=== PATIENT | female | born 1965 | race Caucasian/White ===

== ENCOUNTER → 2018-03-01 14:13 | Outpatient (REF) | payer OTHER, SELFPAY ==
--- NOTE | 2018-03-01 13:30 | PAPFT_PTH ---
PATIENT: Charline Dunham LOC: [facility] U#:[id number] AGE/SX: 60/F ROOM: RE03/01/[address]: Suasna Mesa : 1965 BED: DIS: SPEC #: [id number] RECD: 03/02/18 12:50 STATUS: SUSAN MILLER #: [id number] LUIS: 03/01/18 13:[address]: Susana Mesa DEPT: [facility] Cytology RECD BY: Christelle Medel ENTERED: 03/02/18 12:51 SP TYPE: PAPFT OTHR DR: Celina Jolly Tissues: 1 - CX/ENDOCX FOR PAP SMEARS Procedures: PAP THIN PREP/UVM Screening HPV DNA PROBE Comments: [id number]
[2018-03-01 21:01] LABS: Abs Immature Grans 0.02 k/cumm (0.0-0.09); Absolute Basophil Count 0.02 k/cumm (0.0-0.2); Absolute Eosinophil Count 0.15 k/cumm (0.0-0.7); Absolute Lymphocyte Count 2.06 k/cumm (1.2-3.4); Absolute Monocyte Count 0.59 k/cumm (0.11-0.7); Absolute Neutrophil Count 4.02 k/cumm (1.2-6.7); Basophils % 0.3; Eosinophils % 2.2; HCT 40.7 % (36.0-46.0); HGB 13.4 g/dL (12.0-15.5); Immature Grans % 0.3; Mean Corp. HGB Concentration 32.9 g/dL (32.0-36.0); Mean Corpuscular Hemoglobin 26.2 pg (27.0-33.0); Mean Corpuscular Volume 79.6 fL (80-95); Mean Platelet Volume 10.2 fL (8.0-11.0); Monocytes % 8.6; Neutrophils % 58.6; Platelet Count 344 x1000/uL (130-400); RBC 5.11 m/cumm (4.00-5.20); White Blood Cell Count 6.86 k/cumm (4.4-10.8)
[2018-03-01 21:16] LABS: Anion Gap 8.2 mmol/L (3-11); BUN 14 mg/dL (7-18); C-Reactive Protein 2.09 mg/dL (0.0-0.3); CO2 26.8 mmol/L (21.0-32.0); CREATININE 0.58 mg/dL (0.55-1.02); Calcium 8.9 mg/dL (8.5-10.1); Chloride 101 mmol/L (98-107); Glucose 79 mg/dL (70-100); Potassium 3.4 mmol/L (3.5-5.1); Sodium 136 mmol/L (136-145); TSH (W/Ref FT4) 0.96 uIU/mL (0.358-3.74)
[2018-03-01 21:56] LABS: ESR 21 MM/HR (0-30)
[2018-03-03 09:56] LABS: Cyclic Citrullinated Peptide <2.5 U/mL (<5.0); Rheumatoid Factor 27 IU/mL (<12.5)
[2018-03-03 12:13] LABS: Hepatitis C Ab w Rflx HCV PCR Negative (NEGAT)
[2018-03-03 13:12] LABS: Lyme Ab w Rflx to Lyme Confirm Negative
== END ==
LOC: NCHCN 14:13
PROVIDERS: Visit Provider Nurse Practitioner Family
DX: Z00.00 Encounter for general adult medical examination without abnormal findings (principal); I10 Essential (primary) hypertension; N95.1 Menopausal and female climacteric states; M25.50 Pain in unspecified joint; M19.90 Unspecified osteoarthritis, unspecified site; E66.01 Morbid (severe) obesity due to excess calories; Z80.3 Family history of malignant neoplasm of breast; J30.1 Allergic rhinitis due to pollen; Z11.59 Encounter for screening for other viral diseases; Z12.4 Encounter for screening for malignant neoplasm of cervix; Z11.51 Encounter for screening for human papillomavirus (HPV)
CPT/HCPCS: 80048; 85652; 86200; 86803; 88142; 84443; 85025; 86140; 86431; 86618; 87624

== ENCOUNTER 2018-03-03 08:52 | Outpatient (REF) | payer OTHER, SELFPAY ==
[2018-03-04 14:59] LABS: ANA Interpretation Positive (NEGAT); ANA Titer Pattern SEE COMMENTS
== END 2018-03-03 08:53 ==
LOC: NCHCN 08:52
PROVIDERS: Visit Provider Nurse Practitioner Family
DX: M25.50 Pain in unspecified joint (principal)
CPT/HCPCS: 86038

== ENCOUNTER 2018-03-28 00:42 | Outpatient (CLI) | payer OTHER, SELFPAY ==
--- NOTE | 2018-03-28 07:55 | DI.MAMMO_ITS ---
SYMPTOM/DIAGNOSIS: SCREENING, Z12.31 MAMMOGRAMS: Mammograms were interpreted according to the usual protocol including computer analysis with CAD system, tomosynthesis and C view imaging. Comparison is made with prior examinations. Breast density, category B. No masses or microcalcifications are seen. There is nothing to suggest malignancy. IMPRESSION: Negative mammogram. Routine screening is recommended. Category 1. MQSA ASSESSMENT OF FINDINGS: Negative. Category 1. Patient will receive a letter notifying them of these results. BI-RADS category B. There are scattered areas of fibroglandular density.
== END 2018-03-28 01:02 ==
PROVIDERS: Visit Provider Nurse Practitioner Family
DX: Z12.31 Encounter for screening mammogram for malignant neoplasm of breast (principal)
CPT/HCPCS: 77063; 77067

== ENCOUNTER 2018-10-03 02:01 | Outpatient (CLI) | payer BC, SELFPAY ==
[2018-10-03 08:56] LABS: HCT 41.3 % (36.0-46.0); HGB 13.7 g/dL (12.0-15.5); Mean Corp. HGB Concentration 33.2 g/dL (32.0-36.0); Mean Corpuscular Hemoglobin 26.6 pg (27.0-33.0); Mean Platelet Volume 9.6 fL (8.0-11.0); Platelet Count 317 x1000/uL (130-400); RBC 5.16 m/cumm (4.00-5.20); RBC Distribution Width 14.2 % (11.7-14.6); White Blood Cell Count 6.54 k/cumm (4.4-10.8)
[2018-10-03 09:35] LABS: ESR 7 MM/HR (0-30)
[2018-10-03 09:37] LABS: ALT 17 U/L (12-78); AST 15 U/L (15-37); Albumin 3.6 g/dL (3.4-5.0); Alkaline Phosphatase 106 U/L (46-116); Anion Gap 10.1 mmol/L (3-11); BUN 12 mg/dL (7-18); Bilirubin, Total 0.3 mg/dL (0.2-1.0); C-Reactive Protein 1.33 mg/dL (0.0-0.3); CO2 28.9 mmol/L (21.0-32.0); CREATININE 0.57 mg/dL (0.55-1.02); Calcium 8.8 mg/dL (8.5-10.1); Chloride 102 mmol/L (98-107); Glucose 88 mg/dL (70-100); Potassium 3.9 mmol/L (3.5-5.1); Sodium 141 mmol/L (136-145); Total Protein 7.5 g/dL (6.4-8.2)
== END 2018-10-03 02:21 ==
PROVIDERS: Visit Provider Internal Medicine Rheumatology
DX: M05.79 Rheumatoid arthritis with rheumatoid factor of multiple sites without organ or systems involvement (principal); Z79.899 Other long term (current) drug therapy
CPT/HCPCS: 36415; 80053; 85027; 85652; 86140

== ENCOUNTER 2019-02-07 15:03 | Outpatient (REF) | payer BC, SELFPAY ==
[2019-02-07 22:42] LABS: ALT 21 U/L (12-78); AST 14 U/L (15-37); Albumin 3.7 g/dL (3.4-5.0); Alkaline Phosphatase 99 U/L (46-116); Anion Gap 7.5 mmol/L (3-11); BUN 15 mg/dL (7-18); Bilirubin, Total 0.3 mg/dL (0.2-1.0); C-Reactive Protein 1.43 mg/dL (0.0-0.3); CO2 29.5 mmol/L (21.0-32.0); CREATININE 0.59 mg/dL (0.55-1.02); Calcium 8.9 mg/dL (8.5-10.1); Chloride 101 mmol/L (98-107); Glucose 112 mg/dL (70-100); Potassium 3.8 mmol/L (3.5-5.1); Sodium 138 mmol/L (136-145); Total Protein 7.9 g/dL (6.4-8.2)
[2019-02-07 22:54] LABS: Abs Immature Grans 0.01 k/cumm (0.0-0.09); Absolute Basophil Count 0.02 k/cumm (0.0-0.2); Absolute Eosinophil Count 0.19 k/cumm (0.0-0.7); Absolute Monocyte Count 0.53 k/cumm (0.11-0.7); Absolute Neutrophil Count 4.55 k/cumm (1.2-6.7); Basophils % 0.3; Eosinophils % 2.5; HCT 40.8 % (36.0-46.0); HGB 13.5 g/dL (12.0-15.5); Immature Grans % 0.1; Lymphocytes % 29.3; Mean Corp. HGB Concentration 33.1 g/dL (32.0-36.0); Mean Corpuscular Hemoglobin 27.5 pg (27.0-33.0); Mean Corpuscular Volume 83.1 fL (80-95); Mean Platelet Volume 10.3 fL (8.0-11.0); Monocytes % 7.1; Neutrophils % 60.7; Platelet Count 388 x1000/uL (130-400); RBC 4.91 m/cumm (4.00-5.20); RBC Distribution Width 14.2 % (11.7-14.6)
== END 2019-02-07 15:23 ==
LOC: NCHCN 15:03
PROVIDERS: Visit Provider Nurse Practitioner Family
DX: R78.89 Finding of other specified substances, not normally found in blood (principal); M05.69 Rheumatoid arthritis of multiple sites with involvement of other organs and systems; Z79.899 Other long term (current) drug therapy
CPT/HCPCS: 80053; 85025; 86140

== ENCOUNTER 2019-06-19 09:09 | Outpatient (REF) | payer BC, SELFPAY ==
[2019-06-19 11:26] LABS: Abs Immature Grans 0.02 k/cumm (0.0-0.09); Absolute Basophil Count 0.02 k/cumm (0.0-0.2); Absolute Eosinophil Count 0.12 k/cumm (0.0-0.7); Absolute Monocyte Count 0.48 k/cumm (0.11-0.7); Absolute Neutrophil Count 2.84 k/cumm (1.2-6.7); Basophils % 0.4; Eosinophils % 2.5; HCT 39.3 % (36.0-46.0); HGB 13.2 g/dL (12.0-15.5); Immature Grans % 0.4; Lymphocytes % 28.7; Mean Corp. HGB Concentration 33.6 g/dL (32.0-36.0); Mean Corpuscular Hemoglobin 28.2 pg (27.0-33.0); Mean Platelet Volume 9.7 fL (8.0-11.0); Monocytes % 9.8; Neutrophils % 58.2; Platelet Count 318 x1000/uL (130-400); RBC 4.68 m/cumm (4.00-5.20); RBC Distribution Width 14.6 % (11.7-14.6); White Blood Cell Count 4.88 k/cumm (4.4-10.8)
[2019-06-19 11:29] LABS: ALT 24 U/L (14-59); AST 22 U/L (15-37); Albumin 3.9 g/dL (3.4-5.0); Alkaline Phosphatase 89 U/L (46-116); Anion Gap 9.3 mmol/L (3-11); BUN 15 mg/dL (7-18); Bilirubin, Total 0.5 mg/dL (0.2-1.0); CO2 30.7 mmol/L (21.0-32.0); CREATININE 0.58 mg/dL (0.55-1.02); Calcium 9.1 mg/dL (8.5-10.1); Calculated LDL 133 mg/dL; Chloride 103 mmol/L (98-107); Cholesterol 200 mg/dL (<200); Glucose 84 mg/dL (74-106); HDL Cholesterol 48 mg/dL (40-60); Potassium 3.9 mmol/L (3.5-5.1); Sodium 143 mmol/L (136-145); Total Protein 7.5 g/dL (6.4-8.2); Triglyceride 95 mg/dL (<150)
[2019-06-19 11:45] LABS: Bilirubin, Direct 0.14 mg/dL (0.00-0.20)
[2019-06-19 13:00] LABS: Hemoglobin A1C 5.2 % (4.5-6.2)
== END 2019-06-19 09:29 ==
LOC: NCHCN 09:09
PROVIDERS: PCP Nurse Practitioner Family; Visit Provider Nurse Practitioner Family
DX: I10 Essential (primary) hypertension (principal); M05.9 Rheumatoid arthritis with rheumatoid factor, unspecified; E66.01 Morbid (severe) obesity due to excess calories
CPT/HCPCS: 80053; 80061; 80076; 83036; 85025

== ENCOUNTER 2019-07-28 01:00 | Outpatient (CLI) | payer BC, SELFPAY ==
--- NOTE | 2019-07-28 09:00 | DI.MAMMO_ITS ---
EXAM: MAMMO SCREENING CLINICAL HISTORY: SCREENING Z12.31 TECHNIQUE: Mammograms were interpreted according to the usual protocol including computer analysis w [employer] CAD system, tomosynthesis and C-view imaging. COMPARISON: March 2018 FINDINGS: The breasts are of moderate density with fairly symmetrical distribution of fibroglandular tissue. N o dominant mass or clumped microcalcification is identified in either breast. Current examination is compared with previous examinations including March 2018 and there has been question of interval increase in prominence of a retroareolar asymmetric radiodensity of the right breast seen on CC view with some question of architectural distortion since the previous study. No other significant ranodlph e seen. Additional mammographic views of the right breast to include CC spot compression view reques bladimir for further evaluation. IMPRESSION: Additional mammographic views of the right breast requested as described above. Breast ultrasound may be indicated as well depending on results of the additional mammographic views. Category 0, breast d ensity category B. BI-RADS Cat 0 - Assessment Incomplete: Need additional imaging evaluation Breast Density - Category B - Scattered areas of fibroglandular density
== END 2019-07-28 01:20 ==
PROVIDERS: PCP Nurse Practitioner Family; Visit Provider Nurse Practitioner Family
DX: Z12.31 Encounter for screening mammogram for malignant neoplasm of breast (principal); R92.8 Other abnormal and inconclusive findings on diagnostic imaging of breast
CPT/HCPCS: 77063; 77067

== ENCOUNTER 2019-08-07 06:15 | Day surgery (SDC) | payer BC, SELFPAY ==
[2019-08-07 06:20] VITALS: BP 137/91; PULSE 77; RESP 12; TEMP 36.5; O2SAT 97
--- NOTE | 2019-08-07 06:27 | W.COLOREPORT ---
Date of service: 08/07/19 Time of Service: 07:29 Colonoscopy Report Date of procedure: 08/07/19 Pre-op diagnosis general: Hx of polyps Post-op diagnosis procedure note: same (small polyp, diverticulosis and Grade 1 internal hemorrhoids) Procedure: Colonoscopy with polypectomy Surgeon: Marifer Morris Anesthesia proc note operative: other (General/ ASA 2/Jr Schultz CRNA ) Estimated blood loss (mL): 3 Pathology: other (Transverse polyp) Complications: None Disposition: same day Indications: Mrs. Jesus is a pleasant 54 year old female who is here today to discuss a Colonoscopy. Her last Colonoscopy was in 2013 and at that time she was noted to have a tortuous colon and one adenomatous polyp at the hepatic flexure. She has no family history of colon cancer. She denies any melena, hematochezia, abdominal pain, unintentional weight loss or changes in bowel habits. Risks, benefits and complications have been reviewed. Complications include but are not limited to bleeding, pain, perforation, missed small lesion/polyp, sore throat, aspiration and adverse reaction to the medications. Questions were entertained and answered to their satisfaction and they wished to proceed. No guarantees were given or implied. Prep: Miralax/Dulcolax Procedure Start Time: :29 Procedure End Time: 08:01 Retraction Time: 24 minutes Findings: One small benign polyp Mild sigmoid diverticulosis Grade 1 internal hemorrhoids Procedure Description: After informed consent was obtained the patient was taken to the procedure room and placed in a left decubitous position. Monitors were applied and a time out was done. The patients name, date of , procedure, allergies to medications and metal in their body was reviewed. The patient was then sedated. Once sedated and comfortable a rectal exam was done. External exam was normal. Internal exam revealed a normal sphincter tone and no palpable masses. The scope was then introduced and retro-flexed. Grade 1 internal hemorrhoids were identified. No polyps or masses were identified on retro-flexion. The scope was then advanced to the cecum without difficulty. The TI and appendiceal orifice were identified. The prep was adequate. The scope was then slowly retracted over 24 minutes back into the rectum. Polyps were removed with cold forceps in the transverse colon. It looked hyperplastic. There was mild diverticulosis of the sigmoid colon. The scope was removed and the patient was woken up and taken back to Same day surgery in stable condition. The patient tolerated the procedure well and there were no immediate complications. Follow up: The patient should follow up in 5 years unless they develop changes in bowel habits or other new gastrointestinal complaints.
--- NOTE | 2019-08-07 06:29 | W.PM.DSUDISC ---
Discharge Plan Disposition Patient Disposition: HOME Condition: Good Discharge Details Reason For Visit: Colon Cancer Screening Attending Provider: Marifer Morris Primary Care Provider: Susana Mesa Home Meds and New Rx's Prescriptions: Continued epinephrine [EpiPen 2-Jozef] 0.3 mg/0.3 mL auto-injector 0.3 mg IM ONCE RF: 0 folic acid 1 mg tablet 1 mg PO DAILY RF: 0 methotrexate sodium 25 mg/mL solution 8 mg SC QWEEK RF: 0 chlorthalidone 25 MG tablet 25 mg PO DAILY RF: 0 ibuprofen [Motrin IB] 200 MG tablet 200 mg PO PRN PRNRF: 0 ascorbic acid (vitamin C) 1,000 mg Tablet 1,000 mg PO DAILY RF: 0 Discharge Instructions Instructions: Diverticulosis (DC), Hemorrhoids (DC) Additional Instructions: Findings: 1 biopsy done of possible a small polyp 2. Diverticulosis 3. Small internal hemorrhoids Follow up: 5 years Please call if you develop: fevers >101.5 Nausea or Vomiting Abdominal pain that is not transient DAY SURGERY UNIT POST ENDOSCOPY INSTRUCTIONS 1. Because there will be medication in your system for the next 24 hours, you may feel a little sleepy. Your coordination will be affected. Therefore: a. Do not drive or operate dangerous equipment for 24 hours. b. Do not drink alcohol beverages for 24 hours (not even beer). c. Plan to go home and rest for the day. 2. Generally there are no restrictions on your activity after a day or so has gone by, but you may feel a bit fatigued for a few days. 3 After you arrive home you may have a light meal and return to a normal diet as you can tolerate it without feeling sick to your stomach. 4. After surgery, you may feel pain or discomfort. This should be only transient, but if it persists please contact your doctor. 5. If there are any questions regarding the findings of your procedure, please feel free to contact your doctor. 6. If you are unable to contact your doctor with a problem, contact the hospital at [phone]. 7. Continue all your regular medications unless directed otherwise. I understand the above instructions and have no questions. Signature of Patient or Responsible Adult Escort Date/Time Name of Responsible Adult Escort Signature of Nurse Date/Time Activity:: Activity as Tolerated Diet:: high fiber diet Discharge Orders Discharge Orders: Discharge Order (Routine); Ordered 08/07/19 Ordered By: Marifer Morris DS: Diagnosis Discharge Diagnosis (1) Internal hemorrhoids: Status: Acute (2) Diverticulosis large intestine w/o perforation or abscess w/o bleeding: Status: Acute
[2019-08-07] MEDS: Lactated Ringers 1,000 ML 80 ML IV (06:45)
--- NOTE | 2019-08-07 07:50 | BOWEL_PTH ---
PATIENT: Charline Dunham LOC: [facility] U#:[id number] AGE/SX: 54/F ROOM: RE08/07/[address]: Marifer Morris MD : 1965 BED: DIS: 08/07/2019 SPEC #: [id number] RECD: 08/07/19 12:38 STATUS: SUSAN REQ #: [id number] LUIS: 08/07/19 07:[address]: Marifer Morris DEPT: Surgical Specimen RECD BY: Christelle Medel ENTERED: 08/07/19 12:39 SP TYPE: Bowel OTHR DR: Susana Mesa Tissues: 1 - BIOPSY BOWEL Procedures: GROSS AND MICRO LEVEL 4 Comments: [id number]
[2019-08-07 08:26] VITALS: BP 103/66; PULSE 61; RESP 12; TEMP 36.5; O2SAT 97
== END 2019-08-07 08:50 | disposition home or self-care (01) ==
PROVIDERS: PCP Nurse Practitioner Family; Visit Provider Surgery
PROC: 0DJD8ZZ Inspection of Lower Intestinal Tract, Via Natural or Artificial Opening Endoscopic (ICD-10-PCS; CPT 45378; principal; 2019-08-07 07:30)
DX: Z12.11 Encounter for screening for malignant neoplasm of colon (principal); K57.30 Diverticulosis of large intestine without perforation or abscess without bleeding; K64.0 First degree hemorrhoids; K63.5 Polyp of colon; I10 Essential (primary) hypertension; Z86.010 Personal history of colon polyps
CPT/HCPCS: 45380; 88305; J2704

== ENCOUNTER 2019-08-08 01:59 | Outpatient (CLI) | payer BC, SELFPAY ==
--- NOTE | 2019-08-08 09:26 | DI.US_ITS ---
EXAM: MG MAMMO SCREEN CALL BACK UNI and rt breast ultrasound CLINICAL HISTORY: ? INTERVAL INCREASE IN PROMINENCE OF RETROAREOLAR ASYMMETRIC RADIODENSITY, murali ectural distortion TECHNIQUE: Craniocaudal and mediolateral oblique Full Field Digital Mammography views of the right b reast with Computer Aided Diagnosis followed by Tomosynthesis and right breast ultrasound. COMPARISON: Priors available for comparison. FINDINGS: Mammography/Tomosynthesis: Masses/Architectural Distortion: None seen. Microcalcifictions: No suspicious pleomorphic-type are seen. Skin Thickening/Nipple Retraction: None. Right breast US: Echotexture: Normal appearance of the glandular tissue. Shadowing: No suspicious foci. Cyst: None. Solid lesions: None seen. Ductal dilation: None. IMPRESSION: 1. No evidence of malignancy is noted. 2. Unless there is more urgent need, follow-up screening mammography is recommended, as per [place] [employer] guidelines. ACR BI-RAD Category- 1 Negative Breast Density - Category B - Scattered areas of fibroglandular density Findings were discussed with the patient on the date of the examination. A negative radiographic report should not delay biopsy if a dominant or clinically suspicious mass is present. Up to ten percent of cancers are not identified on mammography. A negative report may reinforce clinical impression. Adenosis and dense breasts may obscure an underlying neoplasm. False positive reports average 6 to 10%. Patient will receive a letter notifying them of these results
== END 2019-08-08 02:19 ==
PROVIDERS: PCP Nurse Practitioner Family; Visit Provider Nurse Practitioner Family
DX: Z12.31 Encounter for screening mammogram for malignant neoplasm of breast (principal); R92.8 Other abnormal and inconclusive findings on diagnostic imaging of breast; N64.59 Other signs and symptoms in breast
CPT/HCPCS: 76642; 77063; 77067

== ENCOUNTER 2019-10-20 16:29 | Outpatient (REF) | payer BC, SELFPAY ==
[2019-10-20 20:57] LABS: Abs Immature Grans 0.01 k/cumm (0.0-0.09); Absolute Basophil Count 0.02 k/cumm (0.0-0.2); Absolute Eosinophil Count 0.18 k/cumm (0.0-0.7); Absolute Lymphocyte Count 2.05 k/cumm (1.2-3.4); Absolute Monocyte Count 0.81 k/cumm (0.11-0.7); Basophils % 0.3; Eosinophils % 2.5; HCT 39.1 % (36.0-46.0); Immature Grans % 0.1 %; Mean Corp. HGB Concentration 33.2 g/dL (32.0-36.0); Mean Corpuscular Volume 84.1 fL (80-95); Mean Platelet Volume 10.3 fL (8.0-11.0); Monocytes % 11.5; Neutrophils % 56.6; Platelet Count 352 x1000/uL (130-400); RBC 4.65 m/cumm (4.00-5.20); RBC Distribution Width 14.4 % (11.7-14.6); White Blood Cell Count 7.07 k/cumm (4.4-10.8)
[2019-10-20 21:07] LABS: ALT 21 U/L (14-59); AST 15 U/L (15-37); Albumin 3.9 g/dL (3.4-5.0); Alkaline Phosphatase 88 U/L (46-116); Anion Gap 8.8 mmol/L (3-11); BUN 20 mg/dL (7-18); Bilirubin, Total 0.4 mg/dL (0.2-1.0); C-Reactive Protein 0.88 mg/dL (0.0-0.3); CO2 29.2 mmol/L (21.0-32.0); CREATININE 0.77 mg/dL (0.55-1.02); Calcium 9.1 mg/dL (8.5-10.1); Chloride 103 mmol/L (98-107); Glucose 89 mg/dL (74-106); Potassium 3.8 mmol/L (3.5-5.1); Sodium 141 mmol/L (136-145); Total Protein 7.4 g/dL (6.4-8.2)
== END 2019-10-20 16:49 ==
LOC: NCHCN 16:29
PROVIDERS: PCP Nurse Practitioner Family; Visit Provider Nurse Practitioner Family
DX: M05.79 Rheumatoid arthritis with rheumatoid factor of multiple sites without organ or systems involvement (principal); Z79.899 Other long term (current) drug therapy
CPT/HCPCS: 80053; 85025; 86140

== ENCOUNTER 2020-06-17 16:18 | Outpatient (REF) | payer BC, SELFPAY ==
[2020-06-17 22:16] LABS: COMMENT (LAB VIEW ONLY) 47.51 mg/dL; Microalb ug/mg Crea 4.2 ug/mg Cr
== END 2020-06-17 16:38 ==
LOC: NCHCN 16:18
PROVIDERS: PCP Nurse Practitioner Family; Visit Provider Nurse Practitioner Family
DX: R31.21 Asymptomatic microscopic hematuria (principal)
CPT/HCPCS: 82043; 82570

== ENCOUNTER 2020-08-01 17:07 | Outpatient (REF) | payer BC, SELFPAY ==
[2020-08-01 20:46] LABS: Abs Immature Grans 0.02 10^3/uL (0.0-0.06); Absolute Basophil Count 0.04 10^3/uL (0.0-0.2); Absolute Eosinophil Count 0.14 10^3/uL (0.0-0.7); Absolute Lymphocyte Count 1.91 10^3/uL (1.2-3.4); Absolute Monocyte Count 0.73 10^3/uL (0.1-0.8); Absolute Neutrophil Count 4.93 10^3/uL (1.2-6.7); Basophils % 0.5; Eosinophils % 1.8; HCT 41.6 % (36.0-46.0); HGB 13.9 g/dL (11.2-15.7); Immature Grans % 0.3; Lymphocytes % 24.6; MCHC 33.4 % (32.0-36.0); MCV 83.9 fL (80-95); MPV 9.6 fL (8.0-11.0); Monocytes % 9.4; Neutrophils % 63.4; Nucleated RBC 0 %; Platelet Count 343 10^3/uL (130-400); RBC 4.96 10^6/uL (3.93-5.22); RDW 13.9 % (11.7-14.6); WBC 7.77 10^3/uL (4.4-10.8)
[2020-08-01 20:55] LABS: ALT 25 U/L (14-59); AST 17 U/L (15-37); Alkaline Phosphatase 108 U/L (46-116); Anion Gap 5.6 mmol/L (3-11); BUN 16 mg/dL (7-18); Bilirubin, Total 0.3 mg/dL (0.2-1.0); C-Reactive Protein 0.64 mg/dL (0.0-0.3); CO2 33.4 mmol/L (21.0-32.0); CREATININE 0.9 mg/dL (0.55-1.02); Calcium 8.9 mg/dL (8.5-10.1); Chloride 100 mmol/L (98-107); Glucose 88 mg/dL (74-106); Potassium 3.1 mmol/L (3.5-5.1); Sodium 139 mmol/L (136-145); Total Protein 7.6 g/dL (6.4-8.2)
== END 2020-08-01 17:27 ==
LOC: NCHCN 17:07
PROVIDERS: PCP Nurse Practitioner Family; Visit Provider Nurse Practitioner Family
DX: M05.79 Rheumatoid arthritis with rheumatoid factor of multiple sites without organ or systems involvement (principal); Z79.899 Other long term (current) drug therapy
CPT/HCPCS: 80053; 85025; 86140

== ENCOUNTER 2020-08-09 01:09 | Outpatient (CLI) | payer BC, SELFPAY ==
[2020-08-09 10:22] LABS: ALT 23 U/L (14-59); AST 16 U/L (15-37); Albumin 3.8 g/dL (3.4-5.0); Alkaline Phosphatase 100 U/L (46-116); Anion Gap 8.4 mmol/L (3-11); BUN 17 mg/dL (7-18); Bilirubin, Total 0.3 mg/dL (0.2-1.0); C-Reactive Protein 0.76 mg/dL (0.0-0.3); CO2 29.6 mmol/L (21.0-32.0); CREATININE 0.7 mg/dL (0.55-1.02); Calcium 8.4 mg/dL (8.5-10.1); Chloride 103 mmol/L (98-107); Glucose 97 mg/dL (74-106); Potassium 3.9 mmol/L (3.5-5.1); Sodium 141 mmol/L (136-145); Total Protein 7.3 g/dL (6.4-8.2)
[2020-08-09 10:26] LABS: Abs Immature Grans 0.02 10^3/uL (0.0-0.06); Absolute Basophil Count 0.03 10^3/uL (0.0-0.2); Absolute Eosinophil Count 0.13 10^3/uL (0.0-0.7); Absolute Lymphocyte Count 1.61 10^3/uL (1.2-3.4); Absolute Monocyte Count 0.68 10^3/uL (0.1-0.8); Absolute Neutrophil Count 4.43 10^3/uL (1.2-6.7); Basophils % 0.4; Eosinophils % 1.9; HCT 39.9 % (36.0-46.0); HGB 13.2 g/dL (11.2-15.7); Immature Grans % 0.3; Lymphocytes % 23.3; MCH 27.8 pg (27.0-33.0); MCHC 33.1 % (32.0-36.0); MCV 84.2 fL (80-95); MPV 9.9 fL (8.0-11.0); Monocytes % 9.9; Neutrophils % 64.2; Nucleated RBC 0 %; Platelet Count 309 10^3/uL (130-400); RBC 4.74 10^6/uL (3.93-5.22); RDW 13.9 % (11.7-14.6); RDW-SD 42.4 fL
[2020-08-12 10:40] LABS: Hepatitis C Ab w Rflx HCV PCR Negative (Negative)
[2020-08-12 10:48] LABS: HBs Antibody, Quant 373.4 mIU/mL (See Note); Hepatitis B Surface Ab Positive (See Note)
[2020-08-12 10:55] LABS: Hepatitis B Surface Ag Negative (Negative)
[2020-08-12 11:52] LABS: Hep B Core Antibody Negative (Negative)
[2020-08-12 14:32] LABS: TB Interpretation Negative (Negative)
== END 2020-08-09 01:10 | disposition home or self-care (01) ==
LOC: LBO 01:09
PROVIDERS: PCP Nurse Practitioner Family; Visit Provider Internal Medicine Rheumatology
DX: M05.79 Rheumatoid arthritis with rheumatoid factor of multiple sites without organ or systems involvement (principal); Z79.899 Other long term (current) drug therapy; Z11.59 Encounter for screening for other viral diseases
CPT/HCPCS: 36415; 80053; 86704; 86706; 86803; 87340; 85025; 86140; 86480; 87350

== ENCOUNTER 2020-08-09 02:10 | Outpatient (CLI) | payer BC, SELFPAY ==
--- NOTE | 2020-08-09 | DI.MAMMO_ITS ---
EXAM: MG MAMMO SCREENING CLINICAL HISTORY: SCREENING,Z12.31,FAMILY H/O BREAST CA,Z80.3 TECHNIQUE: Bilateral full field digital CC and MLO mammographic images were obtained with 3D tomosyn thesis and utilizing computer aided detection (CAD). COMPARISON: Available for comparison. FINDINGS: Masses/Architectural Distortion: None seen. Microcalcifications: No suspicious pleomorphic-type are seen. Skin Thickening/Nipple Retraction: None. IMPRESSION: 1. No significant interval change with no specific features of malignancy noted. 2. Unless there is more urgent need, screening mammography is recommended, as per [place] [employer] guidelines. BI-RADS Category 1 - Negative Breast Density - Category B - Scattered areas of fibroglandular density Breast density category C or D implies that the patient has dense breast tissue. Dense breast tissue is very common and is not abnormal but dense breast tissue can make it harder to find cancer on a ma mmogram. Also, dense breast tissue may increase their breast cancer risk. This information about the result of the mammogram report was provided to the patient to raise their awareness. Use this report when you speak with the patient about their risks for breast cancer, which includes their family hist ory. At that time, you may recommend for more screening tests (Ultrasound or MRI) as they might be us eful based on their risk. A negative radiographic report should not delay biopsy if a dominant or clinically suspicious mass is present. Up to ten percent of cancers are not identified on mammography. A negative report may reinforce clinical impression. Adenosis and dense breasts may obscure an underlying neoplasm. False positive reports average 6 to 10%. Patient will receive a letter notifying them of these results.
== END 2020-08-09 02:11 ==
LOC: DI 02:10
PROVIDERS: PCP Nurse Practitioner Family; Visit Provider Nurse Practitioner Family
DX: Z12.31 Encounter for screening mammogram for malignant neoplasm of breast (principal); Z80.3 Family history of malignant neoplasm of breast
CPT/HCPCS: 77063; 77067

== ENCOUNTER 2021-01-16 13:11 | Outpatient (REF) | payer BC, SELFPAY ==
[2021-01-16 20:57] LABS: Abs Immature Grans 0.03 10^3/uL (0.0-0.06); Absolute Basophil Count 0.03 10^3/uL (0.0-0.2); Absolute Eosinophil Count 0.09 10^3/uL (0.0-0.7); Absolute Monocyte Count 0.66 10^3/uL (0.1-0.8); Absolute Neutrophil Count 3.78 10^3/uL (1.2-6.7); Basophils % 0.4; Eosinophils % 1.3; HCT 39.6 % (36.0-46.0); HGB 13.2 g/dL (11.2-15.7); Immature Grans % 0.4; Lymphocytes % 35.3; MCH 28.1 pg (27.0-33.0); MCHC 33.3 % (32.0-36.0); MCV 84.3 fL (80-95); MPV 10.3 fL (8.0-11.0); Monocytes % 9.3; Neutrophils % 53.3; Nucleated RBC 0 %; Platelet Count 298 10^3/uL (130-400); RDW 13.6 % (11.7-14.6); RDW-SD 41.3 fL; WBC 7.09 10^3/uL (4.4-10.8)
[2021-01-16 21:22] LABS: ALT 20 U/L (14-59); AST 17 U/L (15-37); Albumin 4.1 g/dL (3.4-5.0); Alkaline Phosphatase 87 U/L (46-116); Anion Gap 8.6 mmol/L (3-11); BUN 12 mg/dL (7-18); Bilirubin, Total 0.5 mg/dL (0.2-1.0); CO2 28.4 mmol/L (21.0-32.0); CREATININE 0.7 mg/dL (0.55-1.02); Calcium 9.2 mg/dL (8.5-10.1); Chloride 103 mmol/L (98-107); Glucose 85 mg/dL (74-106); Potassium 3.4 mmol/L (3.5-5.1); Sodium 140 mmol/L (136-145); Total Protein 7.3 g/dL (6.4-8.2)
== END 2021-01-16 13:12 | disposition home or self-care (01) ==
LOC: NCHCN 13:11
PROVIDERS: PCP Nurse Practitioner Family; Visit Provider Nurse Practitioner Family
DX: E66.01 Morbid (severe) obesity due to excess calories (principal); I10 Essential (primary) hypertension; D12.6 Benign neoplasm of colon, unspecified; M05.79 Rheumatoid arthritis with rheumatoid factor of multiple sites without organ or systems involvement; K30 Functional dyspepsia; Z91.018 Allergy to other foods; Z80.3 Family history of malignant neoplasm of breast
CPT/HCPCS: 80053; 85025; 86140

== ENCOUNTER 2021-04-16 09:54 | Outpatient (REF) | payer BC, SELFPAY ==
[2021-04-16 14:19] LABS: Abs Immature Grans 0.02 10^3/uL (0.0-0.06); Absolute Basophil Count 0.03 10^3/uL (0.0-0.2); Absolute Eosinophil Count 0.16 10^3/uL (0.0-0.7); Absolute Lymphocyte Count 2.22 10^3/uL (1.2-3.4); Absolute Monocyte Count 0.62 10^3/uL (0.1-0.8); Absolute Neutrophil Count 3.87 10^3/uL (1.2-6.7); Basophils % 0.4; Eosinophils % 2.3; HCT 41.6 % (36.0-46.0); HGB 13.6 g/dL (11.2-15.7); Immature Grans % 0.3; Lymphocytes % 32.1; MCH 28.4 pg (27.0-33.0); MCHC 32.7 % (32.0-36.0); MCV 86.8 fL (80-95); MPV 10.1 fL (8.0-11.0); Neutrophils % 55.9; Nucleated RBC 0 %; Platelet Count 299 10^3/uL (130-400); RBC 4.79 10^6/uL (3.93-5.22); RDW 13.5 % (11.7-14.6); RDW-SD 42.9 fL; WBC 6.92 10^3/uL (4.4-10.8)
[2021-04-16 14:39] LABS: ALT 28 U/L (14-59); AST 20 U/L (15-37); Alkaline Phosphatase 89 U/L (46-116); Anion Gap 9.8 mmol/L (3-11); BUN 18 mg/dL (7-18); Bilirubin, Total 0.5 mg/dL (0.2-1.0); CO2 29.2 mmol/L (21.0-32.0); CREATININE 0.9 mg/dL (0.55-1.02); Calcium 8.9 mg/dL (8.5-10.1); Chloride 102 mmol/L (98-107); Glucose 87 mg/dL (74-106); Potassium 3.9 mmol/L (3.5-5.1); Sodium 141 mmol/L (136-145); Total Protein 7.4 g/dL (6.4-8.2)
== END 2021-04-16 09:55 | disposition home or self-care (01) ==
LOC: NCHCN 09:54
PROVIDERS: PCP Nurse Practitioner Family; Visit Provider Nurse Practitioner Family
DX: Z79.899 Other long term (current) drug therapy (principal); M05.9 Rheumatoid arthritis with rheumatoid factor, unspecified
CPT/HCPCS: 80053; 85025; 86140

== ENCOUNTER → 2021-10-15 01:13 | Outpatient (CLI) | payer BC, SELFPAY ==
--- NOTE | 2021-10-15 | DI.MAMMO_ITS ---
Exam(s) MAMMO SCREENING EXAM: MAMMO SCREENING CLINICAL HISTORY: SCREENING, Z12.31 TECHNIQUE: Mammograms were interpreted according to the usual protocol including computer analysis w [employer] CAD system, tomosynthesis and C-view imaging. COMPARISON: 2013 through 2020 FINDINGS: The breasts are composed of scattered fibroglandular densities, Breast Density category B. No suspicious masses or suspicious microcalcifications are seen. No skin thickening or abnormal axillary lymph nodes are seen. There has been no significant change from prior exams. IMPRESSION: BI-RADS Category 1, Negative mammogram Yearly screening mammography is recommended. Breast Density - Category B, scattered fibroglandular densities. A negative radiographic report should not delay biopsy if a dominant or clinically suspicious mass is present. Up to ten percent of cancers are not identified on mammography. A negative report may reinforce clinical impression. Adenosis and dense breasts may obscure an underlying neoplasm. False positive reports average 6 to 10%. Patient will receive a letter notifying them of these results.
== END ==
PROVIDERS: PCP Nurse Practitioner Family; Visit Provider Nurse Practitioner Family
DX: Z12.31 Encounter for screening mammogram for malignant neoplasm of breast (principal)
CPT/HCPCS: 77063; 77067

== ENCOUNTER 2022-02-17 18:23 | Outpatient (REF) | payer BC, SELFPAY ==
[2022-02-17 16:24] LABS: Abs Immature Grans 0.02 10^3/uL (0.0-0.06); Absolute Basophil Count 0.03 10^3/uL (0.0-0.2); Absolute Eosinophil Count 0.09 10^3/uL (0.0-0.7); Absolute Lymphocyte Count 1.98 10^3/uL (1.2-3.4); Absolute Monocyte Count 0.65 10^3/uL (0.1-0.8); Absolute Neutrophil Count 3.27 10^3/uL (1.2-6.7); Basophils % 0.5; Eosinophils % 1.5; HCT 41.7 % (36.0-46.0); HGB 13.8 g/dL (11.2-15.7); Immature Grans % 0.3; Lymphocytes % 32.8; MCH 28.2 pg (27.0-33.0); MCHC 33.1 % (32.0-36.0); MCV 85 fL (80-95); MPV 10.3 fL (8.0-11.0); Monocytes % 10.8; Neutrophils % 54.1; Platelet Count 298 10^3/uL (130-400); RBC 4.89 10^6/uL (3.93-5.22); RDW 13.8 % (11.7-14.6); RDW-SD 42.6 fL; WBC 6.04 10^3/uL (4.4-10.8)
[2022-02-17 16:47] LABS: ALT 26 U/L (14-59); AST 19 U/L (15-37); Alkaline Phosphatase 88 U/L (46-116); Anion Gap 9.6 mmol/L (3-11); BUN 16 mg/dL (7-18); Bilirubin, Total 0.5 mg/dL (0.2-1.0); CO2 31.4 mmol/L (21.0-32.0); CREATININE 0.7 mg/dL (0.55-1.02); Calculated LDL 132 mg/dL (<100); Chloride 100 mmol/L (98-107); Cholesterol 212 mg/dL (<200); Glucose 89 mg/dL (74-106); HDL Cholesterol 61 mg/dL (40-60); Potassium 3.8 mmol/L (3.5-5.1); Sodium 141 mmol/L (136-145); Total Protein 7.6 g/dL (6.4-8.2); Triglyceride 96 mg/dL (<150)
[2022-02-17 16:54] LABS: C-Reactive Protein 0.71 mg/dL (0.0-0.3)
== END 2022-02-17 18:24 | disposition home or self-care (01) ==
LOC: NCHCN 18:23
PROVIDERS: PCP Nurse Practitioner Family; Visit Provider Nurse Practitioner Family
DX: M05.9 Rheumatoid arthritis with rheumatoid factor, unspecified (principal); I10 Essential (primary) hypertension
CPT/HCPCS: 80053; 80061; 85025; 86140

== ENCOUNTER 2022-10-22 15:44 | Outpatient (REF) | payer BC, SELFPAY ==
--- NOTE | 2022-10-22 15:15 | PAPFT_PTH ---
PATIENT: Charline Dunham LOC: [facility]#:[id number] AGE/SX: 57/F ROOM: RE10/22/[address]: Susana Mesa : 1965 BED: DIS: 10/22/2022 SPEC #: [id number] RECD: 10/23/22 13:03 STATUS: SUSAN MILLER #: [id number] LUIS: 10/22/22 15:[address]: Susana Mesa [facility] Cytology RECD BY: Christelle Medel Tissues: 1 - CX/ENDOCX FOR PAP SMEARS Procedures: PAP THIN PREP/UVM Screening HPV DNA PROBE Comments: [id number]
[2022-10-22 21:10] LABS: Abs Immature Grans 0.03 10^3/uL (0.0-0.06); Absolute Basophil Count 0.04 10^3/uL (0.0-0.2); Absolute Eosinophil Count 0.15 10^3/uL (0.0-0.7); Absolute Lymphocyte Count 2.34 10^3/uL (1.2-3.4); Absolute Monocyte Count 0.87 10^3/uL (0.1-0.8); Absolute Neutrophil Count 5.66 10^3/uL (1.2-6.7); Basophils % 0.4; Eosinophils % 1.7; HCT 42.4 % (36.0-46.0); HGB 14.1 g/dL (11.2-15.7); Immature Grans % 0.3; Lymphocytes % 25.7; MCH 28.3 pg (27.0-33.0); MCHC 33.3 % (32.0-36.0); MCV 85 fL (80-95); MPV 10.3 fL (8.0-11.0); Monocytes % 9.6; Neutrophils % 62.3; Platelet Count 305 10^3/uL (130-400); RBC 4.98 10^6/uL (3.93-5.22); RDW 14.4 % (11.7-14.6); RDW-SD 43.5 fL; WBC 9.09 10^3/uL (4.4-10.8)
[2022-10-22 21:27] LABS: ALT 20 U/L (14-59); AST 16 U/L (15-37); Albumin 4.1 g/dL (3.4-5.0); Alkaline Phosphatase 95 U/L (46-116); Anion Gap 6.2 mmol/L (3-11); BUN 18 mg/dL (7-18); Bilirubin, Total 0.4 mg/dL (0.2-1.0); C-Reactive Protein 0.53 mg/dL (0.0-0.3); CO2 31.8 mmol/L (21.0-32.0); CREATININE 0.9 mg/dL (0.55-1.02); Calcium 9.4 mg/dL (8.5-10.1); Chloride 100 mmol/L (98-107); Estimated GFR 73.64 (mL/min/1.73m2); Glucose 101 mg/dL (74-106); Sodium 138 mmol/L (136-145)
[2022-10-22 21:35] LABS: Hemoglobin A1C 5.4 % (<5.7)
[2022-10-25 10:15] LABS: HIV-1/2 Ag & Ab Screen Negative (Negative)
== END 2022-10-22 15:45 | disposition home or self-care (01) ==
LOC: NCHCN 15:44
PROVIDERS: PCP Nurse Practitioner Family; Visit Provider Nurse Practitioner Family
DX: Z00.00 Encounter for general adult medical examination without abnormal findings (principal); M05.9 Rheumatoid arthritis with rheumatoid factor, unspecified; K30 Functional dyspepsia; E66.01 Morbid (severe) obesity due to excess calories; Z11.4 Encounter for screening for human immunodeficiency virus [HIV]; Z12.4 Encounter for screening for malignant neoplasm of cervix; R31.21 Asymptomatic microscopic hematuria; Z13.1 Encounter for screening for diabetes mellitus; Z11.51 Encounter for screening for human papillomavirus (HPV)
CPT/HCPCS: 80053; 87389; 88142; 83036; 85025; 86140; 87624

== ENCOUNTER 2022-10-28 01:08 | Outpatient (CLI) | payer BC, SELFPAY ==
--- NOTE | 2022-10-28 | DI.MAMMO_ITS ---
Exam(s) MAMMO SCREENING EXAM: MAMMO SCREENING CLINICAL HISTORY: SCREENING, Z12.31, FAMILY HX OF BREAST CA TECHNIQUE: Mammograms were interpreted according to the usual protocol including computer analysis w [employer] CAD system, tomosynthesis and C-view imaging. COMPARISON: [id number] FINDINGS: The breasts are composed of scattered fibroglandular densities, Breast Density category B. No suspicious masses or suspicious microcalcifications are seen. No skin thickening or abnormal axillary lymph nodes are seen. There has been no significant change from prior exams. IMPRESSION: BI-RADS Category 1, Negative mammogram Yearly screening mammography is recommended. Breast Density - Category B, scattered fibroglandular densities. A negative radiographic report should not delay biopsy if a dominant or clinically suspicious mass is present. Up to ten percent of cancers are not identified on mammography. A negative report may reinforce clinical impression. Adenosis and dense breasts may obscure an underlying neoplasm. False positive reports average 6 to 10%. Patient will receive a letter notifying them of these results.
== END 2022-10-28 01:28 ==
LOC: DI 01:09
PROVIDERS: PCP Nurse Practitioner Family; Visit Provider Nurse Practitioner Family
DX: Z12.31 Encounter for screening mammogram for malignant neoplasm of breast (principal)
CPT/HCPCS: 77063; 77067

== ENCOUNTER 2023-04-20 09:48 | Outpatient (REF) | payer BC, SELFPAY ==
[2023-04-20 16:04] LABS: Abs Immature Grans 0.01 10^3/uL (0.0-0.06); Absolute Basophil Count 0.03 10^3/uL (0.0-0.2); Absolute Eosinophil Count 0.16 10^3/uL (0.0-0.7); Absolute Monocyte Count 0.52 10^3/uL (0.1-0.8); Absolute Neutrophil Count 3.05 10^3/uL (1.2-6.7); Basophils % 0.6; HCT 43.5 % (36.0-46.0); HGB 14.3 g/dL (11.2-15.7); Immature Grans % 0.2; Lymphocytes % 28.5; MCH 27.9 pg (27.0-33.0); MCHC 32.9 % (32.0-36.0); MCV 85 fL (80-95); MPV 10.2 fL (8.0-11.0); Monocytes % 9.9; Neutrophils % 57.8; Platelet Count 306 10^3/uL (130-400); RBC 5.12 10^6/uL (3.93-5.22); RDW 13.7 % (11.7-14.6); RDW-SD 42.2 fL; WBC 5.27 10^3/uL (4.4-10.8)
[2023-04-20 16:35] LABS: ALT 27 U/L (14-59); AST 19 U/L (15-37); Alkaline Phosphatase 86 U/L (46-116); BUN 22 mg/dL (7-18); Bilirubin, Total 0.5 mg/dL (0.2-1.0); CREATININE 0.8 mg/dL (0.55-1.02); Calcium 9.7 mg/dL (8.5-10.1); Chloride 102 mmol/L (98-107); Estimated GFR 84.82 (mL/min/1.73m2); Glucose 100 mg/dL (74-106); Potassium 3.7 mmol/L (3.5-5.1); Sodium 140 mmol/L (136-145); Total Protein 7.5 g/dL (6.4-8.2)
== END 2023-04-20 09:49 | disposition home or self-care (01) ==
LOC: NCHCN 09:48
PROVIDERS: PCP Nurse Practitioner Family; Visit Provider Nurse Practitioner Family
DX: I10 Essential (primary) hypertension (principal); M05.79 Rheumatoid arthritis with rheumatoid factor of multiple sites without organ or systems involvement; K30 Functional dyspepsia; E66.01 Morbid (severe) obesity due to excess calories
CPT/HCPCS: 80053; 85025; 86140

== ENCOUNTER 2023-09-02 12:56 | Outpatient (REF) | payer BC, SELFPAY ==
[2023-09-02 14:29] LABS: Abs Immature Grans 0.01 10^3/uL (0.0-0.06); Absolute Basophil Count 0.03 10^3/uL (0.0-0.2); Absolute Eosinophil Count 0.18 10^3/uL (0.0-0.7); Absolute Lymphocyte Count 1.85 10^3/uL (1.2-3.4); Absolute Monocyte Count 0.74 10^3/uL (0.1-0.8); Absolute Neutrophil Count 2.87 10^3/uL (1.2-6.7); Basophils % 0.5; Eosinophils % 3.2; HCT 41.7 % (36.0-46.0); HGB 14.1 g/dL (11.2-15.7); Immature Grans % 0.2; Lymphocytes % 32.6; MCH 28.8 pg (27.0-33.0); MCHC 33.8 % (32.0-36.0); MCV 85 fL (80-95); Neutrophils % 50.5; Platelet Count 316 10^3/uL (130-400); RBC 4.89 10^6/uL (3.93-5.22); RDW 13.8 % (11.7-14.6); RDW-SD 42.4 fL; WBC 5.68 10^3/uL (4.4-10.8)
[2023-09-02 14:41] LABS: ALT 25 U/L (14-59); AST 16 U/L (15-37); Albumin 3.8 g/dL (3.4-5.0); Alkaline Phosphatase 89 U/L (46-116); Anion Gap 6.9 mmol/L (3-11); BUN 20 mg/dL (7-18); Bilirubin, Total 0.4 mg/dL (0.2-1.0); CO2 31.1 mmol/L (21.0-32.0); CREATININE 0.7 mg/dL (0.55-1.02); Calcium 8.8 mg/dL (8.5-10.1); Chloride 102 mmol/L (98-107); Estimated GFR 98.95 (mL/min/1.73m2); Glucose 86 mg/dL (74-106); Potassium 3.6 mmol/L (3.5-5.1); Sodium 140 mmol/L (136-145); Total Protein 7.2 g/dL (6.4-8.2)
[2023-09-02 14:42] LABS: C-Reactive Protein < 0.50 mg/dL (<or=0.5)
== END 2023-09-02 12:57 | disposition home or self-care (01) ==
LOC: NCHCN 12:56
PROVIDERS: PCP Nurse Practitioner Family; Visit Provider Nurse Practitioner Family
DX: Z79.899 Other long term (current) drug therapy (principal)
CPT/HCPCS: 80053; 85025; 86140

== ENCOUNTER 2023-10-18 10:31 | Outpatient (REF) | payer BC, SELFPAY ==
[2023-10-18 16:12] LABS: Bilirubin Negative (Negative); Blood Negative (Negative); Clarity Sl Cloudy (Clear); Glucose Negative (Negative); Ketones Negative (Negative); Leukocyte Esterase Small (Negative); Nitrite Negative (Negative); Urobilinogen 0.2 mg/dL (Up to 0.2)
[2023-10-18 16:36] LABS: COMMENT (LAB VIEW ONLY) 109.47 mg/dL; Microalb ug/mg Crea 13.2 ug/mg Cr
== END 2023-10-18 10:32 | disposition home or self-care (01) ==
LOC: NCHCN 10:31
PROVIDERS: PCP Nurse Practitioner Family; Visit Provider Nurse Practitioner Family
DX: I10 Essential (primary) hypertension (principal)
CPT/HCPCS: 81003; 82043; 82570

== ENCOUNTER 2023-11-18 13:52 | Outpatient (REF) | payer BC, SELFPAY ==
[2023-11-18 15:07] LABS: ESR 6 mm/hr (0-30)
[2023-11-18 15:37] LABS: ALT 29 U/L (14-59); AST 18 U/L (15-37); Albumin 4.1 g/dL (3.4-5.0); Alkaline Phosphatase 88 U/L (46-116); Anion Gap 8.8 mmol/L (3-11); BUN 21 mg/dL (7-18); Bilirubin, Total 0.6 mg/dL (0.2-1.0); CO2 31.2 mmol/L (21.0-32.0); CREATININE 0.7 mg/dL (0.55-1.02); Calcium 9.1 mg/dL (8.5-10.1); Calculated LDL 133 mg/dL (<100); Chloride 101 mmol/L (98-107); Cholesterol 228 mg/dL (<200); Estimated GFR 98.95 (mL/min/1.73m2); Glucose 83 mg/dL (74-106); HDL Cholesterol 69 mg/dL (40-60); Potassium 3.9 mmol/L (3.5-5.1); Sodium 141 mmol/L (136-145); Total Protein 7.3 g/dL (6.4-8.2); Triglyceride 134 mg/dL (<150)
[2023-11-18 15:49] LABS: C-Reactive Protein 0.73 mg/dL (<or=0.5)
== END 2023-11-18 13:53 | disposition home or self-care (01) ==
LOC: NCHCN 13:52
PROVIDERS: PCP Nurse Practitioner Family; Visit Provider Nurse Practitioner Family
DX: M05.9 Rheumatoid arthritis with rheumatoid factor, unspecified (principal); E66.01 Morbid (severe) obesity due to excess calories
CPT/HCPCS: 80053; 80061; 85652; 86140

== ENCOUNTER → 2024-02-04 00:35 | Outpatient (CLI) | payer BC, SELFPAY ==
--- OUTSIDE RECORDS SUMMARY | 2024-02-04 00:38 | XMS_ITS | Encounter Summary ---
Author Organization [facility] [place] [address] Care Team Providers Care Craps Manager Name Role Phone Moshe Susana Emeli HARRY Primary Care Provider [phone] Encounter Details Date Type Department Care Team (Late st Contact Info) Description 12/12/2019 12:00 PM EDT Tech [place] [id number] [place] Varicose veins of left lower extremity, unspecified whether complicated Social History Tobacco Use Types Packs/Day Years Used Date Smoking Tobacco: Never Smokeless Tobacco: Never Sex and Gender Information Value Date Recorded Sex Assigned at Not on file Gender Identity Not on file Sexual Orientation Not on file documented as of this encounter Plan of Treatment Not on file documented as of this encounter Procedures Procedure Name Priority Date/Time Associated Diagnosis Comments UNLATERAL VALVULAR INCOMP Routine 12/12/2019 8:56 AM EDT Varicose veins of left lower extremity, unspecified whether complicated documented in this encounter Results * LE Unilateral Valvular Incomp Study (12/12/2019 8:56 AM EDT) VB Text Report Department: Vascular Surgery Lab Patient: [id number] (CHARLINE RALPH) CPT: 44547 ICD10: I83.92;I87.2;L97. 329 Referring Physician: FORREST ALEJANDRE ?? Indications: L ankle ulcer with normal REBECCA Patient Positioning: Reverse Trendelenburg ICD10 Diagnosis Code: I83.92 Findings: Left ? Reflux? Diameter (mm) ??Depth (mm) ?? Common Femoral Vein ?Reflux ? Femoral Vein ? Competent ? Popliteal ?Competent ? Posterior Tibial Vein ??Not Identified ? GSV, Near SFJ ?Reflux ? GSV, Proximal Thigh ?Competent ? 9.7 ?16.9 ?? GSV, Mid Thigh ? Competent ? 4.8 ?40.5 ?? GSV, Distal Thigh ?Reflux ?4.9 ?46.5 ?? GSV, ??Knee ? Reflux ? GSV Prox Calf ?Reflux ? GSV, Mid Calf ?Reflux ? GSV, Distal Calf ? Reflux ? R Prox ASV ? Reflux ? R Mid ASV ?Reflux ? R Dist ASV ? Reflux ? Interpretation: Left- There is reflux in the CFV (>3.0 sec). Femoral vein and popliteal veins are competent. Not able to adequately visualize the deep calf veins to exclude reflux. There is reflux in the GSV from the distal thigh to the ankle (> 2.0 sec). There is reflux (> 2.5 sec) in the anterior saphenous vein from the groin to distal thigh and at distal thigh where it communicates with the GSV. No evidence of common femoral, femoral, or popliteal DVT. No previous study in our vascular lab database for comparison. Electronically Signed by: NIKITA ADAME on 2019-12-13 01:44:52 PM [facility] VB Text Report End of Report [facility] 12/12/2019 8:56 AM EDT Forrest Alejandre MD VASCULAR ORDERABLES [facility] documented in this encounter Visit Diagnoses Diagnosis Varicose veins of left lower extremity, unspecified whether complicated documented in this encounter Care Teams Craps Manager Relationship Specialty Start Date End Date Susana Mesa APRN [address] [place] [address] PCP - General Family Medicine 12/01/19 documented as of this encounter
--- OUTSIDE RECORDS SUMMARY | 2024-02-04 00:38 | XMS_ITS | Clinical Summary ---
Author Organization [facility] Address [facility] [place] [address] Care Team Providers Care Librarian Helper Name Role Phone MosheChristinSusana Emeli HARRY Primary Care Provider [phone] Allergies Active Allergy Reactions Criticality Noted Date Comments Buckwheat Anaphylaxis High 01/27/2019 Medications Medication Sig Dispensed Refills Start Date End Date Status ACETAMINOPHEN (TYLENOL ORAL) 10/15/2008 Active epiNEPHrine (EPIPEN) 0.3 mg/0.3 mL injection 1 pen, injected, IM, PRN only in emergency 10/15/2008 Active chlorthalidone (Hygroten) 25 mg Tablet Take 25 mg by mouth Daily. 06/22/2019 Active folic acid (Folvite) 1 mg Tablet TAKE ONE TABLET BY MOUTH EVERY DAY 11/18/2019 Active hydroxychloroquine (Plaquenil) 200 mg Tablet TAKE ONE TABLET BY MOUTH EVERY DAY 11/16/2019 Active metHOTREXate 25 mg/mL Solution USE 0.8ML ONCE WEEKLY 09/23/2019 Active Social History Tobacco Use Types Packs/Day Years Used Date Smoking Tobacco: Never Smokeless Tobacco: Never Sex and Gender Information Value Date Recorded Sex Assigned at Not on file Gender Identity Not on file Sexual Orientation Not on file Last Filed Vital Signs Vital Sign Reading Time Taken Comments Blood Pressure 141/84 03/15/2020 8:56 AM EDT Pulse 70 03/15/2020 8:56 AM EDT Temperature 36 ??C (96.8 ??F) 02/06/2020 9:15 AM EDT Respiratory Rate 18 02/06/2020 9:15 AM EDT Oxygen Saturation 99% 02/06/2020 6:22 AM EDT Inhaled Oxygen Concentration - - Weight 112.5 kg (248 lb) 03/15/2020 8:56 AM EDT reported Height 165.1 cm (5' 5) 03/15/2020 8:56 AM EDT r eported Body Mass Index 41.27 03/15/2020 8:56 AM EDT Plan of Treatment Health Maintenance Due Date Last Done Comments CT Colonography 1965 Colonoscopy 1965 Colorectal Cancer Screening 1965 FIT DNA 1965 FIT 1965 Sigmoidoscopy (10 year) with FIT yearly 1965 Sigmoidoscopy 1965 HIV screen 1981 Hepatitis C Screening 1981 Tdap adult 1982 Tetanus vaccine 1982 HPV test 1993 PAP Smear 1993 Breast Cancer Share Decision Needed 2003 Breast Cancer screening 2003 Zoster vaccine (1 of 2) 2013 Advance Directive 2018 Covid-19 Vaccine (1 - season) 2023 Influenza (Flu) vaccine (1 o f 1 - Influenza standard series) 03/05/2024 Care Teams Librarian Helper Relationship Specialty Start Date End Date Susana Mesa APRN [address] [place], [place] [id number] PCP - General Family Medicine 12/01/19
--- OUTSIDE RECORDS SUMMARY | 2024-02-04 00:38 | XMS_ITS | Encounter Summary ---
Author Organization [facility] Address [facility] [place] [address] Care Team Providers Care Head Grease Maker Name Role Phone MosheChristinSusana H KAMRYN Primary Care Provider [phone] Reason for Visit * Auth/Cert Specialty Diagnoses / Procedures Referred By Starr garcia Referred To Contact Diagnoses venous ulcer Procedures PRO LIGATN SHORT SAPHEN PRO LIGATN LONG SAPHENOUS VEIN AT SEPH-FEM JUN PRO PHLEB VEINS - EXTREM - TO 20 PRO ENDOVENOUS RF, 1ST VEIN LIGATION AND DIVISION OF LESSER SAPHENOUS VEIN AT SAPHENOPOPLITEAL JUNCTION (WRVU 3.93) LIGATION AND DIVISION OF GREATER SAPHENOUS VEIN AT SAPHENOFEMORAL JUNCTION (WRVU 3.82) STAB PHLEBECTOMY LENO VEINS 1 EXTREMITY 10-20 INCISIONS (WRVU 7.71) ENDOVENOUS ABLATION THERAPY OF INCOMPETENT VEIN, EXTREMITY, FIRST VEIN (WRVU 5.3) Referral ID Status Reason Start Date Expiration Date Visits Re quested Visits Authorized [id number] 1 1 Encounter Details Date Type Department Care Team (Late st Contact Info) Description 02/06/2020 7:27 AM EDT Anesthesia Event [place] [address] Juan Miguel Cao MD [facility] [place] [address] Anesthesia Record Procedure Summary Procedure Name Responsible Anesthesiologist Anesthesia Start Time Anesthesia Stop Time LIGATION AND DIVISION OF LESSER SAPHENOUS VEIN AT SAPHENOPOPLITEAL JUNCTION (WRVU 3.93) (Left) Juan Miguel Cao MD 02/06/20 0727 02/06/20 0906 Events Date Time Event Comment 02/06/2020 0712 0727 AN Verify 0727 Start 0735 An Start Data 0739 An Data Art BP cuff not wor nicolle. Switched to new cuff. Baseline BP 116/70 without any meds 0742 An Induction 0743 An Intubation 0744 Anesthesia Ready 0819 Skin Incision 0858 Extubation/LMA Out 0900 an stop data 0906 Recovery or ICU Handoff Leyda ent care was transferred to the destination unit staff after review of the patient's medical history, current anesthetic/surgical status and plan, according to the Provider Handoff Checklist. 0906 Stop Meds Name Total fentaNYL 100 mcg IV Lidocaine 100 mg Propofol 200 mg ePHEDrine 15 mg Ondansetron 4 mg Dexamethasone 8 mg ceFAZolin (Ancef) 2g in dextrose 5% 100 mL 2 g Ketorolac 15 mg lactated ringers infusion 600 mL * Agents Name O2 Air N2O Sevoflurane (et) O2 Auxiliary Flowmeter 1 * Blood No blood administrations on file. Lines, Drains, and Airways Type Details Placement Removal (RETIRED) Peripheral IV Line - Single Lumen 02/06/20; 0645; metacarpal vein (top of hand), left; htwo-oal-ifeovs catheter system; 20 gauge; Brenda Perkins RN; intradermal injection, tolerated well; 0; 02/06/20; 1021 02/06/20 0645 by Zulma Perkins RN 02/06/20 1021 by Arcadio Sullivan RN Supraglottic Mask Ventilation: No t Attempted (0); LMA Type: iGel; LMA Size: 4; Inserted by: MICAELA Salamanca; Removal Date: 02/06/20; Removal Time: 0802/06/20 0743 by Megan Ramesh CRNA 02/06/20 0858 by Megan Ramesh CRNA Incision 02/06/20; 0819; thig h; 03/02/22 (LDA cleanup utility RA#[id number]); 171 (LDA cleanup utility RA#[id number]) 02/06/20 0819 by Megan John RN 03/02/22 1715 by Byron Mariee Incision 02/06/20; 0835; leg; 03/02/22 (LDA cleanup utility RA#[id number]); 171 (LDA cleanup utility RA#[id number]) 02/06/20 0835 by Megan John RN 03/02/22 1715 by Byron Mariee documented in this encounter Social History Tobacco Use Types Packs/Day Years Used Date Smoking Tobacco: Never Smokeless Tobacco: Never Sex and Gender Information Value Date Recorded Sex Assigned at Not on file Gender Identity Not on file Sexual Orientation Not on file documented as of this encounter OR Notes * Anesthesia Postprocedure Evaluation - Juan Miguel Cao MD - 02/06/2020 9:47 AM EDT Department of Anesthesiology Post-procedure Note Patient: Charline Dunham Procedure Summary Date: 02/06/20 Room / Location: [facility] OR [address] [place] [address] MAIN OR Anesthesia Start: 726 Anesthesia Stop: 905 Procedures: LIGATION AND DIVISION OF LESSER SAPHENOUS VEIN AT SAPHENOPOPLITEAL JUNCTION (WRVU 3.93) (Left ) ENDOVENOUS ABLATION THERAPY OF INCOMPETENT VEIN, EXTREMITY, FIRST VEIN (WRVU 5.3) (Left ) Diagnosis: (venous ulcer) Surgeon: Stephanie Gilbert MD Responsible Provider: Juan Miguel Cao MD Anesthesia Type: general ASA Status: 3 All Anesthesia Providers: Anesthesiologist: Juan Miguel Cao MD LOAD OUT SUPERVISOR: Megan Ramesh CRNA Vitals Value Taken Time BP 113/79 02/06/20 0930 Temp 36 ??C (96.8 ??F) 02/06/20 0915 Pulse Resp 18 02/06/20 0915 SpO2 100 % 02/06/20 0936 Pain Level Vitals shown include unvalidated device data. Patient Location: PACU/[facility] Level of Consciousness: Awake and Alert Pain Management: Satisfactory Analgesia PONV: None Cardiovascular Status: Hemodynamically Stable and At Baseline Respiratory Status: At Baseline and Room Air Postoperative Fluid Status: Intravascular EUvolemia Possible Anesthetic Complications: NONE apparent at time of evaluation Final Primary Anesthesia Type: General (The anesthetic type performed was the same as planned.) Comments: * Anesthesia Preprocedure Evaluation - Juan Miguel Cao MD - 02/06/2020 7:08 AM EDT Pre-Anesthesia Evaluation for: Charilne Dunham a 54 y.o. female. Procedure(s): LIGATION AND DIVISION OF LESSER SAPHENOUS VEIN AT SAPHENOPOPLITEAL JUNCTION (WRVU 3.93) LIGATION AND DIVISION OF GREATER SAPHENOUS VEIN AT SAPHENOFEMORAL JUNCTION (WRVU 3.82) STAB PHLEBECTOMY LENO VEINS 1 EXTREMITY 10-20 INCISIONS (WRVU 7.71) ENDOVENOUS ABLATION THERAPY OF INCOMPETENT VEIN, EXTREMITY, FIRST VEIN (WRVU 5.3) There are no active problems to display for this patient. No past medical history on file. No past surgical history on file. Social History Tobacco Use ??? Smoking status: Never Smoker ??? Smokeless tobacco: Never Used Substance Use Topics ??? Alcohol use: Not on file Social History Substance and Sexual Activity Drug Use Not on file Allergies Allergen Reactions ??? Buckwheat Anaphylaxis Medications: MAR and/or home medications have been reviewed. Physical Exam: Patient Vitals for the past 24 hrs: Temp Pulse Resp BP SpO2 02/06/20 0622 36.4 ??C (97.5 ??F) 71 18 144/80 99 % Body mass index is 40.85 kg/m??. Height: 165.1 cm (5' 5) Weight: 111.4 kg (245 lb 8 oz) Airway Assessment: Mallampati: III TM distance: >3 FB Neck ROM: full Cardiovascular Assessment: Pulmonary Assessment: Dental Assessment: - normal exam Misc Assessment: IV access: Peripheral line Anesthesia Plan: ASA 3 general, with a(n) intravenous induction 54 y/o woman with a PMH of morbid obesity, HTN, RA, chronic non-healing LLE ulcer with venous incompetence here for intervention. Never had GA, denied problems in family. Denied GERD, cardiac or pulm disease. NPO. Plan for GA. Region - Other Informed Consent: Anesthetic plan and risks discussed with patient and spouse. Plan discussed with LOAD OUT SUPERVISOR. PAT Clinic Note documented in this encounter Plan of Treatment Not on file documented as of this encounter Visit Diagnoses Not on filedocumented in this encounter Administered Medications Inactive Administered Medications - up to 3 most recent administrations Medication Order MAR Action Action Date Dose Rate Site ceFAZolin (Ancef) 2g in dextrose 5% 100 mL 2 g, Intravenous, ONCE, 1 dose, On Wed02/06/20 at 0645, Administer over 30 Minutes, Redose every 3 hours if CrCl is greater than 20. Redose every 8 hours if CrCl is less than 20., Day of Surgery (Day of Procedure), Indication for (Active or Suspected): Prophylaxis Given 02/06/2020 7:27 AM EDT 2 g dexamethasone (Decadron) injection PRN, Starting on Wed02/06/20 at 0742, Until Wed02/06/20 at 0906, Anesthesia Intra-op, Routine Given 02/06/2020 7:42 AM EDT 8 mg ePHEDrine 5 mg/mL multi-dose injection PRN, Starting on Wed02/06/20 at 0753, Until Wed02/06/20 at 0906, Anesthesia Intra-op, Routine Given 02/06/2020 8:16 AM EDT 5 mg Given 02/06/2020 8:05 AM EDT 5 mg Given 02/06/2020 7:53 AM EDT 5 mg fentaNYL 50 mcg/mL multi-dose injection PRN, Starting on Wed02/06/20 at 0749, Until Wed02/06/20 at 0906, Anesthesia Intra-op, Routine Given 02/06/2020 8:34 AM EDT 25 mcg Given 02/06/2020 8:21 AM EDT 25 mcg Given 02/06/2020 8:15 AM EDT 25 mcg ketorolac (TORADOL) injection PRN, Starting on Wed02/06/20 at 0847, Until Wed02/06/20 at 0906, Anesthesia Intra-op, Routine Given 02/06/2020 8:47 AM EDT 15 mg lactated ringers infusion 1,000 mL, at 100 mL/hr, Intravenous, CONTINUOUS, Starting on Wed02/06/20 at 0645, Until Wed02/06/20 at 1022, Day of Surgery (Day of Procedure) New Bag 02/06/2020 7:18 AM EDT lidocaine (PF) (XYLOCAINE) 100 mg/5 mL (2 %) injection PRN, Starting on Wed02/06/20 at 0739, Until Wed02/06/20 at 0906, Anesthesia Intra-op, Routine Given 02/06/2020 7:39 AM EDT 100 mg ondansetron (ZOFRAN) injection PRN, Starting on Wed02/06/20 at 0847, Until Wed02/06/20 at 09, Anesthesia Intra-op, Routine Given 02/06/2020 8:47 AM EDT 4 mg propofol (DIPRIVAN) 10 mg/mL bolus injection (Anesthesia) PRN, Starting on Wed02/06/20 at 0742, Until Wed02/06/20 at 09, Anesthesia Intra-op Given 02/06/2020 7:42 AM EDT 200 mg documented in this encounter Care Teams Head Grease Maker Relationship Specialty Start Date End Date Susana Mesa APRN [address] [place] [address] PCP - General Family Medicine 12/01/19 documented as of this encounter
--- OUTSIDE RECORDS SUMMARY | 2024-02-04 00:38 | XMS_ITS | Clinical Summary ---
Author Organization [facility] Address [address] [place] [address] Care Team Providers Care Biodiesel Processing Technician Name Role Phone Susana Mesa KAMRYN Primary Care Provider [phone] Allergies Active Allergy Reactions Criticality Noted Date Comments Buckwheat Anaphylaxis High 01/27/2019 Medications Medication Sig Dispensed Refills Start Date End Date Status chlorthalidone (HYGROTON) 25 mg tablet Take 1 Tablet by mouth daily. 9 Active BD SAFETYGLIDE TB REG BEVEL 1 mL 27 x 1/2 syringe USE 1 SYRINGE WEEKLY WITH METHOTREXATE 9 Active multivit,iron,mi nerals/lutein (CENTRUM SILVER ULTRA WOMEN'S ORAL) Take 1 Tab by mouth daily. Active EPINEPHrine (EPIPEN) 0.3 mg/0.3 mL injection Inject 0.3 mL into the muscle once as needed. Active adalimumab (HUMIRA,CF, PEN) 40 mg/0.4 mL penIndications:S eropositive rheumatoid arthritis of multiple sites (HCC-CMS) Inject 0.4 mL into the skin every 14 days. 2 Each 5 4 Active hydroxychloroqui ne (PLAQUENIL) 200 mg tabletIndication s:Seropositive rheumatoid arthritis of multiple sites (HCC-CMS),Rheuma toid arthritis involving multiple sites with positive rheumatoid factor (HCC-CMS) Take 1 Tablet by mouth daily. 90 Tablet 3 4 Active methotrexate 25 mg/mL (MDV) injectionIndicat ions:Seropositiv e rheumatoid arthritis of multiple sites (HCC-CMS),Rheuma toid arthritis involving multiple sites with positive rheumatoid factor (HCC-CMS) INJECT 0.8ML UNDER THE SKIN ONCE A WEEK 12 mL 1 4 Active folic acid (FOLVITE) 1 mg tabletIndication s:Seropositive rheumatoid arthritis of multiple sites (HCC-CMS),Rheuma toid arthritis involving multiple sites with positive rheumatoid factor (HCC-CMS) Take 1 Tablet by mouth daily. 90 Tablet 3 4 Active ascorbic acid, vitamin C, (VITAMIN C) 500 mg tablet 1 tab(s) orally once a day 01/26/20 24 Discontinued hydrOXYchloroQUI NE (PLAQUENIL) 200 mg tabletIndication s:Rheumatoid arthritis involving multiple sites with positive rheumatoid factor (HCC-CMS) TAKE ONE TABLET BY MOUTH EVERY DAY 90 Tablet 3 3 01/26/20 24 Discontinued(Reo rder) methotrexate 25 mg/mL (MDV) injectionIndicat ions:Rheumatoid arthritis involving multiple sites with positive rheumatoid factor (HCC-CMS) INJECT 0.8ML UNDER THE SKIN ONCE A WEEK 12 mL 1 4 01/26/20 24 Discontinued(Reo rder) folic acid (FOLVITE) 1 mg tabletIndication s:Rheumatoid arthritis involving multiple sites with positive rheumatoid factor (HCC-CMS) TAKE 1 TABLET BY MOUTH ONCE DAILY 90 Tablet 3 4 01/26/20 24 Discontinued(Reo rder) Active Problems Problem Noted Date Diagnosed Date Rheumatoid arthritis involvi ng multiple sites with positive rheumatoid factor (HCC-CMS) 08/21/2019 Encounter for long-term (current) use of medicat ions 08/21/2019 Ulcerated varicose veins of leg, left (HCC-CMS) 08/21/2019 Essential hypertension 08/21/2019 Encounters Date Type Department Care Team Description 01/26/2024 11:15 EDT Office Visit [facility] Rheumatology [address] [place] [address] Rosina Manuel MD Seropositive rheumatoid arthritis of multiple sites ([facility]-CMS) (Primary Dx); High risk medication use; Rheumatoid arthritis involving multiple sites with positive rheumatoid factor (HCC-CMS); Rheumatoid arthritis involving multiple sites with positive rheumatoid factor (HCC-CMS) 11/25/2023 Telephone [facility] Rheumatology [address] [place] [address] Chuckie Roberts, RN Results 11/25/2023 Abstract [facility] Rheumatology [address] [place] [address] Chuckie Roberts, RN from Last 3 Months Medical History Medical History Date Comments Rheumatoid arthritis (HCC-CMS) Ulcerated leg varices, left (HCC-CMS) Ulcerated varicose veins of leg, left (HCC-CMS) 08/21/2019 Rheumatoid arthritis involvi ng multiple sites with positive rheumatoid factor (HCC-CMS) 08/21/2019 Essential hypertension 08/21/2019 Social History Tobacco Use Types Packs/Day Years Used Date Smoking Tobacco: Former Smokeless Tobacco: Never Tobacco Cessation:Counseling Given: Not Answered Interpersonal Safety Answer Date Record ed Physically Hurt Never 02/04/2020 Verbally Threaten Not on file 02/04/2020 Sex and Gender Information Value Date Recorded Sex Assigned at Not on file Gender Identity Female 08/17/2019 11:24 EST Sexual Orientation Not on file Obstetrics History Last Filed Vital Signs Vital Sign Reading Time Taken Comments Blood Pressure 112/80 01/26/2024 1112 EDT Pulse 72 01/26/2024 1112 EDT Temperature 36.1 ??C (96.9 ??F) 01/26/2023 0945 EDT Respiratory Rate - - Oxygen Saturation - - Inhaled Oxygen Concentration - - Weight 109.8 kg (242 lb) 01/26/2024 1112 EDT pt stated Height 162.6 cm (5' 4) 09/07/2023 0944 EST Body Mass Index 41.54 09/07/2023 0944 EST Plan of Treatment Upcoming Encounters Date Type Department Care Team (Late st Contact Info) Description 06/06/2024 10:45 EST Telemedicine [facility] Rheumatology [address] [place] [id number] Rosina Manuel MD [address] [facility] [address] [place] [phone] Health Maintenance Due Date Last Done Comments COVID-19 Vaccine (2022- season) 2023 RSV Immunization ( o r 60+ Years) (1 - 1-dose 60+ series) 2023 Hepatitis C Screen Completed 08/09/2020, 08/09/2020 Procedures Procedure Name Priority Date/Time Associated Diagnosis Comments COMPREHENSIVE METABOLIC PANEL (CMP) Routine 11/18/2023 C REACTIVE PROTEIN Routine 11/18/2023 HEPATITIS C AB W REFLEX TO HCV RNA BY PCR Routine 08/09/2020 9:40 EST from Last 3 Months or Most Recently Relevant to Health Maintenance Results * (ABNORMAL) C REACTIVE PROTEIN (11/18/2023) C-Reactive Protein, External 0.73(A) 0.5 [facility] Blood VENOUS BLOOD / Unknown 11/18/2023 Rosina Manuel MD CHEMISTRY & BLOO D GAS ORDERABLES [facility] * (ABNORMAL) COMPREHENSIVE METABOLIC PANEL (CMP) (11/18/2023) GFR, Calculated, External 98.95 [facility] Glucose, Serum, External 83 74 - 106 mg/dL [facility] Albumin, External 4.1 3.4 - 5.0 g/dL [facility] Total Alkaline Phosphatase, External 88 46 - 116 [facility] ALT, External 29 14 - 59 [facility] AST, External 18 15 - 37 U/L [facility] BUN, External 21(A) 7 - 18 mg/dL [facility] Calculated Calcium, External [facility] Calcium, External 9.1 8.5 - 10.1 mg/dL [facility] Chloride, External 101 98 - 107 mmol/L [facility] CO2, External 31.2 21 - 32 mmol/L [facility] Creatinine, External 0.7 0.55 - 1.02 mg/dL [facility] Fasting?, External [facility] Potassium, External 3.9 3.5 - 5.1 mmol/L [facility] Sodium, External 141 136 - 145 mmol/L [facility] Total Protein, External 7.3 6.4 - 8.2 [facility] Bilirubin, Total, External 0.6 0.2 - 1.0 [facility] Blood VENOUS BLOOD / Unknown 11/18/2023 Rosina Manuel MD CHEMISTRY & BLOO D GAS ORDERABLES [facility] * HEPATITIS C AB W REFLEX TO HCV RNA BY PCR (08/09/2020 9:40 EST) Hep C Antibody Negative Negative 08/12/2020 10:36 EST [facility] Blood VENOUS BLOOD / Unknown 08/09/2020 9:40 EST 08/09/2020 16:23 EST Provider Outr Resulting Lab CHEMISTRY & BLOOD GAS ORDERABLES [facility] [address] [place] [address] from Last 3 Months or Most Recently Relevant to Health Maintenance Care Teams Biodiesel Processing Technician Relationship Specialty Start Date End Date Susana eMsa APRN [address] [place] [phone] PCP - General 08/21/19
--- OUTSIDE RECORDS SUMMARY | 2024-02-04 00:38 | XMS_ITS | Encounter Summary ---
Author [facility] [place] [address] Care Team Providers Care Powerhouse Engineer Name Role Phone Susana Mesa APRN Primary Care Provider [phone] Encounter Details Date Type Department Care Team (Late st Contact Info) Description 02/09/2020 Telephone [place] [address] Lexy Gamez RN Social History Tobacco Use Types Packs/Day Years Used Date Smoking Tobacco: Never Smokeless Tobacco: Never Sex and Gender Information Value Date Recorded Sex Assigned at Not on file Gender Identity Not on file Sexual Orientation Not on file documented as of this encounter Miscellaneous Notes * Telephone Encounter - Lexy Gamez RN - 02/09/2020 9:56 AM EDT Return call placed to Pt regarding the need for Unna Boot therapy. Picture of Pt's ulcer to her L foot reviewed and area is not open, so no need for Unna Boot. Guidance given to Pt that she can wear her compression hose that was purchased prior to VV surgery. documented in this encounter Plan of Treatment Not on file documented as of this encounter Visit Diagnoses Not on filedocumented in this encounter Care Teams Powerhouse Engineer Relationship Specialty Start Date End Date Susana Mesa APRN [address] [place] [address] PCP - General Family Medicine 12/01/19 documented as of this encounter
--- OUTSIDE RECORDS SUMMARY | 2024-02-04 00:38 | XMS_ITS | Encounter Summary ---
Author Organization [facility] Address [facility] [place] [address] Care Team Providers Care Four Slide Machine Operator Name Role Phone MosheChristin oliveirahremperatriz Sainz AKMRYN Primary Care Provider [phone] Encounter Details Date Type Department Care Team (Late st Contact Info) Description 03/15/2020 9:00 AM EDT Office [place] [address] Chuckie Fallon MD [facility] [place] [address] Venous stasis ulcer of leg without varicose veins Social History Tobacco Use Types Packs/Day Years Used Date Smoking Tobacco: Never Smokeless Tobacco: Never Sex and Gender Information Value Date Recorded Sex Assigned at Not on file Gender Identity Not on file Sexual Orientation Not on file documented as of this encounter Last Filed Vital Signs Vital Sign Reading Time Taken Comments Blood Pressure 141/84 03/15/2020 8:56 AM EDT Pulse 70 03/15/2020 8:56 AM EDT Temperature - - Respiratory Rate - - Oxygen Saturation - - Inhaled Oxygen Concentration - - Weight 112.5 kg (248 lb) 03/15/2020 8:56 AM EDT reported Height 165.1 cm (5' 5) 03/15/2020 8:56 AM EDT r eported Body Mass Index 41.27 03/15/2020 8:56 AM EDT documented in this encounter Progress Notes * Chuckie Fallon MD - 03/15/2020 9:00 AM EDT This patient returned to the vascular clinic today for a follow up visit for left below-knee saphenous vein ablation and high ligation of the anterior accessory saphenous. This was done about a monthago by my partner Dr. Gilbert. The indication was a medial malleolar venous ulceration. Since that procedure, she states that her incisions have all healed nicely. She also states that her malleolar ulcer has healed over. She is now wearing a compression stocking on a reliable basis. She is here for routine follow-up. PMHx: No past medical history on file. SxHx: Past Surgical History: Procedure Laterality Date ??? PRO ENDOVENOUS RF, 1ST VEIN Left 02/06/2020 ENDOVENOUS ABLATION THERAPY OF INCOMPETENT VEIN, EXTREMITY, FIRST VEIN (WRVU 5.3) performed by Stephanie Gilbert MD at [facility] MAIN OR ??? PRO LIGATN SHORT SAPHEN Left 02/06/2020 LIGATION AND DIVISION OF LESSER SAPHENOUS VEIN AT SAPHENOPOPLITEAL JUNCTION (WRVU 3.93) performed by Stephanie Gilbert MD at [facility] MA[facility] OR Social Hx: Social History Tobacco Use ??? Smoking status: Never Smoker ??? Smokeless tobacco: Never Used Substance Use Topics ??? Alcohol use: Not on file Medications: Medications 03/15/20 0856 Medication Sig Taking? chlorthalidone (Hygroten) 25 mg Tablet Take 25 mg by mouth Daily. Yes folic acid (Folvite) 1 mg Tablet TAKE ONE TABLET BY MOUTH EVERY DAY Yes hydroxychloroquine (Plaquenil) 200 mg Tablet TAKE ONE TABLET BY MOUTH EVERY DAY Yes metHOTREXate 25 mg/mL Solution USE 0.8ML ONCE WEEKLY Yes ACETAMINOPHEN (TYLENOL ORAL) Yes epiNEPHrine (EPIPEN) 0.3 mg/0.3 mL injection 1 pen, injected, IM, PRN only in emergency Yes Allergies: Allergies Allergen Reactions ??? Buckwheat Anaphylaxis Review of Systems: Constitutional (weight change, fever) - Denies Neuro (dizziness, seizures, numbness, tingling) - Denies Eyes (vision) - Denies Ears, nose, throat (hearing) - Denies Cardiovascular (CP) - Denies Respiratory (SOB) - Denies GI (abd pain, nausea, emesis, blood in stool) - Denies (hematuria, dysuria, frequency) - Denies Muscoloskeletal (extremity pain, weakness) - denies Skin (ulcers, rashes) - denies All other ROS negative Physical Exam: Vitals: Patient Vitals for the past 24 hrs: Pulse BP 03/15/20 0856 70 141/84 Gen: No acute distress. HEENT: Normocephalic, atraumatic. PERR, EOMs intact bilaterally. No scleral icterus. Neck: Supple, no JVD. Heart: Regular rate and rhythm. (+) S1/S2. No snaps, clicks, rubs, or murmurs. Lungs: Regular respiratory rate with no increased work of breathing. Clear to auscultation bilaterally. Abd: Soft, nontender, not distended. Audible bowel sounds. No bruits or pulsatile mass on exam. Extremities: stab incisions well healed Vascular Exam: R L Carotid 2/2 bruit (-) 2/2 bruit (-) Radial 2/2 2/2 Femoral 2/2 2/2 Popliteal 2/2 2/2 DP 2/2 2/2 PT 2/2 2/2 Psych: AAOx3 Labs/Studies: none Impression: Ms. Richard has recovered nicely from her venous procedure a month ago. I am satisfiedwith her progress and happy that her venous ulcer has healed. I have encouraged her to continue using compression stockings for the foreseeable future. If her ulcer redevelops, or if she develops other issues in her lower extremities, I have asked her to call us back and we will see her as needed. documented in this encounter Plan of Treatment Not on file documented as of this encounter Visit Diagnoses Diagnosis Venous stasis ulcer of leg without varicose veins Unspecified venous (peripheral) insufficiency documented in this encounter Care Teams Four Slide Machine Operator Relationship Specialty Start Date End Date Susana Mesa APRN [address] [place] [address] PCP - General Family Medicine 12/01/19 documented as of this encounter
--- OUTSIDE RECORDS SUMMARY | 2024-02-04 00:38 | XMS_ITS | Encounter Summary ---
Author Organization [facility] [place] [address] Care Team Providers Care Technical Service Engineer Name Role Phone MosheChristin oliveirahremperatriz Sainz KAMRYN Primary Care Provider [phone] Encounter Details Date Type Department Care Team (Late st Contact Info) Description 01/18/2020 Telephone [place] [address] Leonela Delgadillo Social History Tobacco Use Types Packs/Day Years Used Date Smoking Tobacco: Never Smokeless Tobacco: Never Sex and Gender Information Value Date Recorded Sex Assigned at Not on file Gender Identity Not on file Sexual Orientation Not on file documented as of this encounter Miscellaneous Notes * Telephone Encounter - Leonela Delgadillo - 01/19/2020 10:56 AM EDT I spoke with Charline today. She is aware that no date is set. We have discussed hoping for 02/05 as shestates her backup for work is having Surgery in March so this would be a major conflict for her. I will FU with Charline next week in hopes of finalizing a date. * Telephone Encounter - Leonela Delgadillo - 01/18/2020 11:01 AM EDT LVM for Charline returning her call from earlier this week checking status of reschedule for procedurewith Dr. Fallon. I explained unfortunately I do not have a reschedule date and I am still in the process of waiting to hear of possible date and or if she would prefer to reschedule for some time in March. I'll await her call to discuss further. documented in this encounter Plan of Treatment Not on file documented as of this encounter Visit Diagnoses Not on filedocumented in this encounter Care Teams Technical Service Engineer Relationship Specialty Start Date End Date Susana Mesa APRN [address] [place] [address] PCP - General Family Medicine 12/01/19 documented as of this encounter
--- OUTSIDE RECORDS SUMMARY | 2024-02-04 00:38 | XMS_ITS | Encounter Summary ---
Author Organization [facility] Address [facility] [place] [address] Care Team Providers Care Business Architect Name Role Phone Susana Mesa APRN Primary Care Provider [phone] Reason for Visit * Consultation (Routine) - Specialty Diagnoses / Procedures Referred By Starr t Referred To Contact Vascular Surgery Diagnoses Non-pressure chronic ulcer of left ankle with unspecified severity Susana Mesa APRN [address] [place] [address] [facility] [address] [place] [address] Referral ID Status Reason Start Date Expiration Date V isits Requested Visits Authorized [id number] Consult, Test & Treat Connection [facility] PCP Updated and/or Approved 12/01/2019 11/30/2020 12 12 Encounter Details Date Type Department Care Team (Late st Contact Info) Description 12/12/2019 8:30 AM EDT Office Visit [place] [address] Forrest Alejandre MD [facility] [place] [address] Varicose veins of left lower extremity, unspecified [...] Sign Reading Time Taken Comments Blood Pressure 143/86 12/12/2019 8:24 AM EDT Pulse 68 12/12/2019 8:24 AM EDT Temperature - - Respiratory Rate - - Oxygen Saturation - - Inhaled Oxygen Concentration - - Weight 108.4 kg (239 lb) 12/12/2019 8:24 AM EDT reported Height 165.1 cm (5' 5) 12/12/2019 8:24 AM EDT r eported Body Mass Index 39.77 12/12/2019 8:24 AM EDT documented in this encounter Progress Notes * Benji Barahona MD - 12/12/2019 8:30 AM EDT VASCULAR SURGERY CONSULTATION Reason for Visit: Left ankle ulcer History of Present Illness: 54 year old non diabetic woman non smoker with rheumatoid arthritis on MTX with a history of recurrent left ankle ulcers. She states that each time she develops an ulcer she is treated with Unna's boots and then the ulcer scabs over and she stops wearing the boot. However, this time she has been wearing an Unna's boot since September and the wound has not healed. She was therefore referred for vascular surgery evaluation. She states she has previously underwent foam injections to the veins locally. She has not had any venous duplex studies. She has had no fevers or chills. She underwent ABIs this morning and is here to discuss the results. Review of Systems: General: Denies fevers, chills, night sweats Neuro: Denies lightheadedness, amaurosis, dysarthria, transient weakness or new headaches HEENT: Denies changes in vision, hearing, smell or difficulty swallowing Pulm: Denies shortness of breath, wheezing or cough Card: Denies chest discomfort, palpitations, orthopnea, dyspnea with exersion or claudication GI: Denies nausea, vomiting, constipation, diarrhea, melana or BRBPR : Denies urinary urgency, frequency, dysuria, hematuria Musc: As above Endo: Denies heat or cold in tolerance Psych: Denies mood changes or feelings of depression or anxiety Atherosclerotic Risk Factors and Pertinent History: (n) DM (n) Insulin Dependant (y) HTN (n) Hyperlipidemia (n) Tobacco (n) Current smoker (n) CAD (n) Coronary Stents (n) CABG (n) Angina (n) CHF (n) Arrythmia (n) COPD (n) Home 02 Past Medical and Surgical History: HTN RA Medications: Current Outpatient Medications Medication Sig Dispense Refill ??? CIS Free Text Med - Ibuprofen ??? ASPIRIN/ACETAMINOPHEN/CAFFEINE (EXCEDRIN MIGRAINE ORAL) ??? ACETAMINOPHEN (TYLENOL ORAL) ??? CETIRIZINE HCL (ZYRTEC ORAL) ??? epiNEPHrine (EPIPEN) 0.3 mg/0.3 mL injection 1 pen, injected, IM, PRN only in emergency No current facility-administered medications for this visit. Functional Status/Social Hx: Lives at home, Drives Car and Does His/Her Own Shopping, Denies Tobacco Use, Occasional EthOH Family Hx: Negative for Thrombosis, Bleeding Disorders Physical Exam: Temp: -- Heart Rate: -- Resp: -- BP: ()/() SpO2: -- Heart Rate from SpO2: -- General: NAD, resting comfortably HEENT: PERRL, anicteric sclerae CVS: Regular Pulm: Normal work of breathing on RA GI: Abdomen soft, non tender, non distended MS: RLE: No edema. Skin warm and pink. No tissue loss. Brisk capillary refill LLE: Unna's boot removed, ankle ulcer 5 mm in diameter, clean base, minimal drainage Neuro: CN 2-12 grossly intact, nonfocal, moving all extremities. Vascular Exam: R L DP 2/2 2/2 PT 2/2 2/2 Labs: None Studies: ABIs today: Findings: ?? Right ?Pressure (mm Hg) ?? REBECCA ??Waveform ?? Brachial Artery ?128 ? Common Femoral Artery ?Triphasic ?? Popliteal Artery ? Triphasic ?? Dorsalis Pedis (Ankle) Artery ?145 ? 1.13 ??Triphasic ?? Posterior Tibial (Ankle) Artery ??150 ? 1.17 ??Triphasic ? Left ? Pressure (mm Hg) ?? REBECCA ??Waveform ?? Brachial Artery ?127 ? Common Femoral Artery ?Triphasic ?? Popliteal Artery ? Triphasic ?? Dorsalis Pedis (Ankle) Artery ?130 ? 1.02 ??Triphasic ?? Posterior Tibial (Ankle) Artery ??145 ? 1.13 ??Triphasic ?? Venous incomp study today: Left ? Reflux? Diameter (mm) ??Depth (mm) [...] ? R Dist ASV ? Reflux ? Assessment and Plan: 54 year old female non smoker non diabetic with RA on MTX with LLE venous incompetence with a venous ulcer. Given her recurrent ulceration and failure to heal since September, surgical therapy to treat the cause of the ulcer is warranted. Will plan for Clarivein ablation and then high ligation of her anterior saphenous branch at the next available date. Seen with Dr. Leeanne Barahona Vascular Surgery documented in this encounter Plan of Treatment Not on file documented as of this encounter Results * LE Unilateral Valvular Incomp Study (12/12/2019 8:56 AM EDT) VB Text Report Department: Vascular Surgery Lab Patient: [id number] (CHARLINE RALPH) CPT: 64944 ICD10: I83.92;I87.2;L97. 329 Referring Physician: FORREST ALEJANDRE [...] AM EDT Forrest Alejandre MD VASCULAR ORDERABLES Performing Organization Address City/State/[facility] Co de Phone Number VASCUBASE documented in this encounter Visit Diagnoses Diagnosis Varicose veins of left lower extremity, unspecified whether complicated documented in this encounter Care Teams Business Architect Relationship Specialty Start Date End Date Susana Mesa APRN [address] [place] [address] PCP - General Family Medicine 12/01/19 documented as of this encounter
--- OUTSIDE RECORDS SUMMARY | 2024-02-04 00:38 | XMS_ITS | Encounter Summary ---
Author Organization [facility] Address [facility] [place] [address] Care Team Providers Care Mold Finisher Name Role Phone Susana Mesa Emeli KAMRYN Primary Care Provider [phone] Reason for Visit * Auth/Cert Specialty Diagnoses [...] Expiration Date Visits Re quested Visits Authorized [id number] 1 1 Encounter Details Date Type Department Care Team (Late st Contact Info) Description 02/06/2020 7:30 AM EDT - 02/06/2020 9:38 AM EDT Surgery [place] [address] Valentina Oquendo MD [facility] [place] [address] LIGATION AND DIVISION OF LESSER SAPHENOUS VEIN AT SAPHENOPOPLITEAL JUNCTION (WRVU 3.93) Social History Tobacco Use Types Packs/Day Years Used Date Smoking Tobacco: Never Smokeless Tobacco: Never Sex and Gender Information Value Date Recorded Sex Assigned at Not on file Gender Identity Not on file Sexual Orientation Not on file documented as of this encounter Last Filed Vital Signs Vital Sign Reading Time Taken Comments Blood Pressure 122/80 02/06/2020 9:15 AM EDT Pulse 71 02/06/2020 6:22 AM EDT Temperature 36 ??C (96.8 ??F) 02/06/2020 9:15 AM EDT Respiratory Rate 18 02/06/2020 9:15 AM EDT Oxygen Saturation 99% 02/06/2020 6:22 AM EDT Inhaled Oxygen Concentration - - Weight 111.4 kg (245 lb 8 oz) 02/06/2020 6:22 AM EDT Height 165.1 cm (5' 5) 02/06/2020 6:22 AM EDT Body Mass Index 40.85 02/06/2020 6:22 AM EDT documented in this encounter Discharge Instructions * Discharge Instructions* Arcadio Sullivan RN - 02/06/2020 9:15 AM EDT POST ANESTHESIA INSTRUCTIONS Go home, rest, use caution on stairs. Change positions slowly. Do not smoke if you are alone. Diet light to regular as tolerated today. If nausea occurs start with clear liquids and progress slowly. No driving, operating machinery, alcoholic beverages and no important decisions for 24 hours. Monitor IV site for signs and symptoms of infection: increasing redness, swelling, foul drainage, if occurs contact M.D. Patients who have had endotrachial tubes (this tube, used by anesthesia department, is passed down your throat after you are asleep, to ensure safe air passage during your operation). A sore throat is normal due to the tube. Cold liquids or soothing lozenges will help ease the discomfort. The generalized muscle aches are due to the medication given to you just before the tube is inserted. As the medication wears off, you may develop muscle soreness, which usually goes away in 12-24 hours. * Patient Instructions* Flower Phelan MD - 02/06/2020 9:29 AM EDT Instructions Following Varicose Vein Surgery You will have an ultrasound of your left leg in 2-3 days to ensure that there are no problems with the vein after your procedure. This appointment is important, so please call if you are unable to keep your appointment. Wound Care: Keep on LUPILLO wraps for the next 2 days (ok to loosen LUPILLO if it is too tight and change as needed). No bathing for 2 days. Keep your left leg elevated or at level of heart as much as possible over the next 3-5 days when you are not standing. Walk as you would normally. In 2 days, you should take off LUPILLO wrap and gauze. At that time you may shower, and pat the incisions dry. The incisions are closed with disappearing suture. There is a special glue over the incisions. Thisglue caleld dermabond will flake off on its own over 7-14 days. You may wash the incision with soapand water and pat dry. Wound healing and sunlight do not mix. Please put sunscreen over the incisions if in the sun; the incisions will begum differently than the rest of your skin and may become dark/scarred if you do not apply sunscreen. Activity: Walk as you normally do including the day you had surgery. When you are sitting try to prop leg(s) up on pillows and/or lie down as much as possible (this will limit swelling). No vigorous activity (such as jogging) for at least 2-4 weeks or until cleared to do so at you follow-up appointment. Call Doctor for: Please call if you notice worsening redness or drainage from incision(s) lasting longer than 5 days after your surgery, any foul-smelling drainage from the incision, pain not controlled by pain medications, or for any fevers greater than 101.3 F. Pain Medication: You may use Tylenol 1,000mg every 6 hours as needed for pain. You may also alternate with/use ibuprofen (Motrin, Advil) 400mg every 6 hours, but be sure to take this with food in your stomach. Follow-up: You will have a follow-up appointment scheduled in 4 weeks. The appointment will be mailed to you and/or you may be called with a date and time from the clinic. If you do not hear from theclinic within 1 week of your appointment, please call to confirm date and time of your appointment. For any problems or questions please call [phone] For issues on weeknights after 5pm and weekends please call [phone] and ask for the Vascular Fellow diamond selector. documented in this encounter Medications at Time of Discharge Medication Sig Dispensed Refills Start Date End Date chlorthalidone (Hygroten) 25 mg Tablet Take 25 mg by mouth Daily. 06/22/2019 folic acid (Folvite) 1 mg Tablet TAKE ONE TABLET BY MOUTH EVERY DAY 11/18/2019 hydroxychloroquine (Plaquenil) 200 mg Tablet TAKE ONE TABLET BY MOUTH EVERY DAY 11/16/2019 metHOTREXate 25 mg/mL Solution USE 0.8ML ONCE WEEKLY 09/23/2019 ACETAMINOPHEN (TYLENOL ORAL) 10/15/2008 epiNEPHrine (EPIPEN) 0.3 mg/0.3 mL injection 1 pen, injected, IM, PRN only in emergency 10/15/2008 documented as of this encounter H&P Notes * Flower Phelan MD - 02/04/2020 8:02 PM EDT Vascular Surgery History and Physical CC: left ankle ulceration HPI: Antonino Ralph is a 54 y.o. female with RA on MTX and LLE venous incompetence who presents with arecurrent left ankle ulcer. She has used Unna boots in the past but she was no longer seeing resolution of her wounds. She was seen previously by Dr. Fallon who recommended ablation of her incompetent left greater saphenous vein. Today, she feels well and denies changes to her medical history or medications. She denies F/C, N/V, SOB, CP, or orthopnea. Previous Vascular Surgery Interventions: Foam injection to superficial varicosity in LLE (date unknown) Pertinent Cardiovascular Medications: Antiplatelet none Beta Blockade none Lipid agent none Anticoagulation none Other Methotrexate, hydroxychloroquine, chlorthalidone There are no hospital problems to display for this patient. There are no active non-hospital problems to display for this patient. Review of Systems: A full review encompassing at least 10 organ systems including general, neuro, pulm, cardiac, GI, , MSK, Endo, and Psych was negative other than listed in the HPI. Past Medical History: RA HTN Past Surgical History: No past surgical history on file. Social Hx: Social History Socioeconomic History ??? Marital status: Spouse name: Not on file ??? Number of children: Not on file ??? Years of education: Not on file ??? Highest education level: Not on file Occupational History ??? Not on file Social Needs ??? Financial resource strain: Not on file ??? Food insecurity Worry: Not on file Inability: Not on file ??? Transportation needs Medical: Not on file Non-medical: Not on file Tobacco Use ??? Smoking status: Never Smoker ??? Smokeless tobacco: Never Used Substance and Sexual Activity ??? Alcohol use: Not on file ??? Drug use: Not on file ??? Sexual activity: Not on file Lifestyle ??? Physical activity Days per week: Not on file Minutes per session: Not on file ??? Stress: Not on file Relationships ??? Social connections Talks on phone: Not on file Gets together: Not on file Attends temple service: Not on file Active member of club or organization: Not on file Attends meetings of clubs or organizations: Not on file Relationship status: Not on file ??? Intimate partner violence Fear of current or ex partner: Not on file Emotionally abused: Not on file Physically abused: Not on file Forced sexual activity: Not on file Other Topics Concern ??? Not on file Social History Narrative ??? Not on file Family Hx: Negative for Thrombosis, Bleeding Disorders No family history on file. Medications: No current facility-administered medications on file prior to encounter. Current Outpatient Medications on File Prior to Encounter Medication Sig Dispense Refill ??? chlorthalidone (Hygroten) 25 mg Tablet Take 25 mg by mouth Daily. ??? folic acid (Folvite) 1 mg Tablet TAKE ONE TABLET BY MOUTH EVERY DAY ??? hydroxychloroquine (Plaquenil) 200 mg Tablet TAKE ONE TABLET BY MOUTH EVERY DAY ??? metHOTREXate 25 mg/mL Solution USE 0.8ML ONCE WEEKLY ??? ASPIRIN/ACETAMINOPHEN/CAFFEINE (EXCEDRIN MIGRAINE ORAL) ??? ACETAMINOPHEN (TYLENOL ORAL) ??? epiNEPHrine (EPIPEN) 0.3 mg/0.3 mL injection 1 pen, injected, IM, PRN only in emergency Allergies: Allergies Allergen Reactions ??? Buckwheat Anaphylaxis Physical Exam: Vital Signs: Temp: -- Heart Rate: -- Resp: -- BP: -- SpO2: -- Heart Rate from SpO2: -- BMI: General: alert, cooperative, NAD, resting comfortably HEENT: normocephalic, atraumatic CVS: Regular rate and rhythm, no murmurs rubs or gallops Pulm: Clear bilaterally Abd: soft, non tender, non distended, no pulsatile masses Ext: RLE: No edema. Skin warm and pink. No tissue loss. Brisk capillary refill. LLE: small medial ankle wound <2cm in diameter, no drainage or surrounding erythema Neuro: Grossly nonfocal, moving all extremities. Vascular Exam: palpable pedal pulses bilaterally Vascular Studies: 12/13/19 LLE unilateral valvular incompetence study: Left ? Reflux? Diameter (mm) ??Depth (mm) [...] of common femoral, femoral, or popliteal DVT. ?? ABIs 12/13/19: normal triphasic waveforms throughout BLE Assessment and Plan: Antonino Ralph is a 54 y.o. female with superficial and deep venous reflux in her left lower extremity with venous ulceration. Plan for GSV Clarivein ablation and high ligation of her anterior saphenous branch, and possible stripping. I answered her questions. The benefits and risks of the procedure were discussed and she wishes to proceed. Flower Phelan MD 02/04/2020 8:07 PM documented in this encounter Miscellaneous Notes * Brief Op Note - Flower Phelan MD - 02/06/2020 10:02 AM EDT [facility] Brief Operative Note ?? Patient Name: Antonino Ralph : [id number] MR#: [id number] ?? Case Date: 02/06/2020 ?? Surgeon: Surgeon(s) and Role: * Valentina Oquendo MD - Primary * Flower Phelan MD - Resident ?? Preoperative diagnosis: LLE venous ulcer ?? Postoperative diagnosis: same ?? Procedures: ablation of left GSV (Clarivein), high ligation of left anterior saphenous vein ?? Anesthesia: General ?? Estimated Blood Loss: 4cc Specimens removed during surgery: None ?? Drains: none ?? Surgical Closure: Primary Closure - skin incision is completely closed without any wires, prabhu, drains or other devices ?? Disposition: awakened from anesthesia, extubated and taken to the recovery room in a stable condition, having suffered no apparent untoward event. ?? Condition: doing well without problems ?? * Op Note - Valentina Oquendo MD - 02/06/2020 9:33 AM EDT [facility] Operative Note Patient Name: Antonino Ralph : [id number] MR#: [id number] Case Date: 02/06/2020 Surgeon: Surgeon(s) and Role: * Valentina Oquendo MD - Primary * Flower Phelan MD - Resident Preoperative diagnosis: LLE venous ulcer Postoperative diagnosis: same Procedures: left GSV ablation (Clarivein), high ligation of left anterior saphenous vein Anesthesia: General Estimated Blood Loss: 4cc Specimens removed during surgery: None Drains: none Surgical Closure: Primary Closure - skin incision is completely closed without any wires, prabhu, drains or other devices Disposition: awakened from anesthesia, extubated and taken to the recovery room in a stable condition, having suffered no apparent untoward event. Condition: doing well without problems (Please see the Surgical Encounter Summary for any Implant and Specimen details pertinent to this patient.) HPI/Surgical Indications: Antonino Ralph is a 54 y.o. female with superficial and deep venous reflux in her left lower extremity with venous ulceration. Plan for GSV Clarivein ablation and high ligation of her anterior saphenous branch, and possible stripping. I answered her questions. The benefits and risks of the procedure were discussed and she wishes to proceed. Procedure Description: Patient was identified in the preop holding area. ??The risks and benefits of the procedure were discussed and she elected to proceed. ??She was brought to the operating room positioned supine on the operating table. ??Antibiotics were initiated. ??General anesthesia was induced. ??The left lower extremity was prepped and draped in usual sterile fashion. ??A full standard timeout was performed and all were in favor of proceeding. We began by using sterile ultrasound to assess the left groin. ??The course of the greater saphenous vein was mapped. ??A marking pen was used to denote the location of the anterior saphenous vein branch in the proximal thigh. ??The greater saphenous vein was then followed along its course down thethigh and leg and a nino was made over the intended area of puncture for GSV ablation. We then proceeded to make an incision that ran parallel to??the inguinal ligament at the site of our nino over anterior saphenous vein. ??The skin was incised with a #15 scalpel and the soft tissues were dissected with Bovie electrocautery and hemostat. ??We came upon the anterior saphenous vein branch. ??The anterior saphenous vein as well as another small branch were encircled with 2-0 silk proximally and distally using a right angle clamp. ??The anterior saphenous vein was doubly ligated proximally and was ligated distally,??in addition to the additional branch. ??The vein was then divided. ??The woundwas irrigated and closed with 3-0 Vicryl and 4-0 Monocryl. ??Dermabond was used to dress the wound then proceeded with GSV ablation. ??A micropuncture needle was used to obtain venous access in the greater saphenous vein at the level of ankle, approximately 2 cm proximal ??to the medial ankle wound. ??Ultrasound guidance was used for this. ??A Findlay wire was then inserted into the micropuncture needle, and the needle was exchanged for the dilator using Seldinger technique. ??The Findlay wire was removed and the Clarivein device was inserted into the dilator. ??Using ultrasound guidance, the Clarivein device was inserted under ultrasound guidance to the mid thigh, above larger varicosities. ??The Clarivein device had already been prepared according to washery boss instructions. ??It was then used to pharmacomechanically ablate the greater saphenous vein from the mid thigh to the proximal ankle according to washery boss instructions. ??Ultrasound and manual pressure was used to help compress the vein during the procedure. ??The device was then removed, as well as the dilator, and manual pressure was held for approximately 5 minutes at the puncture site. ??The leg was then cleaned and dri ed. ??The left proximal thigh incision by the groin was then dressed with Telfa and Tegaderm. ??Thepuncture site and medial ulcer were dressed with a small Mepilex bandage. ??The leg was then wrapped from foot to hip with Kerlix and Lupillo wraps. The patient was then awoken from anesthesia, extubated, and brought to the recovery room in stable condition. ??At case end, all instrument counts were correct. ??Dr. Oquendo, the attending surgeon, was present for all portions of the case. Attestation: Case Date: 02/06/2020 Flower Phelan MD 02/06/2020 Vascular Surgery Attending Staff Attestation: Case Date: 02/06/2020 I was present and I participated during the entire procedure (does not need to include opening and closing). Valentina Oquendo MD 02/12/2020 documented in this encounter Plan of Treatment Not on file documented as of this encounter Procedures Procedure Name Priority Date/Time Associated Diagnosis Comments Endovenous Ablation Incompetent Vein Radiofrequency 1St Vein (63223) Yes 02/06/2020 7:33 AM EDT venous ulcer Ligatn Short Saphen (94657) Yes 10/2019 7:33 AM EDT venous ulcer LIGATION DIVISION OF LESSER SAPHENOUS VEIN SAPHENOPOPLITEAL JUNCTION Routine 02/06/2020 6:12 AM EDT ENDOVENOUS ABLATION THERAPY OF INCOMPETENT VEIN, EXTREMITY, FIRST VEIN Routine 02/06/2020 6:12 AM EDT documented in this encounter Results * Duplex for DVT, Leg, Unilat (02/08/2020 12:31 PM EDT) VB Text Report Department: Vascular Surgery Lab Patient: [id number] (ANTONINO RALPH) CPT: 15213 ICD10: I87.2 Referring Physician: VALENTINA OQUENDO MD ?? Phone: Indications: ??s/p LEFT GSV ablation ICD10 Diagnosis Code: I87.2 Findings: LEFT: The great saphenous vein is ablated to the mid thigh. Patent inferior epigastric vein. Patent common femoral vein with spontaneous, respirophasic Doppler waveforms that respond normally to augmentation maneuvers. No evidence of common femoral deep venous thrombosis. Interpretation: LEFT: Successful ablation of the great saphenous vein. No evidence of common femoral deep venous thrombosis. No previous study in our vascular lab database for comparison. Electronically Signed by: SUMIT TELLO MD on 2020-02-13 02:38:59 PM [facility] VB Text Report End of Report [facility] 02/08/2020 12:3 1 PM EDT Valentina Oquendo MD VASCULAR ORDERABLES [facility] documented in this encounter Visit Diagnoses Not on filedocumented in this encounter Administered Medications Inactive Administered Medications - up to 3 most recent administrations Medication Order MAR Action Action Date Dose Rate Site acetaminophen (Tylenol) tablet 1,000 mg 1,000 mg, Oral, ONCE, 1 dose, On Wed02/06/20 at 0645, Day of Surgery (Day of Procedure), Routine Given 02/06/2020 6:35 AM EDT 1,000 mg sodium tetradecyl sulfate (SOTRADECOL) 3 % (30 mg/mL) injection ONCE PRN, Starting on Wed02/06/20 at 0851, Until Wed02/06/20 at 1224, Intra-Operative (Intra-Procedure), Routine Given 02/06/2020 8:51 AM EDT 5 mLs 19- Surgical Site documented in this encounter Active and Recently Administered Medications Times are shown in EDT. Scheduled Medication Order 02/04/2020 02/05/2020 02/06/2020 acetaminophen (Tylenol) tablet 1,000 mg (COMPLETED) 1,000 mg, Oral, ONCE, 1 dose, On Wed02/06/20 at 0645, Day of Surgery (Day of Procedure), Routine 06 (Given - Provid er: Zulma Perkins RN) ceFAZolin (Ancef) 2g in dextrose 5% 100 mL (COMPLETED) 2 g, Intravenous, ONCE, 1 dose, On Wed02/06/20 at 0645, Administer over 30 Minutes, Redose every 3 hours if CrCl is greater than 20. Redose every 8 hours if CrCl is less than 20., Day of Surgery (Day of Procedure), Indication for (Active or Suspected): Prophylaxis 0727 (Given - Provid er: Megan Messina CRNA) Continuous Medication Order 02/04/2020 02/05/2020 02/06/2020 lactated ringers infusion (CANCELED) 1,000 mL, at 100 mL/hr, Intravenous, CONTINUOUS, Starting on Wed02/06/20 at 0645, Until Wed02/06/20 at 1022, Day of Surgery (Day of Procedure) 0718 (New Bag - Prov ider: Megan Messina CRNA)0750 (Anesthesia Volume Adjustment - Provider: Megan Messina CRNA)0835 (Anesthesia Volume Adjustment - Provider: Megan Messina CRNA)0851 (Anesthesia Volume Adjustment - Provider: Megan Ramesh I, CORPORATE TRAFFIC MANAGER) PRN Medication Order 02/04/2020 02/05/2020 02/06/2020 sodium tetradecyl sulfate (SOTRADECOL) 3 % (30 mg/mL) injection (CANCELED) ONCE PRN, Starting on Wed02/06/20 at 0851, Until Wed02/06/20 at 1224, Intra-Operative (Intra-Procedure), Routine 0851 (Given - Provid er: Valentina Oquendo MD) documented in this encounter Care Teams Mold Finisher Relationship Specialty Start Date End Date Susana Mesa APRN [address] [place] [address] PCP - General Family Medicine 12/01/19 documented as of this encounter
--- OUTSIDE RECORDS SUMMARY | 2024-02-04 00:38 | XMS_ITS | Encounter Summary ---
Author Organization [facility] [place] [address] Care Team Providers Care Miller [employer] Name Role Phone Susana Mesa APRN Primary Care Provider [phone] Encounter Details Date Type Department Care Team (Late st Contact Info) Description 02/09/2020 Telephone [place] [address] Lexy Gamez RN Social History Tobacco Use Types Packs/Day Years Used Date Smoking Tobacco: Never Smokeless Tobacco: Never Sex and Gender Information Value Date Recorded Sex Assigned at Not on file Gender Identity Not on file Sexual Orientation Not on file documented as of this encounter Miscellaneous Notes * Telephone Encounter - Lexy Gamez RN - 02/09/2020 8:53 AM EDT Pt called to ask about continuing with Unna Boot therapy s/p VV surgery. Vascular RN requested photo to be sent for review and guidance. Pt amendable to sending a photo. Vascular RN will call Pt backafter receipt of picture. documented in this encounter Plan of Treatment Not on file documented as of this encounter Visit Diagnoses Not on filedocumented in this encounter Care Teams [employer] Relationship Specialty Start Date End Date Susana Mesa APRN [address] [place] [address] PCP - General Family Medicine 12/01/19 documented as of this encounter
--- OUTSIDE RECORDS SUMMARY | 2024-02-04 00:38 | XMS_ITS | Encounter Summary ---
Author Organization [facility] [place] [address] Care Team Providers Care Production Mechanic Name Role Phone Moshe Susanashirin Sainz APRN Primary Care Provider [phone] Encounter Details Date Type Department Care Team (Late st Contact Info) Description 12/01/2019 Orders [place] [address] Gage Pickens APRN [facility] [place] [address] Open wound Social History Tobacco Use Types Packs/Day Years Used Date Smoking Tobacco: Never Assessed Sex and Gender Information Value Date Recorded Sex Assigned at Not on file Gender Identity Not on file Sexual Orientation Not on file documented as of this encounter Plan of Treatment Not on file documented as of this encounter Results * REBECCA, legs, multiple levels (12/12/2019 7:54 AM EDT) VB Text Report Department: Vascular Surgery Lab Patient: [id number] (CHARLINE RALPH) CPT: 60100 ICD10: T14.8XXA;L97.32 9 Referring Physician: GAGE PICKENS APRN ?? Indications: 54 year old female with LEFT medial ankle ulcer, ? peripheral perfusion Diabetes mellitus: No ICD10 Diagnosis Code: T14.8XXA, L97.329 Findings: Right ?Pressure (mm Hg) ?? REBECCA ??Waveform ?? Brachial Artery ?128 ? Common Femoral Artery ?Triphasic ?? Popliteal Artery ? Triphasic ?? Dorsalis Pedis (Ankle) Artery ?145 ? 1.13 ??Triphasic ?? Posterior Tibial (Ankle) Artery ??150 ? 1.17 ??Triphasic ?? Left ? Pressure (mm Hg) ?? REBECCA ??Waveform ?? Brachial Artery ?127 ? Common Femoral Artery ?Triphasic ?? Popliteal Artery ? Triphasic ?? Dorsalis Pedis (Ankle) Artery ?130 ? 1.02 ??Triphasic ?? Posterior Tibial (Ankle) Artery ??145 ? 1.13 ??Triphasic ?? Interpretation: RIGHT: No significant lower extremity arterial occlusive disease identified at rest. Normal ankle/brachial pressure ratios and ankle Doppler waveforms. LEFT: No significant lower extremity arterial occlusive disease identified at rest. Normal ankle/brachial pressure ratios and ankle Doppler waveforms. Comparison: No previous study in our vascular lab database for comparison. Electronically Signed by: NIKITA ADAME on 2019-12-13 12:27:52 PM [facility] VB Text Report End of Report [facility] 12/12/2019 7:54 AM EDT Gage Pickens MILANESE KNITTING MACHINE OPERATOR VASCULAR ORDERABLE S [facility] documented in this encounter Visit Diagnoses Diagnosis Open wound Open wound(s) (multiple) of unspecified site(s), without mention of complication documented in this encounter Care Teams Production Mechanic Relationship Specialty Start Date End Date Susana Mesa APRN [address] [place] [address] PCP - General Family Medicine 12/01/19 documented as of this encounter
--- OUTSIDE RECORDS SUMMARY | 2024-02-04 00:38 | XMS_ITS | Encounter Summary ---
Author Organization [facility] [place] [address] Care Team Providers Care High School Business Teacher Name Role Phone Susana Mesa APRN Primary Care Provider +1 [phone] Encounter Details Date Type Department Care Team (Late st Contact Info) Description 12/13/2019 Telephone [place] [address] Leonela Delgadillo Social History Tobacco Use Types Packs/Day Years Used Date Smoking Tobacco: Never Smokeless Tobacco: Never Sex and Gender Information Value Date Recorded Sex Assigned at Not on file Gender Identity Not on file Sexual Orientation Not on file documented as of this encounter Miscellaneous Notes * Telephone Encounter - Leonela Delgadillo - 12/13/2019 12:40 PM EDT I called and spoke with Charline. We have her scheduled for 01/17/20 for her procedure with Dr. Fallon. documented in this encounter Plan of Treatment Not on file documented as of this encounter Visit Diagnoses Not on filedocumented in this encounter Care Teams High School Business Teacher Relationship Specialty Start Date End Date Susana Mesa APRN [address] [place] [address] PCP - General Family Medicine 12/01/19 documented as of this encounter
--- OUTSIDE RECORDS SUMMARY | 2024-02-04 00:38 | XMS_ITS | Encounter Summary ---
[place] [address] Care Team Providers Care Software Engineer Advisor Name Role Phone Susana Mesa APRN Primary Care Provider +1 -[phone] Encounter Details Date Type Department Care Team (Late st Contact Info) Description 12/13/2019 Orders Only [place] [address] Alina Freire RN Varicose veins of left lower extremity, unspecified whether complicated Social History Tobacco Use Types Packs/Day Years Used Date Smoking Tobacco: Never Smokeless Tobacco: Never Sex and Gender Information Value Date Recorded Sex Assigned at Not on file Gender Identity Not on file Sexual Orientation Not on file documented as of this encounter Plan of Treatment Scheduled Orders Name Type Priority Associated Diagnoses Order Schedule LIGATION DIVISION OF LESSER SAPHENOUS VEIN SAPHENOPOPLITEAL JUNCTION Procedures Routine One Ti me for 1 Occurrences starting 12/13/2019 until 12/13/2019 documented as of this encounter Visit Diagnoses Diagnosis Varicose veins of left lower extremity, unspecified whether complicated documented in this encounter Care Teams Software Engineer Advisor Relationship Specialty Start Date End Date Susana Mesa APRN [address] [place] [address] PCP - General Family Medicine 12/01/19 documented as of this encounter
--- OUTSIDE RECORDS SUMMARY | 2024-02-04 00:38 | XMS_ITS | Referral Summary ---
Author Organization [facility] Address [address] [place] [address] Care Team Providers Care Parallel Computing Software Engineer Name Role Phone Susana Mesa KAMRYN Primary Care Provider +1 [phone] Encounters Date Type Department Care Team Description 01/26/2024 11:15 EDT Office Visit [facility] Rheumatology [address] [id number] Rosina Manuel MD Seropositive rheumatoid arthritis of multiple sites ([facility]) (Primary Dx); High risk medication use; Rheumatoid arthritis involving multiple sites with positive rheumatoid factor ([facility]); Rheumatoid arthritis involving multiple sites with positive rheumatoid factor ([facility]) 11/25/2023 Telephone [facility] Rheumatology [address] [place] [address] Chuckie Roberts, RN Results 11/25/2023 Abstract [facility] Rheumatology [address] [place] [address] Chuckie Roberts, RN from Last 3 Months Allergies Active Allergy Reactions Criticality Noted Date [...] involving multiple sites with positive rheumatoid factor ([facility]) TAKE ONE TABLET BY MOUTH EVERY DAY 90 Tablet 3 3 01/26/20 24 Discontinued(Reo rder) methotrexate 25 mg/mL (MDV) injectionIndicat ions:Rheumatoid arthritis involving multiple sites with positive rheumatoid factor ([facility]) INJECT 0.8ML UNDER THE SKIN ONCE A WEEK 12 mL 1 4 01/26/20 24 Discontinued(Reo rder) folic acid (FOLVITE) 1 mg tabletIndication s:Rheumatoid arthritis involving multiple sites with positive rheumatoid factor ([facility]) TAKE 1 TABLET BY MOUTH ONCE DAILY 90 Tablet 3 4 01/26/20 24 Discontinued(Reo rder) Active Problems Problem Noted Date Diagnosed Date Rheumatoid arthritis involvi ng multiple sites with positive rheumatoid factor ([facility]) 08/21/2019 Encounter for long-term (current) use of medicat ions 08/21/2019 Ulcerated varicose veins of leg, left ([facility]) 08/21/2019 Essential hypertension 08/21/2019 Social History [...] 11:24 EST Sexual Orientation Not on file Last Filed [...] Body Mass Index 41.54 09/07/2023 0944 EST Functional Status Functional Status Response Date of Assess ment Because of a physical, menta l, or emotional condition, does this person have difficulty doing errands alone such as visiting a doctor's office or shopping? No 01/26/2023 Cognitive Status Response Date of Assessm ent Because of a physical, menta l, or emotional condition, does this person have serious difficulty concentrating, remembering, or making decisions? No 01/26/2023 Plan of Treatment Upcoming Encounters Date Type Department Care Team (Late st Contact Info) Description 06/06/2024 10:45 EST Telemedicine [facility] [place] [address], [place] [id number] Rosina Manuel MD [address] [facility] [address] [place] [address] Procedures Procedure Name Priority Date/Time Associated Diagnosis Comments COMPREHENSIVE METABOLIC PANEL (CMP) Routine 11/18/2023 C REACTIVE PROTEIN Routine 11/18/2023 HEPATITIS C AB W REFLEX TO HCV RNA BY PCR Routine 08/09/2020 9:40 EST from Last 3 Months or Most Recently Relevant to Health Maintenance Results * (ABNORMAL) C REACTIVE PROTEIN (11/18/2023) C-Reactive Protein, External 0.73(A) 0.5 [facility] Blood VENOUS BLOOD / Unknown 11/18/2023 Rosina Manuel MD CHEMISTRY & BLOO D GAS ORDERABLES [facility] * (ABNORMAL) COMPREHENSIVE METABOLIC PANEL (CMP) (11/18/2023) Pathologist [facility] GFR, Calculated, External 98.95 [facility] Glucose, Serum, External 83 74 - 106 mg/dL [facility] Albumin, External 4.1 3.4 - 5.0 g/dL [facility] Total Alkaline Phosphatase, External 88 46 - 116 [facility] ALT, External 29 14 - [address] [facility] AST, External 18 15 - 37 U/L [facility] BUN, External 21(A) 7 - 18 mg/dL [facility] Calculated Calcium, External [facility] Calcium, External 9.1 8.5 - 10.1 mg/dL [facility] Chloride, External 101 98 - 107 mmol/L [facility] CO2, External 31.2 21 - 32 mmol/L [facility] Creatinine, External 0.7 0.55 - 1.02 mg/dL [facility] Fasting?, External [facility] Potassium, External 3.9 3.5 - 5.1 mmol/L [facility] Sodium, External 141 136 - 145 mmol/L [facility] Total Protein, External 7.3 6.4 - 8.2 [facility] Bilirubin, Total, External 0.6 0.2 - 1.0 [facility] Blood VENOUS BLOOD / Unknown 11/18/2023 Rosina Manuel MD CHEMISTRY & BLOO D GAS ORDERABLES [facility] * HEPATITIS C AB W REFLEX TO HCV RNA BY PCR (08/09/2020 9:40 EST) Hep C Antibody Negative Negative 08/12/2020 10:36 EST [facility] Blood VENOUS BLOOD / Unknown 08/09/2020 9:40 EST 08/09/2020 16:23 EST Provider Outr Resulting Lab CHEMISTRY & BLOOD GAS ORDERABLES [facility] [address] [place] [address] from Last 3 Months or Most Recently Relevant to Health Maintenance Care Teams Parallel Computing Software Engineer Relationship Specialty Start Date End Date Susana Mesa APRN [address] [place] [address] PCP - General 08/21/19
--- OUTSIDE RECORDS SUMMARY | 2024-02-04 00:38 | XMS_ITS | Encounter Summary ---
Author Organization [facility] Address [facility] [place] [address] Care Team Providers Care Missile Control Pilot Name Role Phone Susana Mesa Emeli KAMRYN Primary Care Provider +1 [phone] Reason for Visit * Auth/Cert Specialty Diagnoses [...] Expiration Date Visits Re quested Visits Authorized [id number] 1 1 Encounter Details Date Type Department Care Team (Latest Contact Info) Description 02/06/2020 6:08 AM EDT - 02/06/2020 10:24 AM EDT Hospital Encounter [place] [address] Valentina Oquendo MD [facility] [place] [address] Venous insufficiency of left lower extremity Discharge Disposition: Home Social History Tobacco Use Types Packs/Day Years [...] For any problems or questions please call [phone] For issues on weeknights after 5pm and weekends please call [phone] and ask for the Vascular Fellow rn transitional. documented in this encounter Medications at Time [...] file Gets together: Not on file Attends gnosticist service: Not on file Active member of [...] Phelan MD - 02/06/2020 10:02 AM EDT [facility] Brief Operative Note ?? Patient Name: Antonino Ralph : [id number] MR#: [id number] ?? Case Date: 02/06/2020 ?? Surgeon: Surgeon(s) [...] Oquendo MD - 02/06/2020 9:33 AM EDT [facility] Operative Note Patient Name: Antonino Ralph : [id number] MR#: [id number] Case Date: 02/06/2020 Surgeon: Surgeon(s) and Role: [...] ??Ultrasound guidance was used for this. ??A Teague wire was then inserted into the micropuncture needle, and the needle was exchanged for the dilator using Seldinger technique. ??The Teague wire was removed and the Clarivein device was inserted into the dilator. ??Using ultrasound guidance, the Clarivein device was inserted under ultrasound guidance to the mid thigh, above larger varicosities. ??The Clarivein device had already been prepared according to brush machine setter instructions. ??It was then used to pharmacomechanically ablate the greater saphenous vein from the mid thigh to the proximal ankle according to brush machine setter instructions. ??Ultrasound and manual pressure was used [...] Endovenous Ablation Incompetent Vein Radiofrequency 1St Vein (76541) Yes 02/06/2020 7:33 AM EDT venous ulcer Ligatn Short Saphen (03380) Yes 10/2019 7:33 AM EDT venous ulcer LIGATION DIVISION OF LESSER SAPHENOUS VEIN SAPHENOPOPLITEAL JUNCTION Routine 02/06/2020 6:12 AM EDT ENDOVENOUS ABLATION THERAPY OF INCOMPETENT VEIN, EXTREMITY, FIRST VEIN Routine 02/06/2020 6:12 AM EDT documented in this encounter Results * Duplex for DVT, Leg, Unilat (02/08/2020 12:31 PM EDT) VB Text Report Department: Vascular Surgery Lab Patient: [id number] (ANTONINO RALPH) CPT: 04832 ICD10: I87.2 Referring Physician: VALENTINA OQUENDO MD [...] documented in this encounter Visit Diagnoses Diagnosis Venous insufficiency of left lower extremity documented in this encounter Administered Medications Inactive Administered Medications - up to 3 most recent administrations Medication Order MAR Action Action Date Dose Rate Site acetaminophen (Tylenol) tablet 1,000 mg 1,000 mg, Oral, ONCE, 1 dose, On Wed02/06/20 at 0645, Day of Surgery (Day of Procedure), Routine Given 02/06/2020 6:35 AM EDT 1,000 mg documented in this encounter Active and Recently Administered Medications Times are shown in EDT. Scheduled Medication Order 02/04/2020 02/05/2020 02/06/2020 acetaminophen (Tylenol) tablet 1,000 mg (COMPLETED) 1,000 mg, Oral, ONCE, 1 dose, On Wed02/06/20 at 0645, Day of Surgery (Day of Procedure), Routine 0635 (Given - Provid er: Zulma Perkins RN) ceFAZolin (Ancef) 2g in dextrose 5% 100 mL (COMPLETED) 2 g, Intravenous, ONCE, 1 dose, On Wed02/06/20 at 0645, Administer over 30 Minutes, Redose every 3 hours if CrCl is greater than 20. Redose every 8 hours if CrCl is less than 20., Day of Surgery (Day of Procedure), Indication for (Active or Suspected): Prophylaxis 07 (Given - Provid er: Megan Messina CRNA) [...] CRNA)0851 (Anesthesia Volume Adjustment - Provider: Megan Messina CRNA) PRN Medication Order 02/04/2020 02/05/2020 02/06/2020 sodium tetradecyl sulfate (SOTRADECOL) 3 % (30 mg/mL) injection (CANCELED) ONCE PRN, Starting on Wed02/06/20 at 0851, Until Wed02/06/20 at 1224, Intra-Operative (Intra-Procedure), Routine 0851 (Given - Provid er: Valentina Oquendo MD) documented in this encounter Care Teams Missile Control Pilot Relationship Specialty Start Date End Date Susana Mesa APRN [address] [place] [address] PCP - General Family Medicine 12/01/19 documented as of this encounter
--- OUTSIDE RECORDS SUMMARY | 2024-02-04 00:38 | XMS_ITS | Encounter Summary ---
[place] [address] Care Team Providers Care Management And Budget Analyst Name Role Phone MosheChristinSusana H KAMRYN Primary Care Provider +1 -[phone] Encounter Details Date Type Department Care Team (Late st Contact Info) Description 02/08/2020 12:30 PM EDT Tech [place] [address] [address], RVT Venous insufficiency of left lower extremity Social History Tobacco Use Types Packs/Day Years Used Date Smoking Tobacco: Never Smokeless Tobacco: Never Sex and Gender Information Value Date Recorded Sex Assigned at Not on file Gender Identity Not on file Sexual Orientation Not on file documented as of this encounter Plan of Treatment Not on file documented as of this encounter Procedures Procedure Name Priority Date/Time Associated Diagnosis Comments DUPLEX FOR DVT, LEG, UNILAT Routine 02/08/2020 12:31 PM EDT Venous insufficiency of left lower extremity documented in this encounter Results * Duplex for DVT, Leg, Unilat (02/08/2020 12:31 PM EDT) VB Text Report Department: Vascular Surgery Lab Patient: [id number] (RAMO CHARLINE) CPT: 16743 ICD10: I87.2 Referring Physician: VALENTINA OQUENDO MD [...] left lower extremity documented in this encounter Care Teams Management And Budget Analyst Relationship Specialty Start Date End Date Susana Mesa APRN [address] [place] [address] PCP - General Family Medicine 12/01/19 documented as of this encounter
--- OUTSIDE RECORDS SUMMARY | 2024-02-04 00:38 | XMS_ITS | Encounter Summary ---
Author Organization [facility] [place] [address] Care Team Providers Care Washing Machine Installer Name Role Phone Susana Mesa APRN Primary Care Provider +1 -[phone] Encounter Details Date Type Department Care Team (Late st Contact Info) Description 01/01/2020 Telephone [place] [address] Leonela Delgadillo Social History Tobacco Use Types Packs/Day Years Used Date Smoking Tobacco: Never Smokeless Tobacco: Never Sex and Gender Information Value Date Recorded Sex Assigned at Not on file Gender Identity Not on file Sexual Orientation Not on file documented as of this encounter Miscellaneous Notes * Telephone Encounter - Leonela Delgadillo - 01/01/2020 12:25 PM EDT I spoke with Charline. She is aware we are rescheduling her procedure with Dr. Fallon from 01/16 to an alternate date. I will call her with that date as soon as I know. She was agreeable to this. documented in this encounter Plan of Treatment Not on file documented as of this encounter Visit Diagnoses Not on filedocumented in this encounter Care Teams Washing Machine Installer Relationship Specialty Start Date End Date Susana Mesa APRN [address] [place] [address] PCP - General Family Medicine 12/01/19 documented as of this encounter
--- OUTSIDE RECORDS SUMMARY | 2024-02-04 00:38 | XMS_ITS | Encounter Summary ---
Author Organization [facility] [place] [address] Care Team Providers Care Personnel Clerks Supervisor Name Role Phone Susana Mesa APRN Primary Care Provider +1 -[phone] Reason for Visit * Consultation (Routine) - Specialty Diagnoses / Procedures Referred By Starr t Referred To Contact Vascular Surgery Diagnoses Non-pressure chronic ulcer of left ankle with unspecified severity Susana Mesa APRN [address] [place] [address] [facility] Vascular Surg [address] [place] [address] Referral ID Status Reason Start Date Expiration Date V isits Requested Visits Authorized [id number] Consult, Test & [facility] PCP Updated and/or Approved 12/01/2019 11/30/2020 12 12 Encounter Details Date Type Department Care Team (Late st Contact Info) Description 12/12/2019 8:00 AM EDT Tech Visit [place] [address] Padmini Viv[place], [place] Open wound Social History Tobacco Use Types [...] Procedure Name Priority Date/Time Associated Diagnosis Comments REBECCA, LEGS, MULTIPLE LEVELS Routine 12/12/2019 7:54 AM EDT Open wound documented in this encounter Results * REBECCA, legs, multiple levels (12/12/2019 7:54 AM EDT) VB Text Report Department: Vascular Surgery Lab Patient: [id number] (CHARLINE RALPH) CPT: 95319 ICD10: T14.8XXA;L97.32 9 Referring Physician: GAGE PICKENS [...] VASCUBASE 12/12/2019 7:54 AM EDT Gage Pickens APRN VASCULAR ORDERABLE S VASCUBASE documented in this encounter Visit Diagnoses Diagnosis Open wound Open wound(s) (multiple) of unspecified site(s), without mention of complication documented in this encounter Care Teams Personnel Clerks Supervisor Relationship Specialty Start Date End Date Susana Mesa APRN [address] [place] [address] PCP - General Family Medicine 12/01/19 documented as of this encounter
--- OUTSIDE RECORDS SUMMARY | 2024-02-04 00:38 | XMS_ITS | Encounter Summary ---
Author Organization [facility] Address [facility] [place] [address] Care Team Providers Care Credit Correspondence Clerk Name Role Phone Susana Mesa APRN Primary Care Provider +1 -[phone] Encounter Details Date Type Department Care Team (Late st Contact Info) Description 02/07/2020 Telephone [place] [address] Flower Phelan MD [facility] [place] [address] Social History Tobacco Use Types Packs/Day Years Used Date Smoking Tobacco: Never Smokeless Tobacco: Never Sex and Gender Information Value Date Recorded Sex Assigned at Not on file Gender Identity Not on file Sexual Orientation Not on file documented as of this encounter Progress Notes * Flower Phelan MD - 02/07/2020 4:38 AM EDT Encounter was entered in error. documented in this encounter Plan of Treatment Not on file documented as of this encounter Visit Diagnoses Not on filedocumented in this encounter Care Teams Credit Correspondence Clerk Relationship Specialty Start Date End Date Susana Mesa APRN [address] [place] [address] PCP - General Family Medicine 12/01/19 documented as of this encounter
--- OUTSIDE RECORDS SUMMARY | 2024-02-04 00:38 | XMS_ITS | Encounter Summary ---
Author Organization [facility] [place] [address] Care Team Providers Care Hedis Analyst Name Role Phone Susana Mesa APRN Primary Care Provider +1 -[phone] Encounter Details Date Type Department Care Team (Late st Contact Info) Description 12/21/2019 Telephone [place] [address] Lexy Gamez RN Social History Tobacco Use Types Packs/Day Years Used Date Smoking Tobacco: Never Smokeless Tobacco: Never Sex and Gender Information Value Date Recorded Sex Assigned at Not on file Gender Identity Not on file Sexual Orientation Not on file documented as of this encounter Miscellaneous Notes * Telephone Encounter - Lexy Gamez RN - 12/21/2019 12:51 PM EDT Pt advised that it is not advised to be fitted for compression hose until 4 weeks s/p VV surgery due to swelling, vascular RN advised that Pt will be discharged home with Lupillo bandages for compression. documented in this encounter Plan of Treatment Not on file documented as of this encounter Visit Diagnoses Not on filedocumented in this encounter Care Teams Hedis Analyst Relationship Specialty Start Date End Date Susana Mesa APRN [address] [place] [address] PCP - General Family Medicine 12/01/19 documented as of this encounter
--- OUTSIDE RECORDS SUMMARY | 2024-02-04 00:38 | XMS_ITS | Encounter Summary ---
Author Organization [facility] [place] [address] Care Team Providers Care Reclamation Supervisor Name Role Phone Susana Mesa APRN Primary Care Provider +1 -[phone] Encounter Details Date Type Department Care Team (Late st Contact Info) Description 01/25/2020 Telephone Vascular Surgery [place] [address] Leonela Delgadillo Social History Tobacco Use Types Packs/Day Years Used Date Smoking Tobacco: Never Smokeless Tobacco: Never Sex and Gender Information Value Date Recorded Sex Assigned at Not on file Gender Identity Not on file Sexual Orientation Not on file documented as of this encounter Miscellaneous Notes * Telephone Encounter - Leonela Delgadillo - 01/25/2020 10:51 AM EDT I spoke with Charline yesterday. We scheduled her procedure to be with Dr. Gilbert instead of Dr. Fallon for 02/06/20. She is aware that an RN will call the day prior with arrival time and eating/drinking instructions. documented in this encounter Plan of Treatment Not on file documented as of this encounter Visit Diagnoses Not on filedocumented in this encounter Care Teams Reclamation Supervisor Relationship Specialty Start Date End Date Susana Mesa APRN [address] [place] [address] PCP - General Family Medicine 12/01/19 documented as of this encounter
--- OUTSIDE RECORDS SUMMARY | 2024-02-04 00:38 | XMS_ITS | Encounter Summary ---
Author Organization [facility] Address [facility] [place] [address] Care Team Providers Care Comic Book Artist Name Role Phone MosheSusana oliveira KAMRYN Primary Care Provider +1 -[phone] Encounter Details Date Type Department Care Team (Late st Contact Info) Description 02/14/2020 Telephone [place] [address] Lianna Rebolledo MD [facility] [place] [address] Social History Tobacco Use Types Packs/Day Years Used Date Smoking Tobacco: Never Smokeless Tobacco: Never Sex and Gender Information Value Date Recorded Sex Assigned at Not on file Gender Identity Not on file Sexual Orientation Not on file documented as of this encounter Miscellaneous Notes * Telephone Encounter - Lianna Rebolledo MD - 02/14/2020 8:29 PM EDT Vascular Surgery Parcel Carrier Patient called re: slight separation of thigh incision. Denies any new drainage. States no redness or swelling. No fevers or chills. Overall feels well. Would like to come into clinic for a wound check. Advised that if she has concerns about the wound the most immediate way to get evaluated overnight would be in the ED. Pt prefers vascular clinic or PCP follow-up. Will call in the AM to schedule.Return precautions provided. Lianna Rebolledo Vascular Surgery Fellow pager [phone] 02/14/2020 documented in this encounter Plan of Treatment Not on file documented as of this encounter Visit Diagnoses Not on filedocumented in this encounter Care Teams Comic Book Artist Relationship Specialty Start Date End Date Susana Mesa APRN [address] [place] [address] PCP - General Family Medicine 12/01/19 documented as of this encounter
--- OUTSIDE RECORDS SUMMARY | 2024-02-04 00:39 | XMS_ITS | Encounter Summary ---
Author Organization [facility] Address [address] [place] [address] Care Team Providers Care Scientist Engineer Name Role Phone Susana Mesa KAMRYN Primary Care Provider [phone] [phone] Reason for Visit * Reason Comments Other Encounter Details Date Type Department Care Team (Late st Contact Info) Description 05/24/2021 Refill [facility] [place] Rheumatology [address] [place] [address] Rosina Manuel MD [address] [facility] [address] [place] [address] Other Social History Tobacco Use Types Packs/Day Years Used Date Smoking Tobacco: Former Smokeless Tobacco: Never Interpersonal Safety Answer Date Record ed Physically Hurt Never 02/04/2020 Verbally Threaten Not on file 02/04/2020 Sex and Gender Information Value Date Recorded Sex Assigned at Not on file Gender Identity Female 08/17/2019 11:24 EST Sexual Orientation Not on file documented as of this encounter Ordered Prescriptions Prescription Sig Dispensed Refills Start Date End Da te methotrexate 25 mg/mL injectionIndications:Rheum atoid arthritis involving multiple sites with positive rheumatoid factor ([facility]) USE 0.8ML ONCE WEEKLY 12 mL 1 05/26/2021 09/15/2022 documented in this encounter Miscellaneous Notes * Telephone Encounter - Claire Brown RN - 05/26/2021 0832 EST Last visit note reviewed and follow up scheduled for 09/12/21. DMARD labs last drawn 04/16/21. Refill sent as noted. documented in this encounter Plan of Treatment Upcoming Encounters Date Type Department Care Team (Late st Contact Info) Description 06/06/2024 10:45 EST Telemedicine [facility] Rheumatology [address] [place] [address] Rosina Manuel MD [address] [facility] [address] [place] [address] documented as of this encounter Visit Diagnoses Diagnosis Rheumatoid arthritis involving multiple sites with positive rheumatoid factor ([facility])- Primary documented in this encounter Discontinued Medications Medication Sig Discontinue Reason Start Date End Da te methotrexate 25 mg/mL injectionIndications:Rhe umatoid arthritis involving multiple sites with positive rheumatoid factor ([facility]) USE 0.8ML ONCE WEEKLY 04/25/2021 05/26/2021 documented as of this encounter Care Teams Scientist Engineer Relationship Specialty Start Date End Date Susana Mesa APRN [address] [place] [address] PCP - General 08/21/19 documented as of this encounter
--- OUTSIDE RECORDS SUMMARY | 2024-02-04 00:39 | XMS_ITS | Encounter Summary ---
Author Organization [facility] Address [address] [place] [address] Care Team Providers Care Guest Room Inspector Name Role Phone Susana Mesa KAMRYN Primary Care Provider [phone] [phone] Reason for Visit * Reason Comments Follow-up RA- Pt states she ca me down with the flu a month ago, which caused a flare. She doesn't like to take too many meds, so occasionally she'll only use Ibuprofen if the flare is bad. Encounter Details Date Type Department Care Team (Late st Contact Info) Description 09/07/2023 10:15 EST Telemedicine [facility] Rheumatology [address] [place], [place] [address] Rosina Manuel MD [address] [facility] [address] [place] [address] Seropositive rheumatoid arthritis of multiple sites (HCC-CMS) (Primary Dx); High risk medication use Social History Tobacco Use Types Packs/Day Years [...] Sign Reading Time Taken Comments Blood Pressure - - Pulse - - Temperature - - Respiratory Rate - - Oxygen Saturation - - Inhaled Oxygen Concentration - - Weight 106.1 kg (234 lb) 09/07/2023 0944 EST Height 162.6 cm (5' 4) 09/07/2023 0944 EST Body Mass Index 40.17 09/07/2023 0944 EST documented in this encounter Functional Status Functional Status Response Date of [...] concentrating, remembering, or making decisions? No 01/26/2023 documented as of this encounter Patient Instructions * Patient Instructions* Rosina Manuel MD - 09/07/2023 10:15 EST 1 RA Continue methotrexate 20 mg injected weekly Humira every 14 days Continue hydroxychloroquine a current dose 2 CBC, CMP every 3 months Eye exam every year 3 See me in 5-6 months documented in this encounter Progress Notes * Rosina Manuel MD - 09/07/2023 1015 EST [facility] Telephone Visit Today's visit was provided via telephone audio only. The location of the patient: Home (where patient lives) The location of the provider: Office Verbal consent: The concept of ???Telemedicine?? has been described to the patient. Patient has been informed of the anticipated benefits and possible risks. Patient understands the information provided regarding telemedicine, has had the opportunity to ask questions about this information, and all questions havebeen answered to patient???s satisfaction. Patient consents for the use of telemedicine in his/her medical care and authorizes the transmission of any relevant medical information to providers and their staff involved in patient???s medical or mental health care. Verbal consent obtained by myself or auxiliary staff: yes. I have determined that an audio-only visit is appropriate due to: Patient request Subjective: Chief Complaint(s): Follow-up (RA- Pt states she came down with the flu a month ago, which caused aflare. She doesn't like to take too many meds, so occasionally she'll only use Ibuprofen if the flare is bad.) Seropositive rheumatoid arthritis - 2015 methotrexate and hydroxychloroquine therapy - add on Humira therapy 2020 Ulcer lower leg 2020 -dt varicose vein/healed after eval with vasc at [facility] HPI: Charline Dunham reports she had the flu and managed at home. She had been vomiting and having diarrhea for three days. Entire household was sick with same symptoms over the course of a week. She has recovered. Flare of RA -her feet were affected. She had pain in her toes. -she missed a dose of Humira when sick with flu. -continues with methotrexate Also some edema Also some swelling in mtps better now She is able to sit at work for part of the time and get off feet Hands are ok. NO medication side effects reported Eye exam up to date Had labs 09/02/2023 Ros NO ulcer on legs. I have reviewed patient's tobacco history: reports that she has quit smoking. She has never used smokeless tobacco. I have reviewed current problem list and current medications. Objective: Examination: Home Vitals: Ht 162.6 cm (64) Wt (!) 106.1 kg (234 lb) BMI 40.17 kg/m?? Pertinent exam findings: speaking in full sentences, no audible wheeze, and mood and affect appropriate Data reviewed with patient: She had labs on 09/02/2023 at [facility]. Assessment & Plan: Charline Dunham is a 58 y.o. female with a history of seropositive rheumatoid arthritis on Humira,plaquenil and methotrexate 20 mg injected weekly She is stable and at goal on above meds. 1. Seropositive rheumatoid arthritis of multiple sites ([facility]) continue current doses of methotrexate/hydroxychloroquine and Humira 2. High risk medication use labs from [facility] done Patient Instructions 1 RA Continue methotrexate 20 mg injected weekly Humira every 14 days Continue hydroxychloroquine a current dose 2 CBC, CMP every 3 months Eye exam every year 3 See me in 5-6 months Patient initiated phone contact with the office: yes. Patient is an established patient (parent, guardian) yes. E/M provided within previous 7 days for same medical assessment: no Anticipate E/M service within 24hrs or next available urgent appointment no. This visit was conducted by telephone. A total of 23 minutes was spent on this encounter on the dayof this encounter. documented in this encounter Plan of Treatment Upcoming Encounters Date Type Department Care Team (Late st Contact Info) Description 06/06/2024 10:45 EST Telemedicine [facility] - [facility] Rheumatology [address] [place], [place] [address] Rosina Manuel MD [address] [facility] [address] [place] [address] documented as of this encounter Visit Diagnoses Diagnosis Seropositive rheumatoid arthritis of multiple sites ([facility])- Primary High risk medication use Encounter for long-term (current) use of other medications documented in this encounter Care Teams Guest Room Inspector Relationship Specialty Start Date End Date Susana Mesa APRN [address] [place] [address] PCP - General 08/21/19 documented as of this encounter
--- OUTSIDE RECORDS SUMMARY | 2024-02-04 00:39 | XMS_ITS | Encounter Summary ---
Author Organization [facility] Address [address] [place] [address] Care Team Providers Care Psychologist Military Personnel Name Role Phone Susana Mesa KAMRYN Primary Care Provider [phone] [phone] Reason for Visit * Reason Comments Medications Refill Encounter Details Date Type Department Care Team (Late st Contact Info) Description 03/05/2023 Refill [facility] Rheumatology [address] [place] [address] Rosina Manuel MD 130 [facility] [address] [place] [address] Medications Refill Social History Tobacco Use Types Packs/Day Years Used Date Smoking Tobacco: Former Smokeless Tobacco: Never Interpersonal Safety Answer Date Record ed Physically Hurt Never 02/04/2020 Verbally Threaten Not on file 02/04/2020 Sex and Gender Information Value Date Recorded Sex Assigned at Not on file Gender Identity Female 08/17/2019 11:24 EST Sexual Orientation Not on file documented as of this encounter Functional Status Functional Status Response [...] No 01/26/2023 documented as of this encounter Ordered Prescriptions Prescription Sig Dispensed Refills Start Date End Da te HUMIRA,CF, PEN 40 mg/0.4 mL pen INJECT 40MG SUBCUTANEOUSLY EVERY 2 WEEKS 2 Each 5 03/05/2023 08/11/2023 documented in this encounter Miscellaneous Notes * Telephone Encounter - Claire Brown, RN - 03/05/2023 0858 EDT Last visit note reviewed and follow up scheduled for 07/30/23. Labs up to date. Refill sent as noted. documented in this encounter Plan of Treatment Upcoming Encounters Date Type Department Care Team (Late st Contact Info) Description 06/06/2024 10:45 EST Telemedicine [facility] Rheumatology [address] [place] [address] Rosina Manuel MD 130 [facility] [place] [address] documented as of this encounter Visit Diagnoses Not on filedocumented in this encounter Discontinued Medications Medication Sig Discontinue Reason Start Date End Da te adalimumab (HUMIRA,CF, PEN) 40 mg/0.4 mL pen INJECT 40MG SUBCUTANEOUSLY EVERY 2 WEEKS 09/15/2022 03/05/2023 documented as of this encounter Care Teams Psychologist Military Personnel Relationship Specialty Start Date End Date Susana Mesa APRN [address] [place] [address] PCP - General 08/21/19 documented as of this encounter
--- OUTSIDE RECORDS SUMMARY | 2024-02-04 00:39 | XMS_ITS | Encounter Summary ---
Author Organization [facility] Address [address] [place] [address] Care Team Providers Care Salesperson Automobiles Name Role Phone Susana Mesa KAMRYN Primary Care Provider [phone] [phone] Reason for Visit * Reason Comments Medications Refill Encounter Details Date Type Department Care Team (Late st Contact Info) Description 02/28/2023 Refill [facility] Rheumatology [address] [place] [address] Rosina Manuel MD 130 [facility] [address] [place] [address] Medications Refill Social History Tobacco [...] Date End Da te methotrexate 25 mg/mL (MDV) injectionIndications:R heumatoid arthritis involving multiple sites with positive rheumatoid factor (HCC-CMS) INJECT 0.8 ML SUBCUTANEOUSLY ONCE A WEEK 12 mL 1 03/01/2023 08/23/2023 documented in this encounter Miscellaneous Notes * Telephone Encounter - Claire Brown RN - 03/01/2023 1010 EDT Last visit note reviewed and follow up scheduled for 07/30/22. Labs up to date. Refill sent as noted. documented in this encounter Plan of Treatment Upcoming Encounters Date Type Department Care Team (Late st Contact Info) Description 06/06/2024 10:45 EST Telemedicine [facility] Rheumatology [address] [place], [place] [address] Rosina Manuel MD [address] [facility] [address] [place] [address] documented as of this encounter Visit Diagnoses Diagnosis Rheumatoid arthritis involving multiple sites with positive rheumatoid factor ([facility]) documented in this encounter Discontinued Medications Medication Sig Discontinue Reason Start Date End Da te methotrexate 25 mg/mL injectionIndications :Rheumatoid arthritis involving multiple sites with positive rheumatoid factor (HCC-CMS) Inject 0.8 ml subcutaneously once a week. 09/15/2022 03/01/2023 documented as of this encounter Care Teams Salesperson Automobiles Relationship Specialty Start Date End Date Susana Mesa APRN [address] [place] [address] PCP - General 08/21/19 documented as of this encounter
--- OUTSIDE RECORDS SUMMARY | 2024-02-04 00:39 | XMS_ITS | Encounter Summary ---
Author Organization [facility] Address [address] [place] [address] Care Team Providers Care Entry Processor Name Role Phone Susana Mesa KAMRYN Primary Care Provider [phone] [phone] Encounter Details Date Type Department Care Team (Late st Contact Info) Description 09/04/2021 Orders Only [facility] Rheumatology [address] [place] [address] Claire Brown RN Rheumatoid arthritis involving multiple sites with positive rheumatoid factor (HCC-CMS) (HCC) (Primary Dx); Seropositive rheumatoid arthritis (HCC-CMS) (HCC); High risk medication use Social History Tobacco [...] as of this encounter Progress Notes * Claire Brown, RN - 09/04/2021 1151 EST DMARD standing labs renewed. documented in this encounter Plan of Treatment Upcoming Encounters Date Type Department Care Team (Late st Contact Info) Description 06/06/2024 10:45 EST Telemedicine [facility] Rheumatology [address] [place] [address] Rosina Manuel MD [address] [place] [address] [place] [address] documented as of this encounter Visit Diagnoses Diagnosis Rheumatoid arthritis involving multiple sites with positive rheumatoid factor ([facility])- Primary Seropositive rheumatoid arthritis ([facility]) Rheumatoid arthritis High risk medication use Encounter for long-term (current) use of other medications documented in this encounter Care Teams Entry Processor Relationship Specialty Start Date End Date Susana Mesa APRN [address] [place] [address] PCP - General 08/21/19 documented as of this encounter
--- OUTSIDE RECORDS SUMMARY | 2024-02-04 00:39 | XMS_ITS | Encounter Summary ---
Author Organization [facility] Address [address] [place] [address] Care Team Providers Care Data Entry Representative Name Role Phone Susana Mesa KAMRYN Primary Care Provider [phone] [phone] Encounter Details Date Type Department Care Team (Late st Contact Info) Description 10/23/2022 Lab Requisition [facility] Pathology & Laboratory Medicine - [facility] [address] [place], [place] [address] Outr Resulting Lab, Provider Social History Tobacco Use Types Packs/Day Years Used Date Smoking Tobacco: Former Smokeless Tobacco: Never Interpersonal Safety Answer Date Record ed Physically Hurt Never 02/04/2020 Verbally Threaten Not on file 02/04/2020 Sex and Gender Information Value Date Recorded Sex Assigned at Not on file Gender Identity Female 08/17/2019 11:24 EST Sexual Orientation Not on file documented as of this encounter Plan of Treatment Upcoming Encounters Date Type Department Care Team (Late st Contact Info) Description 06/06/2024 10:45 EST Telemedicine [facility] Rheumatology [address] [place], [place] [address] Rosina Manuel MD 130 [facility] [address] [place] [phone] documented as of this encounter Procedures Procedure Name Priority Date/Time Associated Diagnosis Comments HIV 1/2 ANTIGEN AND ANTIBODY, 4TH GENERATION Routine 10/22/2022 15:25 EDT documented in this encounter Results * HIV 1/2 ANTIGEN AND ANTIBODY, 4TH GENERATION (10/22/2022 15:25 EDT) HIV 1 and 2 Antibody/p24 Antigen, 4th Generation Negative Negative 10/25/2022 10:10 EDT [facility] Comment:If acute HIV-1 infec tion is suspected in a high risk patient, submit plasma specimen for HIV-1 RNA quantitation test. Blood VENOUS BLOOD / Unknown 10/22/2022 15:25 EDT 10/23/2022 19:35 EDT Narrative [facility] - 10/25/2022 10:10 EDT Fourth Generation assay performed on the Siemens Centaur XPT. Provider Outr Resulting Lab IMMUNOLOGY A ND SEROLOGY ORDERABLES [facility] [address] [place] [address] documented in this encounter Visit Diagnoses Not on filedocumented in this encounter Care Teams Data Entry Representative Relationship Specialty Start Date End Date Susana Mesa APRN [address] [place] [address] PCP - General 08/21/19 documented as of this encounter
--- OUTSIDE RECORDS SUMMARY | 2024-02-04 00:39 | XMS_ITS | Encounter Summary ---
Author Organization [facility] Address [address] [place] [address] Care Team Providers Care Land Resource Specialist Name Role Phone Susana Mesa KAMRYN Primary Care Provider [phone] [phone] Reason for Visit * Reason Comments Medications Refill Encounter Details Date Type Department Care Team (Late st Contact Info) Description 08/22/[address] [facility] Rheumatology [address] [place] [address] Rosina Manuel MD 130 [facility] [address] [place] [address] Medications Refill Social History Tobacco [...] End Da te methotrexate 25 mg/mL (MDV) injectionIndications:Rheum atoid arthritis involving multiple sites with positive rheumatoid factor (HCC-CMS) INJECT 0.8ML UNDER THE SKIN ONCE A WEEK 12 mL 1 08/23/2023 01/26/2024 documented in this encounter Miscellaneous Notes * Telephone Encounter - Tammy Zepeda RN - 08/23/2023 1005 EST Last visit note reviewed; follow up noted as recommended and labs up to date. Refill sent per protocol. documented in this encounter Plan of Treatment Upcoming Encounters Date Type Department Care Team (Late st Contact Info) Description 06/06/2024 10:[address] [facility] Rheumatology [address] [place], [place] [address] Rosina Manuel MD [address] [facility] [address] [place] [phone] documented as of this encounter Visit Diagnoses Diagnosis Rheumatoid arthritis involving multiple sites with positive rheumatoid factor ([facility])- Primary documented in this encounter Discontinued Medications Medication Sig Discontinue Reason Start Date End Da te methotrexate 25 mg/mL (MDV) injectionIndications :Rheumatoid arthritis involving multiple sites with positive rheumatoid factor (HCC-CMS) INJECT 0.8 ML SUBCUTANEOUSLY ONCE A WEEK 03/01/2023 08/23/2023 documented as of this encounter Care Teams Land Resource Specialist Relationship Specialty Start Date End Date Susana Mesa APRN [address] [place] [address] PCP - General 08/21/19 documented as of this encounter
--- OUTSIDE RECORDS SUMMARY | 2024-02-04 00:39 | XMS_ITS | Encounter Summary ---
Author Organization [facility] Address [address] [place] [address] Care Team Providers Care Auto Damage Insurance Appraiser Name Role Phone Susana Mesa KAMRYN Primary Care Provider [phone] [phone] Encounter Details Date Type Department Care Team (Late st Contact Info) Description 11/25/2023 Abstract [facility] Rheumatology [address] [place] [id number] Chuckie Roberts, RN Social History Tobacco Use Types Packs/Day [...] No 01/26/2023 documented as of this encounter Progress Notes * Chuckie Roberts, RN - 11/25/2023 9950 EDT [facility] lab results entered from [facility] in [employer]. documented in this encounter Plan of Treatment Upcoming Encounters Date Type Department Care Team (Late st Contact Info) Description 06/06/2024 10:45 EST Telemedicine [facility] Rheumatology [address] [place] [address] Rosina Manuel MD [address] [facility] [address] [place] [address] documented as of this encounter Procedures Procedure Name Priority Date/Time Associated Diagnosis Comments C REACTIVE PROTEIN Routine 11/18/2023 COMPREHENSIVE METABOLIC PANEL (CMP) Routine 11/18/2023 documented in this encounter Results * (ABNORMAL) COMPREHENSIVE METABOLIC PANEL (CMP) (11/18/2023) GFR, Calculated, External 98.95 [facility] Glucose, Serum, External 83 74 - 106 mg/dL [facility] Albumin, External 4.1 3.4 - 5.0 g/dL [facility] Total Alkaline Phosphatase, External 88 46 - 116 [facility] ALT, External 29 14 - 59 [facility] AST, External 18 15 - 37 U/L [facility] BUN, External 21(A) 7 - 18 mg/dL [facility] Calculated Calcium, External [facility] Calcium, External 9.1 8.5 - 10.1 mg/dL [facility] Chloride, External 101 98 - 107 mmol/L [facility] CO2, External 31.2 21 - 32 mmol/L [facility] Creatinine, External 0.7 0.55 - 1.02 mg/dL [facility] Fasting?, External [facility] Potassium, External 3.9 3.5 - 5.1 mmol/L [facility] Sodium, External 141 136 - 145 mmol/L [facility] Total Protein, External 7.3 6.4 - 8.2 [facility] Bilirubin, Total, External 0.6 0.2 - 1.0 [facility] Blood VENOUS BLOOD / Unknown 11/18/2023 Rosina Manuel MD CHEMISTRY & BLOO D GAS ORDERABLES Performing Organization Address [facility] Co de Phone Number [facility] * (ABNORMAL) C REACTIVE PROTEIN (11/18/2023) C-Reactive Protein, External 0.73(A) 0.5 [facility] Blood VENOUS BLOOD / Unknown 11/18/2023 Rosina Manuel MD CHEMISTRY & BLOO D GAS ORDERABLES Performing Organization Address [facility] Co de Phone Number [facility] documented in this encounter Visit Diagnoses Not on filedocumented in this encounter Care Teams Auto Damage Insurance Appraiser Relationship Specialty Start Date End Date Susana Mesa, REMEDIAL TEACHER [address] [place] [address] PCP - General 08/21/19 documented as of this encounter
--- OUTSIDE RECORDS SUMMARY | 2024-02-04 00:39 | XMS_ITS | Encounter Summary ---
Author Organization [facility] Address [address] [place] [address] Care Team Providers Care Gasoline Service Attendant Name Role Phone Susana Mesa KAMRYN Primary Care Provider [phone] [phone] Reason for Visit * Reason Onset Date Comments Results 11/25/2023 Encounter Details Date Type Department Care Team (Late st Contact Info) Description 11/25/2023 Telephone [facility] [place] [address] [place] [address] Chuckie Roberts, RN Results Social History Tobacco Use Types Packs/Day Years [...] No 01/26/2023 documented as of this encounter Miscellaneous Notes * Telephone Encounter - Chuckie Roberts, RN - 11/25/2023 1422 EDT Received partial [facility] lab results. CBC was not drawn with other standing labs. Would you like her to go back to [facility] for additional blood work? Her next OV is scheduled in 01/2024. documented in this encounter Plan of Treatment Upcoming Encounters Date Type Department Care Team (Late st Contact Info) Description 06/06/2024 10:45 EST Telemedicine [facility] Rheumatology [address] [place] [address] Rosina Manuel MD 130 [facility] [address] [place] [address] documented as of this encounter Visit Diagnoses Not on filedocumented in this encounter Care Teams Gasoline Service Attendant Relationship Specialty Start Date End Date Susana Mesa APRN [address] [place] [phone] PCP - General 08/21/19 documented as of this encounter
--- OUTSIDE RECORDS SUMMARY | 2024-02-04 00:39 | XMS_ITS | Encounter Summary ---
Author Organization [facility] Address [address] [place] [address] Care Team Providers Care Laboratory Development Technician Name Role Phone Susana Mesa KAMRYN Primary Care Provider [phone] [phone] Reason for Visit * Reason Comments Other Encounter Details Date Type Department Care Team (Late st Contact Info) Description 08/27/2021 Refill [facility] Rheumatology [address] [place] [address] Rosina Manuel MD 130 [facility] [address] [place] [address] Other Social History Tobacco Use [...] Dispensed Refills Start Date End Da te hydrOXYchloroQUINE (PLAQUENIL) 200 mg tabletIndications:Rheumat oid arthritis involving multiple sites with positive rheumatoid factor ([facility]) TAKE ONE TABLET BY MOUTH EVERY DAY 30 Tablet 11 08/28/2021 03/18/2022 documented in this encounter Miscellaneous Notes * Telephone Encounter - Claire Brown RN - 08/28/2021 0810 EST Last visit note reviewed and follow up scheduled for 09/12/21. Refill sent as noted. documented in this encounter Plan of Treatment Upcoming Encounters Date Type Department Care Team (Late st Contact Info) Description 06/06/2024 10:45 EST Telemedicine [facility] Rheumatology [address] [place], [place] [address] Rosina Manuel MD 130 [facility] [address] [place] [phone] documented as of this encounter Visit Diagnoses Diagnosis Rheumatoid arthritis involving multiple sites with positive rheumatoid factor ([facility])- Primary documented in this encounter Discontinued Medications Medication Sig Discontinue Reason Start Date End Da te hydrOXYchloroQUINE (PLAQUENIL) 200 mg tabletIndications:Rheuma toid arthritis involving multiple sites with positive rheumatoid factor (HCC-CMS) Take 1 Tablet by mouth daily. 04/25/2021 08/28/2021 documented as of this encounter Care Teams Laboratory Development Technician Relationship Specialty Start Date End Date Susana Mesa APRN [address] [place] [address] PCP - General 08/21/19 documented as of this encounter
--- OUTSIDE RECORDS SUMMARY | 2024-02-04 00:39 | XMS_ITS | Encounter Summary ---
Author Organization [facility] Address [address] [place] [address] Care Team Providers Care Rn Team Leader Name Role Phone Suasna Mesa KAMRYN Primary Care Provider [phone] [phone] Reason for Visit * Reason Onset Date Comments Medications Refill 02/03/2021 Encounter Details Date Type Department Care Team (Late st Contact Info) Description 02/03/2021 Refill [facility] Rheumatology [address] [place] [address] Claire Brown, SHABANA Medications Refill Social History Tobacco Use Types [...] Dispensed Refills Start Date End Da te adalimumab (HUMIRA,CF, PEN) 40 mg/0.4 mL pen Inject 0.4 mL into the skin every 14 days. 2 Pen 5 02/03/2021 07/23/2021 documented in this encounter Miscellaneous Notes * Telephone Encounter - Claire Brown RN - 02/03/2021 0824 EDT Last visit note reviewed and follow up scheduled for 04/25/21. Refill sent as noted. documented in this encounter Plan of Treatment Upcoming Encounters Date Type Department Care Team (Late st Contact Info) Description 06/06/2024 10:45 EST Telemedicine [facility] Rheumatology [address] [place] [address] Rosina Manuel MD 130 [facility] [address] [place] [phone] documented as of this encounter Visit Diagnoses Not on filedocumented in this encounter Discontinued Medications Medication Sig Discontinue Reason Start Date End Da te adalimumab (HUMIRA,CF, PEN) 40 mg/0.4 mL pen Inject 0.4 mL into the skin every 14 days. Reorder 08/19/2020 02/03/2021 documented as of this encounter Care Teams Rn Team Leader Relationship Specialty Start Date End Date Susana Mesa APRN [address] [place] [address] PCP - General 08/21/19 documented as of this encounter
--- OUTSIDE RECORDS SUMMARY | 2024-02-04 00:39 | XMS_ITS | Encounter Summary ---
Author Organization [facility] Address [address] [place] [address] Care Team Providers Care Airborne Sensor Specialist Name Role Phone Susana Mesa KAMRYN Primary Care Provider [phone] [phone] Reason for Visit * Reason Comments Other Encounter Details Date Type Department Care Team (Late st Contact Info) Description 03/11/2022 Refill [facility] Rheumatology [address] [place] [address] Rosina Manuel MD 130 [facility] [place] [address] Other Social History Tobacco Use [...] Refills Start Date End Da te methotrexate sodium/PF (METHOTREXATE, PF,) 25 mg/mL injection USE 0.8ML ONCE WEEKLY 12 mL 1 03/12/2022 09/15/2022 documented in this encounter Miscellaneous Notes * Telephone Encounter - Claire Brown RN - 03/12/2022 0924 EDT Last visit note reviewed and follow up scheduled for 03/18/22. Labs over due and unable to reach patient to remind her to complete labs. Please advise if okay to send refill or should we wait until patient telemed visit as patient has not had labs done since 04/16/21. documented in this encounter Plan of Treatment Upcoming Encounters Date Type Department Care Team (Late st Contact Info) Description 06/06/2024 10:45 EST Telemedicine [facility] Rheumatology [address] [place], [place] [address] Rosina Manuel MD 130 [facility] [address] [place] [address] documented as of this encounter Visit Diagnoses Not on filedocumented in this encounter Care Teams Airborne Sensor Specialist Relationship Specialty Start Date End Date Susana Mesa APRN [address] [place] [address] PCP - General 08/21/19 documented as of this encounter
--- OUTSIDE RECORDS SUMMARY | 2024-02-04 00:39 | XMS_ITS | Encounter Summary ---
Author Organization [facility] Address [address] [place] [address] Care Team Providers Care Manager Country Name Role Phone Susana Mesa KAMRYN Primary Care Provider [phone] [phone] Reason for Visit * Reason Onset Date Comments Appointment Related 03/19/2022 Encounter Details Date Type Department Care Team (Late st Contact Info) Description 03/19/2022 Telephone [facility] [place] [address] [place], [place] [phone] Rosina Manuel MD 130 [facility] [address] [place] [address] Appointment Related Social History Tobacco Use Types Packs/Day Years [...] encounter Miscellaneous Notes * Telephone Encounter - Kelly Quiles - 03/19/2022 0848 EDT Attempted to reach out to patient to schedule follow up appointment. Patient had phone appointment with Dr Manuel on 03.18 and provider would like follow up in about 6 months - stating phone follow up is fine. Have set up recall with televideo to find proper day - please change to phone appointment after scheduling. documented in this encounter Plan of Treatment Upcoming Encounters Date Type Department Care Team (Late st Contact Info) Description 06/06/2024 10:45 EST Telemedicine [facility] [place] [address] [place] [address] Rosina Manuel MD 130 [facility] [address] [place] [address] documented as of this encounter Visit Diagnoses Not on filedocumented in this encounter Care Teams Manager Country Relationship Specialty Start Date End Date Susana Mesa APRN [address] [facility] [address] [place] [address] PCP - General 08/21/19 documented as of this encounter
--- OUTSIDE RECORDS SUMMARY | 2024-02-04 00:39 | XMS_ITS | Encounter Summary ---
Author Organization [facility] Address [address] [place] [address] Care Team Providers Care Bit Setter Name Role Phone Susana Mesa KAMRYN Primary Care Provider [phone] -[phone] Reason for Visit * Reason Comments Rheumatoid Arthritis Humira helps. Doing well uses Hemp cream for foot pain with good results Encounter Details Date Type Department Care Team (Late st Contact Info) Description 04/25/2021 11:15 EDT Telemedicine [facility] Rheumatology [address] [place], [place] [phone] Rosina Manuel MD 130 [facility] [address] [place] [phone] Rheumatoid arthritis involving multiple sites with positive rheumatoid factor (HCC-CMS) ([facility]) Social History Tobacco Use Types Packs/Day Years [...] Dispensed Refills Start Date End Da te folic acid (FOLVITE) 1 mg tabletIndications:Rheumat oid arthritis involving multiple sites with positive rheumatoid factor (HCC-CMS) Take 1 Tablet by mouth daily. 90 Tablet 3 04/25/2021 09/15/2022 hydrOXYchloroQUINE (PLAQUENIL) 200 mg tabletIndications:Rheumat oid arthritis involving multiple sites with positive rheumatoid factor (HCC-CMS) Take 1 Tablet by mouth daily. 90 Tablet 3 04/25/2021 08/28/2021 methotrexate 25 mg/mL injectionIndications:Rheu matoid arthritis involving multiple sites with positive rheumatoid factor ([facility]) USE 0.8ML ONCE WEEKLY 12 mL 3 04/25/2021 05/26/2021 documented in this encounter Progress Notes * Rosina Manuel MD - 04/25/2021 1114 EDT [facility] Telephone Visit Verbal consent: The concept of ???Telemedicine?? has [...] obtained by myself or auxiliary staff: yes. Subjective: Chief Complaint(s): RA follow up ?? Rheumatology problem list Seropositive rheumatoid arthritis: Diagnosed 2016 Dr. Beverly Methotrexate/Plaquenil. Humira therapy July 2020 ?Venous ulcer left ankle: -trauma to vein, surgical repair [facility] 2019 ?Obesity ?Hyperlipidemia. HPI: Rheumatoid arthritis Doing well States RA is stable. Feels she is doing ok. She is doing well right now Tolerates Humira States she has the shot causes fatigue after the injection. 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 Using Hemp rub on her feet Very helpful. Uses compression socks as well Vaccination status Moderna completed in November 2020 Had her flu shot. I have reviewed patient's tobacco history: reports that she has quit smoking. She has never used smokeless tobacco. I have reviewed current problem list and current medications. ROS: ROS Ulcer on lower leg has healed. No skin breakdown NO mouth sores Objective: Examination: Home Vitals: There were no vitals taken for this visit. Pertinent exam findings: speaking in full sentences, no audible wheeze and mood and affect appropriate Data reviewed with patient: Reviewed and/or ordered active problem list, medication list, allergies, notes from last 1 encounters, lab results tests Assessment & Plan: Rheumatoid arthritis erosive seropositive disease -stable with good control -methotrexate 20 mg injected sc once a week and plaquenil 200 mg/day -Humira 40 mg [id number] High risk medication -;labs reviewed no concerns, CRP improved Vaccine counseling -Moderna booster, hold methotrexate week after RTC telephone September/in person summer 2021 Patient initiated phone contact with the office: yes. Patient is an established patient (parent, guardian) yes. E/M provided within previous 7 days for same medical assessment: no Anticipate E/M service within 24hrs or next available urgent appointment no. This visit was conducted by telephone. A total of 28 minutes was spent on this encounter on the dayof this encounter. Med Orders Placed This Visit and Additions to the Medication List Medications ??? methotrexate 25 mg/mL injection Sig: USE 0.8ML ONCE WEEKLY Dispense: 12 mL Refill: 3 ??? hydrOXYchloroQUINE (PLAQUENIL) 200 mg tablet Sig: Take 1 Tablet by mouth daily. Dispense: 90 Tablet Refill: 3 ??? folic acid (FOLVITE) 1 mg tablet Sig: Take 1 Tablet by mouth daily. Dispense: 90 Tablet Refill: 3 documented in this encounter Plan of Treatment Upcoming Encounters Date Type Department Care Team (Late st Contact Info) Description 06/06/2024 10:45 EST Telemedicine [facility] Rheumatology [address] [place], [place] [address] Rosina Manuel MD [address] [place] [address] [address] [place] [phone] documented as of this encounter Visit Diagnoses Diagnosis Rheumatoid arthritis involving multiple sites with positive rheumatoid factor (HCC-CMS) documented in this encounter Discontinued Medications Medication Sig Discontinue Reason Start Date End Da te hydrOXYchloroQUINE (PLAQUENIL) 200 mg tabletIndications:Rheuma toid arthritis involving multiple sites with positive rheumatoid factor (HCC-CMS) Take 1 Tab by mouth daily. Reorder 08/19/2020 04/25/2021 methotrexate 25 mg/mL injectionIndications:Rhe umatoid arthritis involving multiple sites with positive rheumatoid factor ([facility]) USE 0.8ML ONCE WEEKLY Reorder 08/19/2020 04/25/2021 folic acid (FOLVITE) 1 mg tabletIndications:Rheuma toid arthritis involving multiple sites with positive rheumatoid factor ([facility]) Take 1 Tab by mouth daily. Reorder 08/19/2020 04/25/2021 documented as of this encounter Care Teams Bit Setter Relationship Specialty Start Date End Date Susana Mesa APRN [address] [place] [phone] PCP - General 08/21/19 documented as of this encounter
--- OUTSIDE RECORDS SUMMARY | 2024-02-04 00:39 | XMS_ITS | Encounter Summary ---
Author Organization [facility] Address [address] [place] [address] Care Team Providers Care Space And Missile Operations Name Role Phone Susana Mesa KAMRYN Primary Care Provider [phone] [phone] Reason for Visit * Reason Comments Medications Refill Encounter Details Date Type Department Care Team ( Contact Info) Description 06/28/2022 Refill [facility] [place] [address] [place] [address] Rosina Manuel MD 130 [facility] [address] [place] [address] Medications Refill Social History Tobacco [...] SUBCUTANEOUSLY EVERY 2 WEEKS 2 Each 5 06/30/2022 09/15/2022 documented in this encounter Miscellaneous Notes * Telephone Encounter - Claire Brown RN - 06/30/2022 0976 EST Last visit note reviewed and follow up scheduled for 09/16/22. Labs up to date. Refill sent as noted. documented in this encounter Plan of Treatment Upcoming Encounters Date Type Department Care Team (Paloma bentley Contact Info) Description 06/06/2024 10:45 EST Telemedicine [facility] Rheumatology [address] [place] [address] Rosina Manuel MD 130 [facility] [address] [place] [phone] documented as of this encounter Visit Diagnoses Not on filedocumented in this encounter Discontinued Medications Medication Sig Discontinue Reason Start Date End Da te JENNIFERCF, PEN 40 mg/0.4 mL pen INJECT 40MG SUBCUTANEOUSLY EVERY 2 WEEKS 01/14/2022 06/30/2022 documented as of this encounter Care Teams Space And Missile Operations Relationship Specialty Start Date End Date Susana Mesa APRN 26 [facility] [address] [place] [address] PCP - General 08/21/19 documented as of this encounter
--- OUTSIDE RECORDS SUMMARY | 2024-02-04 00:39 | XMS_ITS | Encounter Summary ---
Author Organization [facility] Address [address] [place] [address] Care Team Providers Care Weight Analyst Name Role Phone Susana Mesa KAMRYN Primary Care Provider [phone] [phone] Reason for Visit * Reason Onset Date Comments Medications Refill 06/25/2021 Faxed refill request from [facility] in [place] for syringes for use with MTX. Encounter Details Date Type Department Care Team (Late st Contact Info) Description 06/25/2021 Refill [facility] Rheumatology [address] [place] [address] Tammy Zepeda, SHABANA Medications Refill (Faxed refill request from [facility] in [place] for syringes for use with MTX.) Social History Tobacco Use Types Packs/Day Years [...] Telephone Encounter - Tammy Zepeda RN - 06/25/2021 1306 EST Syringe Rx called to [facility] as it can't be sent electronically in [facility]. documented in this encounter Plan of Treatment Upcoming Encounters Date Type Department Care Team (Late st Contact Info) Description 06/06/2024 10:45 EST Telemedicine [facility] Rheumatology [address] [place] [address] Rosina Manuel MD 130 [facility] [address] [place] [address] documented as of this encounter Visit Diagnoses Not on filedocumented in this encounter Care Teams Weight Analyst Relationship Specialty Start Date End Date Susana Mesa APRN [address] [place] [address] PCP - General 08/21/19 documented as of this encounter
--- OUTSIDE RECORDS SUMMARY | 2024-02-04 00:39 | XMS_ITS | Encounter Summary ---
Author Organization [facility] Address [address] [place] [address] Care Team Providers Care Delivery And Mail Sorter Name Role Phone Susana Mesa KAMRYN Primary Care Provider [phone] [phone] Reason for Visit * Reason Comments Medications Refill Encounter Details Date Type Department Care Team (Late st Contact Info) Description 09/01/2023 Refill [facility] Rheumatology [address] [place] [address] Rosina Manuel MD 130 [facility] [address] [place] [address] Medications Refill Social History Tobacco [...] BY MOUTH ONCE DAILY 90 Tablet 3 09/02/2023 01/26/2024 documented in this encounter Miscellaneous Notes * Telephone Encounter - Chuckie Roberts, RN - 09/02/2023 9533 EST Reviewed visit notes. UTD with labs. Rx sent to requested pharmacy, per clinic refill protocol. documented in this encounter Plan of Treatment Upcoming Encounters Date Type Department Care Team (Late st Contact Info) Description 06/06/2024 10:45 EST Telemedicine [facility] Rheumatology [address] [place], [place] [address] Rosina Manuel MD 130 [facility] [place] [address] documented as of this encounter Visit Diagnoses Diagnosis Rheumatoid arthritis involving multiple sites with positive rheumatoid factor ([facility])- Primary documented in this encounter Discontinued Medications Medication Sig Discontinue Reason Start Date End Da te folic acid (FOLVITE) 1 mg tabletIndications:Rheuma toid arthritis involving multiple sites with positive rheumatoid factor ([facility]) Take 1 Tablet by mouth daily. 09/15/2022 09/02/2023 documented as of this encounter Care Teams Delivery And Mail Sorter Relationship Specialty Start Date End Date Susana Mesa APRN [address] [place] [address] PCP - General 08/21/19 documented as of this encounter
--- OUTSIDE RECORDS SUMMARY | 2024-02-04 00:39 | XMS_ITS | Encounter Summary ---
Author Organization [facility] Address [address] [place] [address] Care Team Providers Care Electric Needle Specialist Name Role Phone Susana Mesa KAMRYN Primary Care Provider [phone] [phone] Encounter Details Date Type Department Care Team (Late st Contact Info) Description 09/15/2022 Abstract [facility] Rheumatology [address] [place] [address] Tammy Zepeda RN Social History Tobacco Use Types Packs/Day [...] Contact Info) Description 06/06/2024 10:45 EST Telemedicine [facility] Rheumatology [address] [place] [address] Rosina Manuel MD [address] [place] [address] [place] [address] documented as of this encounter Procedures Procedure Name Priority Date/Time Associated Diagnosis Comments COMPLETE BLOOD COUNT AND DIFFERENTIAL Routine 02/17/2022 C REACTIVE PROTEIN Routine 02/17/2022 LIPID PROFILE (INCLUDES CHOLESTEROL, TRIGLYCERIDES, HDL, LDL) Routine 02/17/2022 COMPREHENSIVE METABOLIC PANEL (CMP) Routine 02/17/2022 documented in this encounter Results * (ABNORMAL) C REACTIVE PROTEIN (02/17/2022) Pathologist [facility] [place] C-Reactive Protein, External 0.71(A) 0 - 0.3 mg/dL EXTERNAL LAB Blood VENOUS BLOOD / Unknown 02/17/2022 Rosina Manuel MD CHEMISTRY & BLOO D GAS ORDERABLES Performing Organization Address City/[facility]/ZIP Co de Phone Number EXTERNAL LAB * COMPREHENSIVE METABOLIC PANEL (CMP) (02/17/2022) GFR, Calculated, External >=60 60 EXTERNAL LAB Glucose, Serum, External 89 7 - 106 EXTERNAL LAB Albumin, External 4 3 - 5 EXTERNAL LAB Total Alkaline Phosphatase, External 88 4 - 116 EXTERNAL LAB ALT, External 26 1 - 59 EXTERNAL LAB AST, External 19 1 - 37 EXTERNAL LAB BUN, External 16 18 EXTERNAL LAB Calculated Calcium, External EXTERNAL LAB Calcium, External 9 8 - 10.1 EXTERNAL LAB Chloride, External 100 9 - 107 EXTERNAL LAB CO2, External 31.4 21 - 32 EXTERNAL LAB Creatinine, External 0.7 0.5 - 1.02 EXTERNAL LAB Fasting?, External EXTERNAL LAB Potassium, External 3.8 3 - 5.1 EXTERNAL LAB Sodium, External 141 13 - 145 EXTERNAL LAB Total Protein, External 7.6 6 - 8.2 EXTERNAL LAB Bilirubin, Total, External 0.5 0 - 1 EXTERNAL LAB Blood VENOUS BLOOD / Unknown 02/17/2022 Rosina Manuel MD CHEMISTRY & Ebuzzing and TeadsO D GAS ORDERABLES EXTERNAL LAB * COMPLETE BLOOD COUNT AND DIFFERENTIAL (02/17/2022) WBC, External 6.04 4 - 10.8 EXTERNAL LAB RBC, External 4.89 3.9 - 5.22 EXTERNAL LAB Hemoglobin, External 13.8 11 - 15.7 EXTERNAL LAB HCT, External 41.7 36 - 46 EXTERNAL LAB MCV, External 85 8 - 95 EXTERNAL LAB MCH, External 28.2 27 - 33 EXTERNAL LAB MCHC, External 33.1 32 - 36 EXTERNAL LAB PLT, External 298 130 - 400 EXTERNAL LAB RDW-CV, External 13.8 11 - 14.6 EXTERNAL LAB Neutrophils, External 54.1% EXTERNAL LAB Lymphocytes, External 32.8% EXTERNAL LAB Monocytes, External 10.8% EXTERNAL LAB Eosinophils, External 1.5% EXTERNAL LAB Basophils, External 0.5% EXTERNAL LAB ABS Neutrophils, External 3.27 1 - 6.7 EXTERNAL LAB ABS Lymphs, External 1.98 1 - 3.4 EXTERNAL LAB ABS Monocytes, External 0.65 0 - 0.8 EXTERNAL LAB ABS Eosinophils, External 0.09 0 - 0.7 EXTERNAL LAB ABS Basophils, External 0.03 0 - 0.2 EXTERNAL LAB Blood VENOUS BLOOD / Unknown 02/17/2022 Rosina Manuel MD PACKAGES & DNA P ROBE ORDERABLES EXTERNAL LAB * (ABNORMAL) LIPID PROFILE (INCLUDES CHOLESTEROL, TRIGLYCERIDES, HDL, LDL) (02/17/2022) Cholesterol, External 212(A) 200 EXTERNAL LAB Triglycerides, External 96 150 EXTERNAL LAB HDL, External 61(A) 4 - 60 EXTERNAL LAB LDL, External 132(A) 100 EXTERNAL LAB Chol/HDL Ratio, External EXTERNAL LAB Fasting?, External EXTERNAL LAB Blood VENOUS BLOOD / Unknown 02/17/2022 Rosina Manuel MD CHEMISTRY & BLOO D GAS ORDERABLES EXTERNAL LAB documented in this encounter Visit Diagnoses Not on filedocumented in this encounter Care Teams Electric Needle Specialist Relationship Specialty Start Date End Date Susana Mesa APRN [address] [facility] [address] [place] [address] PCP - General 08/21/19 documented as of this encounter
--- OUTSIDE RECORDS SUMMARY | 2024-02-04 00:39 | XMS_ITS | Encounter Summary ---
Author Organization [facility] Address [address] [place] [address] Care Team Providers Care Instructional Systems Designer Name Role Phone Susana Mesa KAMRYN Primary Care Provider [phone] [phone] Reason for Visit * Reason Comments Other Encounter Details Date Type Department Care Team (Late st Contact Info) Description 07/23/2021 Refill [facility] [place] [address] [place] [address] Rosina Manuel MD [address] [facility] [address] [place] [address] Other Social History Tobacco Use [...] skin every 14 days. 2 Each 5 07/23/2021 01/14/2022 documented in this encounter Miscellaneous Notes * Telephone Encounter - Claire Brown RN - 07/23/2021 0801 EST Last visit note reviewed and follow up scheduled for 09/12/21. Refill sent as noted. documented in this encounter Plan of Treatment Upcoming Encounters Date Type Department Care Team (Late st Contact Info) Description 06/06/2024 10:45 EST Telemedicine [facility] Rheumatology [address] [place] [address] Rosina Manuel MD 130 [facility] [address] [address] [place] [phone] documented as of this encounter Visit Diagnoses Not on filedocumented in this encounter Discontinued Medications Medication Sig Discontinue Reason Start Date End Da te adalimumab (HUMIRA,CF, PEN) 40 mg/0.4 mL pen Inject 0.4 mL into the skin every 14 days. 02/03/2021 07/23/2021 documented as of this encounter Care Teams Instructional Systems Designer Relationship Specialty Start Date End Date Susana Mesa APRN 26 [facility] [address] [place] [address] PCP - General 08/21/19 documented as of this encounter
--- OUTSIDE RECORDS SUMMARY | 2024-02-04 00:39 | XMS_ITS | Encounter Summary ---
Author Organization [facility] Address [address] [place] [address] Care Team Providers Care Tool And Cutter Grinder Name Role Phone Susana Mesa KAMRYN Primary Care Provider [phone] [phone] Reason for Visit * Reason Comments Other Encounter Details Date Type Department Care Team (Late st Contact Info) Description 01/14/2022 Refill [facility] Rheumatology [address] [place] [address] Rosina Manuel MD 130 [facility] [address] [place] [address] Other Social History Tobacco Use [...] SUBCUTANEOUSLY EVERY 2 WEEKS 2 Each 5 01/14/2022 06/30/2022 documented in this encounter Miscellaneous Notes * Telephone Encounter - Claire Brown RN - 01/14/2022 1013 EDT Last visit note reviewed and follow up scheduled for 03/18/22. Labs up to date. Refill sent as noted. documented in this encounter Plan of Treatment Upcoming Encounters Date Type Department Care Team (Late st Contact Info) Description 06/06/2024 10:45 EST Telemedicine [facility] Rheumatology [address] [place] [address] Rosina Manuel MD 130 [facility] [address] [address] [place] [phone] documented as of this encounter Visit Diagnoses Not on filedocumented in this encounter Discontinued Medications Medication Sig Discontinue Reason Start Date End Da te adalimumab (HUMIRA,CF, PEN) 40 mg/0.4 mL pen Inject 0.4 mL into the skin every 14 days. 07/23/2021 01/14/2022 documented as of this encounter Care Teams Tool And Cutter Grinder Relationship Specialty Start Date End Date Susana Mesa APRN 26 [facility] [address] [place] [address] PCP - General 08/21/19 documented as of this encounter
--- OUTSIDE RECORDS SUMMARY | 2024-02-04 00:39 | XMS_ITS | Encounter Summary ---
Author Organization [facility] Address [address] [place] [address] Care Team Providers Care Wire Drawing Machine Operator Name Role Phone Susana Mesa APRN Primary Care Provider [phone] [phone] Encounter Details Date Type Department Care Team (Late st Contact Info) Description 09/12/2021 Orders Only [facility] Rheumatology [address] [place] [phone] Tammy Zepeda RN Social History Tobacco Use [...] Contact Info) Description 06/06/2024 10:45 EST Telemedicine [facility] Rheumatology [address] [place] [address] Rosina Manuel MD 130 [facility] [address] [address] [place] [phone] documented as of this encounter Visit Diagnoses Not on filedocumented in this encounter Care Teams Wire Drawing Machine Operator Relationship Specialty Start Date End Date Susana Mesa APRN [address] [place] [address] PCP - General 08/21/19 documented as of this encounter
--- OUTSIDE RECORDS SUMMARY | 2024-02-04 00:39 | XMS_ITS | Encounter Summary ---
Author Organization [facility] Address [address] [place] [address] Care Team Providers Care Escalator Constructor Name Role Phone Susana Mesa KAMRYN Primary Care Provider [phone] Reason for Visit * Reason Onset Date Comments Prior Auth, Medication 08/11/2023 Encounter Details Date Type Department Care Team (Late st Contact Info) Description 08/11/2023 Telephone [facility] Rheumatology [address] [place], [place] [phone] Rosina Manuel MD [address] [facility] [address] [address] [place] [address] Prior Auth, Medication Social History Tobacco Use Types Packs/Day Years [...] te adalimumab (HUMIRA,CF, PEN) 40 mg/0.4 mL penIndications:Seropositive rheumatoid arthritis of multiple sites (HCC-CMS) Inject 0.4 mL into the skin every 14 days. 2 Each 5 08/11/2023 documented in this encounter Progress Notes * Kei Bailey RPH - 08/11/2023 1213 EST Specialty Medication Refill Request Requested Medication: Humira 40 mg/0.4 ml pen into the skin every 14 days Indication: RA A chart review of last visit, labs, and medication list has been reviewed and it has been identified this therapy should be continued. New refills have been sent in to [facility] per protocol. Kei Bailey PharmD (he/him) Ambulatory Pharmacist Clinician Rheumatology 08/11/2023 documented in this encounter Miscellaneous Notes * Telephone Encounter - Casi Doe - 08/11/2023 1150 EST Prior Authorization Approval Medication: Humira Pen (CF) 40MG/0.4ML pen-injector kit Insurance Name:[employer]um Insurance Type: Commercial Approval Dates: 08/11/23-08/11/24 Authorization Number: [id number] Required Pharmacy: No requirement [facility] able to fill?: YES Additional Info/Other Notes: Approval scanned in chart Prior Authorization Submission Process - Urgent Re-Auth Medication:Humira Pen (CF) 40MG/0.4ML pen-injector kit Insurance: optum Insurance Type: Commercial Date PA Request Received: 08/11/23 [place] Submission Date: 08/11/23 [facility]: [id number] Notes: Re auth Submitted by: Casi De Anda Phone: [phone] documented in this encounter Plan of Treatment Upcoming Encounters Date Type Department Care Team (Late st Contact Info) Description 06/06/2024 10:45 EST Telemedicine [facility] Rheumatology [address] [place] [address] Rosina Manuel MD 130 [facility] [address] [place] [address] documented as of this encounter Visit Diagnoses Diagnosis Seropositive rheumatoid arthritis of multiple sites ([facility])- Primary documented in this encounter Discontinued Medications Medication Sig Discontinue Reason Start Date End Da te EKATERINA RODRIGUEZ, PEN 40 mg/0.4 mL pen INJECT 40MG SUBCUTANEOUSLY EVERY 2 WEEKS Reorder 03/05/2023 08/11/2023 documented as of this encounter Care Teams Escalator Constructor Relationship Specialty Start Date End Date Susana Mesa APRN [address] [place] [address] PCP - General 08/21/19 documented as of this encounter
--- OUTSIDE RECORDS SUMMARY | 2024-02-04 00:39 | XMS_ITS | Encounter Summary ---
Author Organization [facility] Address [address] [place] [address] Care Team Providers Care Fertilizer Loader Name Role Phone Susana Mesa KAMRYN Primary Care Provider [phone] [phone] Reason for Referral * Consult (See Order Priority) - Closed Specialty Diagnoses / Procedures Referred By Starr garcia Referred To Contact Diagnoses Bilateral foot pain Rosina Manuel MD [address] [place], [place] [address] [address] [place] [address] Referral ID Status Reason Start Date Expiration Date V isits Requested Visits Authorized [id number] Closed Specialty Services Required 03/18/2022 1 1 Question Answer Scheduling Comments (optional ? describe specific scheduling needs if applicable): orders for xray of feet with patient. Let her know if you want these done prior to appt. Thank you. Reason for Request: RA with bilateral foot pain Practice Site (External Referral Only): [facility] Comments Has orders for xrays of feet, can get those done prior to appt or wait. Please advise patient thank you. Reason for Visit * Reason Comments Rheumatoid Arthritis No side effects fro m medications. She has been feeling well. Getting vaccinated this fall vs influenza/covid. Had shingrix series. Foot Pain both feet hurt. Rest of RA is doing well Encounter Details Date Type Department Care Team (Late st Contact Info) Description 03/18/2022 9:[address] [facility] Rheumatology [address] [place] [address] Rosina Manuel MD 130 [facility] [address] [address] [place] [address] Rheumatoid arthritis involving multiple sites with positive rheumatoid factor ([facility]) ([facility]) (Primary Dx); High risk medication use; Bilateral foot pain Social History Tobacco Use Types Packs/Day Years Used Date Smoking Tobacco: Former Smokeless Tobacco: Never Interpersonal Safety Answer Date Record ed Physically Hurt Never 02/04/2020 Verbally Threaten Not on file 02/04/2020 Sex and Gender Information Value Date Recorded Sex Assigned at Not on file Gender Identity Female 08/17/2019 11:24 EST Sexual Orientation Not on file documented as of this encounter Patient Instructions * Patient Instructions* Rosina Manuel MD - 03/18/2022 9:45 EDT Labs just prior to your next appt in 5-6 months. Someone will call you I am referring you to [facility] for a podiatry consultation, you may need xrays before thevisit. I have asked the podiatry clinic to let you know if you need them. I have placed the orders Labs are looking good Hold methotrexate the week after any vaccination but continue your Humira/plaquenil as usual. Please call if there are questions. documented in this encounter Ordered Prescriptions Prescription Sig Dispensed Refills Start Date End Da te hydrOXYchloroQUINE (PLAQUENIL) 200 mg tabletIndications:Rheumat oid arthritis involving multiple sites with positive rheumatoid factor ([facility]) Take 1 Tablet by mouth daily. 90 Tablet 3 03/18/2022 03/22/2023 documented in this encounter Progress Notes * Rosina Manuel MD - 03/18/2022 0945 EDT [facility] Telephone Visit Today's visit was provided via phone due to lack of internet access The location of the patient: Home The location of the provider: Home office Verbal consent: The concept of ???Telemedicine?? has been described to the patient.Patient has been informed of the anticipated benefits and possible risks. Patient understands the information provided regarding telemedicine, has had the opportunity to ask questions about this information, and all questions have been answered to patient???s satisfaction. Patient consents for the use of telemedicine in his/her medical care and authorizes the transmission of any relevant medical information to providers and their staff involved in patient???s medical or mental health care. Verbal consent obtained by myself or auxiliary staff: yes. Subjective: Chief Complaint Patient presents with ??? Rheumatoid Arthritis No side effects from medications. She has been feeling well. Getting vaccinated this fall vs influenza/covid. Had shingrix series. ??? Foot Pain both feet hurt. Rest of RA is doing well Rheumatology problem list Seropositive Rheumatoid Arthritis -methotrexate HPI: Charline Dunham reports she is doing well with most of her RA, except feet Has pain in both. On feet 9+ hours a day at work. Sore, better with rest. AM stiffness not a problem Rest of her joints, hands/shoulders/knees are pretty good Has orthotics wears them No further leg ulcers since venous pressure ulcer healed. No skin issues Eye exam up todate Trouble with needles for methotrexate injection, size is different last time she filled and some methotrexate leaks. Also running low ? What to do. 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 Cleans. Feels doing all she can to stay safe RA at goal Foot pain not at goal but seems to be chronic, would see a lead android developer, Alejandra is probably best and easiest to reach. Feels well. I have reviewed patient's tobacco history: reports that she has quit smoking. She has never used smokeless tobacco. I have reviewed current problem list and current medications. Objective: Examination: Home Vitals: There were no vitals taken for this visit. Pertinent exam findings: none Data reviewed with patient: reviewed prior notes, last labs, medication list, scanned documents/problem list/social history Assessment & Plan: Charline Dunham is a 56 y.o. female with a history of seropositive rheumatoid arthritis treated with methtorexate/hydroxychloroquine and Humira therapy. She has increased foot pain, worse at end of day Plan as below 1. Rheumatoid arthritis involving multiple sites with positive rheumatoid factor (HCC-CMS) (HCC) hydrOXYchloroQUINE (PLAQUENIL) 200 mg tablet Continue current doses of Humira/hydroxychloroquine/methotrexate Labs every 6 months prior to follow up 2. High risk medication use eye exam baseline 2020 (nl)and then at 3 year nino and and every year after for hydroxychloroquine CBC/CMP every 6 months no methotrexate week after vaccinati 3. Bilateral foot pain XR FOOT RIGHT 3 OR MORE VIEWS XR FOOT LEFT 3 OR MORE VIEWS RA stable has ongoing foot pain. Will refer to [facility]. Can order xray feet if practice wishes. Will have clinic nursing team contact pharmacy or patient to ensure she has needles for methotrexate I spent a total of 24 minutes in discussion with the patient as described in the progress note on this encounter on the the day of this encounter. The following individuals and their role did participate in today's encounter visit: Provider: Rosina Manuel MD documented in this encounter Plan of Treatment Upcoming Encounters Date Type Department Care Team (Late st Contact Info) Description 06/06/2024 10:[address] [facility] Rheumatology [address] [place], [place] [address] Rosina Manuel MD 130 [facility] [address] [place] [phone] Scheduled Referrals Name Type Priority Associated Diagnoses Order Schedule AMB CONS/FOLLOW UP ORTHOPEDICS - EXTERNAL Outpatient Referral Routine/Next Available Bilateral foot pain Expected: 06/17/2022 (Approximate), Expires: 03/18/2023 documented as of this encounter Visit Diagnoses Diagnosis Rheumatoid arthritis involving multiple sites with positive rheumatoid factor ([facility])- Primary High risk medication use Encounter for long-term (current) use of other medications Bilateral foot pain Pain in limb documented in this encounter Discontinued Medications Medication Sig Discontinue Reason Start Date End Da te hydrOXYchloroQUINE (PLAQUENIL) 200 mg tabletIndications:Rheuma toid arthritis involving multiple sites with positive rheumatoid factor ([facility]) TAKE ONE TABLET BY MOUTH EVERY DAY Reorder 08/28/2021 03/18/2022 documented as of this encounter Care Teams Fertilizer Loader Relationship Specialty Start Date End Date Susana Mesa APRN [address] [place] [phone] PCP - General 08/21/19 documented as of this encounter
--- OUTSIDE RECORDS SUMMARY | 2024-02-04 00:39 | XMS_ITS | Encounter Summary ---
Author Organization [facility] Address [address] [place] [address] Care Team Providers Care Redrying Machine Operator Name Role Phone Susana Mesa KAMRYN Primary Care Provider [phone] [phone] Reason for Visit * Reason Comments Medications Refill Encounter Details Date Type Department Care Team (Late st Contact Info) Description 03/20/2023 Refill [facility] Rheumatology [address] [place] [address] Rosina Manuel MD 130 [facility] [address] [place] [address] Medications Refill Social History Tobacco [...] BY MOUTH EVERY DAY 90 Tablet 3 03/22/2023 01/26/2024 documented in this encounter Miscellaneous Notes * Telephone Encounter - Claire Brown RN - 03/22/2023 1105 EDT Last visit note reviewed and follow up scheduled for 07/30/22. Labs up to date. Refill sent as noted. documented in this encounter Plan of Treatment Upcoming Encounters Date Type Department Care Team (Late st Contact Info) Description 06/06/2024 10:45 EST Telemedicine [facility] Rheumatology [address] [place], [place] [address] Rosina Manuel MD [address] [facility] [address] [place] [phone] documented as of this encounter Visit Diagnoses Diagnosis Rheumatoid arthritis involving multiple sites with positive rheumatoid factor (HCC-CMS) documented in this encounter Discontinued Medications Medication Sig Discontinue Reason Start Date End Da te hydrOXYchloroQUINE (PLAQUENIL) 200 mg tabletIndications:Rheuma toid arthritis involving multiple sites with positive rheumatoid factor (HCC-CMS) Take 1 Tablet by mouth daily. 03/18/2022 03/22/2023 documented as of this encounter Care Teams Redrying Machine Operator Relationship Specialty Start Date End Date Susana Mesa APRN [address] [place] [address] PCP - General 08/21/19 documented as of this encounter
--- OUTSIDE RECORDS SUMMARY | 2024-02-04 00:39 | XMS_ITS | Encounter Summary ---
Author Organization [facility] Address [address] [place] [address] Care Team Providers Care Security Assistant Name Role Phone Susana Mesa KAMRYN Primary Care Provider [phone] [phone] Encounter Details Date Type Department Care Team (Late st Contact Info) Description 09/07/2023 Abstract [facility] Rheumatology [address] [place], [place] [address] Tammy Zepeda RN Social History Tobacco Use [...] as of this encounter Progress Notes * Tammy Zepeda, SHABANA - 09/07/2023 1515 EST Printed DMARD labs done at [facility] from [facility] and entered them into Epic. documented in this encounter Plan of Treatment Upcoming Encounters Date Type Department Care Team (Late st Contact Info) Description 06/06/2024 10:45 EST Telemedicine [facility] Rhe[facility]ology [address] [place] [address] Rosina Manuel MD [address] [facility] [address] [place] [address] documented as of this encounter Procedures Procedure Name Priority Date/Time Associated Diagnosis Comments COMPLETE BLOOD COUNT AND DIFFERENTIAL Routine 09/02/2023 C REACTIVE PROTEIN Routine 09/02/2023 COMPREHENSIVE METABOLIC PANEL (CMP) Routine 09/02/2023 documented in this encounter Results * C REACTIVE PROTEIN (09/02/2023) [facility] C-Reactive Protein, External <0.5 0.5 mg/dL [facility] Blood VENOUS BLOOD / Unknown 09/02/2023 Rosina Manuel MD CHEMISTRY & BLOO D GAS ORDERABLES [facility] * (ABNORMAL) COMPREHENSIVE METABOLIC PANEL (CMP) (09/02/2023) Pathologist [facility] GFR, Calculated, External 98.[address] [facility] Glucose, Serum, External 86 74 - 106 mg/dL [facility] Albumin, External 3.8 3.4 - 5 g/dL [facility] Total Alkaline Phosphatase, External 89 46 - 116 [facility] ALT, External 25 14 - 59 [facility] AST, External 16 15 - 37 U/L [facility] BUN, External 20(A) 7 - 18 mg/dL [facility] Calculated Calcium, External [facility] Calcium, External 8.8 8.5 - 10.1 mg/dL [facility] Chloride, External 102 98 - 107 mmol/L [facility] CO2, External 31.1 21 - 32 mmol/L [facility] Creatinine, External 0.7 0.55 - 1.02 mg/dL [facility] Fasting?, External [facility] Potassium, External 3.6 3.5 - 5.1 mmol/L [facility] Sodium, External 140 136 - 145 mmol/L [facility] Total Protein, External 7.2 6.4 - 8.2 [facility] Bilirubin, Total, External 0.4 0.2 - 1 [facility] Blood VENOUS BLOOD / Unknown 09/02/2023 Rosina Manuel MD CHEMISTRY & BLOO D GAS ORDERABLES [facility] * COMPLETE BLOOD COUNT AND DIFFERENTIAL (09/02/2023) WBC, External 5.68 4.4 - 10.8 [facility] RBC, External 4.89 3.93 - 5.22 [facility] Hemoglobin, External 14.1 11.2 - 15.7 % [facility] HCT, External 41.7 36 - 46 [facility] MCV, External 85 80 - 95 [facility] MCH, External 28.8 27 - 33 g/dL [facility] MCHC, External 33.8 32 - 36 g/dL [facility] PLT, External 316 130 - 400 [facility] RDW-CV, External 13.8 11.7 - 14.6 [facility] Neutrophils, External 50.5% [facility] Lymphocytes, External 32.6% [facility] Monocytes, External 13% [facility] Eosinophils, External 3.2% [facility] Basophils, External 0.5% [facility] ABS Neutrophils, External 2.87 1.2 - 6.7 [facility] ABS Lymphs, External 1.85 1.2 - 3.4 [facility] ABS Monocytes, External 0.74 0.1 - 0.8 [facility] ABS Eosinophils, External 0.18 0 - 0.7 [facility] ABS Basophils, External 0.03 0 - 0.2 [facility] Blood VENOUS BLOOD / Unknown 09/02/2023 Rosina Manuel MD PACKAGES & DNA P STEFFEN ORDERABLES [facility] documented in this encounter Visit Diagnoses Not on filedocumented in this encounter Care Teams Security Assistant Relationship Specialty Start Date End Date Susana Mesa APRN [address] [place] [address] PCP - General 08/21/19 documented as of this encounter
--- OUTSIDE RECORDS SUMMARY | 2024-02-04 00:39 | XMS_ITS | Encounter Summary ---
Author Organization [facility] Address [address] [place] [address] Care Team Providers Care Economics Teacher Name Role Phone Susana Mesa KAMRYN Primary Care Provider [phone] Reason for Visit * Reason Onset Date Comments Medication Management 07/22/2021 Encounter Details Date Type Department Care Team (Late st Contact Info) Description 07/22/2021 Telephone [facility] Rhe[facility] [address] [place] [address] Rosina Manuel MD [address] [facility] [address] [place] [address] Medication Management Social History Tobacco Use Types Packs/Day Years [...] Telephone Encounter - Claire Brown RN - 07/22/2021 1531 EST Patient advised per Dr. Manuel to skip her next dose of MTX and Humira. She decline Monoclonal ab treatment as she state overall she is feeling fine and just feels like I have a head cold. Encouraged patient to callback with any further questions or concerns or if she changes her mind re: the monoclonal ab treatment. She is aware that this needs to be given within 10 days of symptom onset. Also,advised patient that if she develops any difficulty breathing that she should present to the ED. Patient verbalized understanding and is agreeable with plan. * Telephone Encounter - Claire Brown RN - 07/22/2021 1031 EST Patient states she got her booster on 07/14/21, she had a known COVID exposure on 07/15/21, she developed some nasal congestion and so she got tested on 07/19/21 and got her positive results yesterday. Due to getting her booster she skipped her last dose of MTX so she is wondering if she should skip another dose, as well as if she should skip her Humira? She states overall she feels fine, just like she has a mild cold with nasal congestion and post-nasal drip. Denies any fever, SOB, or cough. She also states she is feeling well in terms of her RA symptoms and is not showing any signs of a flare.Please advise on MTX and Humira instructions with recent diagnosis with Covid. She is due for both on Wednesday07/26/21. * Telephone Encounter - Lucille Wyman MA - 07/22/2021 0924 EST Patient called looking for advise on whether or not she is ok to take her methotrexate and Humira this Wednesday or if she should be holding them as she was diagnosed with Covid. Please advise. Thanks. documented in this encounter Plan of Treatment Upcoming Encounters Date Type Department Care Team (Late st Contact Info) Description 06/06/2024 10:45 EST Telemedicine [facility] Rheumatology [address] [place] [address] Rosina Manuel MD [address] [facility] [place] [phone] documented as of this encounter Visit Diagnoses Not on filedocumented in this encounter Care Teams Economics Teacher Relationship Specialty Start Date End Date Susana Mesa APRN [address] [place] [phone] PCP - General 08/21/19 documented as of this encounter
--- OUTSIDE RECORDS SUMMARY | 2024-02-04 00:39 | XMS_ITS | Encounter Summary ---
Author Organization [facility] Address [address] [place] [address] Care Team Providers Care Respiratory Therapy Manager Name Role Phone Susana Mesa KAMRYN Primary Care Provider [phone] Reason for Referral * Consult (Routine/Next Available) - Authorized Specialty Diagnoses / Procedures Referred By Starr garcia Referred To Contact Pharmacy Diagnoses Seropositive rheumatoid arthritis of multiple sites ([facility]) Rosina Manuel MD [address] [place] [address] [address] [place] [address] [facility] [address] [place] [id number] Referral ID Status Reason Start Date Expiration Date Visits Requested Visits Authorized [id number] Authorized Specialty Services Required 07/26/2023 1 1 Question Answer PA Type: Re-auth Medication to be Prior Authorized: Humira 40mg/0.4mL auto-inject pens take 40mg every 2 weeks. Dispense 2 pens with 5 refills Comments The purpose of this request is to inform precertification staff that the requested service needs to be reviewed for prior-authorization. Please see CoverMyMeds renewal request. Reason for Visit * Reason Onset Date Comments Prior Auth, Medication 07/26/2023 Encounter Details Date Type Department Care Team ([facility] Contact Info) Description 07/26/2023 Telephone [facility] [place] [address] [place] [address] Ny Abad RN Prior Auth, Medication Social History Tobacco Use [...] encounter Miscellaneous Notes * Telephone Encounter - Fifi Maloney - 08/11/2023 0927 EST Patient checking on status of Zhao EATON, as she has already missed a dose. * Telephone Encounter - Ny Abad RN - 07/26/2023 1103 EST Received a fax from [employer] for renewal of Zhao EATON. [id number] placed. documented in this encounter Plan of Treatment Upcoming Encounters Date Type Department Care Team (Late st Contact Info) Description 06/06/2024 10:45 EST Telemedicine [facility] [place] [address] [place], [place] [address] Rosina Manuel MD [address] [facility] [place] [address] Scheduled Referrals Name Type Priority Associated Diagnoses Order Schedule AMB CONS/FOLLOW UP SPECIALTY PHARMACY Outpatient Referral Routine/Next Available Seropositive rheumatoid arthritis of multiple sites ([facility]) Expected: 08/26/2023 (Approximate), Expires: 07/26/2024 documented as of this encounter Visit Diagnoses Diagnosis Seropositive rheumatoid arthritis of multiple sites ([facility])- Primary documented in this encounter Care Teams Respiratory Therapy Manager Relationship Specialty Start Date End Date Susana Mesa APRN [address] [place] [phone] PCP - General 08/21/19 documented as of this encounter
--- OUTSIDE RECORDS SUMMARY | 2024-02-04 00:39 | XMS_ITS | Encounter Summary ---
Author Organization [facility] Address [address] [place] [address] Care Team Providers Care Children'S Choir Director Name Role Phone Susana Mesa KAMRYN Primary Care Provider [phone] Reason for Visit * Reason Onset Date Comments Medications Refill 03/18/2022 Encounter Details Date Type Department Care Team (Late st Contact Info) Description 03/18/2022 Telephone [facility] Rhe[facility]ology [address] [place] [address] Claire Brown, RN Medications Refill Social History Tobacco Use Types [...] Telephone Encounter - Claire Brown RN - 03/18/2022 1416 EDT Confirmed with patient that she would like BD brand 1mL syring with 27G 1/2 inch needle. Spoke withpharmacy and they report that this is what they have on file, but she is due for refill. Refill called in with above specifications. Patient notified with appreciation expressed. * Telephone Encounter - Claire Brown RN - 03/18/2022 140 EDT ----- Message from Rosina Manuel MD sent at 03/18/2022 10:33 EDT ----- Charline has been getting an oddly sized needle for methotrexate, can we please call her pharmacy and find out what is being dispensed . She is also running low ? If we can mail some to avoid interuption.Also let her know that I referred to podiatry in [place], I did place foot xray orders, she may want to wait until the appt is booked to get xray so she can make sure the clinic wants them before her visit.Thanks documented in this encounter Plan of Treatment Upcoming Encounters Date Type Department Care Team (Late st Contact Info) Description 06/06/2024 10:45 EST Telemedicine [facility] Rheumatology [address] [place] [address] Rosina Manuel MD [address] [facility] [place] [phone] documented as of this encounter Visit Diagnoses Not on filedocumented in this encounter Care Teams Children'S Choir Director Relationship Specialty Start Date End Date Susana Mesa, VERIFICATION SPECIALIST [address] [place] [address] PCP - General 08/21/19 documented as of this encounter
--- OUTSIDE RECORDS SUMMARY | 2024-02-04 00:39 | XMS_ITS | Encounter Summary ---
Author Organization [facility] Address [address] [place] [address] Care Team Providers Care Line Maintainer Section Name Role Phone Susana Mesa KAMRYN Primary Care Provider [phone] Reason for Visit * Reason Onset Date Comments Medication Questions 04/24/2022 Encounter Details Date Type Department Care Team (Late st Contact Info) Description 04/24/2022 Telephone [facility] Rheumatology [address] [place] [address] Rosina Manuel MD [address] [place] [address] [address] [place] [address] Medication Questions Social History Tobacco Use Types Packs/Day Years Used Date Smoking Tobacco: Former Smokeless Tobacco: Never Interpersonal Safety Answer Date Record ed Physically Hurt Never 02/04/2020 Verbally Threaten Not on file 02/04/2020 Sex and Gender Information Value Date Recorded Sex Assigned at Not on file Gender Identity Female 08/17/2019 11:24 EST Sexual Orientation Not on file documented as of this encounter Progress Notes * Kei Bailey RPH - 04/28/2022 1255 EDT Contacted patient. Instructed her to hold methotrexate x 2 weeks and continue humira and hydroxychloroquine. Last dose of humira was supposed to be 04/25/2022 but held in concern for reduced vaccine efficacy, instructed patient that she can take it today, and resume her normal humira schedule starting 05/09/2022. No further questions at this time. Patient verbalized understanding of plan. Kei Bailey PharmD (he/him) Ambulatory Pharmacist Clinician [facility] Rheumatology 04/28/2022 * Kei Bailey RPH - 04/27/2022 1120 EDT Attempted to contact patient but unable to LM since mailbox not set up. Kei Bailey PharmD (he/him) Ambulatory Pharmacist Clinician [facility] Rheumatology 04/27/2022 * Kei Bailey RPH - 04/24/2022 1322 EDT Unable to LM - patient should hold methotrexate for 2 weeks after influenza/covid vaccine. She can continue hydroxychloroquine and humira as directed through all three vaccines. Kei Bailey PharmD (he/him) Ambulatory Pharmacist Clinician [facility] Rheumatology 04/24/2022 documented in this encounter Miscellaneous Notes * Telephone Encounter - Fifi Maloney - 04/24/2022 1016 EDT Pt just received her COVID Booster, flu & pneumonia vaccine today. Should she hold off taking her Humira? Pt's voicemail does not work but if you give her a call back, she will see that she received a calland will call us back. documented in this encounter Plan of Treatment Upcoming Encounters Date Type Department Care Team (Late st Contact Info) Description 06/06/2024 10:45 EST Telemedicine [facility] Rheumatology [address] [place], [place] [address] Rosina Manuel MD [address] [facility] [address] [place] [address] documented as of this encounter Visit Diagnoses Not on filedocumented in this encounter Care Teams Line Maintainer Section Relationship Specialty Start Date End Date Susana Mesa APRN [address] [place] [address] PCP - General 08/21/19 documented as of this encounter
--- OUTSIDE RECORDS SUMMARY | 2024-02-04 00:39 | XMS_ITS | Encounter Summary ---
Author Organization [facility] Address [address] [place] [address] Care Team Providers Care Landing Worker Name Role Phone Susana Mesa KAMRYN Primary Care Provider [phone] Reason for Visit * Reason Comments Follow-up RA - pt states she h ad Covid end of Jul and was off her meds about one month. Her feet are feeling better, but not up to baseline yet. Encounter Details Date Type Department Care Team (Late st Contact Info) Description 09/12/2021 10:45 EST Telemedicine [facility] [address] [place] [address] Rosina Manuel MD [address] [facility] [address] [place] [address] Rheumatoid arthritis involving multiple sites with positive rheumatoid factor ([facility]) (HCC) (Primary Dx); On methotrexate therapy; High risk medication use Social History Tobacco [...] - Inhaled Oxygen Concentration - - Weight 108 kg (238 lb) 09/12/2021 1018 EST Height 162.6 cm (5' 4) 09/12/2021 1018 EST Body Mass Index 40.85 09/12/2021 1018 EST documented in this encounter Progress Notes * Rosina Manuel MD - 09/12/2021 1045 EST [facility] Tele[facility] Visit Today's visit was provided via telephone audio only. The location of the patient: Home The location of the provider: Office Verbal [...] an audio-only visit is appropriate due to: Internet access or other technical issue Subjective: Chief Complaint(s): Follow-up (RA - pt states she had Covid end of Jul and was off her meds about one month. Her feet are feeling better, but not up to baseline yet.) HPI: Had COVID 19 Missed her dose of methotrexate. Then had a flare up Exposed at work Sick with cold like symptoms for about 5 days Mild case Unfortunately, had flare of RA due to missing her methotrexate/Humira for 2 -3 weeks Feet flared up and have now started to come under better control Due for blood work, delayed by illness and then will go for blood ROS Some covid fog memory issues I have reviewed patient's tobacco history: reports that she has quit smoking. She has never used smokeless tobacco. I have reviewed current problem list and current medications. ROS: ROS Some brain fog Doing well no sob, no mouth sores Feels RA is doing well Objective: Examination: Home Vitals: Ht 162.6 cm (64) Wt (!) 108 kg (238 lb) BMI 40.85 kg/m?? Pertinent exam findings: speaking in full sentences and mood and affect appropriate Data reviewed with patient: labs, recent medical events. Med list Due for labs will go in next week. Had covid during last attempt at blood work Assessment & Plan: Charline Dunham is a 56 y.o. female with seropositive rheumatoid arthritis treated with methotrexate, adalimumab, hydroxychloroquine RA stable now, flare of arthritis in feet after meds held following COVID 19 infection in August. 1. Rheumatoid arthritis involving multiple sites with positive rheumatoid factor (HCC-CMS) ([facility]) GENERIC DME ORDER stable continue current meds.methotrexate/humira Stayed on plaquenil Slighy flared due to holding meds. 2. On methotrexate therapy GENERIC DME ORDER labs due.sent methotrexate needle rx to [facility] for smaller gauge needles. 3. High risk medication use Patient initiated phone contact with the office: yes. Patient is an established patient (parent, guardian) yes. E/M provided within previous 7 days for same medical assessment: no Anticipate E/M service within 24hrs or next available urgent appointment no. This visit was conducted by telephone. A total of 21 minutes was spent on this encounter on the dayof this encounter. documented in this encounter Plan of Treatment Upcoming Encounters Date Type Department Care Team (Late st Contact Info) Description 06/06/2024 10:45 EST Telemedicine [facility] Rheumatology [address] [place], [place] [address] Rosina Manuel MD [address] [facility] [address] [place] [phone] documented as of this encounter Visit Diagnoses Diagnosis Rheumatoid arthritis involving multiple sites with positive rheumatoid factor ([facility])- Primary On methotrexate therapy High risk medication use Encounter for long-term (current) use of other medications documented in this encounter Orders Equipment Count Last Ordered Date First Orde red Date GENERIC DME ORDER 1 09/12/2021 documented in this encounter Care Teams Landing Worker Relationship Specialty Start Date End Date Susana Mesa APRN [address] [place] [address] PCP - General 08/21/19 documented as of this encounter
--- OUTSIDE RECORDS SUMMARY | 2024-02-04 00:39 | XMS_ITS | Encounter Summary ---
Author Organization [facility] Address [address] [place] [address] Care Team Providers Care Jewelry Dipper Name Role Phone Susana Mesa KAMRYN Primary Care Provider [phone] Encounter Details Date Type Department Care Team (Late st Contact Info) Description 04/22/2023 Abstract [facility] [address] [place] [address] Charline Roach RN Social History Tobacco Use Types Packs/Day [...] No 01/26/2023 documented as of this encounter Plan of Treatment Upcoming Encounters Date Type Department Care Team (Late st Contact Info) Description 06/06/2024 10:45 EST Telemedicine [facility] [address] [place] [address] Rosina Manuel MD [address] [place] [address] [address] [place] [address] documented as of this encounter Procedures Procedure Name Priority Date/Time Associated Diagnosis Comments COMPLETE BLOOD COUNT AND DIFFERENTIAL Routine 04/22/2023 C REACTIVE PROTEIN Routine 04/22/2023 COMPREHENSIVE METABOLIC PANEL (CMP) Routine 04/22/2023 documented in this encounter Results * (ABNORMAL) COMPREHENSIVE METABOLIC PANEL (CMP) (04/22/2023) Pathologist [facility] GFR, Calculated, External 84.82 [facility] Glucose, Serum, External 100 74 - 106 mg/dL [facility] Albumin, External 4.0 3.4 - 5.0 g/dL [facility] Total Alkaline Phosphatase, External 86 46 - 116 [facility] ALT, External 27 14 - 59 [facility] AST, External 19 15 - 37 U/L [facility] BUN, External 22(A) 7 - 18 mg/dL [facility] Calculated Calcium, External [facility] Calcium, External 9.7 8.5 - 10.1 mg/dL [facility] Chloride, External 102 98 - 107 mmol/L [facility] CO2, External 33.0(A) 21.0 - 32.0 mmol/L [facility] Creatinine, External 0.8 0.55 - 1.02 mg/dL [facility] Fasting?, External [facility] Potassium, External 3.7 3.5 - 5.1 mmol/L [facility] Sodium, External 140 136 - 145 mmol/L [facility] Total Protein, External 7.5 6.4 - 8.2 [facility] Bilirubin, Total, External 0.5 0.2 - 1.0 [facility] Blood VENOUS BLOOD / Unknown 04/22/2023 Rosina Manuel MD CHEMISTRY & BLOO D GAS ORDERABLES [facility] * (ABNORMAL) C REACTIVE PROTEIN (04/22/2023) Pathologist [facility] C-Reactive Protein, External 1.10(A) 0.0 - 0.3 mg/dl [facility] Blood VENOUS BLOOD / Unknown 04/22/2023 Rosina Manuel MD CHEMISTRY & BLOO D GAS ORDERABLES [facility] * COMPLETE BLOOD COUNT AND DIFFERENTIAL (04/22/2023) WBC, External 5.27 4.4 - 10.8 [facility] RBC, External 5.12 3.93 - 5.22 [facility] Hemoglobin, External 14.3 11.2 - 15.7 % [facility] HCT, External 43.5 36.0 - 46.0 [facility] MCV, External 85 80 - 95 [facility] MCH, External 27.9 27.0 - 33.0 g/dL [facility] MCHC, External 32.9 32.0 - 36.0 g/dL [facility] PLT, External 306 130 - 400 [facility] RDW-CV, External 13.7 11.7 - 14.6 [facility] Neutrophils, External 57.8 [facility] Lymphocytes, External 28.5 [facility] Monocytes, External 9.9 [facility] Eosinophils, External 3.0 [facility] Basophils, External 0.6 [facility] ABS Neutrophils, External 3.05 1.2 - 6.7 [facility] ABS Lymphs, External 1.5 1.2 - 3.4 [facility] ABS Monocytes, External 0.52 0.1 - 0.8 [facility] ABS Eosinophils, External 0.16 0.0 - 0.7 [facility] ABS Basophils, External 0.03 0.0 - 0.2 [facility] Blood VENOUS BLOOD / Unknown 04/22/2023 Rosina Manuel MD PACKAGES & DNA P ROBE ORDERABLES [facility] documented in this encounter Visit Diagnoses Not on filedocumented in this encounter Care Teams Jewelry Dipper Relationship Specialty Start Date End Date Susana Msea APRN [address] [place] [phone] PCP - General 08/21/19 documented as of this encounter
--- OUTSIDE RECORDS SUMMARY | 2024-02-04 00:39 | XMS_ITS | Encounter Summary ---
Author Organization [facility] Address [address] [place] [address] Care Team Providers Care Splitting Machine Feeder Name Role Phone Susana Mesa KAMRYN Primary Care Provider [phone] Reason for Referral * Consult (Routine/Next Available) - Authorized Specialty Diagnoses / Procedures Referred By Starr garcia Referred To Contact Pharmacy Diagnoses Rheumatoid arthritis involving multiple sites with positive rheumatoid factor ([facility]) Rosina Manuel MD [address] [facility] [address] [place] [address] [facility] [address] [place] [address] Referral ID Status Reason Start Date Expiration Date Visits Requested Visits Authorized [id number] Authorized Specialty Services Required 07/10/2022 1 1 Question Answer PA Type: Re-auth Medication to be Prior Authorized: Humira 40 mg/0.4 ml pen into the skin every 14 days Comments The purpose of this request is to inform precertification staff that the requested service needs to be reviewed for prior-authorization. Reason for Visit * Reason Onset Date Comments Prior Auth, Medication 07/10/2022 Re-auth H umira 40mg/0.4ml Encounter Details Date Type Department Care Team (Late st Contact Info) Description 07/10/[address] [facility] [address] [place] [address] Rosina Manuel MD [address] [facility] [address] [place] [address] Prior Auth, Medication (Re-auth Humira 40mg/0.4ml) Social History Tobacco Use Types Packs/Day Years [...] encounter Miscellaneous Notes * Telephone Encounter - Aleja Anderson - 07/10/2022 1307 EST Prior Authorization Approval Medication: Humira 40mg/0.4ml q14d Insurance Name:[employer] Insurance Type: Commercial Approval Dates: 07/10/22 - 07/10/23 Authorization Number: [id number] Benefits Information: on file [facility] able to fill? : Yes Required Pharmacy: [facility] Additional Info/Other Notes: re-auth Prior Authorization Submission Process - Routine Medication:Humira 40mg/0.4ml q14d Insurance: [employer] Insurance Type: Commercial Date [place] Request Received: 07/10/22 [place] Submission Date: 07/10/22 [facility] Esquivel: [id number] Notes: re-auth Submitted by: seamus Phone: [phone] documented in this encounter Plan of Treatment Upcoming Encounters Date Type Department Care Team (Late st Contact Info) Description 06/06/2024 10:[address] [facility] [address] [place], [place] [address] Rosina Manuel MD [address] [facility] [address] [place] [address] Scheduled Referrals Name Type Priority Associated Diagnoses Order Schedule AMB CONS/FOLLOW UP SPECIALTY PHARMACY MEDICATION PRIOR AUTHORIZATION REQUEST Outpatient Referral Routine/Next Available Rheumatoid arthritis involving multiple sites with positive rheumatoid factor ([facility]) ([facility]) Expected: 07/17/2022 (Approximate), Expires: 07/10/2023 documented as of this encounter Visit Diagnoses Diagnosis Rheumatoid arthritis involving multiple sites with positive rheumatoid factor ([facility])- Primary documented in this encounter Care Teams Splitting Machine Feeder Relationship Specialty Start Date End Date Susana Mesa APRN [address] [place] [phone] PCP - General 08/21/19 documented as of this encounter
--- OUTSIDE RECORDS SUMMARY | 2024-02-04 00:39 | XMS_ITS | Encounter Summary ---
Author Organization [facility] Address [address] [place] [address] Care Team Providers Care Golf Course Laborer Name Role Phone Susana Mesa KAMRYN Primary Care Provider [phone] Encounter Details Date Type Department Care Team (Late st Contact Info) Description 04/21/2021 Abstract [facility] Rheumatology [address] [place] [address] Tammy Zepeda RN Social History Tobacco [...] Contact Info) Description 06/06/2024 10:45 EST Telemedicine [facility] Rheumatology [address] [place] [address] Rosina Manuel MD [address] [place] [address] [address] [place] [address] documented as of this encounter Procedures Procedure Name Priority Date/Time Associated Diagnosis Comments COMPLETE BLOOD COUNT AND DIFFERENTIAL Routine 04/16/2021 C REACTIVE PROTEIN Routine 04/16/2021 COMPREHENSIVE METABOLIC PANEL (CMP) Routine 04/16/2021 documented in this encounter Results * COMPLETE BLOOD COUNT AND DIFFERENTIAL (04/16/2021) WBC, External 6.92 4.4 - 10.8 [facility] RBC, External 4.79 3.93 - 5.22 [facility] Hemoglobin, External 13.6 11.2 - 15.7 [facility] HCT, External 41.6 36.0 - 46.0 [facility] MCV, External 86.8 80 - 95 [facility] MCH, External 28.4 27.0 - 33.0 [facility] MCHC, External 32.7 32.0 - 36.0 [facility] PLT, External 299 130 - 400 [facility] RDW-CV, External 13.5 11.7 - 14.6 [facility] Neutrophils, External 55.9% [facility] Lymphocytes, External 32.1% [facility] Monocytes, External 9.0% [facility] Eosinophils, External 2.3% [facility] Basophils, External 0.4% [facility] ABS Neutrophils, External 3.87 1.2 - 6.7 [facility] ABS Lymphs, External 2.22 1.2 - 3.4 [facility] ABS Monocytes, External 0.62 0.1 - 0.8 [facility] ABS Eosinophils, External 0.16 0.0 - 0.7 [facility] ABS Basophils, External 0.03 0.0 - 0.2 [facility] Blood VENOUS BLOOD / Unknown 04/16/2021 Rosina Manuel MD PACKAGES & DNA Michael BOURNE ORDERABLES [facility] * COMPREHENSIVE METABOLIC PANEL (CMP) (04/16/2021) GFR, Calculated, External >=60 60 [facility] Glucose, Serum, External 87 74 - 106 [facility] Albumin, External 4.0 3.4 - 5.0 [facility] Total Alkaline Phosphatase, External 89 46 - 116 [facility] ALT, External 28 14 - 59 [facility] AST, External 20 15 - 37 [facility] BUN, External 18 7 - 18 [facility] Calculated Calcium, External [facility] Calcium, External 8.9 8.5 - 10.1 [facility] Chloride, External 102 98 - 107 [facility] CO2, External 29.2 21.0 - 32.0 [facility] Creatinine, External 0.9 0.55 - 1.02 [facility] Fasting?, External [facility] Potassium, External 3.9 3.5 - 5.1 [facility] Sodium, External 141 136 - 145 [facility] Total Protein, External 7.4 6.4 - 8.2 [facility] Bilirubin, Total, External 0.5 0.2 - 1.0 [facility] Blood VENOUS BLOOD / Unknown 04/16/2021 Rosina Manuel MD CHEMISTRY & BLOO D GAS ORDERABLES [facility] * (ABNORMAL) C REACTIVE PROTEIN (04/16/2021) C-Reactive Protein, External 0.50(A) 0.0 - 0.30 mg/dL [facility] Blood VENOUS BLOOD / Unknown 04/16/2021 Rosina Manuel MD CHEMISTRY & BLOO D GAS ORDERABLES [facility] documented in this encounter Visit Diagnoses Not on filedocumented in this encounter Care Teams Golf Course Laborer Relationship Specialty Start Date End Date Susana Mesa APRN [address] [facility] [address] [place] [address] PCP - General 08/21/19 documented as of this encounter
--- OUTSIDE RECORDS SUMMARY | 2024-02-04 00:39 | XMS_ITS | Encounter Summary ---
Author Organization [facility] Address [address] [place] [address] Care Team Providers Care Oil Tester Name Role Phone Susana Mesa KAMRYN Primary Care Provider [phone] Reason for Visit * Reason Comments Follow-up RA. Pt states Encounter Details Date Type Department Care Team (Late st Contact Info) Description 09/16/2022 10:15 EDT Telemedicine [facility] Rheumatology [address] [place] [address] Rosina Manuel MD [address] [place] [address] [address] [place] [address] Rheumatoid arthritis involving multiple joints (HCC-CMS) (Primary Dx); Encounter for long-term (current) use of medications Social History Tobacco Use Types Packs/Day Years [...] * Patient Instructions* Rosina Manuel MD - 09/16/2022 10:15 EDT NO changes call if more flare ups See me in the summer Eye exam annually for plaquenil therapy documented in this encounter Progress Notes * Rosina Manuel MD - 09/16/2022 1015 EDT [facility] Tele[facility] Visit Today's visit was provided via [...] audio-only visit is appropriate due to: Patient prefrence Subjective: Chief Complaint(s): Follow-up (RA. Pt states) HPI: Charline Dunham is doing ok She is ok with RA Some flares of RA but managed Feet are prone to flares On them at work all day No recent illness, exposed to covid last week though Hands and shoulders are ok. No side effects from meds No mouth sores. No missed doses At her goal with regard to ra I have reviewed patient's tobacco history: reports that she has quit smoking. She has never used smokeless tobacco. I have reviewed current problem list and current medications. ROS: ROS Objective: Examination: Home Vitals: There were no vitals taken for this visit. Pertinent exam findings: speaking in full sentences and mood and affect appropriate Data reviewed with patient: labs,med list problem list. Assessment & Plan: Charline Dunham is a 57 y.o. female with seropositive rheumatoid arthritis treated with methotrexate, adalimumab, hydroxychloroquine RA stable now, flare of arthritis in feet after meds held following COVID 19 infection in August. 1. Rheumatoid arthritis involving multiple joints (HCC-CMS) (HCC) continue methotrexate/plaquenil /Humira at current doses If more flares ? increase Humira to weekly, not needed at this time per pt. 2. Encounter for long-term (current) use of medications cbc,cmp every 4-6 mo w/crp Eye exam annually d/t plaquenil RTC 6 mo labs prior in person/Appt booked. Patient initiated phone contact with the office:NO. Patient is an established patient (parent, guardian) yes. E/M provided within previous 7 days for same medical assessment: no Anticipate E/M service within 24hrs or next available urgent appointment no. This visit was conducted by telephone. A total of 18 minutes was spent on this encounter on the dayof this encounter. documented in this encounter Plan of Treatment Upcoming Encounters Date Type Department Care Team (Late st Contact Info) Description 06/06/2024 10:45 EST Telemedicine [facility] Rheumatology [address] [place], [place] [address] Rosina Manuel MD [address] [facility] [address] [place] [phone] documented as of this encounter Visit Diagnoses Diagnosis Rheumatoid arthritis involving multiple joints (HCC-CMS)- Primary Encounter for long-term (current) use of medications Encounter for long-term (current) use of other medications documented in this encounter Care Teams Oil Tester Relationship Specialty Start Date End Date Susana Mesa APRN [address] [place] [phone] PCP - General 08/21/19 documented as of this encounter
--- OUTSIDE RECORDS SUMMARY | 2024-02-04 00:39 | XMS_ITS | Encounter Summary ---
Author Organization [facility] Address [address] [place] [address] Care Team Providers Care Geological Engineering Teacher Name Role Phone Susana Mesa KAMRYN Primary Care Provider [phone] [phone] Reason for Visit * Reason Comments Follow-up Rheumatoid Arthritis Needs refills of al l Rheum meds Encounter Details Date Type Department Care Team (Late st Contact Info) Description 01/26/2024 11:15 EDT Office Visit [facility] Rheumatology [address] [place], [place] [id number] Rosina Manuel MD [address] [facility] [place] [address] Seropositive rheumatoid arthritis of multiple sites ([facility]) (Primary Dx); High risk medication use; Rheumatoid arthritis involving multiple sites with positive rheumatoid factor (HCC-CMS); Rheumatoid arthritis involving multiple sites with positive rheumatoid factor (HCC-CMS) Social History Tobacco Use Types Packs/Day Years [...] EDT Pulse 72 01/26/2024 1112 EDT Temperature - - Respiratory Rate - - Oxygen Saturation - - Inhaled Oxygen Concentration - - Weight 109.8 kg (242 lb) 01/26/2024 1112 EDT pt stated Height - - Body Mass Index 41.54 09/07/2023 0944 EST documented in this encounter [...] * Patient Instructions* Rosina Manuel MD - 01/26/2024 11:15 EDT 1 No changes in medications 2 Labs ok Due again in March 3 Recommend RSV vaccine if offered and flu and covid shot. Hold methotrexate week after vaccines to improve vaccine response 4 Labs in orders updated documented in this encounter Ordered Prescriptions Prescription Sig Dispensed Refills Start Date End Da te folic acid (FOLVITE) 1 mg tabletIndications:Seroposi tive rheumatoid arthritis of multiple sites (HCC-CMS),Rheumatoid arthritis involving multiple sites with positive rheumatoid factor (HCC-CMS) Take 1 Tablet by mouth daily. 90 Tablet 3 01/26/2024 methotrexate 25 mg/mL (MDV) injectionIndications:Serop ositive rheumatoid arthritis of multiple sites (HCC-CMS),Rheumatoid arthritis involving multiple sites with positive rheumatoid factor (HCC-CMS) INJECT 0.8ML UNDER THE SKIN ONCE A WEEK 12 mL 1 01/26/2024 hydroxychloroquine (PLAQUENIL) 200 mg tabletIndications:Seroposi tive rheumatoid arthritis of multiple sites (HCC-CMS),Rheumatoid arthritis involving multiple sites with positive rheumatoid factor ([facility]) Take 1 Tablet by mouth daily. 90 Tablet 3 01/26/2024 documented in this encounter Progress Notes * Rosina Manuel MD - 01/26/2024 1115 EDT [facility] [place] Follow-up Visit Date of Service: 01/26/2024 Patient ID Charline Dunham Chief Compliant: Chief Complaint Patient presents with Follow-up Rheumatoid Arthritis Needs refills of all Rheum meds Pertinent Rheumatologic history and problem list: Seropositive rheumatoid arthritis -hydroxychloroquine/methotrexate -dx 2016 -Humira 2020 Hx venous ulcer -2019 Subjective / HPI: Charline Dunham is a 58 y.o. female who returns in follow up of Seropositive RA At last visit: Telemedicine in September 2023 Interval history: Her RA is ok. No flare ups of RA Some issues with high co pay with Humira Painful joints -feet get sore, on feet all day at work -overall RA doing ok On vacation this week so less pain. had cardiac event/long hospital stay due to delays related to bed block, now home and doingwell. Med side effects BP 112/80 (BP Cuff Location: Right arm, BP Cuff Sizes: Adult, large) Pulse 72 Wt (!) 109.8 kg (242 lb) Comment: pt stated BMI 41.54 kg/m?? Objective: Physical Exam Vitals and nursing note reviewed. HENT: Head: Normocephalic and atraumatic. Nose: Nose normal. Mouth/Throat: Pharynx: Oropharynx is clear. Eyes: Conjunctiva/sclera: Conjunctivae normal. Cardiovascular: Rate and Rhythm: Normal rate. Pulses: Normal pulses. Heart sounds: Normal heart sounds. Pulmonary: Effort: Pulmonary effort is normal. No respiratory distress. Breath sounds: Normal breath sounds. No wheezing. Abdominal: Palpations: Abdomen is soft. Musculoskeletal: Cervical back: Normal range of motion and neck supple. Comments: No mcp synovitis Wrists prominent ulnar styloids Knees bony changes Feet cock up toe deformities, wearing compression socks, not removed Skin: General: Skin is warm and dry. Neurological: Mental Status: She is alert. Psychiatric: Mood and Affect: Mood and affect normal. Behavior: Behavior normal. Cognition and Memory: Memory normal. Lab Results Component Value Date HGB 12.9 04/26/2020 MCV 84.9 04/26/2020 PLT 280 04/26/2020 BMP Lab Results Component Value Date NA 141 04/26/2020 K 3.6 04/26/2020 CL 99 04/26/2020 CO2 35 (H) 04/26/2020 ANIONGAP 8.4 08/09/2020 BUN 18 04/26/2020 CREATININE 0.70 04/26/2020 CALCGFR >60 04/26/2020 No image results found. Questionnaires: 01/26/2023 9:56 09/07/2023 9:50 01/26/2024 11:13 RAPID3 SCORES AND INTERPRETATION Functional Status 1 0.7 0.7 Pain Tolerance 2.5 4 1.5 Global Estimate 1.5 1.5 0.5 RAPID3 5 6.2 2.7 Interpretation Low Moderate Near Remission RAPID3 Score: As documented by Nurses/MAs during this visit and reviewed by me. Assessment & Plan: Charline Dunham has seropositive rheumatoid arthritis and is stable on current meds. No changes 1. Seropositive rheumatoid arthritis of multiple sites ([facility]) COMPLETE BLOOD COUNT AND DIFFERENTIAL COMPREHENSIVE METABOLIC PANEL (CMP) C REACTIVE PROTEIN hydroxychloroquine (PLAQUENIL) 200 mg tablet methotrexate 25 mg/mL (MDV) injection folic acid (FOLVITE) 1 mg tablet 2. High risk medication use COMPLETE BLOOD COUNT AND DIFFERENTIAL COMPREHENSIVE METABOLIC PANEL (CMP) C REACTIVE PROTEIN 3. Rheumatoid arthritis involving multiple sites with positive rheumatoid factor ([facility]) hydroxychloroquine (PLAQUENIL) 200 mg tablet methotrexate 25 mg/mL (MDV) injection folic acid (FOLVITE) 1 mg tablet Continue current doses of Humira/hydroxychloroquine/methotrexate Labs every 6 months prior to follow up 4. Rheumatoid arthritis involving multiple sites with positive rheumatoid factor ([facility]) hydroxychloroquine (PLAQUENIL) 200 mg tablet methotrexate 25 mg/mL (MDV) injection folic acid (FOLVITE) 1 mg tablet Patient Instructions 1 No changes in medications 2 Labs ok Due again in March 3 Recommend RSV vaccine if offered and flu and covid shot. Hold methotrexate week after vaccines to improve vaccine response 4 Labs in orders updated RTC Rosina Manuel MD, 01/26/2024 11:24 I spent a total of 26 minutes on the date of this encounter meeting with the patient and reviewing documentation/coordinating care as described in the above note. documented in this encounter Plan of Treatment Upcoming Encounters Date Type Department Care Team (Late st Contact Info) Description 06/06/2024 10:45 EST Telemedicine [facility] Rheumatology [address] [place] [address] Rosina Manuel MD [address] [facility] [address] [place] [address] Scheduled Orders Name Type Priority Associated Diagnoses Orde r Schedule COMPLETE BLOOD COUNT AND DIFFERENTIAL Lab Routine Seropositive rheumatoid arthritis of multiple sites ([facility]) High risk medication use Every 8-Weeks for 6 Occurrences starting 01/26/2024 until 01/25/2025 COMPREHENSIVE METABOLIC PANEL (CMP) Lab Routine Seropositive rheumatoid arthritis of multiple sites ([facility]) High risk medication use 4 Occurrences starting 01/26/2024 until 01/25/2025 C REACTIVE PROTEIN Lab Routine Seropositive rheumatoid arthritis of multiple sites ([facility]) High risk medication use every 8 weeks for 6 Occurrences starting 01/26/2024 until 01/25/2025 documented as of this encounter Visit Diagnoses Diagnosis Seropositive rheumatoid arthritis of multiple sites ([facility])- Primary High risk medication use Encounter for long-term (current) use of other medications Rheumatoid arthritis involving multiple sites with positive rheumatoid factor ([facility]) documented in this encounter Discontinued Medications Medication Sig Discontinue Reason Start Date End Da te ascorbic acid, vitamin C, (VITAMIN C) 500 mg tablet 1 tab(s) orally once a day 01/26/2024 hydrOXYchloroQUINE (PLAQUENIL) 200 mg tabletIndications:Rheuma toid arthritis involving multiple sites with positive rheumatoid factor ([facility]) TAKE ONE TABLET BY MOUTH EVERY DAY Reorder 03/22/2023 01/26/2024 methotrexate 25 mg/mL (MDV) injectionIndications:Rhe umatoid arthritis involving multiple sites with positive rheumatoid factor ([facility]) INJECT 0.8ML UNDER THE SKIN ONCE A WEEK Reorder 08/23/2023 01/26/2024 folic acid (FOLVITE) 1 mg tabletIndications:Rheuma toid arthritis involving multiple sites with positive rheumatoid factor ([facility]) TAKE 1 TABLET BY MOUTH ONCE DAILY Reorder 09/02/2023 01/26/2024 documented as of this encounter Care Teams Geological Engineering Teacher Relationship Specialty Start Date End Date Susana Mesa APRN [address] [place] [address] PCP - General 08/21/19 documented as of this encounter
--- OUTSIDE RECORDS SUMMARY | 2024-02-04 00:39 | XMS_ITS | Encounter Summary ---
Author Organization [facility] Address [address] [place] [address] Care Team Providers Care Licensed Professional Counselor Name Role Phone Susana Mesa KAMRYN Primary Care Provider [phone] [phone] Reason for Visit * Reason Comments Medications Refill Encounter Details Date Type Department Care Team (Late st Contact Info) Description 02/23/2023 Refill [facility] Rheumatology [address] [place] [address] Rosina Manuel MD [address] [facility] [address] [place] [address] Medications Refill Social History Tobacco [...] Telephone Encounter - Claire Brown RN - 02/24/2023 0902 EDT Year supply of refills for methotrexate syringes phoned in to [facility] in [place]. documented in this encounter Plan of Treatment Upcoming Encounters Date Type Department Care Team (Late st Contact Info) Description 06/06/2024 10:45 EST Telemedicine [facility] Rheumatology [address] [place] [address] Rosina Manuel MD [address] [facility] [address] [place] [address] documented as of this encounter Visit Diagnoses Not on filedocumented in this encounter Care Teams Licensed Professional Counselor Relationship Specialty Start Date End Date Susana Mesa APRN [address] [place] [address] PCP - General 08/21/19 documented as of this encounter
--- OUTSIDE RECORDS SUMMARY | 2024-02-04 00:39 | XMS_ITS | Encounter Summary ---
Author Organization [facility] Address [address] [place] [address] Care Team Providers Care Furniture Packer Name Role Phone Susana Mesa KAMRYN Primary Care Provider [phone] [phone] Encounter Details Date Type Department Care Team (Late st Contact Info) Description 11/04/2022 Abstract [facility] Rheumatology [address] [place] [address] Claire Brown RN Social History Tobacco Use Types Packs/Day [...] Contact Info) Description 06/06/2024 10:45 EST Telemedicine [facility] Rheumatology [address] [place] [address] Rosina Manuel MD [address] [facility] [place] [address] documented as of this encounter Procedures Procedure Name Priority Date/Time Associated Diagnosis Comments COMPLETE BLOOD COUNT AND DIFFERENTIAL Routine 10/23/2022 C REACTIVE PROTEIN Routine 10/23/2022 COMPREHENSIVE METABOLIC PANEL (CMP) Routine 10/23/2022 documented in this encounter Results * (ABNORMAL) C REACTIVE PROTEIN (10/23/2022) C-Reactive Protein, External 0.53(A) 0.0 - 0.3 mg/dL [facility] Blood VENOUS BLOOD / Unknown 10/23/2022 Rosina Manuel MD CHEMISTRY & BLOO D GAS ORDERABLES Performing Organization Address [facility] Co de Phone Number [facility] * (ABNORMAL) COMPREHENSIVE METABOLIC PANEL (CMP) (10/23/2022) Pathologist [facility] GFR, Calculated, External 73.64 [facility] Glucose, Serum, External 101 74 - 106 [facility] Albumin, External 4.1 3.4 - 5.0 [facility] Total Alkaline Phosphatase, External 95 46 - 116 [facility] ALT, External 20 14 - 59 [facility] AST, External 16 15 - 37 [facility] BUN, External 18 7 - 18 [facility] Calculated Calcium, External [facility] Calcium, External 9.4 8.5 - 10.1 [facility] Chloride, External 100 98 - 107 [facility] CO2, External 31.8 21.0 - 32.0 [facility] Creatinine, External 0.9 0.55 - 1.02 [facility] Fasting?, External [facility] Potassium, External 3.0(A) 3.5 - 5.1 [facility] Sodium, External 138 136 - 145 [facility] Total Protein, External 8.0 6.4 - 8.2 [facility] Bilirubin, Total, External 0.4 0.2 - 1.0 [facility] Blood VENOUS BLOOD / Unknown 10/23/2022 Rosina Manuel MD CHEMISTRY & BLOO D GAS ORDERABLES Performing Organization Address [facility]/ZIP Co de Phone Number [facility] * (ABNORMAL) COMPLETE BLOOD COUNT AND DIFFERENTIAL (10/23/2022) WBC, External 9.06 4.4 - 10.8 [facility] RBC, External 4.98 3.93 - 5.22 [facility] Hemoglobin, External 14.1 11.2 - 15.7 [facility] HCT, External 42.4 36.0 - 46.0 [facility] MCV, External 85 80 - 95 [facility] MCH, External 28.3 27.0 - 33.0 [facility] MCHC, External 33.3 32.0 - 36.0 [facility] PLT, External 305 130 - 400 [facility] RDW-CV, External 14.4 11.7 - 14.6 [facility] Neutrophils, External 62.3 [facility] Lymphocytes, External 25.7 [facility] Monocytes, External 9.6 [facility] Eosinophils, External 1.7 [facility] Basophils, External 0.4 [facility] ABS Neutrophils, External 5.66 1.2 - 6.7 [facility] ABS Lymphs, External 2.34 1.2 - 3.4 [facility] ABS Monocytes, External 0.87(A) 0.1 - 0.8 [facility] ABS Eosinophils, External 0.15 0.0 - 0.7 [facility] ABS Basophils, External 0.04 0.0 - 0.2 [facility] Blood VENOUS BLOOD / Unknown 10/23/2022 Rosina Manuel MD PACKAGES & DNA P STEFFEN ORDERABLES [facility] documented in this encounter Visit Diagnoses Not on filedocumented in this encounter Care Teams Furniture Packer Relationship Specialty Start Date End Date Susana Mesa APRN [address] [facility] [address] [place] [address] PCP - General 08/21/19 documented as of this encounter
--- OUTSIDE RECORDS SUMMARY | 2024-02-04 00:39 | XMS_ITS | Encounter Summary ---
Author Organization [facility] Address [address] [place] [address] Care Team Providers Care Platen Drier Operator Name Role Phone Susana Mesa KAMRYN Primary Care Provider [phone] [phone] Reason for Visit * Reason Onset Date Comments Appointment Related 06/11/2022 Encounter Details Date Type Department Care Team (Late st Contact Info) Description 06/11/2022 Telephone [facility] Rheumatology [address] [place] [address] Claire Brown RN Appointment Related Social History Tobacco Use Types [...] Telephone Encounter - Claire Brown RN - 06/11/2022 1200 EST Patient has not yet been reached to schedule follow up for September. Please reach out to patient again. Thank you! documented in this encounter Plan of Treatment Upcoming Encounters Date Type Department Care Team (Late st Contact Info) Description 06/06/2024 10:45 EST Telemedicine [facility] Rheumatology [address] [place] [address] Rosina Manuel MD [address] [place] [address] [place] [address] documented as of this encounter Visit Diagnoses Not on filedocumented in this encounter Care Teams Platen Drier Operator Relationship Specialty Start Date End Date Susana Mesa APRN [address] [place] [phone] PCP - General 08/21/19 documented as of this encounter
--- OUTSIDE RECORDS SUMMARY | 2024-02-04 00:39 | XMS_ITS | Encounter Summary ---
Author Organization [facility] Address [address] [place] [address] Care Team Providers Care Railroad Dining Car Steward/Stewardess Name Role Phone Susana Mesa KAMRYN Primary Care Provider [phone] [phone] Reason for Visit * Reason Comments Follow-up RA. Feeling good, no new concerns-feeling the same. Encounter Details Date Type Department Care Team (Late st Contact Info) Description 01/26/2023 9:45 EDT Office Visit [facility] [place] Rhe[place]ology [address] [place] [address] Rosina Manuel MD [address] [facility] [address] [place] [phone] Rheumatoid arthritis involving multiple joints (HCC-CMS) (Primary [...] Sign Reading Time Taken Comments Blood Pressure 126/70 01/26/2023 0945 EDT Pulse 72 01/26/2023 0945 EDT Temperature 36.1 ??C (96.9 ??F) 01/26/2023 0945 EDT Respiratory Rate - - Oxygen Saturation - - Inhaled Oxygen Concentration - - Weight 112.5 kg (248 lb) 01/26/2023 0945 EDT Height 162.6 cm (5' 4) 01/26/2023 0945 EDT Body Mass Index 42.57 01/26/2023 0945 EDT documented in this encounter Functional Status Functional [...] * Patient Instructions* Rosina Manuel MD - 01/26/2023 9:45 EDT No changes Labs every 5-6 months documented in this encounter Progress Notes * Rosina Manuel MD - 01/26/2023 0945 EDT [facility] [place] Rhe[facility] Clinic Follow-up Visit Date of Service: 01/22/2023 Patient ID Charline Dunahm Chief Compliant: Chief Complaint Patient presents with ??? Follow-up RA. Feeling good, no new concerns-feeling the same. Pertinent Rheumatologic history and problem list: Seropositive rheumatoid arthritis - 2016 methotrexate and hydroxychloroquine therapy -Humira therapy 2020 Subjective / HPI: Charline Dunham is a 57 y.o. female who returns in follow up of Seropositive rheumatoid arthritis. At last visit: More flares ? Need for weekly Humira Interval history: She is ok. 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 Her RA is ok. Does not want to increase her Humira to weekly yet Her methotrexate and hydroxychloroquine and Humira are working Uses [employer]. - Reports arthralgia involving feet. On them all day. Sore on left little finger. - Denies recent swollen, erythematous or warm joints. Last flare early July - Morning stiffness < hour - Medication side effects none reported Review of Systems: A complete 10 point ROS was performed and pertinent positive and negative findings listed in HPI, otherwise negative. No mouth sores. No sob No recent fracture. ??? Medications and allergies reviewed ??? Problem list reviewed ??? Past medical history and Past surgical history reviewed ??? Social history and family history reviewed BP 126/70 (BP Cuff Location: Right arm, BP Cuff Sizes: Adult, large) Pulse 72 Temp 36.1 ??C (96.9 ??F) Ht 162.6 cm (64) Wt (!) 112.5 kg (248 lb) BMI 42.57 kg/m?? Objective: Physical Exam Vitals and nursing note reviewed. HENT: Head: Normocephalic and atraumatic. Nose: Nose normal. Mouth/Throat: Pharynx: Oropharynx is clear. Eyes: Conjunctiva/sclera: Conjunctivae normal. Cardiovascular: Rate and Rhythm: Normal rate. Heart sounds: Normal heart sounds. Pulmonary: Effort: Pulmonary effort is normal. No respiratory distress. Breath sounds: Normal breath sounds. No wheezing. Musculoskeletal: Cervical back: Normal range of motion and neck supple. Comments: No mcp synovitis, stable subluxation Wrists prominent ulnar styloids. Skin: General: Skin is warm and dry. Neurological: General: No focal deficit present. Mental Status: She is alert and oriented to person, place, and time. Psychiatric: Mood and Affect: Mood and affect normal. Behavior: Behavior normal. Cognition and Memory: Memory normal. Lab Results Component Value Date HGB 12.9 04/26/2020 MCV 84.9 04/26/2020 PLT 280 04/26/2020 BMP Lab Results Component Value Date NA 141 04/26/2020 K 3.6 04/26/2020 CL 99 04/26/2020 CO2 35 (H) 04/26/2020 ANIONGAP 8.4 08/09/2020 BUN 18 04/26/2020 CREATININE 0.70 04/26/2020 CALCGFR >60 04/26/2020 Labs: - Reviewed Questionnaires: RAPID3 SCORES AND INTERPRETATION 01/26/2023 Functional Status 1 Pain Tolerance 2.5 Global Estimate 1.5 RAPID3 5 Interpretation Low RAPID3 Score: As documented by Nurses/MAs during this visit and reviewed by me. Assessment & Plan: 1. Rheumatoid arthritis involving multiple joints (HCC-CMS) (HCC) continue current doses of hydroxychloroquine /methotrexate and Humira 40 mg every other week call if flare 2. Encounter for long-term (current) use of medications labs ok cbc and cmp every 6 mo phone follow up 6 mo and in person 1 year. Continue Methotrexate: 20 mg injected once weekly RTC 5 months. Rosina Manuel MD, 01/22/2023 17:15 I spent a total of 23minutes on the date of this encounter meeting with the patient and reviewing documentation/coordinating care as described in the above note. documented in this encounter Plan of Treatment Upcoming Encounters Date Type Department Care Team (Late st Contact Info) Description 06/06/2024 10:45 EST Telemedicine [facility] Rheumatology [address] [employer], [place] [address] Rosina Manuel MD [address] [facility] [address] [place] [phone] documented as of this encounter Visit Diagnoses Diagnosis Rheumatoid arthritis involving multiple joints ([facility])- Primary Encounter for long-term (current) use of medications Encounter for long-term (current) use of other medications documented in this encounter Care Teams Railroad Dining Car Steward/Stewardess Relationship Specialty Start Date End Date Susana Mesa APRN [address] [place] [address] PCP - General 08/21/19 documented as of this encounter
--- OUTSIDE RECORDS SUMMARY | 2024-02-04 00:39 | XMS_ITS | Encounter Summary ---
Author Organization [facility] Address [address] [place] [address] Care Team Providers Care Diazo Technician Name Role Phone Susana Mesa KAMRYN Primary Care Provider [phone] [phone] Reason for Referral * Consult (See Order Priority) - Closed Specialty Diagnoses / Procedures Referred By Starr garcia Referred To Contact Diagnoses Bilateral foot pain Rosina Manuel MD [address] [place], [place] [address] [address] [address] Referral ID Status Reason Start Date Expiration Date V isits Requested Visits Authorized [id number] Closed Specialty Services Required 03/24/2022 1 1 Question Answer Scheduling Comments (optional ? describe specific scheduling needs if applicable): Orders for xray of feet with patient. Let her know if you want these done prior to appt. Thank you. Reason for Request: RA with bilateral foot pain Practice Site (External Referral Only): [facility] Reason for Visit * Reason Onset Date Comments Referral Request 03/24/2022 Encounter Details Date Type Department Care Team (Late st Contact Info) Description 03/24/2022 Telephone [facility] Rheumatology [address] [place] [address] Rosina Manuel MD [address] [place], [place] [address] [address] [place] [address] Referral Request Social History Tobacco Use Types Packs/Day Years [...] * Telephone Encounter - Fifi Maloney - 03/24/2022 1634 EDT Referral faxed to [facility] in [place], [place] * Telephone Encounter - Claire Brown RN - 03/24/2022 1053 EDT Returned call to [facility]. They confirmed they do not have a electrical solderer and recommended [facility] who comes to [facility] as really the only option in patient's area. Unable to reach patient to update her. * Telephone Encounter - Kelly Quiles - 03/24/2022 1012 EDT [facility] calling and stating received a referral for this patient. They are advising best to be handled by a electrical solderer in regard to bilateral foot pain. documented in this encounter Plan of Treatment Upcoming Encounters Date Type Department Care Team (Late st Contact Info) Description 06/06/2024 10:45 EST Telemedicine [facility] - [facility] Rheumatology [address] [place], [place] [address] Rosina Manuel MD 130 [facility] [address] [place] [phone] Scheduled Referrals Name Type Priority Associated Diagnoses Order Schedule AMB CONS/FOLLOW UP PODIATRY Outpatient Referral Routine/Next Available Bilateral foot pain Expected: 2022 (Approximate), Expires: 03/24/2023 documented as of this encounter Visit Diagnoses Diagnosis Bilateral foot pain- Primary Pain in limb documented in this encounter Care Teams Diazo Technician Relationship Specialty Start Date End Date Susana Mesa APRN [facility] [address] [place] [phone] PCP - General 08/21/19 documented as of this encounter
--- OUTSIDE RECORDS SUMMARY | 2024-02-04 00:39 | XMS_ITS | Encounter Summary ---
Author Organization [facility] Address [address] [place] [address] Care Team Providers Care Mixed Crop And Livestock Farmer Name Role Phone Susana Mesa AUTOMOTIVE WINDOW TINTER Primary Care Provider [phone] [phone] Encounter Details Date Type Department Care Team (Latest Contact Info) Description 10/27/2022 Lab Requisition [facility] Pathology & Laboratory Medicine - [facility] [address] [place] [address] Susana Mesa, AUTOMOTIVE WINDOW TINTER 26 [facility] [address] [place] [address] Encounter for general adult medical examination without abnormal findings; Encounter for gynecological examination (general) (routine) without abnormal findings; Encounter for screening for malignant neoplasm of cervix Social History Tobacco Use Types Packs/Day Years [...] Contact Info) Description 06/06/2024 10:45 EST Telemedicine [facility] [place] [address] [place] [address] Rosina Manuel MD 130 [facility] [address] [place] [phone] documented as of this encounter Procedures Procedure Name Priority Date/Time Associated Diagnosis Comments PAP TEST Today 10/22/2022 15:15 EDT Encounter for general adult medical examination without abnormal findings Encounter for gynecological examination (general) (routine) without abnormal findings Encounter for screening for malignant neoplasm of cervix HPV DNA DETECTION WITH GENOTYPING, PCR Today 10/22/2022 15:15 EDT Encounter for general adult medical examination without abnormal findings Encounter for gynecological examination (general) (routine) without abnormal findings Encounter for screening for malignant neoplasm of cervix documented in this encounter Results * HUMAN PAPILLOMAVIRUS (HPV) DETECTION-HIGH RISK TYPES (10/22/2022 15:15 EDT) HPV other High Risk types, PCR Negative Negative 11/05/2022 14:57 EDT [facility] Comment:No E6 or E7 mRNA is detected from HPV types 16,18,31,33,35,39,45,51,52,56,58,59,66, and 68 by forensic science technician mediated amplification. Papanicolaou smear specimen (specimen) CERVIX UTERI STRUCTURE / Unknown 10/22/2022 15:15 EDT 11/03/2022 10:53 EDT Susana Mesa APRN MICROBIOLOGY - [facility] ORDERABLES [facility] [address] [place] [address] * PAP TEST (10/22/2022 15:15 EDT) Specimens A. Cervix and/or Endocervix , ThinPrep Imaging System with Manual Evaluation 11/05/2022 14:57 EDT [facility] Specimen Adequacy Satisfactory for Evaluation - transformation zone component present 11/05/2022 14:57 EDT [facility] General Categorization Negative for intraepithelial lesion or malignancy 11/05/2022 14:57 EDT [facility] Attestation . 11/05/2022 14:57 EDT [facility] at 1457 Clinical History See below 11/06/19 14:57 EDT [facility] HPV The result for the Human Papillomavirus (HPV) Detection-High Risk Types is Negative. No E6 or E7 mRNA is detected from HPV types 16,18,31,33,35,39 ,45,51,52,56,58,5 9,66, and 68 by forensic science technician mediated amplification.Adrienne ting was performed on specimen [id number] and was resulted on 11/05/2022 1457 EDT by KAYLA, LAB INSTRUMENT RESULTS IN 11/05/2022 14:57 EDT [facility] Performing Lab [facility] 11/05/2022 14:57 EDT [facility] Scanned Images 11/05/2022 14:57 EDT [facility] Papanicolaou smear specimen (specimen) CERVIX UTERI STRUCTURE / Unknown 10/22/2022 15:15 EDT 10/27/2022 9:02 EDT Susana Mesa APRN PATHOLOGY ORDERAB LES Performing Organization Address City/State/[facility] Co de Phone Number [facility] [address] [place] [address] documented in this encounter Visit Diagnoses Diagnosis Encounter for general adult medical examination without abnormal findings Unspecified general medical examination Encounter for gynecological examination (general) (routine) without abnormal findings Encounter for screening for malignant neoplasm of cervix Screening for malignant neoplasm of the cervix documented in this encounter Care Teams Mixed Crop And Livestock Farmer Relationship Specialty Start Date End Date Susana Mesa APRN [address] [place] [address] PCP - General 08/21/19 documented as of this encounter
--- OUTSIDE RECORDS SUMMARY | 2024-02-04 00:39 | XMS_ITS | Encounter Summary ---
Author Organization [facility] Address [address] [place] [address] Care Team Providers Care Mold Tooling Technician Name Role Phone Susana Mesa KAMRYN Primary Care Provider [phone] [phone] Reason for Visit * Reason Comments Medications Refill Encounter Details Date Type Department Care Team (Late st Contact Info) Description 08/30/2022 Refill [facility] Rheumatology [address] [place] [address] Rosina Manuel MD 130 [facility] [address] [place] [address] Medications Refill Social History Tobacco [...] SUBCUTANEOUSLY EVERY 2 WEEKS 2 Each 5 09/15/2022 03/05/2023 methotrexate 25 mg/mL injectionIndications: Rheumatoid arthritis involving multiple sites with positive rheumatoid factor (HCC-CMS) Inject 0.8 ml subcutaneously once a week. 12 mL 1 09/15/2022 03/01/2023 folic acid (FOLVITE) 1 mg tabletIndications:Rhe umatoid arthritis involving multiple sites with positive rheumatoid factor (HCC-CMS) Take 1 Tablet by mouth daily. 90 Tablet 3 09/15/2022 09/02/2023 documented in this encounter Miscellaneous Notes * Telephone Encounter - Tammy Zepeda RN - 09/15/2022 0940 EDT Patient called to state that she has had labs done at [facility] more recently than 04/21/21 and asked us to fax new lab orders to [facility] as they charge her 20.00 to get labs done and [facility] charges 300.00. She has an appointment with her PCP there on 10/28 and will get labs done then. Labs printed from [facility] and were done 02/17/22. Lab orders faxed as requested. Refills ofMTX and Humira sent per protocol. * Telephone Encounter - Fifi Maloney - 08/31/2022 1540 EST Letter mailed. * Telephone Encounter - Tammy Zepeda RN - 08/31/2022 1500 EST Patient has not had DMARD labs done since 04/2021 so refused refill request for methotrexate. Standing orders due for renewal so faxed to [facility] lab. Follow up scheduled 09/16/22 via telephone visit. I called patient to ask her to get her labs done and to say once Dr. Manuel sees the labs she will let us know if we can refill methotrexate but VM not set up on her phone. Can you send her a letter stating the above please? documented in this encounter Plan of Treatment Upcoming Encounters Date Type Department Care Team (Late st Contact Info) Description 06/06/2024 10:45 EST Telemedicine [facility] Rheumatology [address] [place] [address] Rosina Manuel MD 130 [facility] [address] [place] [phone] documented as of this encounter Visit Diagnoses Diagnosis Seropositive rheumatoid arthritis of multiple sites ([facility])- Primary High risk medication use Encounter for long-term (current) use of other medications Rheumatoid arthritis involving multiple sites with positive rheumatoid factor ([facility]) documented in this encounter Discontinued Medications Medication Sig Discontinue Reason Start Date End Da te methotrexate sodium/PF (METHOTREXATE, PF,) 25 mg/mL injection USE 0.8ML ONCE WEEKLY Duplicate order 03/12/2022 023 folic acid (FOLVITE) 1 mg tabletIndications:Rh eumatoid arthritis involving multiple sites with positive rheumatoid factor ([facility]) Take 1 Tablet by mouth daily. Reorder 04/25/2021 09/15/2022 methotrexate 25 mg/mL injectionIndications :Rheumatoid arthritis involving multiple sites with positive rheumatoid factor ([facility]) USE 0.8ML ONCE WEEKLY Reorder 05/26/2021 3 HUMIRA,CF, PEN 40 mg/0.4 mL pen INJECT 40MG SUBCUTANEOUSLY EVERY 2 WEEKS Reorder 06/30/2022 09/15/2022 documented as of this encounter Care Teams Mold Tooling Technician Relationship Specialty Start Date End Date Susana Mesa APRN [address] [place] [address] PCP - General 08/21/19 documented as of this encounter
--- OUTSIDE RECORDS SUMMARY | 2024-02-04 00:39 | XMS_ITS | Encounter Summary ---
Author Organization [facility] Address [address] [place] [address] Care Team Providers Care Sales Representative Printing Name Role Phone Susana Mesa KAMRYN Primary Care Provider [phone] [phone] Reason for Visit * Reason Onset Date Comments Prior Auth, Medication 07/24/2021 Humira (r ashantiuth) Encounter Details Date Type Department Care Team (Late st Contact Info) Description 07/24/2021 Telephone [facility] [place] [address] [place] [id number] Rosina Manuel MD [address] [place] [address] [address] [place] [address] Prior Auth, Medication (Humira (reauth) ) Social History Tobacco Use Types Packs/Day Years [...] encounter Miscellaneous Notes * Telephone Encounter - Marisa Duong - 07/24/2021 1235 EST Prior Authorization Approval Medication: Humira 40mg/0.4ml pen 1q14d Insurance Name:[employer] Insurance Type: Commercial Approval Dates: 07-24-2021 through 07-24-2022 Authorization Number: [id number] [facility] able to fill? : No Required Pharmacy: [facility] Prior Authorization Submission Process - Routine Medication: Humira 40mg/0.4ml pen 1q14d Insurance: [employer] Insurance Type: Commercial Date PA Request Received: 07-24-2021 PA Submission Date: 07-24-2021 [facility] Esquivel: [id number] Submitted by: Marisa Rodriguez Phone: [phone] documented in this encounter Plan of Treatment Upcoming Encounters Date Type Department Care Team (Late st Contact Info) Description 06/06/2024 10:45 EST Telemedicine [facility] Rheumatology [address] [place], [place] [phone] Rosina Manuel MD 130 [facility] [address] [place] [address] documented as of this encounter Visit Diagnoses Diagnosis Seropositive rheumatoid arthritis ([facility])- Primary Rheumatoid arthritis documented in this encounter Care Teams Sales Representative Printing Relationship Specialty Start Date End Date Susana Mesa APRN [address] [place] [address] PCP - General 08/21/19 documented as of this encounter
--- OUTSIDE RECORDS SUMMARY | 2024-02-04 00:39 | XMS_ITS | Encounter Summary ---
Author Organization [facility] Address [address] [place] [address] Care Team Providers Care Well Servicing Rig Operator Name Role Phone Susana Mesa KAMRYN Primary Care Provider [phone] [phone] Reason for Visit * Reason Onset Date Comments Medication Management 07/30/2021 Encounter Details Date Type Department Care Team (Late st Contact Info) Description 07/30/2021 Telephone [facility] Rheumatology [address] [place] [address] Rosina Manuel MD 130 [facility] [address] [place] [address] Medication Management Social History Tobacco [...] Telephone Encounter - Claire Brown RN - 07/30/2021 0946 EST Patient advised with appreciation expressed. * Telephone Encounter - Claire Brown RN - 07/30/2021 0904 EST Patient states she is doing well and is back to work. She has some mild lingering congestion but otherwise feels fine. She is next due for her MTX and Humira this coming Wednesday. * Telephone Encounter - Lucille Wyman MA - 07/30/2021 0844 EST Patient called to inquire about when she can resume her medication (Humira and methotrexate) as shehas been holding the medications due to having covid. Patient looking for call back when possible. Thanks. documented in this encounter Plan of Treatment Upcoming Encounters Date Type Department Care Team (Late st Contact Info) Description 06/06/2024 10:45 EST Telemedicine [facility] Rheumatology [address] [place] [address] Rosina Manuel MD 130 [facility] [address] [place] [phone] documented as of this encounter Visit Diagnoses Not on filedocumented in this encounter Care Teams Well Servicing Rig Operator Relationship Specialty Start Date End Date Susana Mesa APRN [address] [place] [address] PCP - General 08/21/19 documented as of this encounter
--- OUTSIDE RECORDS SUMMARY | 2024-02-04 00:39 | XMS_ITS | Encounter Summary ---
Author Organization [facility] Address [address] [place] [address] Care Team Providers Care Continuous Process Tanner Rotary Drum Name Role Phone Susana Mesa KAMRYN Primary Care Provider [phone] [phone] Reason for Visit * Reason Onset Date Comments Coordination Of Care 10/16/2022 Encounter Details Date Type Department Care Team (Late st Contact Info) Description 10/16/2022 Telephone [facility] Rheumatology [address] [place] [address] Claire Brown, RN Coordination Of Care Social History Tobacco Use Types Packs/Day Years [...] Telephone Encounter - Claire Brown RN - 11/05/2022 1252 EDT 90 day supply with 1 refill sent on 09/15/22. Will refill methotrexate when due. * Telephone Encounter - Claire Brown RN - 10/16/2022 1112 EDT Patient is overdue to have her DMARD monitoring labs done as they were last done 02/17/22. MA's attempted to reach her prior to her 09/16/22 telemed visit but were unsuccessful. Attempted to reach her again but no answer and recording stating that number was not in service. documented in this encounter Plan of Treatment Upcoming Encounters Date Type Department Care Team (Late st Contact Info) Description 06/06/2024 10:45 EST Telemedicine [facility] Rheumatology [address] [place], [place] [address] Rosina Manuel MD 130 [facility] [address] [place] [address] documented as of this encounter Visit Diagnoses Not on filedocumented in this encounter Care Teams Continuous Process Tanner Rotary Drum Relationship Specialty Start Date End Date Susana Mesa APRN [address] [place] [address] PCP - General 08/21/19 documented as of this encounter
--- OUTSIDE RECORDS SUMMARY | 2024-02-04 00:40 | XMS_ITS | Encounter Summary ---
Author Organization [facility] Address [address] [place] [address] Care Team Providers Care Ladderman Name Role Phone Susana Mesa KAMRYN Primary Care Provider [phone] [phone] Reason for Visit * Reason Comments Rheumatoid Arthritis Encounter Details Date Type Department Care Team (Late st Contact Info) Description 08/02/2020 15:15 EST Telemedicine [facility] Rheumatology [address] [place] [address] Rosina Manuel MD 130 [facility] [address] [place] [address] Seropositive rheumatoid arthritis of multiple sites ([facility]) (Primary Dx); Encounter for long-term (current) use of medications; Need for hepatitis B screening test; Need for hepatitis C screening test Social History Tobacco Use Types Packs/Day Years [...] * Patient Instructions* Rosina Manuel MD - 08/02/2020 15:15 EST Read about Humira Get labs to check for hep b and hep C and q tb We will fax labs to [facility] Read about Humira documented in this encounter Progress Notes * Rosina Manuel MD - 08/02/2020 1515 EST [facility] Tele[place] Visit Verbal consent: The concept of [...] RA follow up ?? Rheumatology problem list seropositive rheumatoid arthritis: Diagnosed 2016 Dr. Beverly methotrexate therapy started 2019 Plaquenil. ? Stasis ulcer left ankle: Posttraumatic from Unna boot protracted healing. ? Obesity ? Hyperlipidemia. HPI: She is planning to start Humira therapy. RA still active. Has swelling and hand pain. Ulcer on leg healed. I have reviewed patient's tobacco history: reports [...] results tests Assessment & Plan: Rheumatoid arthritis -methotrexate and plaquenil High risk medication -will get labs at [facility] -prior auth for Humira -discussed risk and benefit. Patient initiated phone contact with the office: yes. Patient is an established patient (parent, guardian) yes. E/M provided within previous 7 days for same medical assessment: no Anticipate E/M service within 24hrs or next available urgent appointment no. This visit was conducted by telephone. A total of 28 minutes was spent on this encounter on the dayof this encounter. * Lucille Wyman - 08/02/2020 1515 EST Lab orders faxed to [facility] on 08/08/2020 documented in this encounter Plan of Treatment Upcoming Encounters Date Type Department Care Team (Late st Contact Info) Description 06/06/2024 10:45 EST Telemedicine [facility] Rheumatology [address] [place], [place] [address] Rosina Manuel MD 130 [facility] [address] [place] [address] documented as of this encounter Visit Diagnoses Diagnosis Seropositive rheumatoid arthritis of multiple sites ([facility])- Primary Encounter for long-term (current) use of medications Encounter for long-term (current) use of other medications Need for hepatitis B screening test Need for hepatitis C screening test Special screening examination for other specified viral diseases documented in this encounter Care Teams Ladderman Relationship Specialty Start Date End Date Susana Mesa, KAMRYN [address] [place] [address] PCP - General 08/21/19 documented as of this encounter
--- OUTSIDE RECORDS SUMMARY | 2024-02-04 00:40 | XMS_ITS | Encounter Summary ---
Author Organization [facility] Address [address] [place] [address] Care Team Providers Care Cook Candy Name Role Phone Susana Mesa APRN Primary Care Provider [phone] [phone] Reason for Visit * Reason Onset Date Comments Results 08/05/2020 incidental low K on DMARD labs Encounter Details Date Type Department Care Team (Late st Contact Info) Description 08/05/[address] [facility] [place] [address] [place], [place] [phone] Rosina Manuel MD 130 [facility] [address] [place] [phone] Results (incidental low K on DMARD labs) Social History Tobacco Use Types Packs/Day Years [...] encounter Miscellaneous Notes * Telephone Encounter - Jennifer Joyce RN - 08/05/2020 0934 EST Called [facility] lab and spoke with Brianna.She will forward lab results to PCP. Called pt, no answer. No voicemail. Letter sent. * Telephone Encounter - Rosina Manuel MD - 08/05/2020 0830 EST Charline's labs show a low potassium, 3.1 She should touch base with pcp to see if more testing/treatment is advised I am not sure if this is a chronic problem Please ensure labs have been sent to pcp as well All other labs are normal no changes in RA meds. documented in this encounter Plan of Treatment Upcoming Encounters Date Type Department Care Team (Late st Contact Info) Description 06/06/2024 10:45 EST Telemedicine [facility] Rheumatology [address] [place], [place] [address] Rosina Manuel MD 130 [facility] [address] [place] [phone] documented as of this encounter Visit Diagnoses Not on filedocumented in this encounter Care Teams Cook Candy Relationship Specialty Start Date End Date Susana Mesa APRN [address] [place] [address] PCP - General 08/21/19 documented as of this encounter
--- OUTSIDE RECORDS SUMMARY | 2024-02-04 00:40 | XMS_ITS | Encounter Summary ---
Author Organization [facility] Address [address] [place] [address] Care Team Providers Care Veterans Employment Representative Name Role Phone Susana Mesa APRN Primary Care Provider [phone] [phone] Reason for Visit * Reason Comments Other Encounter Details Date Type Department Care Team (Late st Contact Info) Description 11/09/2020 Refill [facility] Rheumatology [address] [place] [address] Rosina Manuel MD [address] [place] [address] [address] Other Social History Tobacco Use Types [...] EST Telemedicine [facility] Rheumatology [address] [place] [address] Rosina Manuel MD [address] [place] [address] [address] documented as of this encounter Visit Diagnoses Not on filedocumented in this encounter Care Teams Veterans Employment Representative Relationship Specialty Start Date End Date Susana Mesa APRN [address] [place] [address] PCP - General 08/21/19 documented as of this encounter
--- OUTSIDE RECORDS SUMMARY | 2024-02-04 00:40 | XMS_ITS | Encounter Summary ---
Author Organization [facility] Address [address] [place] [address] Care Team Providers Care Business Law Teacher Name Role Phone Unavailable Primary Care Provider Unavailabl e Encounter Details Date Type Department Care Team (Latest Contact Info) Description 01/22/2014 13:38 EDT - 01/22/2014 23:59 EDT Hospital Encounter [address] [address] Unknown, ProviderMD Discharge Disposition: Home or Self Care Social History Tobacco Use Types Packs/Day Years Used Date Smoking Tobacco: Never Assessed Sex and Gender Information Value Date Recorded Sex Assigned at Not on file Gender Identity Female 08/17/2019 11:24 EST Sexual Orientation Not on file documented as of this encounter Discharge Disposition Disposition Code Departure Means Destination Home or Self Mcfp documented in this encounter Plan of Treatment Upcoming Encounters Date Type Department Care Team (Late st Contact Info) Description 06/06/2024 10:45 EST Telemedicine [facility] Rheumatology [address] [place] [address] Rosina Manuel MD 130 [facility] [address] [place] [phone] documented as of this encounter Visit Diagnoses Not on filedocumented in this encounter
--- OUTSIDE RECORDS SUMMARY | 2024-02-04 00:40 | XMS_ITS | Encounter Summary ---
Author Organization [facility] Address [address] [place] [address] Care Team Providers Care Inpatient Care Manager Rn Name Role Phone Susana Mesa KAMRYN Primary Care Provider [phone] Reason for Visit * Reason Comments Medication Management Encounter Details Date Type Department Care Team (Late st Contact Info) Description 11/30/2019 8:45 EDT Telemedicine [facility] Rheumatology [address] [place] [address] Rosina Manuel MD 130 [facility] [address] [place] [address] Encounter for long-term (current) use of medications (Primary Dx); Rheumatoid arthritis involving multiple sites with positive rheumatoid factor (HCC-CMS); Ulcerated varicose veins of leg, left (HCC-CMS) Social History Tobacco Use Types Packs/Day Years Used Date Smoking Tobacco: Former Smokeless Tobacco: Never Sex and Gender Information Value Date Recorded Sex Assigned at Not on file Gender Identity Female 08/17/2019 11:24 EST Sexual Orientation Not on file documented as of this encounter Patient Instructions * Patient Instructions* Rosina Manuel MD - 11/30/2019 8:45 EDT No changes. documented in this encounter Progress Notes * Rosina Manuel MD - 11/30/2019 1006 EDT [facility] Telephone Visit Verbal consent: The concept of [...] Diagnosed 2016 Dr. Beverly methotrexate therapy started 2018 ? Stasis ulcer left ankle: Posttraumatic from Unna boot protracted healing. ? Obesity ? Hyperlipidemia. HPI: Left ankle ulcer has been worse. Has unna boot. RA is stable. Feet sore at end of day. NO swelling in hands. NO side effects from meds. NO mouth sores. NO cough. 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 Feels employer supportive and taking precautions. I have reviewed patient's tobacco history: reports that she has quit smoking. She has never used smokeless tobacco. I have reviewed current problem list and current medications. ROS: Review of Systems Constitutional: Negative. HENT: Negative. Eyes: Negative. Respiratory: Negative. Cardiovascular: Negative. Gastrointestinal: Negative. Genitourinary: Negative. Musculoskeletal: Positive for joint pain (hands ok. Feet sore). Skin: Left leg ulcer has UNNA boot. Neurological: Negative. Endo/Heme/Allergies: Negative. Psychiatric/Behavioral: Negative. Objective: Examination: Home Vitals: There were no vitals taken for this visit. Pertinent exam findings: No changes Fluent speech. Data reviewed with patient: Reviewed and/or ordered active problem list, allergies, family history,notes from last 1 encounters tests 54-year-old woman with rheumatoid arthritis. Recurrent ulceration of the left lower leg due to varicose vein. Tolerating hydroxychloroquine and methotrexate. Recent labs from [facility] reported as normal but not available for my review. Continue current cares and medications. 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 Assessment & Plan: 1. Encounter for long-term (current) use of medications Continue the methotrexate and plaquenil Need labs from [facility]. 2. Rheumatoid arthritis involving multiple sites with positive rheumatoid factor (HCC-CMS) Stable on methotrexate and hydroxychloroquine. 3. Ulcerated varicose veins of leg, left (HCC-CMS) Care from PCP Will go in for vascular eval once healed. Patient initiated phone contact with the office: yes. Patient is an established patient (parent, guardian) yes. E/M provided within previous 7 days for same medical assessment: no Anticipate E/M service within 24hrs or next available urgent appointment no. Follow-up in clinic if possible in 3 to 4 months, if not appropriate will transition to telephone follow-up. Patient agreeable This visit was conducted by telephone. A total of 21 minutes was spent on this encounter on the day of this encounter. * Jennifer Joyce RN - 11/30/2019 0811 EDT Called [facility] and they are faxing labs. Please give them to Dr Manuel when they come in. Thank you documented in this encounter Plan of Treatment Upcoming Encounters Date Type Department Care Team (Late st Contact Info) Description 06/06/2024 10:45 EST Telemedicine [facility] Rheumatology [address] [place] [address] Rosina Manuel MD [address] [facility] [address] [place] [address] documented as of this encounter Visit Diagnoses Diagnosis Encounter for long-term (current) use of medications- Primary Encounter for long-term (current) use of other medications Rheumatoid arthritis involving multiple sites with positive rheumatoid factor (HCC-CMS) Ulcerated varicose veins of leg, left (HCC-CMS) documented in this encounter Care Teams Inpatient Care Manager Rn Relationship Specialty Start Date End Date Susana Mesa APRN [address] [place] [address] PCP - General 08/21/19 documented as of this encounter
--- OUTSIDE RECORDS SUMMARY | 2024-02-04 00:40 | XMS_ITS | Encounter Summary ---
Author Organization [facility] Address [address] [place] [address] Care Team Providers Care Strap Setter Name Role Phone Susana Mesa KAMRYN Primary Care Provider [phone] Reason for Visit * Reason Onset Date Comments Medication Management 08/21/2020 Encounter Details Date Type Department Care Team (Late st Contact Info) Description 08/21/2020 Telephone [facility] Rheumatology [address] [place] [address] Rosina Manuel MD 130 [facility] [address] [place] [address] Medication Management Social History Tobacco [...] Telephone Encounter - Tammy Zepeda RN - 08/22/2020 1639 EST Noted. Had told the pharmacy that patient can take both injections on the same day and they will relay this to Charline. * Telephone Encounter - Tammy Zepeda RN - 08/22/2020 1519 EST See other TE where this is addressed. * Telephone Encounter - Tammy Zepeda RN - 08/21/2020 1549 EST Called patient; VM no t set up. Will try later. * Telephone Encounter - Claribel Cota - 08/21/2020 1534 EST Patient called wanting clarification on her new medication. She states that she was recently prescribed Humira but she also takes MTX by infusion, and wanted to make sure she would be okay to take them on the same day or if she should space her doses out, and for long apart they should be spaced. She states that her cell tower near her home was removed so she doesn't have the best service and her and VM does not work, so if we cannot get ahold of her to try back at another time. documented in this encounter Plan of Treatment Upcoming Encounters Date Type Department Care Team (Late st Contact Info) Description 06/06/2024 10:45 EST Telemedicine [facility] Rheumatology [address] [place], [place] [address] Rosina Manuel MD 130 [facility] [address] [place] [phone] documented as of this encounter Visit Diagnoses Not on filedocumented in this encounter Care Teams Strap Setter Relationship Specialty Start Date End Date Susana Mesa APRN [address] [place] [address] PCP - General 08/21/19 documented as of this encounter
--- OUTSIDE RECORDS SUMMARY | 2024-02-04 00:40 | XMS_ITS | Encounter Summary ---
Author Organization [facility] Address [address] [place] [address] Care Team Providers Care Metal Fabricating Inspector Name Role Phone Unavailable Primary Care Provider Unavailabl e Encounter Details Date Type Department Care Team (Late st Contact Info) Description 10/29/2000 Results Only [facility] [address] [place] [address] Samra Colunga, [facility] [address] [place] [address] Social History Tobacco Use Types Packs/Day Years Used Date Smoking Tobacco: Never Assessed Sex and Gender Information Value Date Recorded Sex Assigned at Not on file Gender Identity Female 08/17/2019 11:24 EST Sexual Orientation Not on file documented as of this encounter Plan of Treatment Upcoming Encounters Date Type Department Care Team (Late st Contact Info) Description 06/06/2024 10:45 EST Telemedicine [facility] Rheumatology [address] [place] [phone] Rosina Manuel MD 130 [facility] [address] [place] [phone] documented as of this encounter Procedures Procedure Name Priority Date/Time Associated Diagnosis Comments CYTOPATHOLOGY Routine 10/29/2000 0:00 EDT documented in this encounter Results * CYTOPATHOLOGY (10/29/2000 0:00 EDT) Pathology Report: CYTOPATHOLOGY REPORT Reports generated via electronic interface contain original data; however they are lacking the format of the original report. Caution should be taken when reading/interpreti ng unformatted reports. Name: ? CHARLINE RALPH ? Accession #: ? [id number] : ? 1965 (Age: 35) ??F ?Collect Date: ? 10/29/2000 Location: ? [facility] ? Receive Date: ? 11/01/2000 Provider: ?SAMRA COLUNGA FORESTRY FACULTY MEMBER Copy to: ? Specimen/Source: ?ThinPrep Pap Test, Cervix/Endocervix Last Menstrual Period: ? 10/16/00 ? SPECIMEN ADEQUACY ? Satisfactory for evaluation. GENERAL CATEGORIZATION ? Within Normal Limits ? Document reviewed and electronically signed by: ? Delmis Worrell, ??SCT(ASCP) ? Report Date: ??11/02/2000 13:50 End of Report JOCELYN GOODWIN 10/29/2000 11/01/2000 Samra Colunga FORESTRY FACULTY MEMBER PATHOLOGY ORDERABLES [facility] [address] [place] [address] documented in this encounter Visit Diagnoses Not on filedocumented in this encounter
--- OUTSIDE RECORDS SUMMARY | 2024-02-04 00:40 | XMS_ITS | Encounter Summary ---
Author Organization [facility] Address [address] [place] [address] Care Team Providers Care Flying Ii Instructor Name Role Phone Susana Mesa KAMRYN Primary Care Provider [phone] Encounter Details Date Type Department Care Team (Late st Contact Info) Description 12/08/2019 Orders Only [facility] Rheumatology [address] [place] [address] Jennifer Joyce RN Seropositive rheumatoid arthritis of multiple sites ([facility]) (Primary Dx) Social History Tobacco Use Types Packs/Day Years Used Date Smoking Tobacco: Former Smokeless Tobacco: Never Sex and Gender Information Value Date Recorded Sex Assigned at Not on file Gender Identity Female 08/17/2019 11:24 EST Sexual Orientation Not on file documented as of this encounter Progress Notes * Jennifer Joyce RN - 12/08/2019 0854 EDT Syringes called in as a DME order in other orders. documented in this encounter Plan of Treatment Upcoming Encounters Date Type Department Care Team (Late st Contact Info) Description 06/06/2024 10:45 EST Telemedicine [facility] Rheumatology [address] [place] [address] Rosina Manuel MD 130 [facility] [address] [place] [address] documented as of this encounter Visit Diagnoses Diagnosis Seropositive rheumatoid arthritis of multiple sites ([facility])- Primary documented in this encounter Orders Equipment Count Last Ordered Date First Orde red Date GENERIC DME ORDER 1 12/08/2019 documented in this encounter Care Teams Flying Ii Instructor Relationship Specialty Start Date End Date Susana Mesa APRN [address] [place] [address] PCP - General 08/21/19 documented as of this encounter
--- OUTSIDE RECORDS SUMMARY | 2024-02-04 00:40 | XMS_ITS | Encounter Summary ---
Author Organization [facility] Address [address] [place] [address] Care Team Providers Care Opthalmic Tech Name Role Phone Susana Mesa KAMRYN Primary Care Provider [phone] Reason for Visit * Reason Onset Date Comments Medications Refill 08/19/2020 Encounter Details Date Type Department Care Team (Late st Contact Info) Description 08/19/2020 Refill [facility] Rheumatology [address] [place], [place] [address] Jennifer Joyce RN Medications Refill Social History Tobacco Use [...] multiple sites with positive rheumatoid factor (HCC-CMS) USE 0.8ML ONCE WEEKLY 12 mL 1 08/19/2020 04/25/2021 folic acid (FOLVITE) 1 mg tabletIndications:Rheumato id arthritis involving multiple sites with positive rheumatoid factor (HCC-CMS) Take 1 Tab by mouth daily. 90 Tab 3 08/19/2020 08/19/2020 hydrOXYchloroQUINE (PLAQUENIL) 200 mg tabletIndications:Rheumato id arthritis involving multiple sites with positive rheumatoid factor (HCC-CMS) Take 1 Tab by mouth daily. 30 Tab 11 08/19/2020 04/25/2021 documented in this encounter Miscellaneous Notes * Telephone Encounter - Jennifer Joyce RN - 08/19/2020 0949 EST Pt requests refill for MTX,Folic Acid and HCQ to [facility] in [place]. documented in this encounter Plan of Treatment Upcoming Encounters Date Type Department Care Team (Late st Contact Info) Description 06/06/2024 10:45 EST Telemedicine [facility] Rheumatology [address] [place], [place] [address] Rosina Manuel MD 130 [facility] [address] [place] [address] documented as of this encounter Visit Diagnoses Diagnosis Rheumatoid arthritis involving multiple sites with positive rheumatoid factor (HCC-CMS)- Primary documented in this encounter Discontinued Medications Medication Sig Discontinue Reason Start Date End Da te hydroxychloroquine (PLAQUENIL) 200 mg tabletIndications:Rheuma toid arthritis involving multiple sites with positive rheumatoid factor (HCC-CMS) Take 1 Tab by mouth daily. Reorder 08/21/2019 08/19/2020 folic acid (FOLVITE) 1 mg tabletIndications:Rheuma toid arthritis involving multiple sites with positive rheumatoid factor (HCC-CMS) Take 1 Tab by mouth daily. Reorder 08/21/2019 08/19/2020 methotrexate 25 mg/mL injectionIndications:Rhe umatoid arthritis involving multiple sites with positive rheumatoid factor (HCC-CMS) USE 0.8ML ONCE WEEKLY Reorder 06/07/2020 08/19/2020 documented as of this encounter Care Teams Opthalmic Tech Relationship Specialty Start Date End Date Susana Mesa APRN [address] [place] [address] PCP - General 08/21/19 documented as of this encounter
--- OUTSIDE RECORDS SUMMARY | 2024-02-04 00:40 | XMS_ITS | Encounter Summary ---
Author Organization [facility] Address [address] [place] [address] Care Team Providers Care Film Developing Machine Operator Name Role Phone Unavailable Primary Care Provider Unavailabl e Encounter Details Date Type Department Care Team (Late st Contact Info) Description 06/14/2007 Results Only [facility] conversion [address] [place] [address] Yessenia Vásquez FNP [address] [place] [address] Social History Tobacco Use Types Packs/Day Years Used Date Smoking Tobacco: Never Assessed Sex and Gender Information Value Date Recorded Sex Assigned at Not on file Gender Identity Female 08/17/2019 11:24 EST Sexual Orientation Not on file documented as of this encounter Plan of Treatment Upcoming Encounters Date Type Department Care Team (Late st Contact Info) Description 06/06/2024 10:45 EST Telemedicine [facility] Rheumatology [address] [place], [place] [address] Rosina Manuel MD 130 [facility] [address] [place] [phone] documented as of this encounter Procedures Procedure Name Priority Date/Time Associated Diagnosis Comments CYTOPATHOLOGY Routine 06/14/2007 0:00 EST documented in this encounter Results * CYTOPATHOLOGY (06/14/2007 0:00 EST) Pathology Report: CYTOPATHOLOGY REPORT Reports generated via electronic interface contain original data; however they are lacking the format of the original report. Caution should be taken when reading/interpreti ng unformatted reports. Name: ? CHARLINE RALPH ? Accession #: ? [id number] : ? 1965 (Age: 42) ??F ?Collect Date: ? 06/14/2007 Location: ? [facility] ? Receive Date: ? 06/16/2007 Provider: ?YESSENIA COFFEYP Copy to: ? Specimen/Source: ?ThinPrep Pap Test, Cervix/Endocervix, processed on [facility] ThinPrep Imaging System, with manual evaluation Last Menstrual Period: ? 05/29/07 Other: ? Additional clinical information: Remote hx mild abnormal HPVA - HPV testing requested if ASC-US on the current ThinPrep Pap test. ? SPECIMEN ADEQUACY ? Satisfactory for Evaluation - transformation zone component present GENERAL CATEGORIZATION ? Negative for Intraepithelial Lesion or Malignancy INTERPRETATION ? Reactive cellular changes associated with inflammation present (includes repair). ? Document reviewed and electronically signed by: ? WALE MCGRAW MD [facility] ? Report Date: ??06/20/2007 11:55 End of Report JOCELYN GOODWIN 06/14/2007 06/16/2007 Yessenia Vásquez DRYWALL BOARDHANGER PATHOLOGY ORDERABLES JOCELYN GOODWIN [address] [place] [address] documented in this encounter Visit Diagnoses Not on filedocumented in this encounter
--- OUTSIDE RECORDS SUMMARY | 2024-02-04 00:40 | XMS_ITS | Encounter Summary ---
Author Organization [facility] Address [address] [place] [address] Care Team Providers Care Limousine Driver Name Role Phone Susana Mesa KAMRYN Primary Care Provider [phone] [phone] Encounter Details Date Type Department Care Team (Late st Contact Info) Description 08/20/2020 Abstract [facility] Rheumatology [address] [place] [address] Rosina Manuel MD [address] [place] [address] [address] Social History Tobacco Use Types Packs/Day Years [...] 10:45 EST Telemedicine [facility] Rheumatology [address] [place] [address] Rosina Manuel MD [address] [place], [place] [address] [address] [place] [address] documented as of this encounter Procedures Procedure Name Priority Date/Time Associated Diagnosis Comments HEPATITIS C AB W REFLEX TO HCV RNA BY PCR Routine 08/09/2020 HEPATITIS B CORE ANTIBODY (TOTAL) Routine 08/09/2020 HEPATITIS B SURFACE ANTIBODY Routine 08/09/2020 HEPATITIS B SURFACE ANTIGEN Routine 08/09/2020 COMPLETE BLOOD COUNT AND DIFFERENTIAL Routine 08/09/2020 C REACTIVE PROTEIN Routine 08/09/2020 COMPREHENSIVE METABOLIC PANEL (CMP) Routine 08/09/2020 documented in this encounter Results * HEPATITIS B SURFACE ANTIGEN (08/09/2020) Hepatitis B Surface Ag, External Negative Blood VENOUS BLOOD / Unknown 08/09/2020 Historical Provider CHEMISTRY & BLOOD GAS ORDERABLES * HEPATITIS B SURFACE ANTIBODY (08/09/2020) Hepatitis B Surface Ab, External Positive Blood VENOUS BLOOD / Unknown 08/09/2020 Historical Provider CHEMISTRY & BLOOD GAS ORDERABLES * HEPATITIS B CORE ANTIBODY (TOTAL) (08/09/2020) Hep B Core Ab, External Negative Blood VENOUS BLOOD / Unknown 08/09/2020 Historical Provider CHEMISTRY & BLOOD GAS ORDERABLES * HEPATITIS C AB W REFLEX TO HCV RNA BY PCR (08/09/2020) Hepatitis C Ab Negative Blood VENOUS BLOOD / Unknown 08/09/2020 Historical Provider CHEMISTRY & BLOOD GAS ORDERABLES * COMPLETE BLOOD COUNT AND DIFFERENTIAL (08/09/2020) WBC, External 6.90 4.4 - 10.8 RBC, External 4.74 3.93 - 5.22 Hemoglobin, External 13.2 11.2 - 15.7 HCT, External 39.9 36.0 - 46.0 MCV, External 84.2 80 - 95 MCH, External 27.8 27.0 - 33.0 MCHC, External 33.1 32.0 - 36.0 PLT, External 309 130 - 400 RDW-CV, External 13.9 11.7 - 14.6 Neutrophils, External 64.2 Lymphocytes, External 23.3 Monocytes, External 9.9 Eosinophils, External 1.9 Basophils, External 0.4 ABS Neutrophils, External 4.43 1.2 - 6.7 ABS Lymphs, External 1.61 1.2 - 3.4 ABS Monocytes, External 0.68 0.1 - 0.8 ABS Eosinophils, External 0.13 0.0 - 0.7 ABS Basophils, External 0.03 0.0 - 0.2 Blood VENOUS BLOOD / Unknown 08/09/2020 Historical Provider PACKAGES & DNA [place] OBE ORDERABLES * (ABNORMAL) C REACTIVE PROTEIN (08/09/2020) Pathologist [facility] C-Reactive Protein, External 0.76(A) 0.0 - 0.3 Blood VENOUS BLOOD / Unknown 08/09/2020 Historical Provider CHEMISTRY & BLOOD GAS ORDERABLES * (ABNORMAL) COMPREHENSIVE METABOLIC PANEL (CMP) (08/09/2020) [facility] GFR, Calculated, External >60 Glucose, Serum, External 97 74 - 106 Albumin, External 3.8 3.4 - 5.0 Total Alkaline Phosphatase, External 100 46 - 116 ALT, External 23 14 - 59 AST, External 16 15 - 37 BUN, External 17 7 - 18 Calculated Calcium, External Calcium, External 8.4(A) 8.5 - 10.1 Chloride, External 103 98 - 107 CO2, External 29.6 21.0 - 32.0 Creatinine, External 0.7 0.55 - 1.02 Fasting?, External Potassium, External 3.9 3.5 - 5.1 Sodium, External 141 136 - 145 Total Protein, External 7.3 6.4 - 8.2 Bilirubin, Total, External 0.3 0.2 - 1.0 Anion Gap 8.4 3 - 11 mmol/L Blood VENOUS BLOOD / Unknown 08/09/2020 Historical Provider MD CHEMISTRY & BLOOD GAS ORDERABLES documented in this encounter Visit Diagnoses Not on filedocumented in this encounter Care Teams Limousine Driver Relationship Specialty Start Date End Date Susana Mesa APRN [address] [place] [address] PCP - General 08/21/19 documented as of this encounter
--- OUTSIDE RECORDS SUMMARY | 2024-02-04 00:40 | XMS_ITS | Encounter Summary ---
Author Organization [facility] Address [address] [place] [address] Care Team Providers Care Customer Relations Advisor Name Role Phone Susana Mesa KAMRYN Primary Care Provider [phone] Reason for Visit * Reason Onset Date Comments Advice Only 04/12/2020 Encounter Details Date Type Department Care Team (Late st Contact Info) Description 04/12/2020 Telephone [facility] Rheumatology [address] [place] [address] Rosina Manuel MD [address] [facility] [address] [place] [address] Advice Only Social History Tobacco Use Types Packs/Day Years [...] Telephone Encounter - Tammy Zepeda RN - 04/12/[address] Manuel' recommendation to patient with appreciation expressed. Her RA is in good controlso she will hold MTX as recommended. * Telephone Encounter - Rosina Manuel MD - 04/12/2020 1114 EDT Official recommendation is to hold methotrexate week before flu shot and week of so that she has most robust immune response possible Risk of this is that she may have ra flare (about 5%) If ra in good control can hold methotrexate as above. If not ok to continue methotrexate * Telephone Encounter - Tammy Zepeda RN - 04/12/2020 1017 EDT Do you recommend holding MTX for a period of time after getting a flu shot? * Telephone Encounter - Lucille Wyman - 04/12/2020 0848 EDT Patient called looking for advise on whether or not she should continue her Methotrexate on her normal schedule after getting her flu shot or if she should hold it for any amount of time. She was just wondering what the recommendation was regarding the flu shot and taking the methotrexate. Please advise. Thanks. [phone]. documented in this encounter Plan of Treatment Upcoming Encounters Date Type Department Care Team (Late st Contact Info) Description 06/06/2024 10:45 EST Telemedicine [facility] Rheumatology [address] [place] [address] Rosina Manuel MD [address] [facility] [place] [phone] documented as of this encounter Visit Diagnoses Not on filedocumented in this encounter Care Teams Customer Relations Advisor Relationship Specialty Start Date End Date Susana Mesa APRN [address] [place] [address] PCP - General 08/21/19 documented as of this encounter
--- OUTSIDE RECORDS SUMMARY | 2024-02-04 00:40 | XMS_ITS | Encounter Summary ---
Author Organization [facility] Address [address] [place] [address] Care Team Providers Care Food And Beverage Attendant Name Role Phone Unavailable Primary Care Provider Unavailabl e Encounter Details Date Type Department Care Team (Late st Contact Info) Description 01/22/2014 Results Only [facility] Laboratory Services - [facility] ([facility]) [address] [place] [phone] Jordan Fabian MD [address] [place] [phone] Social History Tobacco Use Types Packs/Day Years [...] 10:45 EST Telemedicine [facility] [place] [address] [place], [place] [address] Rosina Manuel MD 130 [facility] [address] [place] [phone] documented as of this encounter Procedures Procedure Name Priority Date/Time Associated Diagnosis Comments SURGICAL PATHOLOGY Routine 01/22/2014 8:41 EDT documented in this encounter Results * SURGICAL PATHOLOGY (01/22/2014 8:41 EDT) Pathology Report: SURGICAL PATHOLOGY REPORT Reports generated via electronic interface contain original data; however they are lacking the format of the original report. Caution should be taken when reading/interpreti ng unformatted reports. Name: ? CHARLINE RALPH ? Accession #: ? [id number] ? : ? 1965 (Age: 48) ??F ? Collect Date: ? 01/22/2014 ? Location: ? [facility] ? Receive Date: ? 01/23/2014 ? Provider: JORDAN FABIAN MD Copy to: RUPAL DOMINGUEZ MD ? Final Pathologic Diagnosis: COLON, HEPATIC FLEXURE, POLYP, BIOPSY: - ??Tubular adenoma. Document reviewed and electronically signed by: MARISOL ADDISON MD Report ??Date: 01/24/2014 07:48 By the signature above, the attending physician certifies that he/she has personally conducted a gross and/or microscopic examination of the described specimens and rendered or confirmed the above diagnosis. Specimen(s) Received: Hepatic flexure polyp Clinical History: Screen Gross Description: ? Received in formalin labelled with proper patient identification (initials C, M) and hepatic flexure polyp is a single pink-begum tissue fragment (0.2 x 0.1 x 0.1 cm). Submitted intact in 1. [place] Wray 01/23/2014 End of Report JOCELYN GOODWIN 01/22/2014 8:41 EDT 01/23/2014 8:41 EDT Jordan Fabian MD PATHOLOGY ORDERABLE S JOCELYN GOODWIN [address] [place] [address] documented in this encounter Visit Diagnoses Not on filedocumented in this encounter
--- OUTSIDE RECORDS SUMMARY | 2024-02-04 00:40 | XMS_ITS | Encounter Summary ---
Author Organization [facility] Address [address] [place] [address] Care Team Providers Care Ice Scraper Name Role Phone Susana Mesa KAMRYN Primary Care Provider [phone] Reason for Visit * Reason Comments Other Encounter Details Date Type Department Care Team (Late st Contact Info) Description 12/15/2019 Refill [facility] Rheumatology [address] [place] [address] Rosina Manuel MD 130 [facility] [place] [address] Other Social History Tobacco Use [...] involving multiple sites with positive rheumatoid factor ([facility]) USE 0.8ML ONCE WEEKLY 12 mL 1 12/15/2019 06/07/2020 documented in this encounter Miscellaneous Notes * Telephone Encounter - Tammy Zepeda RN - 12/15/2019 1110 EDT Last visit note reviewed; labs up to date but follow up not scheduled. Follow up due in person end of March so scheduled for 04/03 at 1:45 and LVM telling patient to call and reschedule if that doesn't work for her. documented in this encounter Plan of Treatment Upcoming Encounters Date Type Department Care Team (Late st Contact Info) Description 06/06/2024 10:45 EST Telemedicine [facility] Rheumatology [address] [place], [place] [phone] Rosina Manuel MD [address] [facility] [address] [place] [phone] documented as of this encounter Visit Diagnoses Diagnosis Rheumatoid arthritis involving multiple sites with positive rheumatoid factor ([facility])- Primary documented in this encounter Discontinued Medications Medication Sig Discontinue Reason Start Date End Da te methotrexate 25 mg/mL injectionIndications:rhe umatoid arthritis Inject 0.8 mL into the skin once a week. 08/21/2019 12/15/2019 documented as of this encounter Care Teams Ice Scraper Relationship Specialty Start Date End Date Susana Mesa APRN [address] [place] [address] PCP - General 08/21/19 documented as of this encounter
--- OUTSIDE RECORDS SUMMARY | 2024-02-04 00:40 | XMS_ITS | Encounter Summary ---
Author Organization [facility] Address [address] [place] [address] Care Team Providers Care Lamp Replacer Name Role Phone Susana Mesa KAMRYN Primary Care Provider [phone] Encounter Details Date Type Department Care Team (Late st Contact Info) Description 08/09/2020 Lab Requisition [facility] Pathology & Laboratory Medicine - [facility] [address] [place], [place] [phone] Outr Resulting Lab, Provider Social History Tobacco [...] 06/06/2024 10:45 EST Telemedicine [facility] Rheumatology [address] [place] [phone] Rosina Manuel MD [address] [place] [address] [address] [place] [phone] documented as of this encounter Procedures Procedure Name Priority Date/Time Associated Diagnosis Comments HEPATITIS C AB W REFLEX TO HCV RNA BY PCR Routine 08/09/2020 9:40 EST HEPATITIS B CORE ANTIBODY (TOTAL) Routine 08/09/2020 9:40 EST HEPATITIS B SURFACE ANTIBODY Routine 08/09/2020 9:40 EST documented in this encounter Results * HEPATITIS B SURFACE ANTIBODY (08/09/2020 9:40 EST) Hep B Surface Ab, Quantitative 373.4 See Note mIU/mL 08/12/2020 10:44 EST [facility] Comment: Reference Range for Hep B Surface Ab, Quant: Positive: >= 10.0 mIU/mL Negative: ??< 10.0 mIU/mL Patient is presumed to be immune to infection with Hepatitis B Virus. Hep B Surface Ab, Qualitative Positive See Note 08/12/2020 10:44 EST [facility] Comment: Reference Range for Hep B Surface Ab, Qual: Unvaccinated: ??Negative Vaccinated: ??Positive Blood VENOUS BLOOD / Unknown 08/09/2020 9:40 EST 08/09/2020 16:23 EST Provider Outr Resulting Lab CHEMISTRY & BLOOD GAS ORDERABLES Performing Organization Address City/[facility] Co de Phone Number [facility] [address] [place] [address] * HEPATITIS B CORE ANTIBODY (TOTAL) (08/09/2020 9:40 EST) Hepatitis B Core Ab, Total Negative Negative 08/12/2020 11:48 EST [facility] Blood VENOUS BLOOD / Unknown 08/09/2020 9:40 EST 08/09/2020 16:23 EST Provider Outr Resulting Lab CHEMISTRY & BLOOD GAS ORDERABLES Performing Organization Address [facility] Co de Phone Number [facility] [address] [place] [address] * HEPATITIS C AB W REFLEX TO HCV RNA BY PCR (08/09/2020 9:40 EST) Hep C Antibody Negative Negative 08/12/2020 10:36 EST [facility] Blood VENOUS BLOOD / Unknown 08/09/2020 9:40 EST 08/09/2020 16:23 EST Provider Outr Resulting Lab CHEMISTRY & BLOOD GAS ORDERABLES [facility] [address] [place] [address] documented in this encounter Visit Diagnoses Not on filedocumented in this encounter Care Teams Lamp Replacer Relationship Specialty Start Date End Date Susana Mesa APRN [address] [place] [phone] PCP - General 08/21/19 documented as of this encounter
--- OUTSIDE RECORDS SUMMARY | 2024-02-04 00:40 | XMS_ITS | Encounter Summary ---
Author Organization [facility] Address [address] [place] [address] Care Team Providers Care Corner Former Name Role Phone Unknown, Provider Primary Care Provider Encounter Details Date Type Department Care Team (Late st Contact Info) Description 03/01/2018 Results Only [facility] [phone] Jeremiah López, DIRECT OF REAL ESTATE [address] [facility] [address] [place] [address] Social History Tobacco Use Types Packs/Day Years Used Date Smoking Tobacco: Never Assessed Sex and Gender Information Value Date Recorded Sex Assigned at Not on file Gender Identity Female 08/17/2019 11:24 EST Sexual Orientation Not on file documented as of this encounter Plan of Treatment Upcoming Encounters Date Type Department Care Team (Late st Contact Info) Description 06/06/2024 10:45 EST Telemedicine [facility] Rheumatology [address] [place], [place] [address] Rosina Manuel MD [address] [facility] [address] [place] [phone] documented as of this encounter Procedures Procedure Name Priority Date/Time Associated Diagnosis Comments PAP TEST- RESULT ONLY Routine 03/01/2018 0:00 EDT documented in this encounter Results * PAP TEST- RESULT ONLY (03/01/2018 0:00 EDT) Pathology Report: CYTOPATHOLOGY REPORT Reports generated via electronic interface contain original data; however they are lacking the format of the original report. Caution should be taken when reading/interpreti ng unformatted reports. Name: ? RAMO CHARLINE Garland ? Accession #: ? [id number] ? : ? 1965 (Age: 52) ??F ?Collect Date: ? 03/01/2018 ? Location: ? [facility] ? Receive Date: ? 03/03/2018 ? Provider: JEREMIAH LÓPEZ DIRECT OF REAL ESTATE Copy to: ? Final Report SPECIMEN ADEQUACY ? Satisfactory for Evaluation - transformation zone component present GENERAL CATEGORIZATION ? Negative for Intraepithelial Lesion or Malignancy ?? Last Menstrual Period: 10/03/17 Other: Additional clinical information: Z00.00 Z12.4 Z01.419 Specimen/Source: ??Pap Test, Cervix/Endocervix, ThinPrep Imaging System with manual evaluation Document reviewed and electronically signed by: ? JACLYN Armas(ASCP) ? Report ??Date: 03/11/2018 12:58 HPV with Pap Test ? Date Ordered: ? 03/11/2018 ? Status: ?? Signed Out ?Date Complete: ? 03/15/2018 ? By: ??System Interface ? Date Reported: ? 03/15/2018 ? Interpretation RESULT: Negative for HPV. No E6 or E7 mRNA is detected from HPV types 16,18,31,33,35, 39,45,51,52,56,58, 59,66, and 68 by smash fixer mediated amplification. Comments Document reviewed and electronically signed by: ? System Interface ? Report date: 03/15/2018 By the signature above, the attending physician certifies that he/she has personally conducted a gross and/or microscopic examination of the described specimens and rendered or confirmed the above diagnosis. End of Report [facility] 03/01/2018 03/03/2018 Jeremiah López APRN PATHOLOGY ORDERAB LES [facility] [address] [place] [address] documented in this encounter Visit Diagnoses Not on filedocumented in this encounter Care Teams Corner Former Relationship Specialty Start Date End Date Unknown, Provider, PCP - General 01/25/14 08/20/19 documented as of this encounter
--- OUTSIDE RECORDS SUMMARY | 2024-02-04 00:40 | XMS_ITS | Encounter Summary ---
Author Organization [facility] Address [address] [place] [address] Care Team Providers Care [employer] Name Role Phone Susana Mesa KAMRYN Primary Care Provider [phone] Reason for Visit * Reason Comments Follow-up RA; has some pain of a level 3 in her feet. Higher a the end of the day. Encounter Details Date Type Department Care Team (Late st Contact Info) Description 04/26/2020 15:15 EDT Office Visit [facility] Rheumatology [address] [place] [address] Rosina Manuel MD [address] [facility] [address] [place] [id number] Rheumatoid arthritis involving multiple sites with positive rheumatoid factor ([facility]) (Primary Dx); Encounter for long-term (current) use [...] Sign Reading Time Taken Comments Blood Pressure 138/86 04/26/2020 1520 EDT Pulse 76 04/26/2020 1520 EDT Temperature 36 ??C (96.8 ??F) 04/26/2020 1520 EDT Respiratory Rate - - Oxygen Saturation - - Inhaled Oxygen Concentration - - Weight 108.9 kg (240 lb) 04/26/2020 1520 EDT Height 165.1 cm (5' 5) 04/26/2020 1520 EDT Body Mass Index 39.94 04/26/2020 1520 EDT documented in this encounter Patient Instructions * Patient Instructions* Rosina Manuel MD - 04/26/2020 15:15 EDT Continue current medications Consider adding Enbrel If pain and stiffness continue. Video follow up in 3 months Call if problems Labs today [facility] Patient Instructions etanercept Pronunciation: ee BATISTA er sept Brand: Enbrel, Erelzi Prefilled Syringe, Erelzi Sensoready Pen What is the most important information I should know about etanercept? Etanercept affects your immune system. You may get infections more easily, even serious or fatal infections. Call your doctor if you have signs of infection (fever, cough, night sweats, pale skin, bruising or bleeding, loss of appetite, weight loss, feeling very tired). Using etanercept may increase your risk of developing certain types of cancer, including lymphoma. Ask your doctor about your specific risk. What is etanercept? Etanercept is a tumor necrosis factor (TNF) britney that is used in adults to prevent joint damage caused by rheumatoid arthritis, psoriatic arthritis, or ankylosing spondylitis. Etanercept is also used to treat plaque psoriasis in adults. Etanercept is used to treat polyarticular juvenile idiopathic arthritis in children who are at least 2 years old. Etanercept is sometimes used with another medicine called methotrexate. Etanercept may also be used for purposes not listed in this medication guide. What should I discuss with my healthcare provider before using etanercept? You should not use etanercept if you are allergic to it, or if you have a severe infection such as sepsis (infection of the blood). Tell your doctor if you have any signs of infection, such as: ?? fever, chills, sweats, flu-like symptoms, feeling very tired; ?? cough, shortness of breath, coughing up blood; ?? diarrhea, weight loss; ?? skin warmth or redness, open sores; or ?? increased urination, burning when you urinate. Tell your doctor if you have ever had: ?? a weak immune system, HIV, tuberculosis; ?? hepatitis B; ?? diabetes; ?? congestive heart failure; ?? a nerve disorder such as multiple sclerosis or Guillain-Becerril?? syndrome; ?? seizures; ?? a latex allergy; or ?? if you are scheduled to receive any vaccines. Using etanercept may increase your risk of developing certain types of cancer, including lymphoma. This has occurred mainly in children and teenagers using TNF-blockers. However, anyone with an inflammatory autoimmune disorder may have a higher risk of lymphoma. Talk with your doctor about your ownrisk. Tell your doctor if you have ever had tuberculosis or if anyone in your household has tuberculosis.Also tell your doctor if you have recently traveled. Tuberculosis and some fungal infections are more common in certain parts of the world, and you may have been exposed during travel. Children should be current on all childhood immunizations before starting treatment with etanercept. Tell your doctor if you are or plan to become . You will need to tell your baby's doctor if you used etanercept during , especially before the baby receives any childhood vaccines. It may not be safe to breastfeed while using this medicine. Ask your doctor about any risk. Do not give this medicine to a child younger than 2 years old without medical advice. How should I use etanercept? Follow all directions on your prescription label and read all medication guides or instruction sheets. Use the medicine exactly as directed. Before you start treatment with etanercept, your doctor may perform tests to make sure you do not have an infection. Etanercept is injected under the skin. A healthcare provider may teach you how to properly use the medication by yourself. Read and carefully follow any Instructions for Use provided with your medicine. Ask your doctor or pharmacist if you don't understand all instructions. Do not shake this medicine. Prepare an injection only when you are ready to give it. Do not use if the medicine looks cloudy, has changed colors, or has particles in it. Call your pharmacist for new medicine. You may need to mix etanercept with a liquid (diluent). When using injections by yourself, be sure you understand how to properly mix and store the medicine. Each cartridge, injection pen, or prefilled syringe is for one use only. Throw it away after one use, even if there is still medicine left inside. Etanercept doses are based on weight in children. Your child's dose needs may change if the child gains or loses weight. If you need surgery, tell the surgeon ahead of time that you are using etanercept. Etanercept affects your immune system. You may get infections more easily, even serious or fatal infections. Your doctor will need to examine you on a regular basis. If you've ever had hepatitis B, using etanercept can cause this virus to become active or get worse. You may need frequent liver function tests while using this medicine and for several months after you stop. Carefully follow all storage instructions provided with your medicine. Cartridges, injection pens, prefilled syringes, vials, and diluent are stable at specific temperatures for only a certain numberof days or weeks. Throw away any medicine not used within that time. Keep unopened etanercept in its original carton in the refrigerator. Protect from light. Do not freeze. Do not use after the expiration date on the label has passed. If you need to store etanercept at room temperature, protect the medicine from light and extreme hot or cold temperatures. Once the medicine has reached room temperature, you should not put it back into the refrigerator. Use a needle and syringe only once and then place them in a puncture-proof sharps container. Follow state or local laws about how to dispose of this container. Keep it out of the reach of children and pets. What happens if I miss a dose? Call your doctor for instructions if you miss a dose of etanercept. What happens if I overdose? Seek emergency medical attention or call the Poison Help line at . What should I avoid while using etanercept? Avoid injecting etanercept into skin that is bruised, tender, red, or hard. Do not receive a live vaccine while using etanercept. The vaccine may not work as well and may not fully protect you from disease. Live vaccines include measles, mumps, rubella (MMR), polio, rotavirus, typhoid, yellow fever, varicella (chickenpox), and zoster (shingles). Avoid being near people who are sick or have infections. Call your doctor for preventive treatment if you are exposed to chickenpox or measles. These conditions can be serious or even fatal in peoplewho are using etanercept. What are the possible side effects of etanercept? Get emergency medical help if you have signs of an allergic reaction: hives; difficult breathing; swelling of your face, lips, tongue, or throat. Serious and sometimes fatal infections may occur. Call your doctor right away if you have: ?? fever, chills, flu symptoms; ?? pale skin, easy bruising or bleeding; ?? signs of lymphoma --fever, night sweats, weight loss, stomach pain or swelling, swollen glands (in your neck, armpits, or groin); ?? signs of tuberculosis --cough, night sweats, loss of appetite, weight loss, feeling very tired; ?? new or worsening psoriasis --skin redness or scaly patches, raised bumps filled with pus; ?? nerve problems --dizziness, numbness or tingling, problems with vision, or weak feeling in your arms or legs; ?? signs of heart failure --shortness of breath, swelling in your lower legs; ?? lupus-like syndrome --joint pain or swelling, chest discomfort, feeling short of breath, skin rash on your cheeks or arms (worsens in sunlight); o ?? liver problems --right-sided upper stomach pain, vomiting, tiredness, loss of appetite, yellowing of your skin or eyes. Common side effects may include: ?? pain, swelling, itching, or redness where the medicine was injected; or ?? cold symptoms such as stuffy nose, sneezing, sore throat. This is not a complete list of side effects and others may occur. Call your doctor for medical advice about side effects. You may report side effects to FDA at 6-776-ENK-3330. What other drugs will affect etanercept? Tell your doctor about all your other medicines, especially: ?? abatacept (Orencia); ?? anakinra (Kineret); ?? cyclophosphamide (Cytoxan); or ?? insulin or oral diabetes medicine. This list is not complete. Other drugs may affect etanercept, including prescription and ggvy-asa-qoufrhe medicines, vitamins, and herbal products. Not all possible drug interactions are listed here. Where can I get more information? Your doctor or pharmacist can provide more information about etanercept. Remember, keep this and all other medicines out of the reach of children, never share your medicines with others, and use this medication only for the indication prescribed. Every effort has been made to ensure that the information provided by [employer]. ('[employer]') is accurate, up-to-date, and complete, but no guarantee is made to that effect. Drug information contained herein may be time sensitive. [employer] information has been compiled for use by healthcare practitioners and consumers in the [place] and therefore [employer] does not warrant that uses outside of the [place] are appropriate, unless specifically indicated otherwise. [employer] drug information does not endorse drugs, diagnose patients or recommend therapy. [employer] drug information isan informational resource designed to assist licensed healthcare practitioners in caring for their p atients and/or to serve consumers viewing this service as a supplement to, and not a substitute for, the expertise, skill, knowledge and judgment of healthcare practitioners. The absence of a warningfor a given drug or drug combination in no way should be construed to indicate that the drug or drug combination is safe, effective or appropriate for any given patient. [employer] does not assume any responsibility for any aspect of healthcare administered with the aid of information [employer] provides. The information contained herein is not intended to cover all possible uses, directions, precautions, warnings, drug interactions, allergic reactions, or adverse effects. If you have questions about the drugs you are taking, check with your doctor, nurse or pharmacist. Copyright 7101-2678 [employer]. Version: 17.01. Revision date: 07/28/2019. Care instructions adapted under license by [facility]. If you have questions about a medical condition or this instruction, always ask your healthcare professional. [employer] disclaims any warranty or liability for your use of this information. documented in this encounter Progress Notes * Rosina Manuel MD - 04/26/2020 9505 EDT Division of Rheumatology and Clinical Immunology Chief Complaint Patient presents with ??? Follow-up RA; has some pain of a level 3 in her feet. Higher a the end of the day. Rheumatology:? Rheumatology problem list seropositive rheumatoid arthritis: Diagnosed 2016 Dr. Beverly methotrexate therapy started 2018 ? Stasis ulcer left ankle: Due to varicosity. ? Obesity ? Hyperlipidemia. HPI: Am stiffness. 1 hour. Hands and feet sore. No problems with methotrexate ? More meds for arthritis Ulcer in left foot now open again. No infection. Hands less swollen. MTX shots going ok. Left and right knuckles are swollen, sore No side effects from meds. Had surgery on vein on left leg for non healing ulcer No side effects from med Current Outpatient Medications Medication ??? ascorbic acid, vitamin C, (VITAMIN C) 500 mg tablet ??? BD SAFETYGLIDE TB REG BEVEL 1 mL 27 x 1/2 syringe ??? chlorthalidone (HYGROTON) 25 mg tablet ??? EPINEPHrine (EPIPEN) 0.3 mg/0.3 mL injection ??? folic acid (FOLVITE) 1 mg tablet ??? hydroxychloroquine (PLAQUENIL) 200 mg tablet ??? methotrexate 25 mg/mL injection ??? multivit,iron,minerals/lutein (CENTRUM SILVER ULTRA WOMEN'S ORAL) No current facility-administered medications for this visit. Allergies include: Buckwheat Past Medical History: Diagnosis Date ??? Essential hypertension 08/21/2019 ??? Rheumatoid arthritis ([facility]) ??? Rheumatoid arthritis involving multiple sites with positive rheumatoid factor ([facility]) 08/21/2019 ??? Ulcerated leg varices, left ([facility]-CMS) ??? Ulcerated varicose veins of leg, left (HCC-CMS) 08/21/2019 No past surgical history on file. ROS Negative except as in hpi 10 point ros obtained. PHYSICAL EXAMINATION: BP 138/86 Pulse 76 Temp 36 ??C (96.8 ??F) Ht 165.1 cm (65) Wt (!) 108.9 kg (240 lb) BMI 39.94 kg/m?? Physical Exam Pleasant well woman nad Eyes dry Oropharynx dry mouth Chest CTA no wheezes CV rrr Abdomen soft non tender non distended Hands MCP synovitis 2nd position. Wrists ulnar styloid prominence Feet mtp subluxation Skin no rash Neurologic antalgic gait, fluent speech. Affect pleasant Lab Results Component Value Date HGB 12.9 04/26/2020 MCV 84.9 04/26/2020 PLT 280 04/26/2020 55 yo with RA with erosive disease. On methotrexate, persistent disease activity. Add plaquenil Ra Methotrexate 20 mg weekly injected Continue plaquenil Read about side effects of enbrel Consider adding Enbrel if ra more active. High risk med Labs ok, repeat September Eye exam baseline then 5 years later then yearly due to plaquenil Impressions, diagnosis, treatment plan were reviewed. Patient questions and concerns were reviewed and answered. Patient agreeable to plan of care and will call if any addition concerns or questions arise. Rosina Manuel MD 04/26/2020 15:31 documented in this encounter Plan of Treatment Upcoming Encounters Date Type Department Care Team (Late st Contact Info) Description 06/06/2024 10:45 EST Telemedicine [facility] Rheumatology [address] [place] [address] Rosina Manuel MD [address] [facility] [address] [place] [address] documented as of this encounter Procedures Procedure Name Priority Date/Time Associated Diagnosis Comments COMPLETE BLOOD COUNT WITH DIFFERENTIAL (AUTO) Routine 04/26/2020 16:15 EDT Rheumatoid arthritis involving multiple sites with positive rheumatoid factor ([facility]) C REACTIVE PROTEIN Routine 04/26/2020 16 :15 EDT Rheumatoid arthritis involving multiple sites with positive rheumatoid factor ([facility]) COMPREHENSIVE METABOLIC PANEL (CMP) Routine 04/26/2020 16:15 EDT Rheumatoid arthritis involving multiple sites with positive rheumatoid factor ([facility]) documented in this encounter Results * C REACTIVE PROTEIN (04/26/2020 16:15 EDT) C-Reactive Protein 8.9 <10.0 mg/L 04/26/2020 17:50 EDT [facility] 04/26/2020 16:1 5 EDT 04/26/2020 16:15 EDT Rosina Manuel MD CHEMISTRY & BLOO D GAS ORDERABLES [facility] [address] [place] [address] * (ABNORMAL) COMPREHENSIVE METABOLIC PANEL (CMP) (04/26/2020 16:15 EDT) Albumin % 4.2 3.4 - 4.9 g/dL 04/26/2020 17:50 [facility] ALKALINE PHOSPHATASE - [facility] 78 38 - 126 U/L 04/26/2020 17:50 [facility] BILIRUBIN TOTAL 0.6 0.2 - 1.3 mg/dL 04/26/2020 17:50 [facility] BUN - [facility] 18 10 - 26 mg/dL 04/26/2020 17:50 [facility] CALCIUM - [facility] 9.2 8.5 - 10.5 mg/dL 04/26/2020 17:50 [facility] Chloride 99 96 - 110 mmol/L 04/26/2020 17:50 [facility] CO2 Total 35(H) 22 - 32 mEq/L 04/26/2020 17:50 [facility] CREATININE 0.70 0.52 - 1.04 mg/dL 04/26/2020 17:50 [facility] eGFR >60 04/26/2020 17:50 [facility] Comment: Chronic renal impairment is defined as GFR <60 Multiply result by 1.210 for patients. eGFR calculated using the IDMS-traceable MDRD Study Equation. ??(effective 05/07/2014) Anion Gap 7 0 - 18 04/26/2020 17:50 [facility] GLUCOSE - [facility] 102(H) 70 - 100 mg/dL 04/26/2020 17:50 [facility] Potassium 3.6 3.5 - 5.0 mEq/L 04/26/2020 17:50 [facility] Sodium 141 136 - 145 mEq/L 04/26/2020 17:50 [facility] TOTAL PROTEIN - [facility] 7.1 6.2 - 8.2 gm/dL 04/26/2020 17:50 [facility] SGOT/AST - [facility] 23 14 - 36 U/L 04/26/2020 17:50 [facility] SGPT/ALT - [facility] 16 0 - 35 U/L 0 17:50 [facility] 04/26/2020 16:1 5 EDT 04/26/2020 16:15 EDT Rosina Manuel MD CHEMISTRY & BLOO D GAS ORDERABLES [facility] [address] [place] [address] * COMPLETE BLOOD COUNT WITH DIFFERENTIAL (AUTO) (04/26/2020 16:15 EDT) Gran # 3.7 2.2 - 8.85 10e3/uL 04/26/2020 16:44 EDT [facility] BASO # - [facility] 0.04 0.01 - 0.11 10e/uL 04/26/2020 16:44 EDT [facility] BASO % - [facility] 1 0 - 2 % 04/26/2020 16:44 EDT [facility] EOS # - [facility] 0.14 0.03 - 0.61 10e3/ul 04/26/2020 16:44 EDT [facility] EOS % - [facility] 2 0 - 5 % 04/26/2020 16:44 EDT [facility] GRAN % - [facility] 56.0 40 - 80 % 04/26/2020 16:44 EDT [facility] HEMATOCRIT - [facility] 39.4 34.9 - 44.4 % 04/26/2020 16:44 T [facility] HEMOGLOBIN - [facility] 12.9 11.6 - 15.2 g/dl 04/26/2020 16:44 EDT [facility] IG# - [facility] 0.03 0 - 0.7 10e3/uL 04/26/2020 16:44 EDT [facility] IG% - [facility] 0.5 0 - 0.9 % 04/26/2020 16:44 EDT [facility] LYMPH # - [facility] 1.9 1.09 - 3.3 10e3/ul 04/26/2020 16:44 EDT [facility] LYMPH% - [facility] 28.8 20 - 40 % 04/26/2020 16:44 EDT [facility] MEAN CORPUSCULAR HGB - [facility] 27.8 26.7 - 33.3 pg 04/26/2020 16:44 [facility] MEAN CORPUSCULAR HGB CONC - [facility] 32.7 32.1 - 35.9 g/dL 04/26/2020 16:44 [facility] MEAN CELL VOLUME - [facility] 84.9 81 - 98 fl 04/26/2020 16:44 [facility] MONO # - [facility] 0.8 0.1 - 0.8 10e3/uL 04/26/2020 16:44 [facility] MONO% - [facility] 12.0 0 - 12 % 04/26/2020 16:44 [facility] PLATELET COUNT 280 141 - 377 10e3/ul 04/26/2020 16:44 [facility] RED BLOOD COUNT - [facility] 4.64 3.86 - 5.04 10e3/ul 04/26/2020 16:44 [facility] RED CELL DISTRI WIDTH - [facility] 13.2 <14.7 % 04/26/2020 16:44 [facility] WHITE BLOOD COUNT - [facility] 6.6 4.0 - 12.4 10e3/ul 04/26/2020 16:44 [facility] 04/26/2020 16:1 5 EDT 04/26/2020 16:15 EDT Rosina Manuel MD HEMATOLOGY & PF4 ORDERABLES Performing Organization Address City/State/[facility] Co de Phone Number [facility] [address] [place] [address] documented in this encounter Visit Diagnoses Diagnosis Rheumatoid arthritis involving multiple sites with positive rheumatoid factor ([facility])- Primary Encounter for long-term (current) use of medications Encounter for long-term (current) use of other medications documented in this encounter Care Teams [employer]p [employer] Relationship Specialty Start Date End Date Susana Mesa APRN [address] [facility] [address] [place] [address] PCP - General 08/21/19 documented as of this encounter
--- OUTSIDE RECORDS SUMMARY | 2024-02-04 00:40 | XMS_ITS | Encounter Summary ---
Author Organization [facility] Address [address] [place] [address] Care Team Providers Care Leather Coverer Name Role Phone Unavailable Primary Care Provider Unavailabl e Encounter Details Date Type Department Care Team (Late st Contact Info) Description 12/28/2005 Results Only [facility] [address] [place] [address] Yessenia Vásquez FNP [address] [place] [address] Social History Tobacco Use Types [...] 10:45 EST Telemedicine [facility] Rheumatology [address] [place], [place] [id number] Rosina Manuel MD [address] [facility] [address] [place] [id number] documented as of this encounter Procedures Procedure Name Priority Date/Time Associated Diagnosis Comments CYTOPATHOLOGY Routine 12/28/2005 0:00 EDT documented in this encounter Results * CYTOPATHOLOGY (12/28/2005 0:00 EDT) Pathology Report: CYTOPATHOLOGY REPORT Reports generated via electronic interface contain original data; however they are lacking the format of the original report. Caution should be taken when reading/interpreti ng unformatted reports. Name: ? CHARLINE RALPH ? Accession #: ? [id number] : ? 1965 (Age: 40) ??F ?Collect Date: ? 12/28/2005 Location: ? [facility] ? Receive Date: ? 12/31/2005 Provider: ?YESSENIA JOHNSTON Copy to: ? Specimen/Source: ?ThinPrep Pap Test, Cervix/Endocervix, processed on [employer] ThinPrep Imaging System, with manual evaluation Last Menstrual Period: ? 12/11/05 Other: ? HPVA - HPV testing requested if ASC-US on the current ThinPrep Pap test. ? SPECIMEN ADEQUACY ? Satisfactory for Evaluation - transformation zone component present GENERAL CATEGORIZATION ? Negative for Intraepithelial Lesion or Malignancy INTERPRETATION ? Reactive cellular changes associated with inflammation present (includes repair). ? Document reviewed and electronically signed by: ? WALE MCGRAW [facility] ? Report Date: ??01/11/2006 17:05 End of Report JOCELYN GOODWIN 12/28/2005 12/31/2005 Yessenia JOHNSTON PATHOLOGY ORDERABLES JOCELYN GOODWIN [address] [place] [address] documented in this encounter Visit Diagnoses Not on filedocumented in this encounter
--- OUTSIDE RECORDS SUMMARY | 2024-02-04 00:40 | XMS_ITS | Encounter Summary ---
Author Organization [facility] Address [address] [place] [address] Care Team Providers Care Warp Clamper Name Role Phone Susana Mesa APRN Primary Care Provider +1 [phone] Encounter Details Date Type Department Care Team (Late st Contact Info) Description 08/10/2020 Lab Requisition [facility] Pathology & Laboratory Medicine - [facility] [address] [place], [place] [id number] Outr Resulting Lab, Provider Social History Tobacco [...] Contact Info) Description 06/06/2024 10:45 EST Telemedicine Health system - [facility] [address] [place] [id number] Rosina Manuel MD [address] [facility] [address] [place] [phone] documented as of this encounter Procedures Procedure Name Priority Date/Time Associated Diagnosis Comments QUANTIFERON TB GOLD PLUS Routine 08/09/2020 9:40 EST documented in this encounter Results * QUANTIFERON TB GOLD PLUS (08/09/2020 9:40 EST) Quantiferon Interpretation Negative Negative 08/12/2020 14:26 [facility] Comment: No interferon-gamma response to M. tuberculosis antigens was detected. ??Infection with M. tuberculosis is unlikely. A single negative result does not exclude infection with M. tuberculosis. ??In patients at high risk for M. tuberculosis infection, a second test should be considered in accordance with the 2017 ATS/IDSA/CDC Clinical Practice Guidelines for Diagnosis of Tuberculosis in Adults and Children. [Ran REED et. al. Clin. Infect. Dis. 2017:64 (2) ??: 111-115]. Results were obtained with the Qiagen QuantiFERON TB Gold Plus DOUG. TB1 Ag minus Nil 0.00 IU/ml 08/12/19 14:[address] [facility] TB2 Ag minus Nil 0.00 IU/mL 08/12/19 21 14:26 [facility] Blood VENOUS BLOOD / Unknown 08/09/2020 9:40 EST 08/10/2020 21:59 EST Narrative [facility] - 08/12/2020 14:26 EST Results were obtained with the Qiagen QuantiFERON-TB Gold Plus DOUG. Provider Outr Resulting Lab CHEMISTRY & BLOOD GAS ORDERABLES Performing Organization Address City/State/[facility] Co de Phone Number [facility] [address] [place] [address] documented in this encounter Visit Diagnoses Not on filedocumented in this encounter Care Teams Warp Clamper Relationship Specialty Start Date End Date Susana Mesa APRN [address] [place] [address] PCP - General 08/21/19 documented as of this encounter
--- OUTSIDE RECORDS SUMMARY | 2024-02-04 00:40 | XMS_ITS | Encounter Summary ---
Author Organization [facility] Address [address] [place] [address] Care Team Providers Care Fiber Optics Engineer Name Role Phone Susana Mesa APRN Primary Care Provider [phone] [phone] Reason for Visit * Reason Comments Other Encounter Details Date Type Department Care Team (Late st Contact Info) Description 12/09/2019 Refill [facility] Rheumatology [address] [place] [address] Rosina Manuel MD [address] [place] [address] [address] [place] [address] Other Social History Tobacco Use [...] Contact Info) Description 06/06/2024 10:45 EST Telemedicine [facility] Rheumatology [address] [place] [address] Rosina Manuel MD [address] [place], [place] [address]B [facility] [address] [place] [address] documented as of this encounter Visit Diagnoses Not on filedocumented in this encounter Care Teams Fiber Optics Engineer Relationship Specialty Start Date End Date Susana Mesa APRN [address] [facility] [address] [place] [phone] PCP - General 08/21/19 documented as of this encounter
--- OUTSIDE RECORDS SUMMARY | 2024-02-04 00:40 | XMS_ITS | Encounter Summary ---
Author Organization [facility] Address [address] [place] [address] Care Team Providers Care Dolly Operator Name Role Phone Susana Mesa KAMRYN Primary Care Provider [phone] [phone] Encounter Details Date Type Department Care Team (Late st Contact Info) Description 08/22/2020 Orders Only [facility] Rheumatology [address] [place] [address] Tammy Zepeda RN Rheumatoid arthritis involving multiple sites with positive rheumatoid factor ([facility]) (Primary Dx) Social History Tobacco Use Types [...] of this encounter Progress Notes * Tammy Zepeda RN - 08/22/2020 1515 EST The pharmacist was asking if patient can both Humira and MTX injections on the same day. I told herthat Charline can so she will let Charline know this when she stops by later today. Patient doesn't have VM on her cell phone. documented in this encounter Plan of Treatment Upcoming Encounters Date Type Department Care Team (Late st Contact Info) Description 06/06/2024 10:45 EST Telemedicine [facility] Rheumatology [address] [place] [address] Rosina Manuel MD 130 [facility] [address] [place] [address] documented as of this encounter Visit Diagnoses Diagnosis Rheumatoid arthritis involving multiple sites with positive rheumatoid factor ([facility])- Primary documented in this encounter Care Teams Dolly Operator Relationship Specialty Start Date End Date Susana Mesa APRN [address] [place] [address] PCP - General 08/21/19 documented as of this encounter
--- OUTSIDE RECORDS SUMMARY | 2024-02-04 00:40 | XMS_ITS | Encounter Summary ---
Author Organization [facility] Address [address] [place] [address] Care Team Providers Care University Registrar Name Role Phone Susana Mesa KAMRYN Primary Care Provider [phone] [phone] Encounter Details Date Type Department Care Team (Late st Contact Info) Description 08/05/[address] [facility] Rheumatology [address] [place] [address] Rosina Manuel MD [address] [place] [address] [address] Social History Tobacco Use Types [...] Info) Description 06/06/2024 10:[address] [facility] Rheumatology [address] [place] [address] Rosina Manuel MD [address] [place] [address] [address] [place] [address] documented as of this encounter Procedures Procedure Name Priority Date/Time Associated Diagnosis Comments COMPLETE BLOOD COUNT AND DIFFERENTIAL Routine 08/01/2020 C REACTIVE PROTEIN Routine 08/01/2020 COMPREHENSIVE METABOLIC PANEL (CMP) Routine 08/01/2020 documented in this encounter Results * (ABNORMAL) C REACTIVE PROTEIN (08/01/2020) Pathologist [facility] C-Reactive Protein, External 0.64(A) 0.0 - 0.3 Blood VENOUS BLOOD / Unknown 08/01/2020 Historical Provider CHEMISTRY & BLOOD GAS ORDERABLES * (ABNORMAL) COMPREHENSIVE METABOLIC PANEL (CMP) (08/01/2020) Pathologist [facility] GFR, Calculated, External >60 Glucose, Serum, External 88 74 - 106 Albumin, External 4.0 3.4 - 5.0 Total Alkaline Phosphatase, External 108 46 - 116 ALT, External 25 14 - 59 AST, External 17 15 - 37 BUN, External 16 7 - 18 Calculated Calcium, External Calcium, External 8.9 8.5 - 10.1 Chloride, External 100 98 - 107 CO2, External 33.4(A) 21.0 - 32.0 Creatinine, External 0.9 0.55 - 1.02 Fasting?, External Potassium, External 3.1(A) 3.5 - 5.1 Sodium, External 139 136 - 145 Total Protein, External 7.6 6.4 - 8.2 Bilirubin, Total, External 0.3 0.2 - 1.0 Anion Gap 5.6 3 - 11 mmol/L Blood VENOUS BLOOD / Unknown 08/01/2020 Historical Provider CHEMISTRY & BLOOD GAS ORDERABLES * COMPLETE BLOOD COUNT AND DIFFERENTIAL (08/01/2020) Pathologist [facility] WBC, External 7.77 4.4 - 10.8 RBC, External 4.96 3.93 - 5.22 Hemoglobin, External 13.9 11.2 - 15.7 HCT, External 41.6 36.0 - 46.0 MCV, External 83.9 80 - 95 MCH, External 28.0 27.0 - 33.0 MCHC, External 33.4 32.0 - 36.0 PLT, External 343 130 - 400 RDW-CV, External 13.9 11.7 - 14.6 Neutrophils, External 63.4 Lymphocytes, External 24.6 Monocytes, External 9.4 Eosinophils, External 1.8 Basophils, External 0.5 ABS Neutrophils, External 4.93 1.2 - 6.7 ABS Lymphs, External 1.91 1.2 - 3.4 ABS Monocytes, External 0.73 0.1 - 0.8 ABS Eosinophils, External 0.14 0.0 - 0.7 ABS Basophils, External 0.04 0.0 - 0.2 Blood VENOUS BLOOD / Unknown 08/01/2020 Historical Provider MD PACKAGES & DNA ID OBE ORDERABLES documented in this encounter Visit Diagnoses Not on filedocumented in this encounter Care Teams University Registrar Relationship Specialty Start Date End Date Susana Mesa APRN 26 [facility] [address] [place] [address] PCP - General 08/21/19 documented as of this encounter
--- OUTSIDE RECORDS SUMMARY | 2024-02-04 00:40 | XMS_ITS | Encounter Summary ---
Author Organization [facility] Address [address] [place] [address] Care Team Providers Care Manager Medical Writing Name Role Phone Susana Mesa KIER PLEATER Primary Care Provider [phone] [phone] Encounter Details Date Type Department Care Team (Late st Contact Info) Description 08/19/2020 Orders Only [facility] Rheumatology [address] [place] [address] Jennifer Joyce, RN Social History Tobacco Use Types Packs/Day [...] skin every 14 days. 2 Pen 5 08/19/2020 02/03/2021 documented in this encounter Progress Notes * Jennifer Joyce, RN - 08/19/2020 0928 EST Humira 40 mg /0.4 ml Rx sent to [facility] per [place] team request. documented in this encounter Plan of Treatment Upcoming Encounters Date Type Department Care Team (Late st Contact Info) Description 06/06/2024 10:45 EST Telemedicine [facility] Rheumatology [address] [place] [address] Rosina Manuel MD 130 [facility] [address] [place] [address] documented as of this encounter Visit Diagnoses Not on filedocumented in this encounter Care Teams Manager Medical Writing Relationship Specialty Start Date End Date Susana Mesa APRN 26 [facility] [address] [place] [address] PCP - General 08/21/19 documented as of this encounter
--- OUTSIDE RECORDS SUMMARY | 2024-02-04 00:40 | XMS_ITS | Encounter Summary ---
Author Organization [facility] Address [address] [place] [address] Care Team Providers Care Manager Wellness Name Role Phone Susana Mesa KAMRYN Primary Care Provider [phone] [phone] Reason for Visit * Reason Onset Date Comments Medications Refill 08/19/2020 Encounter Details Date Type Department Care Team (Late st Contact Info) Description 08/19/2020 Refill [facility] Rheumatology [address] [place] [address] Jennifer Joyce RN Medications Refill Social History [...] Da te folic acid (FOLVITE) 1 mg tabletIndications:Rheumato id arthritis involving multiple sites with positive rheumatoid factor ([facility]) Take 1 Tab by mouth daily. 90 Tab 3 08/19/2020 04/25/2021 documented in this encounter Miscellaneous Notes * Telephone Encounter - Jennifer Joyce RN - 08/19/2020 1513 EST Refill Folic Acid sent to [facility] per faxed request. documented in this encounter Plan of Treatment Upcoming Encounters Date Type Department Care Team (Late st Contact Info) Description 06/06/2024 10:45 EST Telemedicine [facility] Rheumatology [address] [place] [address] Rosina Manuel MD 130 [facility] [address] [place] [address] documented as of this encounter Visit Diagnoses Diagnosis Rheumatoid arthritis involving multiple sites with positive rheumatoid factor ([facility])- Primary documented in this encounter Discontinued Medications Medication Sig Discontinue Reason Start Date End Da te folic acid (FOLVITE) 1 mg tabletIndications:Rheumat oid arthritis involving multiple sites with positive rheumatoid factor ([facility]) Take 1 Tab by mouth daily. Reorder 08/19/2020 08/19/2020 documented as of this encounter Care Teams Manager Wellness Relationship Specialty Start Date End Date Susana Mesa APRN [address] [place] [address] PCP - General 08/21/19 documented as of this encounter
--- OUTSIDE RECORDS SUMMARY | 2024-02-04 00:40 | XMS_ITS | Encounter Summary ---
Author Organization [facility] Address [address] [place] [address] Care Team Providers Care Activity Leader Name Role Phone Susana Mesa KAMRYN Primary Care Provider +1 [phone] Encounter Details Date Type Department Care Team (Late st Contact Info) Description 01/22/2021 Abstract [facility] Rheumatology [address] [place] [address] Claire Brown RN Social History [...] Contact Info) Description 06/06/2024 10:45 EST Telemedicine [facility] Rheumatology [address] [place] [address] Rosina Manuel MD 130 [facility] [address] [place] [address] documented as of this encounter Procedures Procedure Name Priority Date/Time Associated Diagnosis Comments COMPLETE BLOOD COUNT AND DIFFERENTIAL Routine 01/16/2021 C REACTIVE PROTEIN Routine 01/16/2021 COMPREHENSIVE METABOLIC PANEL (CMP) Routine 01/16/2021 documented in this encounter Results * COMPLETE BLOOD COUNT AND DIFFERENTIAL (01/16/2021) WBC, External 7.09 4.4 - 10.8 EXTER NAL FACILITY RBC, External 4.70 3.93 - 5.22 EXTERNAL FACILITY Hemoglobin, External 13.2 11.2 - 15.7 EXTERNAL FACILITY HCT, External 39.6 36.0 - 46.0 EXTERNAL FACILITY MCV, External 84.3 80 - 95 SINTER MACHINE OPERATOR [facility] FACILITY MCH, External 28.1 27.0 - 33.0 EXTERNAL FACILITY MCHC, External 33.3 32.0 - 36.0 EXTERNAL FACILITY PLT, External 298 130 - 400 [facility] [employer]ACH[employer] OPER[facility]ILITY RDW-CV, External 13.6 11.7 - 14.6 EXTERNAL FACILITY Neutrophils, External 53.3 EXTERNAL FACILITY Lymphocytes, External 35.3 EXTERNAL FACILITY Monocytes, External 9.3 EXTERNAL FACILITY Eosinophils, External 1.3 EXTERNAL FACILITY Basophils, External 0.4 EXTERNAL FACILITY ABS Neutrophils, External 3.78 1.2 - 6.7 EXTERNAL FACILITY ABS Lymphs, External 2.50 1.2 - 3.4 EXTERNAL FACILITY ABS Monocytes, External 0.66 0.1 - 0.8 EXTERNAL FACILITY ABS Eosinophils, External 0.09 0.0 - 0.7 EXTERNAL FACILITY ABS Basophils, External 0.03 0.0 - 0.2 EXTERNAL FACILITY Blood VENOUS BLOOD / Unknown 01/16/2021 Rosina Manuel MD PACKAGES & DNA P ROBE ORDERABLES EXTERNAL FACILITY * (ABNORMAL) COMPREHENSIVE METABOLIC PANEL (CMP) (01/16/2021) Pathologist [facility] GFR, Calculated, External >60 60 EXTERNAL FACILITY Glucose, Serum, External 85 74 - 106 EXTERNAL FACILITY Albumin, External 4.1 3.4 - 5.0 EXTERNAL FACILITY Total Alkaline Phosphatase, External 87 46 - 116 EXTERNAL FACILITY ALT, External 20 14 - 59 [facility] AST, External 17 15 - 37 [facility] BUN, External 12 7 - 18 [facility]ACH[facility] Calculated Calcium, External EXTERNAL FACILITY Calcium, External 9.2 8.5 - 10.1 EXTERNAL FACILITY Chloride, External 103 98 - 107 EXTERNAL FACILITY CO2, External 28.4 21.0 - 32.0 EXTERNAL FACILITY Creatinine, External 0.7 0.55 - 1.02 EXTERNAL FACILITY Fasting?, External EXTERNAL FACILITY Potassium, External 3.4(A) 3.5 - 5.1 EXTERNAL FACILITY Sodium, External 140 136 - 145 EXTERNAL FACILITY Total Protein, External 7.3 6.4 - 8.2 EXTERNAL FACILITY Bilirubin, Total, External 0.5 0.2 - 1.0 EXTERNAL FACILITY Blood VENOUS BLOOD / Unknown 01/16/2021 Rosina Manuel MD CHEMISTRY & BLOO D GAS ORDERABLES EXTERNAL FACILITY * (ABNORMAL) C REACTIVE PROTEIN (01/16/2021) C-Reactive Protein, External 1.20(A) 0.0 - 0.3 mg/dL EXTERNAL FACILITY Blood VENOUS BLOOD / Unknown 01/16/2021 Rosina Manuel MD CHEMISTRY & BLOO D GAS ORDERABLES Performing Organization Address City/[facility]/ZIP Co de Phone Number EXTERNAL FACILITY documented in this encounter Visit Diagnoses Not on filedocumented in this encounter Care Teams Activity Leader Relationship Specialty Start Date End Date Susana Mesa APRN [address] [place] [phone] PCP - General 08/21/19 documented as of this encounter
--- OUTSIDE RECORDS SUMMARY | 2024-02-04 00:40 | XMS_ITS | Encounter Summary ---
Author Organization [facility] Address [address] [place] [address] Care Team Providers Care Vocational Nursing Instructor Name Role Phone Unknown, Provider Primary Care Provider [phone] Susana Mesa APRN Primary Care Provider + [phone] Encounter Details Date Type Department Care Team (Late st Contact Info) Description 08/07/2019 Lab Requisition [facility] Pathology & Laboratory Medicine - [address] [address] Annette Morris MD [address] [place] [address] [place] [address] Other hemorrhoids; Diverticulosis of large intestine without perforation or abscess without bleeding Social History Tobacco Use Types Packs/Day Years Used Date Smoking Tobacco: Never Assessed Sex and Gender Information Value Date Recorded Sex Assigned at Not on file Gender Identity Female 08/17/2019 11:24 EST Sexual Orientation Not on file documented as of this encounter Plan of Treatment Upcoming Encounters Date Type Department Care Team (Late st Contact Info) Description 06/06/2024 10:45 EST Telemedicine [facility] Rheumatology [address] [place] [address] Rosina Manuel MD 130 [facility] [address] [place] [phone] documented as of this encounter Procedures Procedure Name Priority Date/Time Associated Diagnosis Comments SURGICAL PATHOLOGY Today 08/07/2019 7: 50 EST Other hemorrhoids documented in this encounter Results * SURGICAL PATHOLOGY (08/07/2019 7:50 EST) Final Diagnosis A. COLON, TRANSVERSE, BIOPSIES: -No significant pathologic abnormality 08/15/2019 16:37 [facility] at 1637 Diagnosis Comment Deeper levels were examined 08/15/2019 16:37 [facility] Clinical History Colon CA screening History polyps 08/15/2019 16:37 [facility] Attestation By the signature below, the attending physician certifies that they have personally conducted a gross and/or microscopic examination of the described specimens and rendered or confirmed the above diagnosis. 08/15/2019 16:37 [facility] at 1637 Gross Description A. Received in formalin labelled with proper patient identification (initials C, M) and transverse colon polyp are 2 fragments of begum tissue; each measuring 0.2 x 0.2 x 0.2 cm. The specimens are submitted entirely in A1. 08/07/2019 15:44 08/15/2019 16:37 [facility] Scanned Images 08/15/2019 16:37 [facility] Tissue ENTIRE TRANSVERSE COLON / Unknown 08/07/2019 7:50 EST 08/07/2019 15:37 EST Annette Morris MD PATHOLOGY [facility] [address] [place] [address] documented in this encounter Visit Diagnoses Diagnosis Other hemorrhoids Diverticulosis of large intestine without perforation or abscess without bleeding Diverticulosis of colon (without mention of hemorrhage) documented in this encounter Care Teams Vocational Nursing Instructor Relationship Specialty Start Date End Date Unknown, Provider, PCP - General 01/25/14 08/20/19 Susana Mesa APRN [address] [phone] PCP - General 08/21/19 documented as of this encounter
--- OUTSIDE RECORDS SUMMARY | 2024-02-04 00:40 | XMS_ITS | Encounter Summary ---
Author Organization [facility] Address [address] [place] [address] Care Team Providers Care Weaver Narrow Fabrics Name Role Phone Susana Mesa KAMRYN Primary Care Provider +1 [phone] Encounter Details Date Type Department Care Team (Late st Contact Info) Description 08/01/2020 Orders Only [facility] Rheumatology [address] [place] [address] Tammy Zepeda RN Seropositive rheumatoid arthritis of multiple sites ([facility]) (Primary Dx); High risk medication use Social [...] Progress Notes * Tammy Zepeda RN - 08/01/2020 0909 EST Due for standing labs and no standing order in place so order placed. Patient states that she will be talking to Dr. Manuel aobut adding Enbrel so needs a QTB test done so order placed for that as well. documented in this encounter Plan of Treatment Upcoming Encounters Date Type Department Care Team (Late st Contact Info) Description 06/06/2024 10:45 EST Telemedicine [facility] Rheumatology [address] [place] [address] Rosina Manuel MD 130 [facility] [address] [place] [address] documented as of this encounter Visit Diagnoses Diagnosis Seropositive rheumatoid arthritis of multiple sites ([facility])- Primary High risk medication use Encounter for long-term (current) use of other medications documented in this encounter Care Teams Weaver [employer] Relationship Specialty Start Date End Date Susana Mesa APRN [address] [place] [address] PCP - General 08/21/19 documented as of this encounter
--- OUTSIDE RECORDS SUMMARY | 2024-02-04 00:40 | XMS_ITS | Encounter Summary ---
Author Organization [facility] Address [address] [place] [address] Care Team Providers Care Radar Air Traffic Controller Name Role Phone Susana Mesa KAMRYN Primary Care Provider [phone] [phone] Reason for Visit * Reason Onset Date Comments Medication Management 08/22/2020 Encounter Details Date Type Department Care Team (Late st Contact Info) Description 08/22/2020 Telephone [facility] Rheumatology [address] [place] [address] Rosina Manuel MD [address] [place] [address] [address] [place] [address] Medication Management Social History Tobacco [...] encounter Miscellaneous Notes * Telephone Encounter - Lucille Wyman - 08/22/2020 1208 EST Alina from [facility] in [place] called to get some information regarding dosing for the patients Humira and Methorexate and looking for call back at [phone]. Please advise . Thanks. documented in this encounter Plan of Treatment Upcoming Encounters Date Type Department Care Team (Late st Contact Info) Description 06/06/2024 10:45 EST Telemedicine [facility] Rheumatology [address] [place] [address] Rosina Manuel MD 130 [facility] [address] [place] [address] documented as of this encounter Visit Diagnoses Not on filedocumented in this encounter Care Teams Radar Air Traffic Controller Relationship Specialty Start Date End Date Susana Mesa APRN [address] [place] [address] PCP - General 08/21/19 documented as of this encounter
--- OUTSIDE RECORDS SUMMARY | 2024-02-04 00:40 | XMS_ITS | Encounter Summary ---
Author Organization [facility] Address [address] [place] [address] Care Team Providers Care Furniture Salesperson Name Role Phone Unavailable Primary Care Provider Unavailabl e Encounter Details Date Type Department Care Team (Late st Contact Info) Description 06/23/2004 Results Only [facility] - Maple conversion [address] [place] [address] Chris Siegel, ELECTRICIAN SHIP [address] [place], [place] [id number] Social History Tobacco Use Types Packs/Day Years Used Date Smoking Tobacco: Never Assessed Sex and Gender Information Value Date Recorded Sex Assigned at Not on file Gender Identity Female 08/17/2019 11:24 EST Sexual Orientation Not on file documented as of this encounter Plan of Treatment Upcoming Encounters Date Type Department Care Team (Late st Contact Info) Description 06/06/2024 10:45 EST Telemedicine [facility] Rheumatology [address] [place], [place] [address] Rosina Manuel MD [address] [facility] [address] [place] [phone] documented as of this encounter Procedures Procedure Name Priority Date/Time Associated Diagnosis Comments CYTOPATHOLOGY Routine 06/23/2004 0:00 EST documented in this encounter Results * CYTOPATHOLOGY (06/23/2004 0:00 EST) Pathology Report: CYTOPATHOLOGY REPORT Reports generated via electronic interface contain original data; however they are lacking the format of the original report. Caution should be taken when reading/interpreti ng unformatted reports. Name: ? CHARLINE RALPH ? Accession #: ? [id number] : ? 1965 (Age: 39) ??F ?Collect Date: ? 06/23/2004 Location: ? [facility] ? Receive Date: ? 06/30/2004 Provider: ?CHRIS SIEGEL NP Copy to: ? Specimen/Source: ?ThinPrep Pap Test, Cervix/Endocervix Last Menstrual Period: ? 05/29/04 Other: ? HPVA - HPV testing requested if ASC-US on the current ThinPrep Pap test. ? SPECIMEN ADEQUACY ? Satisfactory for Evaluation - transformation zone component present GENERAL CATEGORIZATION ? Negative for Intraepithelial Lesion or Malignancy ? Document reviewed and electronically signed by: ? BENIGNO Noland(ASCP) ? Report Date: ??07/03/2004 16:40 End of Report JOCELYN GOODWIN 06/23/2004 06/30/2004 Chris Siegel NP PATHOLOGY ORDERABLES JOCELYN GOODWIN [address] [place] [address] documented in this encounter Visit Diagnoses Not on filedocumented in this encounter
--- OUTSIDE RECORDS SUMMARY | 2024-02-04 00:40 | XMS_ITS | Encounter Summary ---
Author Organization [facility] Address [address] [place] [address] Care Team Providers Care Voice Writing Reporter Name Role Phone Susana Mesa KAMRYN Primary Care Provider [phone] [phone] Reason for Visit * Reason Onset Date Comments Prior Auth, Medication 08/12/2020 Humira Encounter Details Date Type Department Care Team (Late st Contact Info) Description 08/12/2020 Telephone [facility] Rheumatology [address] [place], [place] [address] Rosina Manuel MD [address] [facility] [address] [place] [phone] Prior Auth, Medication (Humira) Social History Tobacco Use Types Packs/Day Years [...] encounter Miscellaneous Notes * Telephone Encounter - Jnenifer Joyce RN - 08/19/2020 0942 EST Humira Rx sent to [facility] in [place]. Called pt and notified her.She declines teaching at this time as she injects MTX already.She will call with any questions. Also sent refills for HCQ,MTX and FolicAcid to [facility] per pt request. * Telephone Encounter - Tarsha Hoskins - 08/16/2020 1514 EST Patient called for update on Humira * Telephone Encounter - Raiza Ramirez - 08/12/2020 1544 EST Prior Authorization Approval Medication: Humira 40mg/0.4mL pen Approved: 08/15/20 - 08/15/21 Authorization Number: [id number] Benefits Information or Other Notes: Required Pharmacy: [facility] Preferred Pharmacy: n/a Prior Authorization Submission Process Medication: Humira 40mg/0.4mL pen Insurance: [employer] (commercial) Date [place] Request Received: 08/02/20 [place] Submission Date: 08/15/20 [facility] Esquivel: [id number] Submitted by: Raiza Phone: [phone] documented in this encounter Plan of Treatment Upcoming Encounters Date Type Department Care Team (Late st Contact Info) Description 06/06/2024 10:45 EST Telemedicine [facility] Rheumatology [address] [place], [place] [address] Rosina Manuel MD 130 [facility] [address] [place] [phone] documented as of this encounter Visit Diagnoses Not on filedocumented in this encounter Care Teams Voice Writing Reporter Relationship Specialty Start Date End Date Susana Mesa APRN [address] [place] [address] PCP - General 08/21/19 documented as of this encounter
--- OUTSIDE RECORDS SUMMARY | 2024-02-04 00:40 | XMS_ITS | Encounter Summary ---
Author Organization [facility] Address [address] [place] [address] Care Team Providers Care Journeyman Machinist Name Role Phone Susana Mesa HEADWAITER/HEADWAITRESS Primary Care Provider [phone] [phone] Reason for Visit * Reason Onset Date Comments Medication Management 08/22/2020 Encounter Details Date Type Department Care Team (Late st Contact Info) Description 08/22/2020 Telephone [facility] - [facility] Rheumatology [address] [place] [address] Rosina Manuel MD 130 [facility] [address] [place] [address] Medication Management Social History Tobacco [...] Encounter - Tammy Zepeda RN - 08/22/2020 1546 EST Talked with the pharmacist nd clarified the question and she will relay the answer to Charline. * Telephone Encounter - Claribel Cota - 08/22/2020 1527 EST Pharmacist from [facility] called wanting some clarification on dosage since the patient is goingto be taking Humira and MTX. Would like to give the pt some guidance on how to dose both medications please. documented in this encounter Plan of Treatment Upcoming Encounters Date Type Department Care Team (Late st Contact Info) Description 06/06/2024 10:45 EST Telemedicine [facility] Rheumatology [address] [place], [place] [address] Rosina Manuel MD [address] [facility] [address] [place] [address] documented as of this encounter Visit Diagnoses Not on filedocumented in this encounter Care Teams Journeyman Machinist Relationship Specialty Start Date End Date Susana Mesa APRN [address] [place] [address] PCP - General 08/21/19 documented as of this encounter
--- OUTSIDE RECORDS SUMMARY | 2024-02-04 00:40 | XMS_ITS | Encounter Summary ---
Author Organization [facility] Address [address] [place] [address] Care Team Providers Care Fiberglass Luggage Molder Name Role Phone Susana Mesa KAMRYN Primary Care Provider [phone] Reason for Visit * Reason Onset Date Comments Results 08/20/2020 Encounter Details Date Type Department Care Team (Late st Contact Info) Description 08/20/2020 Telephone [facility] Rheumatology [address] [place] [address] Rosina Manuel MD [address] [place] [address] [phone] Results Social History Tobacco Use Types Packs/Day [...] encounter Miscellaneous Notes * Telephone Encounter - Rosina Manuel MD - 08/20/2020 0915 EST Lab results and ra treatment documented in this encounter Plan of Treatment Upcoming Encounters Date Type Department Care Team (Late st Contact Info) Description 06/06/2024 10:45 EST Telemedicine [facility] Rheumatology [address] [place] [address] Rosina Manuel MD [address] [place] [address] [address] [place] [address] documented as of this encounter Visit Diagnoses Not on filedocumented in this encounter Care Teams Fiberglass Luggage Molder Relationship Specialty Start Date End Date Susana Mesa APRN [address] [place] [address] PCP - General 08/21/19 documented as of this encounter
--- OUTSIDE RECORDS SUMMARY | 2024-02-04 00:40 | XMS_ITS | Encounter Summary ---
Author Organization [facility] Address [address] [place] [address] Care Team Providers Care Hand Sewer Name Role Phone Unavailable Primary Care Provider Unavailabl e Encounter Details Date Type Department Care Team (Late st Contact Info) Description 01/19/2014 Results Only [facility] Laboratory Services - [facility] ([facility] [address] [place] [id number] Jordan Simeon MD [address] [place] [address] Social History Tobacco Use Types Packs/Day Years Used Date Smoking Tobacco: Never Assessed Sex and Gender Information Value Date Recorded Sex Assigned at Not on file Gender Identity Female 08/17/2019 11:24 EST Sexual Orientation Not on file documented as of this encounter Plan of Treatment Upcoming Encounters Date Type Department Care Team (Late st Contact Info) Description 06/06/2024 10:45 EST Telemedicine [facility] - [facility] Rheumatology [address] [place], [place] [address] Rosina Manuel MD 130 [facility] [address] [place] [phone] documented as of this encounter Procedures Procedure Name Priority Date/Time Associated Diagnosis Comments PAP TEST- RESULT ONLY Routine 01/19/2014 0:00 EDT documented in this encounter Results * PAP TEST- RESULT ONLY (01/19/2014 0:00 EDT) Pathology Report: CYTOPATHOLOGY REPORT Reports generated via electronic interface contain original data; however they are lacking the format of the original report. Caution should be taken when reading/interpreti ng unformatted reports. Name: ? CHARLINE RALPH ? Accession #: ? [id number] : ? 1965 (Age: 48) ??F ?Collect Date: ? 01/19/2014 Location: ? [facility] ? Receive Date: ? 01/23/2014 Provider: ?CELINA JOLLY MD Copy to: ? Specimen/Source: ?Pap Test, Endocervix, ThinPrep Imaging System with manual evaluation Last Menstrual Period: ? 01/03/14 ? SPECIMEN ADEQUACY ? Satisfactory for Evaluation - transformation zone component present GENERAL CATEGORIZATION ? Negative for Intraepithelial Lesion or Malignancy ? Document reviewed and electronically signed by: ? BENIGNO Gutierrez(ASCP) ? Report Date: ??01/26/2014 08:47 HPV with Pap Test ? Date Ordered: ? 01/26/2014 ? Status: ?? Signed Out ?Date Complete: ? 01/30/2014 ? By: ??System Interface ? Date Reported: ? 01/30/2014 ? Interpretation RESULT: Negative for HPV. No E6 or E7 mRNA is detected from HPV types 16,18,31,33,35, 39,45,51,52,56,58, 59,66, and 68 by pressroom supervisor mediated amplification. Comments Document reviewed and electronically signed by: ? System Interface ? Report date: 01/30/2014 By the signature above, the attending physician certifies that he/she has personally conducted a gross and/or microscopic examination of the described specimens and rendered or confirmed the above diagnosis. End of Report JOCELYN GOODWIN 01/19/2014 01/23/2014 Celina Jolly MD PATHOLOGY ORDERABLES Performing Organization Address City/State/[facility] Co de Phone Number JOCELYN GOODWIN [address] [place] [address] documented in this encounter Visit Diagnoses Not on filedocumented in this encounter
--- OUTSIDE RECORDS SUMMARY | 2024-02-04 00:40 | XMS_ITS | Encounter Summary ---
Author Organization [facility] Address [address] [place] [address] Care Team Providers Care Office Assistance Name Role Phone Susana Mesa KAMRYN Primary Care Provider [phone] Reason for Visit * Reason Comments Other Encounter Details Date Type Department Care Team (Late st Contact Info) Description 12/08/[address] [facility] Rheumatology [address] [place] [address] Rosina Manuel MD [address] [place], [place] [address] [address] [place] [address] Other Social History Tobacco Use Types Packs/Day Years Used Date Smoking Tobacco: Former Smokeless Tobacco: Never Sex and Gender Information Value Date Recorded Sex Assigned at Not on file Gender Identity Female 08/17/2019 11:24 EST Sexual Orientation Not on file documented as of this encounter Miscellaneous Notes * Telephone Encounter - Jennifer Joyce RN - 12/08/2019 0912 EDT Refill called in as a DME order to [facility] in [place]. documented in this encounter Plan of Treatment Upcoming Encounters Date Type Department Care Team (Late st Contact Info) Description 06/06/2024 10:[address] [facility] Rheumatology [address] [place] [address] Rosina Manuel MD [address] [place], [place] [address] [address] [place] [address] documented as of this encounter Visit Diagnoses Not on filedocumented in this encounter Care Teams Office Assistance Relationship Specialty Start Date End Date Susana Mesa APRN [address] [place] [phone] PCP - General 08/21/19 documented as of this encounter
--- OUTSIDE RECORDS SUMMARY | 2024-02-04 00:40 | XMS_ITS | Encounter Summary ---
Author Organization [facility] Address [address] [place] [address] Care Team Providers Care Mucking Machine Operator Name Role Phone Unavailable Primary Care Provider Unavailabl e Encounter Details Date Type Department Care Team (Late st Contact Info) Description 09/22/2010 Results Only [facility] Laboratory Services - [facility] ([facility] [address] [place] [id number] Yessenia Vásquez FNP [address] [place] [address] Social History Tobacco Use Types [...] Telemedicine [facility] - [facility] Rheumatology [address] [place], [place] [address] Rosina Manuel MD 130 [facility] [address] [place] [phone] documented as of this encounter Procedures Procedure Name Priority Date/Time Associated Diagnosis Comments CYTOPATHOLOGY Routine 09/22/2010 0:00 EDT documented in this encounter Results * CYTOPATHOLOGY (09/22/2010 0:00 EDT) Pathology Report: CYTOPATHOLOGY REPORT ? Reports generated via electronic interface contain original data; ? however they are lacking the format of the original report. ? Caution should be taken when reading/interpreti ng unformatted reports. ? Name: ? CHARLINE RALPH ? Accession #: ? [id number] ? : ? 1965 (Age: 45) ??F ?Collect Date: ? 09/22/2010 ? Location: ? [facility] ? Receive Date: ? 09/26/2010 ? Provider: ?YESSENIA VÁSQUEZ X RAY TECHNOLOGIST ? Copy to: ? Specimen/Source: ?Pap Test, Cervix/Endocervix, ThinPrep Imaging System ? with manual evaluation ? Last Menstrual Period: ? 09/12/2010 ? SPECIMEN ADEQUACY ? Satisfactory for Evaluation ? - transformation zone component present ? GENERAL CATEGORIZATION ? Negative for Intraepithelial Lesion or Malignancy ? Document reviewed and electronically signed by: ? Mckay Kwadwoler, CT(ASCP) ? Report Date: ??10/01/2010 09:07 ? End of Report ? JOCELYN GOODWIN 09/22/2010 09/26/2010 Yessenia JOHNSTON PATHOLOGY ORDERABLES JOCELYN GOODWIN [address] [place] [address] documented in this encounter Visit Diagnoses Not on filedocumented in this encounter
--- OUTSIDE RECORDS SUMMARY | 2024-02-04 00:40 | XMS_ITS | Encounter Summary ---
Author Organization [facility] Address [address] [place] [address] Care Team Providers Care Manager Golf Name Role Phone Susana Mesa KAMRYN Primary Care Provider [phone] Reason for Visit * Reason Comments Follow-up SPRA - Pt states the meds are helping her feet (jenny) such that her balance is better. Encounter Details Date Type Department Care Team (Late st Contact Info) Description 10/25/2020 11:45 EDT Office Visit [facility] Rheumatology [address] [place], [place] [phone] Rosina Manuel MD [address] [facility] [address] [place] [phone] Rheumatoid arthritis involving multiple sites with positive rheumatoid factor ([facility]) (Primary Dx); Encounter for long-term (current) use [...] Sign Reading Time Taken Comments Blood Pressure 136/82 10/25/2020 1142 EDT Pulse 67 10/25/2020 1142 EDT Temperature 36.2 ??C (97.2 ??F) 10/25/2020 1142 EDT Respiratory Rate - - Oxygen Saturation - - Inhaled Oxygen Concentration - - Weight 108.9 kg (240 lb) 10/25/2020 1142 EDT Height 162.6 cm (5' 4) 10/25/2020 1142 EDT Body Mass Index 41.2 10/25/2020 1142 EDT documented in this encounter Patient Instructions * Patient Instructions* Rosina Manuel MD - 10/25/2020 11:45 EDT Topical cortisone on injection site reaction. Labs every 3 months See you in 4 months Hold methotrexate week after Covid shot documented in this encounter Progress Notes * Rosina Manuel MD - 10/25/2020 1145 EDT Division of Rheumatology and Clinical Immunology Chief Complaint Patient presents with ??? Follow-up SPRA - Pt states the meds are helping her feet (jenny) such that her balance is better. ?? Rheumatology problem list seropositive rheumatoid arthritis: Diagnosed 2015 Dr. Beverly methotrexate therapy started 2018 Plaque. Started Humira winter 2020. ? Stasis ulcer left ankle: Posttraumatic from Unna boot protracted healing. ? Obesity ? Hyperlipidemia. HPI: Patient is doing very well with Humira therapy. Had her third injection. Slight injection site reaction with bruising. Dramatic improvement in hand pain foot pain. No recurrence of ulcerations since treatment of her varicosity on the left ankle. Morning stiffness is minimal No painful joints -Denies any side effects from methotrexate no mouth sores. No alopecia. No nausea. Continues to tolerate hydroxychloroquine. Health is otherwise stable. Allergies include: Buckwheat Current Outpatient Medications Medication ??? adalimumab (HUMIRA,CF, PEN) 40 mg/0.4 mL pen ??? ascorbic acid, vitamin C, (VITAMIN C) 500 mg tablet ??? BD SAFETYGLIDE TB REG BEVEL 1 mL 27 x 1/2 syringe ??? chlorthalidone (HYGROTON) 25 mg tablet ??? EPINEPHrine (EPIPEN) 0.3 mg/0.3 mL injection ??? folic acid (FOLVITE) 1 mg tablet ??? hydrOXYchloroQUINE (PLAQUENIL) 200 mg tablet ??? methotrexate 25 mg/mL injection ??? multivit,iron,minerals/lutein (CENTRUM SILVER ULTRA WOMEN'S ORAL) No current facility-administered medications for this visit. Past Medical History: Diagnosis Date ??? Essential hypertension 08/21/2019 ??? Rheumatoid arthritis ([facility]) ??? Rheumatoid arthritis involving multiple sites with positive rheumatoid factor ([facility]) 08/21/2019 ??? Ulcerated leg varices, left (H[facility]-CMS) ??? Ulcerated varicose veins of leg, left (HCC-CMS) 08/21/2019 ROS Negative except as in hpi. PHYSICAL EXAMINATION: BP 136/82 (BP Cuff Location: Left arm, BP Cuff Sizes: Adult, long) Pulse 67 Temp 36.2 ??C (97.2??F) Ht 162.6 cm (64) Wt (!) 108.9 kg (240 lb) BMI 41.20 kg/m?? Physical Exam Vitals signs reviewed. Constitutional: Appearance: Normal appearance. HENT: Head: Normocephalic and atraumatic. Neck: Musculoskeletal: Normal range of motion and neck supple. Cardiovascular: Rate and Rhythm: Normal rate and regular rhythm. Pulmonary: Effort: Pulmonary effort is normal. Musculoskeletal: Comments: MCP subluxation. Z deformity right great thumb. Prominence of the ulnar styloids left greater than right but no wrist synovitis elbows unremarkable. Knees bony enlargement. Slight fullness. MTPs have cock-up toe deformity without synovitis or tenderness. Skin: Comments: Well-healed skin graft medial aspect left ankle. No rheumatoid nodules or digital ulcers. Neurological: General: No focal deficit present. Mental Status: She is alert and oriented to person, place, and time. Psychiatric: Mood and Affect: Mood normal. Behavior: Behavior normal. Lab Results Component Value Date HGB 12.9 04/26/2020 MCV 84.9 04/26/2020 PLT 280 04/26/2020 Results for CHARLINE RALPH ( ) as of 10/25/2020 12:19 Ref. Range 08/09/2020 00:00 Sodium, External Latest Ref Range: 136 - 145 141 Potassium, External Latest Ref Range: 3.5 - 5.1 3.9 Chloride, External Latest Ref Range: 98 - 107 103 CO2, External Latest Ref Range: 21.0 - 32.0 29.6 BUN, External Latest Ref Range: 7 - 18 17 Creatinine, External Latest Ref Range: 0.55 - 1.02 0.7 Glucose, Serum, External Latest Ref Range: 74 - 106 97 Calcium, External Latest Ref Range: 8.5 - 10.1 8.4 (A) Total Protein, External Latest Ref Range: 6.4 - 8.2 7.3 Albumin, External Latest Ref Range: 3.4 - 5.0 3.8 AST, External Latest Ref Range: 15 - 37 16 ALT, External Latest Ref Range: 14 - 59 23 Bilirubin, Total, External Latest Ref Range: 0.2 - 1.0 0.3 Alkaline Phosphatase, External Latest Ref Range: 46 - 116 100 C-Reactive Protein, External Latest Ref Range: 0.0 - 0.3 0.76 (A) GFR, Calculated, External Unknown >60 WBC, External Latest Ref Range: 4.4 - 10.8 6.90 RBC, External Latest Ref Range: 3.93 - 5.22 4.74 Hemoglobin, External Latest Ref Range: 11.2 - 15.7 13.2 HCT, External Latest Ref Range: 36.0 - 46.0 39.9 MCH, External Latest Ref Range: 27.0 - 33.0 27.8 MCV, External Latest Ref Range: 80 - 95 84.2 MCHC, External Latest Ref Range: 32.0 - 36.0 33.1 RDW-CV, External Latest Ref Range: 11.7 - 14.6 13.9 PLT, External Latest Ref Range: 130 - 400 309 ABS Neutrophils, External Latest Ref Range: 1.2 - 6.7 4.43 Neutrophils, External Unknown 64.2 Lymphocytes, External Unknown 23.3 Eosinophils, External Unknown 1.9 Basophils, External Unknown 0.4 ABS Lymphs, External Latest Ref Range: 1.2 - 3.4 1.61 ABS Monocytes, External Latest Ref Range: 0.1 - 0.8 0.68 ABS Eosinophils, External Latest Ref Range: 0.0 - 0.7 0.13 ABS Basophils, External Latest Ref Range: 0.0 - 0.2 0.03 Monocytes, External Unknown 9.9 ASSESSMENT AND PLAN This is a 55-year-old woman with a history of seropositive erosive rheumatoid arthritis. Rheumatoid arthritis -Continue methotrexate injectable and hydroxychloroquine. -Tolerates Humira 40 mg injected every 14 days, entering month to this treatment -Labs reviewed, CRP elevated in August, however, this precedes initiation of Humira therapy. Await next lab test. High risk medication -Hold methotrexate the week following COVID-19 vaccination and resume -Repeat labs CBC, CRP, CMP in November Injection site reaction with Humira -Educated that this is typical and likely to improve -Topical corticosteroids can be used. Follow-up appointment 6 months with labs to continue CBC, CMP, CRP every 3 months. Impressions, diagnosis, treatment plan were reviewed. Patient questions and concerns were reviewed and answered. Patient agreeable to plan of care and will call if any addition concerns or questions arise. Rosina Manuel MD 10/25/2020 12:05 documented in this encounter Plan of Treatment Upcoming Encounters Date Type Department Care Team (Late st Contact Info) Description 06/06/2024 10:45 EST Telemedicine [facility] Rheumatology [address] [place], [place] [address] Rosina Manuel MD [address] [facility] [address] [place] [phone] documented as of this encounter Visit Diagnoses Diagnosis Rheumatoid arthritis involving multiple sites with positive rheumatoid factor ([facility])- Primary Encounter for long-term (current) use of medications Encounter for long-term (current) use of other medications documented in this encounter Care Teams Manager Golf Relationship Specialty Start Date End Date Susana Mesa APRN [address] [facility] [address] [place] [address] PCP - General 08/21/19 documented as of this encounter
--- OUTSIDE RECORDS SUMMARY | 2024-02-04 00:40 | XMS_ITS | Encounter Summary ---
Author Organization [facility] Address [address] [place] [address] Care Team Providers Care Publication Editor Name Role Phone Susana Mesa KAMRYN Primary Care Provider +1 [phone] Reason for Visit * Reason Comments Other Encounter Details Date Type Department Care Team (Late st Contact Info) Description 06/06/2020 Refill [facility] Rheumatology [address] [place] [address] Rosina Manuel MD [address] [place] [address] [address] Other Social History Tobacco Use [...] involving multiple sites with positive rheumatoid factor ([facility]) USE 0.8ML ONCE WEEKLY 12 mL 1 06/07/2020 08/19/2020 documented in this encounter Plan of Treatment Upcoming Encounters Date Type Department Care Team (Late st Contact Info) Description 06/06/2024 10:45 EST Telemedicine [facility] Rheumatology [address] [place] [address] Rosina Manuel MD [address] [place] [address] [address] [place] [address] documented as of this encounter Visit Diagnoses Diagnosis Rheumatoid arthritis involving multiple sites with positive rheumatoid factor ([facility]) documented in this encounter Discontinued Medications Medication Sig Discontinue Reason Start Date End Da te methotrexate 25 mg/mL injectionIndications:Rhe umatoid arthritis involving multiple sites with positive rheumatoid factor ([facility]) USE 0.8ML ONCE WEEKLY 12/15/2019 06/07/2020 documented as of this encounter Care Teams Publication Editor Relationship Specialty Start Date End Date Susana Mesa, KAMRYN [address] [place] [phone] PCP - General 08/21/19 documented as of this encounter
--- OUTSIDE RECORDS SUMMARY | 2024-02-04 00:40 | XMS_ITS | Encounter Summary ---
Author Organization [facility] Address [address] [place] [address] Care Team Providers Care Unix Systems Administrator Name Role Phone Susana Mesa KAMRYN Primary Care Provider [phone] [phone] Reason for Visit * Reason Comments Follow-up Patient c/o mild joaquina n in her ankles and feet today. Medication Management Patient states she needs refill for Folic acid 1 mg Encounter Details Date Type Department Care Team (Late st Contact Info) Description 08/21/2019 13:45 EST Office Visit [facility] Rheumatology [address] [place], [place] [id number] Rosina Manuel MD [address] [facility] [address] [place] [address] Rheumatoid arthritis involving multiple sites with positive rheumatoid factor ([facility]) (Primary Dx); Encounter for long-term (current) [...] Sign Reading Time Taken Comments Blood Pressure 114/70 08/21/2019 1345 EST Pulse 82 08/21/2019 1345 EST Temperature - - Respiratory Rate - - Oxygen Saturation - - Inhaled Oxygen Concentration - - Weight 108.9 kg (240 lb) 08/21/2019 1345 EST Height 165.1 cm (5' 5) 08/21/2019 1345 EST Body Mass Index 39.94 08/21/2019 1345 EST documented in this encounter Patient Instructions * Patient Instructions* Rosina Manuel MD - 08/21/2019 13:45 EST Continue methotrexate at current dose Labs are due in September plaquenil 200 mg a day Read about plaquenil ask any questions. See you in 3 months. documented in this encounter Ordered Prescriptions Prescription Sig Dispensed Refills Start Date End Da te methotrexate 25 mg/mL injectionIndications:rheum atoid arthritis Inject 0.8 mL into the skin once a week. 6 Vial 3 08/21/2019 12/15/2019 folic acid (FOLVITE) 1 mg tabletIndications:Rheumato id arthritis involving multiple sites with positive rheumatoid factor (HCC-CMS) Take 1 Tab by mouth daily. 90 Tab 3 08/21/2019 08/19/2020 hydroxychloroquine (PLAQUENIL) 200 mg tabletIndications:Rheumato id arthritis involving multiple sites with positive rheumatoid factor (HCC-CMS) Take 1 Tab by mouth daily. 30 Tab 11 08/21/2019 08/19/2020 documented in this encounter Progress Notes * Rosina Manuel MD - 08/21/2019 1345 EST Division of Rheumatology and Clinical Immunology Chief Complaint Patient presents with ??? Follow-up Patient c/o mild pain in her ankles and feet today. ??? Medication Management Patient states she needs refill for Folic acid 1 mg Rheumatology:? Rheumatology problem list seropositive rheumatoid arthritis: Diagnosed 2016 Dr. Beverly methotrexate therapy started 2018 ? Stasis ulcer left ankle: Posttraumatic from Unna boot protracted healing. ? Obesity ? Hyperlipidemia. HPI: Am stiffness. 1 hour. Hands and feet sore. No problems with methotrexate ? More meds for arthritis Ulcer in left foot now open again. No infection. Hands less swollen. MTX shots going ok. Left and right knuckles are swollen, sore No side effects from meds. Current Outpatient Medications: ascorbic acid, vitamin C, (VITAMIN C) 500 mg tablet BD SAFETYGLIDE TB REG BEVEL 1 mL 27 x 1/2 syringe chlorthalidone (HYGROTON) 25 mg tablet EPINEPHrine (EPIPEN) 0.3 mg/0.3 mL injection folic acid (FOLVITE) 1 mg tablet methotrexate 25 mg/mL injection multivit,iron,minerals/lutein (CENTRUM SILVER ULTRA WOMEN'S ORAL) No current facility-administered medications for this visit. Allergies include: Buckwheat Past Medical History: Diagnosis Date ??? Rheumatoid arthritis ([facility]) ??? Rheumatoid arthritis involving multiple sites with positive rheumatoid factor ([facility]) 08/21/2019 ??? Ulcerated leg varices, left (HCC-CMS) ??? Ulcerated varicose veins of leg, left (HCC-CMS) 08/21/2019 No past surgical history on file. ROS Negative except as in hpi. Complete 12 point ros obtained- see scans for pertinent positive and negatives on intake sheet. PHYSICAL EXAMINATION: BP 114/70 (BP Cuff Sizes: Adult, large) Pulse 82 Ht 165.1 cm (65) Wt (!) 108.9 kg (240 lb) BMI 39.94 kg/m?? Physical Exam Pleasant well woman nad Eyes dry Oropharynx dry mouth Chest CTA no wheezes CV rrr Abdomen soft non tender non distended Hands MCP synovitis 2nd position. Wrists ulnar styloid prominence Feet mtp subluxation Skin no rash Neurologic antalgic gait, fluent speech. Affect pleasant Labs LABS Done Jun 2019 wnl cbc, cmp 54 yo with RA with erosive disease. On methotrexate, persistent disease activity. Add plaquenil Ra Methotrexate 20 mg weekly injected Start plaquenil Read about side effects Labs due again in September High risk med Labs ok, repeat September Call if more pain Eye exam baseline then 5 years later then yearly due to plaquenil Patient Instructions Continue methotrexate at current dose Labs are due in September Start plaquenil 200 mg a day Read about plaquenil ask any questions. See you in 3 months. Charline was seen today for follow-up and medication management. Diagnoses and all orders for this visit: Rheumatoid arthritis involving multiple sites with positive rheumatoid factor ([facility]) - hydroxychloroquine (PLAQUENIL) 200 mg tablet; Take 1 Tab by mouth daily. - folic acid (FOLVITE) 1 mg tablet; Take 1 Tab by mouth daily. - methotrexate 25 mg/mL injection; Inject 0.8 mL into the skin once a week. Encounter for long-term (current) use of medications Other orders - chlorthalidone (HYGROTON) 25 mg tablet; Take 25 mg by mouth daily. - ascorbic acid, vitamin C, (VITAMIN C) 500 mg tablet; 1 tab(s) orally once a day - Discontinue: methotrexate 25 mg/mL injection - BD SAFETYGLIDE TB REG BEVEL 1 mL 27 x 1/2 syringe; USE 1 SYRINGE WEEKLY WITH METHOTREXATE - Discontinue: folic acid (FOLVITE) 1 mg tablet; 1 tab(s) orally once a day - multivit,iron,minerals/lutein (CENTRUM SILVER ULTRA WOMEN'S ORAL); Take 1 Tab by mouth daily. - EPINEPHrine (EPIPEN) 0.3 mg/0.3 mL injection; Inject 0.3 mg into the muscle once as needed. Impressions, diagnosis, treatment plan were reviewed. Patient questions and concerns were reviewed and answered. Patient agreeable to plan of care and will call if any addition concerns or questions arise. Rosina Manuel MD 08/21/2019 13:58 documented in this encounter Plan of Treatment Upcoming Encounters Date Type Department Care Team (Late st Contact Info) Description 06/06/2024 10:45 EST Telemedicine [facility] [place] [address] [place] [address] Rosina Manuel MD [address] [facility] [address] [place] [phone] documented as of this encounter Visit Diagnoses Diagnosis Rheumatoid arthritis involving multiple sites with positive rheumatoid factor ([facility])- Primary Encounter for long-term (current) use of medications Encounter for long-term (current) use of other medications documented in this encounter Discontinued Medications Medication Sig Discontinue Reason Start Date End Da te folic acid (FOLVITE) 1 mg tablet 1 tab(s) orally once a day Alternate therapy 08/21/2019 methotrexate 25 mg/mL injectionIndications:rhe umatoid arthritis Reorder 06/20/2019 08/21/2019 documented as of this encounter Historical Medications * This list may reflect changes made after this encounter. Medication Sig Dispensed Refills Start Date End Date EPINEPHrine (EPIPEN) 0.3 mg/0.3 mL injection Inject 0.3 mL into the muscle once as needed. multivit,iron,minerals /lutein (CENTRUM SILVER ULTRA WOMEN'S ORAL) Take 1 Tab by mouth daily. BD SAFETYGLIDE TB REG BEVEL 1 mL 27 x 1/2 syringe USE 1 SYRINGE WEEKLY WITH METHOTREXATE 06/27/2019 chlorthalidone (HYGROTON) 25 mg tablet Take 1 Tablet by mouth daily. 06/22/2019 folic acid (FOLVITE) 1 mg tablet 1 tab(s) orally once a day 08/21/2019 methotrexate 25 mg/mL injectionIndications:r heumatoid arthritis 06/20/2019 08/21/19 20 ascorbic acid, vitamin C, (VITAMIN C) 500 mg tablet 1 tab(s) orally once a day 01/26/2024 added in this encounter Care Teams Unix Systems Administrator Relationship Specialty Start Date End Date Susana Mesa APRN [address] [facility] [address] [place] [address] PCP - General 08/21/19 documented as of this encounter
--- OUTSIDE RECORDS SUMMARY | 2024-02-04 00:40 | XMS_ITS | Encounter Summary ---
Author Organization [facility] Address [address] [place] [address] Care Team Providers Care Automotive Parts Manager Name Role Phone Susana Mesa KAMRYN Primary Care Provider [phone] [phone] Encounter Details Date Type Department Care Team (Late st Contact Info) Description 08/10/2020 Lab Requisition [facility] [address], [place] [id number] Outr Resulting Lab, Provider Social History Tobacco [...] 10:45 EST Telemedicine [facility] [place] [address] [place] [phone] Rosina Manuel MD [address] [facility] [address] [place] [phone] documented as of this encounter Procedures Procedure Name Priority Date/Time Associated Diagnosis Comments HEPATITIS B SURFACE ANTIGEN Routine 08/09/2020 9:40 EST documented in this encounter Results * HEPATITIS B SURFACE ANTIGEN (08/09/2020 9:40 EST) Hep B Surface Ag Negative Negative 08/12/2020 10:50 EST [facility] Blood VENOUS BLOOD / Unknown 08/09/2020 9:40 EST 08/10/2020 21:59 EST Provider Outr Resulting Lab CHEMISTRY & BLOOD GAS ORDERABLES [facility] [address] [place] [address] documented in this encounter Visit Diagnoses Not on filedocumented in this encounter Care Teams Automotive Parts Manager Relationship Specialty Start Date End Date Susana Mesa APRN [address] [place] [phone] PCP - General 08/21/19 documented as of this encounter
--- NOTE | 2024-02-04 07:46 | DI.MAMMO_ITS ---
Exam(s) MAMMO SCREENING EXAM: MAMMO SCREENING CLINICAL HISTORY: SCREENING,Z80.3,FAMILY H/O BREAST CA TECHNIQUE: Mammograms were interpreted according to the usual protocol including computer analysis w [employer] CAD system, tomosynthesis and C-view imaging. COMPARISON: 2014 through 2022 FINDINGS: The breasts are composed of scattered fibroglandular densities, Breast Density category B. No suspicious masses or suspicious microcalcifications are seen. No skin thickening or abnormal axillary lymph nodes are seen. There has been no significant change from prior exams. IMPRESSION: BI-RADS Category 1, Negative mammogram Yearly screening mammography is recommended. Breast Density - Category B, scattered fibroglandular densities. A negative radiographic report should not delay biopsy if a dominant or clinically suspicious mass is present. Up to ten percent of cancers are not identified on mammography. A negative report may reinforce clinical impression. Adenosis and dense breasts may obscure an underlying neoplasm. False positive reports average 6 to 10%. Patient will receive a letter notifying them of these results.
== END ==
PROVIDERS: PCP Nurse Practitioner Family; Visit Provider Nurse Practitioner Family
DX: Z80.3 Family history of malignant neoplasm of breast (principal); Z12.31 Encounter for screening mammogram for malignant neoplasm of breast
CPT/HCPCS: 77063; 77067

== ENCOUNTER 2024-04-25 16:06 | Outpatient (REF) | payer BC, SELFPAY ==
[2024-04-25 15:17] LABS: ESR 6 mm/hr (0-30)
[2024-04-25 15:54] LABS: ALT 24 U/L (14-59); AST 20 U/L (15-37); Albumin 4.1 g/dL (3.4-5.0); Alkaline Phosphatase 88 U/L (46-116); Anion Gap 8.1 mmol/L (3-11); BUN 17 mg/dL (7-18); CO2 28.9 mmol/L (21.0-32.0); CREATININE 0.7 mg/dL (0.55-1.02); Calcium 9.6 mg/dL (8.5-10.1); Chloride 104 mmol/L (98-107); Estimated GFR 98.34 (mL/min/1.73m2); Glucose 97 mg/dL (74-106); Potassium 4.1 mmol/L (3.5-5.1); Sodium 141 mmol/L (136-145); Total Protein 7.5 g/dL (6.4-8.2)
[2024-04-25 15:55] LABS: C-Reactive Protein < 0.50 mg/dL (<or=0.5)
--- OUTSIDE RECORDS SUMMARY | 2024-04-25 16:10 | XMS_ITS | Encounter Summary ---
Author [facility] [place] [address] Care Team Providers Care Recording Studio Setup Worker Name Role Phone Susana Mesa APRN Primary Care Provider +1 [phone] Encounter Details Date Type Department Care Team (Late st Contact Info) Description 12/21/2019 Telephone [place] [address] Lexy Gamez RN Social History Tobacco Use [...] on filedocumented in this encounter Care Teams Recording Studio Setup Worker Relationship Specialty Start Date End Date Susana Mesa APRN [address] [place] [address] PCP - General Family Medicine 12/01/19 documented as of this encounter
--- OUTSIDE RECORDS SUMMARY | 2024-04-25 16:10 | XMS_ITS | Encounter Summary ---
Author Organization [facility] Address [address] [place] [address] Care Team Providers Care Infrastructure Architect Name Role Phone Susana Mesa KAMRYN Primary Care Provider [phone] [phone] Reason for Visit * Reason Comments Medications Refill Encounter Details Date Type Department Care Team (Late st Contact Info) Description 08/22/2023 Refill [facility] Rheumatology [address] [place] [address] Rosina Manuel MD [address] [facility] [address] [place] [address] Medications Refill Social History Tobacco [...] Care Team (Late st Contact Info) Description 05/25/2024 10:15 EST Telemedicine [facility] Rheumatology [address] [place], [place] [address] Rosina Manuel MD [address] [facility] [address] [place] [phone] documented as of this encounter Visit Diagnoses Diagnosis Rheumatoid arthritis involving multiple sites with positive rheumatoid factor ([facility] Primary documented in this encounter Discontinued Medications Medication Sig Discontinue Reason Start Date End Da te methotrexate 25 mg/mL (MDV) injectionIndications :Rheumatoid arthritis involving multiple sites with positive rheumatoid factor (HCC-CMS) INJECT 0.8 ML SUBCUTANEOUSLY ONCE A WEEK 03/01/2023 08/23/2023 documented as of this encounter Care Teams Infrastructure Architect Relationship Specialty Start Date End Date Susana Mesa APRN [address] [place] [address] PCP - General 08/21/19 documented as of this encounter
--- OUTSIDE RECORDS SUMMARY | 2024-04-25 16:10 | XMS_ITS | Encounter Summary ---
[place] [address] Care Team Providers Care Vp Product Marketing Name Role Phone Susana Mesa APRN Primary Care Provider +1 -[phone] Encounter Details Date Type Department Care Team (Late st Contact Info) Description 12/13/2019 Orders [place] [address] Alina Freire RN Varicose veins of left [...] complicated documented in this encounter Care Teams Vp Product Marketing Relationship Specialty Start Date End Date Susana Mesa APRN [address] [place] [address] PCP - General Family Medicine 12/01/19 documented as of this encounter
--- OUTSIDE RECORDS SUMMARY | 2024-04-25 16:10 | XMS_ITS | Encounter Summary ---
Author Organization [facility] Address [address] [place] [address] Care Team Providers Care Hopper Operator Name Role Phone Susana Mesa KAMRYN Primary Care Provider +1 [phone] Encounter Details Date Type Department Care Team (Late st Contact Info) Description 11/25/2023 Abstract [facility] Rheumatology [address] [place] [phone] Chuckie Roberts, RN Social History Tobacco Use [...] Notes * Chuckie Roberts, RN - 11/25/2023 1948 EDT [facility] lab results entered from [facility] in [employer]. documented in this encounter Plan of Treatment Upcoming Encounters Date Type Department Care Team (Late st Contact Info) Description 05/25/2024 10:15 EST Telemedicine [facility] Rheumatology [address] [place] [address] Rosina Manuel MD [address] [facility] [address] [place] [address] documented as of this encounter Procedures Procedure Name Priority Date/Time Associated Diagnosis Comments C REACTIVE PROTEIN Routine 11/18/2023 COMPREHENSIVE METABOLIC PANEL (CMP) Routine 11/18/2023 documented in this encounter Results * (ABNORMAL) COMPREHENSIVE METABOLIC PANEL (CMP) (11/18/2023) GFR, Calculated, External 98.95 [facility] Glucose, Serum, External 83 74 - 106 mg/dL [facility] Albumin, External 4.1 3.4 - 5.0 g/dL [facility] Total Alkaline Phosphatase, External 88 46 - 116 [facility] ALT, External 29 14 - 59 [facility] AST, External 18 15 - 37 U/L [facility] BUN, External 21(A) 7 - 18 mg/dL [facility] Calculated Calcium, External [facility] Calcium, External 9.1 8.5 - 10.1 mg/dL [facility] Chloride, External 101 98 - 107 mmol/L [facility] CO2, External 31.2 21 - 32 mmol/L [facility] Creatinine, External 0.7 0.55 - 1.02 mg/dL [facility] Fasting?, External [facility] Potassium, External 3.9 3.5 - 5.1 mmol/L [facility] Sodium, External 141 136 - 145 mmol/L [facility] Total Protein, External 7.3 6.4 - 8.2 [facility] Bilirubin, Total, External 0.6 0.2 - 1.0 [facility] Blood VENOUS BLOOD / Unknown 11/18/2023 Rosina Manuel MD CHEMISTRY & BLOO D GAS ORDERABLES Performing Organization Address [facility] Co de Phone Number [facility] * (ABNORMAL) C REACTIVE PROTEIN (11/18/2023) C-Reactive Protein, External 0.73(A) 0.5 [facility] Blood VENOUS BLOOD / Unknown 11/18/2023 Rosina Manuel MD CHEMISTRY & BLOO D GAS ORDERABLES Performing Organization Address [facility] Co de Phone Number [facility] documented in this encounter Visit Diagnoses Not on filedocumented in this encounter Care Teams Hopper Operator Relationship Specialty Start Date End Date Susana Mesa, CLOTH FINISHING RANGE OPERATOR [address] [place] [address] PCP - General 08/21/19 documented as of this encounter
--- OUTSIDE RECORDS SUMMARY | 2024-04-25 16:10 | XMS_ITS | Encounter Summary ---
Author Organization [facility] Address [address] [place] [address] Care Team Providers Care Tractor Trailer Operator Name Role Phone Susana Mesa KAMRYN Primary Care Provider [phone] [phone] Reason for Visit * Reason Comments Medications Refill Encounter Details Date Type Department Care Team (Late st Contact Info) Description 09/01/2023 Refill [facility] Rheumatology [address] [place] [address] Rosina Manuel MD [address] [facility] [address] [place] [address] Medications Refill Social History Tobacco [...] Encounter - Chuckie Roberts, RN - 09/02/2023 4474 EST Reviewed visit notes. UTD with labs. Rx sent to requested pharmacy, per clinic refill protocol. documented in this encounter Plan of Treatment Upcoming Encounters Date Type Department Care Team (Late st Contact Info) Description 05/25/2024 10:15 EST Telemedicine [facility] Rheumatology [address] [place], [place] [phone] Roisna Manuel MD [address] [facility] [place] [address] documented as of this encounter Visit Diagnoses Diagnosis Rheumatoid arthritis involving multiple sites with positive rheumatoid factor ([facility])- Primary documented in this encounter Discontinued Medications Medication Sig Discontinue Reason Start Date End Da te folic acid (FOLVITE) 1 mg tabletIndications:Rheuma toid arthritis involving multiple sites with positive rheumatoid factor ([facility]) Take 1 Tablet by mouth daily. 09/15/2022 09/02/2023 documented as of this encounter Care Teams Tractor Trailer Operator Relationship Specialty Start Date End Date Susana Mesa APRN [address] [place] [phone] PCP - General 08/21/19 documented as of this encounter
--- OUTSIDE RECORDS SUMMARY | 2024-04-25 16:10 | XMS_ITS | Referral Summary ---
Author Organization [facility] Address [address] [place] [address] Care Team Providers Care Pairer Inspector Name Role Phone Susana Mesa KAMRYN Primary Care Provider +1 -[phone] Encounters Date Type Department Care Team Description 03/05/2024 Refill [facility] Rheumatology [address] [place] [address] Rosina Manuel MD Medications Refill 02/14/2024 Refill [facility] Rheumatology [address] [place], [place] [address] Rosina Manuel MD Medications Refill 02/05/2024 Refill [facility] Rheumatology [address] [place] [address] [id number] Rosina Manuel MD Medications Refill 01/26/2024 11:15 EDT Office Visit [facility] Rheumatology [address] [place] [address] [phone] Rosina Manuel MD Seropositive rheumatoid arthritis of multiple sites ([facility]) (Primary Dx); High risk medication use; Rheumatoid arthritis involving multiple sites with positive rheumatoid factor ([facility]); Rheumatoid arthritis involving multiple sites with positive rheumatoid factor ([facility]) from Last 3 Months Allergies Active Allergy Reactions Criticality Noted Date Comments Buckwheat Anaphylaxis High 01/27/2019 Medications Medication Sig Dispensed Refills Start Date End Date Status chlorthalidone (HYGROTON) 25 mg tablet Take 1 Tablet by mouth daily. 06/22/2019 Active BD SAFETYGLIDE TB REG BEVEL 1 mL 27 x 1/2 syringe USE 1 SYRINGE WEEKLY WITH METHOTREXATE 06/27/2019 Active multivit,iron,mine rals/lutein (CENTRUM SILVER ULTRA WOMEN'S ORAL) Take 1 Tab by mouth daily. Active EPINEPHrine (EPIPEN) 0.3 mg/0.3 mL injection Inject 0.3 mL into the muscle once as needed. Active hydroxychloroquine (PLAQUENIL) 200 mg tabletIndications: Seropositive rheumatoid arthritis of multiple sites (HCC-CMS),Rheumato id arthritis involving multiple sites with positive rheumatoid factor ([facility]) Take 1 Tablet by mouth daily. 90 Tablet 3 01/26/2024 Active folic acid (FOLVITE) 1 mg tabletIndications: Seropositive rheumatoid arthritis of multiple sites (HCC-CMS),Rheumato id arthritis involving multiple sites with positive rheumatoid factor ([facility]) Take 1 Tablet by mouth daily. 90 Tablet 3 01/26/2024 Active methotrexate 25 mg/mL (MDV) injectionIndicatio ns:Seropositive rheumatoid arthritis of multiple sites ([facility]),Rheumato id arthritis involving multiple sites with positive rheumatoid factor ([facility]) INJECT 0.8ML UNDER THE SKIN ONCE A WEEK 12 mL 02/14/2024 Active HUMIRA,CF, PEN 40 mg/0.4 mL penIndications:Ser opositive rheumatoid arthritis of multiple sites ([facility]) INJECT 40MG SUBCUTANEOUSLY EVERY 2 WEEKS 2 Each 5 03/07/2024 Active Active Problems Problem Noted Date Diagnosed Date Rheumatoid arthritis involvi ng multiple sites with positive rheumatoid factor ([facility]) 08/21/2019 Encounter for long-term (current) use of medicat ions 08/21/2019 Ulcerated varicose veins of leg, left ([facility]) 08/21/2019 Essential hypertension 08/21/2019 Social History Tobacco [...] Contact Info) Description 05/25/2024 10:15 EST Telemedicine [facility] Rheumatology [address] [place], [place] [address] Rosina Manuel MD [address] [facility] [address] [place] [address] Procedures Procedure Name Priority Date/Time Associated Diagnosis Comments HEPATITIS C AB W REFLEX TO HCV RNA BY PCR Routine 08/09/2020 9:40 EST from Last 3 Months or Most Recently Relevant to Health Maintenance Results * HEPATITIS C AB W REFLEX TO HCV RNA BY PCR (08/09/2020 9:40 EST) Hep C Antibody Negative Negative 08/12/2020 10:36 EST [facility] Blood VENOUS BLOOD / Unknown 08/09/2020 9:40 EST 08/09/2020 16:23 EST Provider Outr Resulting Lab CHEMISTRY & BLOOD GAS ORDERABLES [facility] [address] [place] [address] from Last 3 Months or Most Recently Relevant to Health Maintenance Charline Dunham Personal/Family Self 1965 [address] [facility] [place] [address] Roly Charline B Personal/Family Self 1965 [address] [facility] [place] [address] Royl Charline B Personal/Family Self 1965 [address] [facility] [place] [address] Care Teams Pairer Inspector Relationship Specialty Start Date End Date Susana Mesa APRN [address] [place] [address] PCP - General 08/21/19
--- OUTSIDE RECORDS SUMMARY | 2024-04-25 16:10 | XMS_ITS | Encounter Summary ---
Author Organization [facility] [place] [address] Care Team Providers Care Gaming Table Operator Name Role Phone Moshe Susanashirin Sainz APRN Primary Care Provider +1 -[phone] Encounter Details Date Type Department Care Team (Late st Contact Info) Description 12/01/2019 Orders Only [place] [address] [facility] [place] [address] Open wound Social History Tobacco Use Types [...] Text Report Department: Vascular Surgery Lab Patient: [id number] (CHARLINE RALPH) CPT: 63150 ICD10: T14.8XXA;L97.32 9 Referring Physician: GAGE PICKENS [...] VASCUBASE 12/12/2019 7:54 AM EDT Gage Pickens SORT LINE VASCULAR ORDERABLE S VASCUBASE documented in this encounter Visit Diagnoses Diagnosis Open wound Open wound(s) (multiple) of unspecified site(s), without mention of complication documented in this encounter Care Teams Gaming Table Operator Relationship Specialty Start Date End Date Susana Mesa APRN [address] [place] [address] PCP - General Family Medicine 12/01/19 documented as of this encounter
--- OUTSIDE RECORDS SUMMARY | 2024-04-25 16:10 | XMS_ITS | Encounter Summary ---
Author Organization [facility] Address [facility] [place] [address] Care Team Providers Care Casing Finisher And Stuffer Name Role Phone MosheChristinSusana H KAMRYN Primary Care Provider +1 -[phone] Reason for Visit * Auth/Cert Specialty Diagnoses [...] Expiration Date Visits Re quested Visits Authorized [id number] 1 1 Encounter Details Date Type Department Care Team (Late st Contact Info) Description 02/06/2020 7:27 AM EDT Anesthesia Event [place] [address] Juan Miguel Cao MD [facility] [place] [address] Anesthesia Record Procedure Summary Procedure Name Responsible [...] 0645; metacarpal vein (top of hand), left; [id number] catheter system; 20 gauge; Brenda Perkins RN; [...] Procedure Summary Date: 02/06/20 Room / Location: [facility] OR [address] [place] [address] MAIN OR Anesthesia Start: 726 Anesthesia Stop: 905 Procedures: LIGATION AND DIVISION OF LESSER SAPHENOUS VEIN AT SAPHENOPOPLITEAL JUNCTION (WRVU 3.93) (Left ) ENDOVENOUS ABLATION THERAPY OF INCOMPETENT VEIN, EXTREMITY, FIRST VEIN (WRVU 5.3) (Left ) Diagnosis: (venous ulcer) Surgeon: Stephanie Gilbert MD Responsible Provider: Juan Miguel Cao MD Anesthesia Type: general ASA Status: 3 All Anesthesia Providers: Anesthesiologist: Juan Miguel Cao MD ENVIRONMENTAL HEALTH AND SAFETY MANAGER: Megan Ramesh CRNA Vitals Value Taken Time BP 113/79 02/06/20 0930 Temp 36 ??C (96.8 ??F) 02/06/20 0915 Pulse Resp 18 02/06/20 0915 SpO2 100 % 02/06/20 0936 Pain Level Vitals shown include unvalidated device data. Patient Location: PACU/[facility] Level of Consciousness: Awake and Alert Pain [...] 02/06/2020 7:08 AM EDT Pre-Anesthesia Evaluation for: Charline Dunham a 54 y.o. female. Procedure(s): LIGATION [...] with patient and spouse. Plan discussed with ENVIRONMENTAL HEALTH AND SAFETY MANAGER. PAT Clinic Note documented in this encounter [...] mg documented in this encounter Care Teams Casing Finisher And Stuffer Relationship Specialty Start Date End Date Susana Mesa APRN [address] [place] [address] PCP - General Family Medicine 12/01/19 documented as of this encounter
--- OUTSIDE RECORDS SUMMARY | 2024-04-25 16:10 | XMS_ITS | Encounter Summary ---
Author Organization [facility] Address [address] [place] [address] Care Team Providers Care Chief Engineer Research Name Role Phone Susana Mesa KAMRYN Primary Care Provider +1 -[phone] Reason for Visit * Reason Onset Date Comments Results 11/25/2023 Encounter Details Date Type Department Care Team (Late st Contact Info) Description 11/25/2023 Telephone [facility] [address] [place] [address] Chuckie Roberts, RN Results Social [...] you like her to go back to [facility] for additional blood work? Her next OV is scheduled in 01/2024. documented in this encounter Plan of Treatment Upcoming Encounters Date Type Department Care Team (Late st Contact Info) Description 05/25/2024 10:15 EST Telemedicine [facility] Rheumatology [address] [place], [place] [address] Rosina Manuel MD [address] [facility] [address] [place] [address] documented as of this encounter Visit Diagnoses Not on filedocumented in this encounter Care Teams Chief Engineer Research Relationship Specialty Start Date End Date Susana Mesa APRN [address] [place] [address] PCP - General 08/21/19 documented as of this encounter
--- OUTSIDE RECORDS SUMMARY | 2024-04-25 16:10 | XMS_ITS | Encounter Summary ---
Author Organization [facility] Address [address] [place] [address] Care Team Providers Care Television News Photographer Name Role Phone Susana Mesa KAMRYN Primary Care Provider +1 -[phone] Reason for Visit * Reason Comments Medications Refill Encounter Details Date Type Department Care Team (Late st Contact Info) Description 02/05/2024 Refill [facility] Rheumatology [address] [place] [address] Rosina Manuel MD [address] [facility] [address] [place] [address] Medications Refill Social History Tobacco [...] Miscellaneous Notes * Telephone Encounter - Chuckie Roberts RN - 02/09/2024 0917 EDT Called in Syringe rx to [facility] [place] * Telephone Encounter - Helga Landeros RN - 02/07/2024 0820 EDT Medication(s) Requested: Syringe Refill Preferred Pharmacy: [facility] [place] Are visits in compliance? Yes Last Refill Date: 08/21/2019 Recent Visits Date Type Provider Dept 01/26/24 Office Visit Rosina Manuel MD [facility] Rheumatology 01/26/23 Office Visit Rosina Manuel MD [facility] Rheumatology Showing recent visits within past 540 days with a meds authorizing provider and meeting all other requirements Future Appointments Date Type Provider Dept 06/06/24 Appointment Rosina Manuel MD [facility] Rheumatology Showing future appointments within next 150 days with a meds authorizing provider and meeting all other requirements HELGA LANDEROS RN 02/07/2024 8:20 documented in this encounter Plan of Treatment Upcoming Encounters Date Type Department Care Team (Late st Contact Info) Description 05/25/2024 10:15 EST Telemedicine [facility] [address] [place] [address] Rosina Manuel MD 130 [facility] [address] [place] [address] documented as of this encounter Visit Diagnoses Diagnosis Rheumatoid arthritis involving multiple sites with positive rheumatoid factor ([facility])- Primary documented in this encounter Care Teams Television News Photographer Relationship Specialty Start Date End Date Susana Mesa APRN [address] [place] [address] PCP - General 08/21/19 documented as of this encounter
--- OUTSIDE RECORDS SUMMARY | 2024-04-25 16:10 | XMS_ITS | Encounter Summary ---
Author Organization [facility] [place] [address] Care Team Providers Care Senior Controls Analyst Name Role Phone MosheChristin oliveirahremperatriz Sainz KAMRYN Primary Care Provider +1 -[phone] Encounter Details Date Type Department Care Team (Late st Contact Info) Description 01/18/2020 Telephone [place] [address] Leonela Delgadillo Social History Tobacco Use Types [...] on filedocumented in this encounter Care Teams Senior Controls Analyst Relationship Specialty Start Date End Date Susana Mesa APRN [address] [place] [address] PCP - General Family Medicine 12/01/19 documented as of this encounter
--- OUTSIDE RECORDS SUMMARY | 2024-04-25 16:10 | XMS_ITS | Encounter Summary ---
Author Organization [facility] [place] [address] Care Team Providers Care Military Science Instructor Name Role Phone Susana Mesa APRN Primary Care Provider +1 -[phone] Encounter Details Date Type Department Care Team (Late st Contact Info) Description 01/25/2020 Telephone [place] [address] Leonela Delgadillo Social History Tobacco Use Types [...] on filedocumented in this encounter Care Teams Military Science Instructor Relationship Specialty Start Date End Date Susana Mesa APRN [address] [place] [address] PCP - General Family Medicine 12/01/19 documented as of this encounter
--- OUTSIDE RECORDS SUMMARY | 2024-04-25 16:10 | XMS_ITS | Encounter Summary ---
Author Organization [facility] [place] [address] Care Team Providers Care Technical Services Consultant Name Role Phone Susana Mesa APRN Primary Care Provider +1 -[phone] Encounter Details Date Type Department Care Team (Late st Contact Info) Description 02/09/2020 Telephone [place] [address] Lexy Gamez RN Social History Tobacco Use [...] filedocumented in this encounter Care Teams Technical Services Consultant Relationship Specialty Start Date End Date Susana Mesa APRN [address] [place] [address] PCP - General Family Medicine 12/01/19 documented as of this encounter
--- OUTSIDE RECORDS SUMMARY | 2024-04-25 16:10 | XMS_ITS | Encounter Summary ---
Author Organization [facility] Address [facility] [place] [address] Care Team Providers Care Health Specialist Name Role Phone Susana Mesa APRN Primary Care Provider +1 -[phone] Reason for Visit * Consultation (Routine) - Specialty Diagnoses / Procedures Referred By Starr t Referred To Contact Vascular Surgery Diagnoses Non-pressure chronic ulcer of left ankle with unspecified severity Susana Mesa APRN [address] [place] [address] [facility] Vascular Surg [address] [place] [address] Referral ID Status Reason Start Date Expiration Date V isits Requested Visits Authorized [id number] Consult, Test & Treat [facility] PCP Updated and/or Approved 12/01/2019 11/30/2020 12 12 Encounter Details Date Type Department Care Team (Late st Contact Info) Description 12/12/2019 8:30 AM EDT Office [place] [address] Forrest Alejandre MD [facility] [place] [address] Varicose veins of left lower extremity, unspecified [...] Text Report Department: Vascular Surgery Lab Patient: [id number] (CHARLINE RALPH) CPT: 83080 ICD10: I83.92;I87.2;L97. 329 Referring Physician: FORREST ALEJANDRE [...] Alejandre MD VASCULAR ORDERABLES Performing Organization Address City/State/[facility] Co de Phone Number VASCUBASE documented in this encounter Visit Diagnoses Diagnosis Varicose veins of left lower extremity, unspecified whether complicated documented in this encounter Care Teams Health Specialist Relationship Specialty Start Date End Date Susana Mesa APRN [address] [place] [address] PCP - General Family Medicine 12/01/19 documented as of this encounter
--- OUTSIDE RECORDS SUMMARY | 2024-04-25 16:10 | XMS_ITS | Encounter Summary ---
Author Organization [facility] Address [facility] [place] [address] Care Team Providers Care Flatbed Stitcher Name Role Phone MosheSusana oliveira KAMRYN Primary Care Provider +1 -[phone] Encounter Details Date Type Department Care Team (Late st Contact Info) Description 02/14/2020 Telephone [place] [address] Lianna Rebolledo MD [facility] [place] [address] Social History Tobacco Use Types Packs/Day Years Used Date Smoking Tobacco: Never Smokeless Tobacco: Never Sex and Gender Information Value Date Recorded Sex Assigned at Not on file Gender Identity Not on file Sexual Orientation Not on file documented as of this encounter Miscellaneous Notes * Telephone Encounter - Lianna Rebolledo MD - 02/14/2020 8:29 PM EDT Vascular Surgery Right Of Way Buyer Patient called re: slight separation of thigh [...] provided. Lianna Rebolledo Vascular Surgery Fellow pager [phone] 02/14/2020 documented in this encounter Plan of Treatment Not on file documented as of this encounter Visit Diagnoses Not on filedocumented in this encounter Care Teams Flatbed Stitcher Relationship Specialty Start Date End Date Susana Mesa APRN [address] [place] [address] PCP - General Family Medicine 12/01/19 documented as of this encounter
--- OUTSIDE RECORDS SUMMARY | 2024-04-25 16:10 | XMS_ITS | Encounter Summary ---
Author Organization [facility] [place] [address] Care Team Providers Care Client Server Programmer Name Role Phone Susana Mesa APRN Primary Care Provider +1 -[phone] Encounter Details Date Type Department Care Team (Late st Contact Info) Description 01/01/2020 Telephone [place] [address] Leonela Delgadillo Social History Tobacco Use Types [...] on filedocumented in this encounter Care Teams Client Server Programmer Relationship Specialty Start Date End Date Susana Mesa APRN [address] [place] [address] PCP - General Family Medicine 12/01/19 documented as of this encounter
--- OUTSIDE RECORDS SUMMARY | 2024-04-25 16:10 | XMS_ITS | Encounter Summary ---
Author Organization [facility] Address [address] [place] [address] Care Team Providers Care Foreclosure Specialist Name Role Phone Susana Mesa KAMRYN Primary Care Provider +1 -[phone] Reason for Visit * Reason Comments Medications Refill Encounter Details Date Type Department Care Team (Late st Contact Info) Description 03/05/2024 Refill [facility] Rheumatology [address] [place] [address] Rosina Manuel MD 130 [facility] [address] [place] [address] Medications Refill Social History Tobacco [...] Da te HUMIRA,CF, PEN 40 mg/0.4 mL penIndications:Seroposi tive rheumatoid arthritis of multiple sites (HCC-CMS) INJECT 40MG SUBCUTANEOUSLY EVERY 2 WEEKS 2 Each 5 03/07/2024 documented in this encounter Miscellaneous Notes * Telephone Encounter - Tammy Zepeda RN - 03/07/2024 1451 EDT Last visit note reviewed; follow up noted as recommended and labs up to date. Refill sent per protocol. documented in this encounter Plan of Treatment Upcoming Encounters Date Type Department Care Team (Late st Contact Info) Description 05/25/2024 10:15 EST Telemedicine [facility] Rheumatology [address] [place] [address] Rosina Manuel MD [address] [facility] [address] [place] [address] documented as of this encounter Visit Diagnoses Diagnosis Seropositive rheumatoid arthritis of multiple sites ([facility])- Primary documented in this encounter Discontinued Medications Medication Sig Discontinue Reason Start Date End Da te adalimumab (HUMIRA,CF, PEN) 40 mg/0.4 mL penIndications:Seroposit zackery rheumatoid arthritis of multiple sites ([facility]) Inject 0.4 mL into the skin every 14 days. 08/11/2023 03/07/2024 documented as of this encounter Care Teams Foreclosure Specialist Relationship Specialty Start Date End Date Susana Mesa APRN [address] [place] [address] PCP - General 08/21/19 documented as of this encounter
--- OUTSIDE RECORDS SUMMARY | 2024-04-25 16:10 | XMS_ITS | Encounter Summary ---
Author Organization [facility] [place] [address] Care Team Providers Care Breakfast Manager Name Role Phone Susana Mesa APRN Primary Care Provider +1 -[phone] Encounter Details Date Type Department Care Team (Late st Contact Info) Description 02/09/2020 Telephone [place] [address] Lexy Gamez RN Social History Tobacco Use Types Packs/Day Years Used Date Smoking Tobacco: Never Smokeless Tobacco: Never Sex and Gender Information Value Date Recorded Sex Assigned at Not on file Gender Identity Not on file Sexual Orientation Not on file documented as of this encounter Miscellaneous Notes * Telephone Encounter - Leyx Gamez RN - 02/09/2020 8:53 AM EDT [...] on filedocumented in this encounter Care Teams Breakfast Manager Relationship Specialty Start Date End Date Susana Mesa APRN [address] [place] [address] PCP - General Family Medicine 12/01/19 documented as of this encounter
--- OUTSIDE RECORDS SUMMARY | 2024-04-25 16:10 | XMS_ITS | Encounter Summary ---
Author Organization [facility] [place] [address] Care Team Providers Care Lawn Service Manager Name Role Phone Susana Mesa APRN Primary Care Provider +1 -[phone] Encounter Details Date Type Department Care Team (Late st Contact Info) Description 12/13/2019 Telephone [place] [address] Leonela Delgadillo Social History Tobacco Use Types [...] on filedocumented in this encounter Care Teams Lawn Service Manager Relationship Specialty Start Date End Date Susana Mesa APRN [address] [place] [address] PCP - General Family Medicine 12/01/19 documented as of this encounter
--- OUTSIDE RECORDS SUMMARY | 2024-04-25 16:10 | XMS_ITS | Encounter Summary ---
Author Organization [facility] Address [facility] [place] [address] Care Team Providers Care Assistant Director Of Public Works Name Role Phone MosheChristin oliveirahremperatriz Sainz KAMRYN Primary Care Provider +1 -[phone] Encounter Details Date Type Department Care Team (Late st Contact Info) Description 03/15/2020 9:00 AM EDT Office [place] [address] Chuckei Fallon MD [facility] [address] [place] [address] Venous stasis ulcer of leg without varicose [...] 5.3) performed by Stephanie Gilbert MD at [facility] MAIN OR ??? PRO LIGATN SHORT SAPHEN Left 02/06/2020 LIGATION AND DIVISION OF LESSER SAPHENOUS VEIN AT SAPHENOPOPLITEAL JUNCTION (WRVU 3.93) performed by Stephanie Gilbert MD at [facility] MAIN OR Social Hx: Social History [...] insufficiency documented in this encounter Care Teams Assistant Director Of Public Works Relationship Specialty Start Date End Date Susana Mesa APRN [address] [place] [address] PCP - General Family Medicine 12/01/19 documented as of this encounter
--- OUTSIDE RECORDS SUMMARY | 2024-04-25 16:10 | XMS_ITS | Encounter Summary ---
Author Organization [facility] Address [facility] [place] [address] Care Team Providers Care Crossing Gateman Name Role Phone Moshe Susana Emeli KAMRYN Primary Care Provider +1 -[phone] Reason for Visit * Auth/Cert Specialty Diagnoses [...] Expiration Date Visits Re quested Visits Authorized [id number] 1 1 Encounter Details Date Type Department Care Team (Latest Contact Info) Description 02/06/2020 6:08 AM EDT - 02/06/2020 10:24 AM EDT Hospital Encounter [place] [address] Valentina Oquendo MD [facility] [place] [address] Venous insufficiency of left lower extremity Discharge [...] For any problems or questions please call [phone] For issues on weeknights after 5pm and weekends please call [phone] and ask for the Vascular Fellow demolition specialist. documented in this encounter Medications at Time [...] file Gets together: Not on file Attends gnosticism service: Not on file Active member of [...] Phelan MD - 02/06/2020 10:02 AM EDT [facility] [place] ?? Patient Name: Antonino Ralph : [id number] MR#: [id number] ?? Case Date: 02/06/2020 ?? Surgeon: Surgeon(s) [...] Oquendo MD - 02/06/2020 9:33 AM EDT [facility] [place] Patient Name: Antonino Ralph : [id number] MR#: [id number] Case Date: 02/06/2020 Surgeon: Surgeon(s) and Role: [...] ??Ultrasound guidance was used for this. ??A [place] wire was then inserted into the micropuncture needle, and the needle was exchanged for the dilator using Seldinger technique. ??The [place] wire was removed and the Clarivein device was inserted into the dilator. ??Using ultrasound guidance, the Clarivein device was inserted under ultrasound guidance to the mid thigh, above larger varicosities. ??The Clarivein device had already been prepared according to signal inspector instructions. ??It was then used to pharmacomechanically ablate the greater saphenous vein from the mid thigh to the proximal ankle according to signal inspector instructions. ??Ultrasound and manual pressure was used [...] Endovenous Ablation Incompetent Vein Radiofrequency 1St Vein (92882) Yes 02/06/2020 7:33 AM EDT venous ulcer Ligatn Short Saphen (67851) Yes 10/2019 7:33 AM EDT venous ulcer LIGATION DIVISION OF LESSER SAPHENOUS VEIN SAPHENOPOPLITEAL JUNCTION Routine 02/06/2020 6:12 AM EDT ENDOVENOUS ABLATION THERAPY OF INCOMPETENT VEIN, EXTREMITY, FIRST VEIN Routine 02/06/2020 6:12 AM EDT documented in this encounter Results * Duplex for DVT, Leg, Unilat (02/08/2020 12:31 PM EDT) VB Text Report Department: Vascular Surgery Lab Patient: [id number] (ANTONINO RALPH) CPT: 34488 ICD10: I87.2 Referring Physician: VALENTINA OQUENDO MD [...] MD) documented in this encounter Care Teams Crossing Gateman Relationship Specialty Start Date End Date Susana Mesa APRN [address] [place] [address] PCP - General Family Medicine 12/01/19 documented as of this encounter
--- OUTSIDE RECORDS SUMMARY | 2024-04-25 16:10 | XMS_ITS | Encounter Summary ---
Author Organization [facility] [place] [address] Care Team Providers Care Director Of Food And Beverage Services Name Role Phone Moshe Susana Emeli HARRY Primary Care Provider [phone] [phone] Encounter Details Date Type Department Care Team (Late st Contact Info) Description 12/12/2019 12:00 PM EDT Tech [place] [address] [place] Varicose veins of left [...] Text Report Department: Vascular Surgery Lab Patient: [id number] (CHARLINE RALPH) CPT: 65640 ICD10: I83.92;I87.2;L97. 329 Referring Physician: FORREST ALEJANDRE [...] complicated documented in this encounter Care Teams Director Of Food And Beverage Services Relationship Specialty Start Date End Date Susana Mesa APRN [address] [place] [address] PCP - General Family Medicine 12/01/19 documented as of this encounter
--- OUTSIDE RECORDS SUMMARY | 2024-04-25 16:10 | XMS_ITS | Encounter Summary ---
Author Organization [facility] Address [facility] [place] [address] Care Team Providers Care Dehydration Unit Operator Name Role Phone Susana Mesa APRN Primary Care Provider +1 [phone] Encounter Details Date Type Department Care Team (Late st Contact Info) Description 02/07/2020 Telephone [place] [id number] Flower Phelan MD [facility] DR ANEST[place] [address] Social History Tobacco Use Types Packs/Day Years [...] on filedocumented in this encounter Care Teams Dehydration Unit Operator Relationship Specialty Start Date End Date Susana Mesa APRN [address] [place] [address] PCP - General Family Medicine 12/01/19 documented as of this encounter
--- OUTSIDE RECORDS SUMMARY | 2024-04-25 16:10 | XMS_ITS | Encounter Summary ---
[place] [address] Care Team Providers Care Fur Finisher Tailor Name Role Phone MosheChristin oliveirahremperatriz Sainz KAMRYN Primary Care Provider +1 -[phone] Encounter Details Date Type Department Care Team (Late st Contact Info) Description 02/08/2020 12:30 PM EDT Tech [place] [address] [address], [place]T Venous insufficiency of left [...] Text Report Department: Vascular Surgery Lab Patient: [id number] (RAMO CHARLINE) CPT: 49492 ICD10: I87.2 Referring Physician: VALENTINA OQUENDO MD [...] extremity documented in this encounter Care Teams Fur Finisher Tailor Relationship Specialty Start Date End Date Susana Mesa APRN [address] [place] [address] PCP - General Family Medicine 12/01/19 documented as of this encounter
--- OUTSIDE RECORDS SUMMARY | 2024-04-25 16:10 | XMS_ITS | Encounter Summary ---
Author Organization [facility] Address [address] [place] [address] Care Team Providers Care Tracer Lathe Set Up Operator Name Role Phone Susana Msea KAMRYN Primary Care Provider [phone] [phone] Reason for Visit * Reason Comments Follow-up Rheumatoid Arthritis Needs refills of al l Rheum meds Encounter Details Date Type Department Care Team (Late st Contact Info) Description 01/26/2024 11:[address] [facility] Rheumatology [address] [place], [place] [id number] Rosina Manuel MD [address] [facility] [address] [place] [address] Seropositive rheumatoid arthritis of multiple sites ([facility]) (Primary Dx); High risk medication use; Rheumatoid [...] Da te folic acid (FOLVITE) 1 mg tabletIndications:Seropos itive rheumatoid arthritis of multiple sites (HCC-CMS),Rheumatoid arthritis involving multiple sites with positive rheumatoid factor (HCC-CMS) Take 1 Tablet by mouth daily. 90 Tablet 3 01/26/2024 hydroxychloroquine (PLAQUENIL) 200 mg tabletIndications:Seropos itive rheumatoid arthritis of multiple sites (HCC-CMS),Rheumatoid arthritis involving multiple sites with positive rheumatoid factor ([facility]) Take 1 Tablet by mouth daily. 90 Tablet 3 01/26/2024 methotrexate 25 mg/mL (MDV) injectionIndications:Sero positive rheumatoid arthritis of multiple sites (HCC-CMS),Rheumatoid arthritis involving multiple sites with positive rheumatoid factor (HCC-CMS) INJECT 0.8ML UNDER THE SKIN ONCE A WEEK 12 mL 1 01/26/2024 02/14/2024 documented in this encounter Progress Notes * Rosina Manuel MD - 01/26/2024 1115 EDT [facility] Follow-up Visit [...] 1. Seropositive rheumatoid arthritis of multiple sites (HCC-CMS) COMPLETE BLOOD COUNT AND DIFFERENTIAL COMPREHENSIVE METABOLIC PANEL (CMP) C REACTIVE PROTEIN hydroxychloroquine (PLAQUENIL) 200 mg tablet methotrexate 25 mg/mL (MDV) injection folic acid (FOLVITE) 1 mg tablet 2. High risk medication use COMPLETE BLOOD COUNT AND DIFFERENTIAL COMPREHENSIVE METABOLIC PANEL (CMP) C REACTIVE PROTEIN 3. Rheumatoid arthritis involving multiple sites with positive rheumatoid factor ([facility]) hydroxychloroquine (PLAQUENIL) 200 mg tablet methotrexate 25 mg/mL (MDV) injection folic acid (FOLVITE) 1 mg tablet Continue current doses of Humira/hydroxychloroquine/methotrexate Labs every 6 months prior to follow up 4. Rheumatoid arthritis involving multiple sites with positive rheumatoid factor ([facility]) hydroxychloroquine (PLAQUENIL) 200 mg tablet methotrexate 25 [...] Contact Info) Description 05/25/2024 10:[address] [facility] Rheumatology [address] [place] [address] Rosina Manuel MD [address] [facility] [address] [place] [address] Scheduled Orders Name Type Priority Associated Diagnoses Orde r Schedule COMPLETE BLOOD COUNT AND DIFFERENTIAL Lab Routine Seropositive rheumatoid arthritis of multiple sites ([facility]) High risk medication use Every 8-Weeks for 6 Occurrences starting 01/26/2024 until 01/25/2025 COMPREHENSIVE METABOLIC PANEL (CMP) Lab Routine Seropositive rheumatoid arthritis of multiple sites ([facility]) High risk medication use 4 Occurrences starting 01/26/2024 until 01/25/2025 C REACTIVE PROTEIN Lab Routine Seropositive rheumatoid arthritis of multiple sites ([facility]) High risk medication use every 8 weeks for 6 Occurrences starting 01/26/2024 until 01/25/2025 documented as of this encounter Visit Diagnoses Diagnosis Seropositive rheumatoid arthritis of multiple sites ([facility])- Primary High risk medication use Encounter for long-term (current) use of other medications Rheumatoid arthritis involving multiple sites with positive rheumatoid factor ([facility]) documented in this encounter Discontinued Medications Medication Sig Discontinue Reason Start Date End Da te ascorbic acid, vitamin C, (VITAMIN C) 500 mg tablet 1 tab(s) orally once a day 01/26/2024 hydrOXYchloroQUINE (PLAQUENIL) 200 mg tabletIndications:Rheuma toid arthritis involving multiple sites with positive rheumatoid factor ([facility]) TAKE ONE TABLET BY MOUTH EVERY DAY Reorder 03/22/2023 01/26/2024 methotrexate 25 mg/mL (MDV) injectionIndications:Rhe umatoid arthritis involving multiple sites with positive rheumatoid factor ([facility]) INJECT 0.8ML UNDER THE SKIN ONCE A WEEK Reorder 08/23/2023 01/26/2024 folic acid (FOLVITE) 1 mg tabletIndications:Rheuma toid arthritis involving multiple sites with positive rheumatoid factor ([facility]) TAKE 1 TABLET BY MOUTH ONCE DAILY Reorder 09/02/2023 01/26/2024 documented as of this encounter Care Teams Tracer Lathe Set Up Operator Relationship Specialty Start Date End Date Susana Mesa APRN [address] [facility] [address] [place] [address] PCP - General 08/21/19 documented as of this encounter
--- OUTSIDE RECORDS SUMMARY | 2024-04-25 16:10 | XMS_ITS | Clinical Summary ---
Author Organization [facility] Address [address] [place] [address] Care Team Providers Care Automation Analyst Name Role Phone Susana Mesa KAMRYN Primary Care Provider [phone] [phone] Allergies Active Allergy Reactions Criticality Noted Date [...] injectionIndicatio ns:Seropositive rheumatoid arthritis of multiple sites (HCC-CMS),Rheumato id arthritis involving multiple sites with positive rheumatoid factor (HCC-CMS) INJECT 0.8ML UNDER THE SKIN ONCE A WEEK 12 mL 02/14/2024 Active HUMIRA,CF, PEN 40 mg/0.4 mL penIndications:Ser opositive rheumatoid arthritis of multiple sites ([facility]) INJECT 40MG SUBCUTANEOUSLY EVERY 2 WEEKS 2 Each 5 03/07/2024 Active Active Problems Problem Noted Date Diagnosed Date Rheumatoid arthritis involvi ng multiple sites with positive rheumatoid factor ([facility]) 08/21/2019 Encounter for long-term (current) use of medicat ions 08/21/2019 Ulcerated varicose veins of leg, left ([facility]) 08/21/2019 Essential hypertension 08/21/2019 Encounters Date Type Department Care Team Description 03/05/2024 Refill [facility] Rheumatology [address] [place] [address] Rosina Manuel MD Medications Refill 02/14/2024 Refill [facility] Rheumatology [address] [place] [address] Rosina Manuel MD Medications Refill 02/05/2024 Refill [facility] Rheumatology [address] [place] [address] Rosina Manuel MD Medications Refill 01/26/2024 11:15 EDT Office Visit [facility] Rheumatology [address] [place] [address] Rosina Manuel MD Seropositive rheumatoid arthritis of multiple sites ([facility]) (Primary Dx); High risk medication use; Rheumatoid arthritis involving multiple sites with positive rheumatoid factor ([facility]); Rheumatoid arthritis involving multiple sites with positive rheumatoid factor ([facility]) from Last 3 Months Medical History Medical History Date Comments Rheumatoid arthritis ([facility]) Ulcerated leg varices, left ([facility]) Ulcerated varicose veins of leg, left ([facility]) 08/21/2019 Rheumatoid arthritis involvi ng multiple sites with positive rheumatoid factor ([facility]) 08/21/2019 Essential hypertension 08/21/2019 Social History [...] Contact Info) Description 05/25/2024 10:15 EST Telemedicine [facility] Rheumatology [address] [place] [address] Rosina Manuel MD [address] [facility] [address] [place] [address] Health Maintenance Due Date Last Done Comments RSV Immunization ( o r 60+ Years) (1 - 1-dose 60+ series) 2023 COVID-19 Vaccine ( season) 2024 Hepatitis C Screen Completed 08/09/2020, 08/09/2020 Procedures Procedure Name Priority Date/Time Associated Diagnosis Comments HEPATITIS C AB W REFLEX TO HCV RNA BY PCR Routine 08/09/2020 9:40 EST from Last 3 Months or Most Recently Relevant to Health Maintenance Results * HEPATITIS C AB W REFLEX TO HCV RNA BY PCR (08/09/2020 9:40 EST) Hep C Antibody Negative Negative 08/12/2020 10:36 EST [facility] Blood VENOUS BLOOD / Unknown 08/09/2020 9:40 EST 08/09/2020 16:23 EST Provider Outr Resulting Lab CHEMISTRY & BLOOD GAS ORDERABLES [facility] [address] [place] [address] from Last 3 Months or Most Recently Relevant to Health Maintenance Care Teams Automation Analyst Relationship Specialty Start Date End Date Susana Mesa APRN [address] [place] [address] PCP - General 08/21/19
--- OUTSIDE RECORDS SUMMARY | 2024-04-25 16:10 | XMS_ITS | Clinical Summary ---
Author Organization Pending Sale To [facility] Address [facility] [place] [address] Care Team Providers Care Grading Machine Feeder Name Role Phone MosheChristinSusana Emeli HARRY Primary Care Provider +1 [phone] Allergies Active Allergy Reactions Criticality Noted Date [...] HIV screen 1981 Hepatitis C Screening 1981 Tetanus/Diphtheria/Pertussis Vaccines (1 - Tdap) 04/23 HPV test 1993 PAP Smear 1993 Breast Cancer Share Decision Needed 2003 Breast Cancer screening 2003 Zoster vaccine (1 of 2) 2013 Advance Directive 2018 Covid-19 Vaccine (1 - season) 2024 Influenza (Flu) vaccine (1 o f 1 - Influenza standard series) 03/05/2024 Care Teams Grading Machine Feeder Relationship Specialty Start Date End Date Susana Mesa APRN [address] [place] [address] PCP - General Family Medicine 12/01/19
--- OUTSIDE RECORDS SUMMARY | 2024-04-25 16:10 | XMS_ITS | Encounter Summary ---
Author Organization [facility] [place] [address] Care Team Providers Care Color Receiver Name Role Phone Susana Mesa APRN Primary Care Provider [phone] [phone] Reason for Visit * Consultation (Routine) - Specialty Diagnoses / Procedures Referred By Starr t Referred To Contact Vascular Surgery Diagnoses Non-pressure chronic ulcer of left ankle with unspecified severity Susana Mesa APRN [address] [place] [address] [facility]urg [address] [place] [address] Referral ID Status Reason Start Date Expiration Date V isits Requested Visits Authorized [id number] Consult, Test [facility] PCP Updated and/or Approved 12/01/2019 11/30/2020 12 12 Encounter Details Date Type Department Care Team (Late st Contact Info) Description 12/12/2019 8:00 AM EDT Tech [place] [address] [place], [place] Open wound [...] Text Report Department: Vascular Surgery Lab Patient: [id number] (CHARLINE RALPH) CPT: 72858 ICD10: T14.8XXA;L97.32 9 Referring Physician: GAGE PICKENS [...] complication documented in this encounter Care Teams Color Receiver Relationship Specialty Start Date End Date Susana Mesa APRN [address] [place] [address] PCP - General Family Medicine 12/01/19 documented as of this encounter
--- OUTSIDE RECORDS SUMMARY | 2024-04-25 16:10 | XMS_ITS | Encounter Summary ---
Author Organization [facility] Address [address] [place] [address] Care Team Providers Care Landscape Specialist Name Role Phone Susana Mesa KAMRYN Primary Care Provider [phone] [phone] Reason for Visit * Reason Comments Follow-up RA- Pt states she ca me down with the flu a month ago, which caused a flare. She doesn't like to take too many meds, so occasionally she'll only use Ibuprofen if the flare is bad. Encounter Details Date Type Department Care Team (Late st Contact Info) Description 09/07/2023 10:15 EST Telemedicine [facility] [place] [address] [place], [place] [address] Rosina Manuel MD [address] [facility] [address] [place] [address] Seropositive rheumatoid arthritis of multiple [...] Rosina Manuel MD - 09/07/2023 1015 EST [facility] [place] Visit Today's visit was [...] varicose vein/healed after eval with vasc [place] [facility] HPI: Charline Dunham reports she had the [...] She had labs on 09/02/2023 at [facility]. Assessment & Plan: Charline Dunham is a 58 y.o. female with a history of seropositive rheumatoid arthritis on Humira,plaquenil and methotrexate 20 mg injected weekly She is stable and at goal on above meds. 1. Seropositive rheumatoid arthritis of multiple sites ([facility]) continue current doses of methotrexate/hydroxychloroquine and Humira 2. High risk medication use labs from [facility] done Patient Instructions 1 RA Continue [...] Contact Info) Description 05/25/2024 10:15 EST Telemedicine [facility] [place] [address] [place], [place] [address] Rosina Manuel MD [address] [facility] [address] [place] [address] documented as of this encounter Visit Diagnoses Diagnosis Seropositive rheumatoid arthritis of multiple sites ([facility])- Primary High risk medication use Encounter for long-term (current) use of other medications documented in this encounter Care Teams Landscape Specialist Relationship Specialty Start Date End Date Susana Mesa APRN [address] [place] [address] PCP - General 08/21/19 documented as of this encounter
--- OUTSIDE RECORDS SUMMARY | 2024-04-25 16:10 | XMS_ITS | Encounter Summary ---
Author Organization [facility] Address [facility] [place] [address] Care Team Providers Care Truck Driver'S Offsider Name Role Phone Susana Mesa Emeli KAMRYN Primary Care Provider [phone] [phone] Reason for Visit * Auth/Cert Specialty Diagnoses [...] Expiration Date Visits Re quested Visits Authorized [id number] 1 1 Encounter Details Date Type Department Care Team (Late st Contact Info) Description 02/06/2020 7:30 AM EDT - 02/06/2020 9:38 AM EDT Surgery [place] [address] Valentina Oquendo MD [facility] [place] [address] LIGATION AND DIVISION OF LESSER SAPHENOUS VEIN [...] For any problems or questions please call [phone] For issues on weeknights after 5pm and weekends please call [phone] and ask for the Vascular Fellow application systems architect. documented in this encounter Medications at Time [...] file Gets together: Not on file Attends druze service: Not on file Active member of [...] Phelan MD - 02/06/2020 10:02 AM EDT [facility] Brief Operative Note ?? Patient Name: Antonino Ralph : [id number] MR#: [id number] ?? Case Date: 02/06/2020 ?? Surgeon: Surgeon(s) [...] Oquendo MD - 02/06/2020 9:33 AM EDT [facility] Operative Note Patient Name: Antonino Ralph : [id number] MR#: [id number] Case Date: 02/06/2020 Surgeon: Surgeon(s) and Role: [...] ??Ultrasound guidance was used for this. ??A [place] wire was then inserted into the micropuncture needle, and the needle was exchanged for the dilator using Seldinger technique. ??The [place] wire was removed and the Clarivein device was inserted into the dilator. ??Using ultrasound guidance, the Clarivein device was inserted under ultrasound guidance to the mid thigh, above larger varicosities. ??The Clarivein device had already been prepared according to petrophysical engineer instructions. ??It was then used to pharmacomechanically ablate the greater saphenous vein from the mid thigh to the proximal ankle according to petrophysical engineer instructions. ??Ultrasound and manual pressure was used [...] Endovenous Ablation Incompetent Vein Radiofrequency 1St Vein (38012) Yes 02/06/2020 7:33 AM EDT venous ulcer Ligatn Short Saphen (25670) Yes 10/2019 7:33 AM EDT venous ulcer LIGATION DIVISION OF LESSER SAPHENOUS VEIN SAPHENOPOPLITEAL JUNCTION Routine 02/06/2020 6:12 AM EDT ENDOVENOUS ABLATION THERAPY OF INCOMPETENT VEIN, EXTREMITY, FIRST VEIN Routine 02/06/2020 6:12 AM EDT documented in this encounter Results * Duplex for DVT, Leg, Unilat (02/08/2020 12:31 PM EDT) VB Text Report Department: Vascular Surgery Lab Patient: [id number] (ANTONINO RALPH) CPT: 62241 ICD10: I87.2 Referring Physician: VALENTINA OQUENDO MD [...] Volume Adjustment - Provider: Megan Ramesh I, END WORKER) PRN Medication Order 02/04/2020 02/05/2020 02/06/2020 sodium tetradecyl sulfate (SOTRADECOL) 3 % (30 mg/mL) injection (CANCELED) ONCE PRN, Starting on Wed02/06/20 at 0851, Until Wed02/06/20 at 1224, Intra-Operative (Intra-Procedure), Routine 0851 (Given - Provid er: Valentina Oquendo MD) documented in this encounter Care Teams Truck Driver'S Offsider Relationship Specialty Start Date End Date Susana Mesa APRN [address] [place] [address] PCP - General Family Medicine 12/01/19 documented as of this encounter
--- OUTSIDE RECORDS SUMMARY | 2024-04-25 16:10 | XMS_ITS | Encounter Summary ---
Author Organization [facility] Address [address] [place] [address] Care Team Providers Care Director Of Purchasing Name Role Phone Susana Mesa KAMRYN Primary Care Provider +1 -[phone] Encounter Details Date Type Department Care Team (Late st Contact Info) Description 09/07/2023 Abstract [facility] Rheumatology [address] [place], [place] [id number] Tammy Zepeda RN Social History Tobacco Use [...] this encounter Progress Notes * Tammy Zepeda, RN - 09/07/2023 1515 EST Printed DMARD labs done at [facility] from [facility] and entered them into Epic. documented in this encounter Plan of Treatment Upcoming Encounters Date Type Department Care Team (Late st Contact Info) Description 05/25/2024 10:15 EST Telemedicine [facility] Rheumatology [address] [place] [address] Rosina Manuel MD [address] [facility] [address] [place] [address] documented as of this encounter Procedures Procedure Name Priority Date/Time Associated Diagnosis Comments COMPLETE BLOOD COUNT AND DIFFERENTIAL Routine 09/02/2023 C REACTIVE PROTEIN Routine 09/02/2023 COMPREHENSIVE METABOLIC PANEL (CMP) Routine 09/02/2023 documented in this encounter Results * C REACTIVE PROTEIN (09/02/2023) [facility] C-Reactive Protein, External <0.5 0.5 mg/dL [facility] Blood VENOUS BLOOD / Unknown 09/02/2023 Rosina Manuel MD CHEMISTRY & BLOO D GAS ORDERABLES [facility] * (ABNORMAL) COMPREHENSIVE METABOLIC PANEL (CMP) (09/02/2023) Pathologist [facility] GFR, Calculated, External 98.95 60 [facility] Glucose, Serum, External 86 74 - 106 mg/dL [facility] Albumin, External 3.8 3.4 - 5 g/dL [facility] Total Alkaline Phosphatase, External 89 46 - 116 [facility] ALT, External 25 14 - 59 [facility] AST, External 16 15 - 37 U/L [facility] BUN, External 20(A) 7 - 18 mg/dL [facility] Calculated Calcium, External [facility] Calcium, External 8.8 8.5 - 10.1 mg/dL [facility] Chloride, External 102 98 - 107 mmol/L [facility] CO2, External 31.1 21 - 32 mmol/L [facility] Creatinine, External 0.7 0.55 - 1.02 mg/dL [facility] Fasting?, External [facility] Potassium, External 3.6 3.5 - 5.1 mmol/L [facility] Sodium, External 140 136 - 145 mmol/L [facility] Total Protein, External 7.2 6.4 - 8.2 [facility] Bilirubin, Total, External 0.4 0.2 - 1 [facility] Blood VENOUS BLOOD / Unknown 09/02/2023 Rosina Manuel MD CHEMISTRY & BLOO D GAS ORDERABLES [facility] * COMPLETE BLOOD COUNT AND DIFFERENTIAL (09/02/2023) WBC, External 5.68 4.4 - 10.8 [facility] RBC, External 4.89 3.93 - 5.22 [facility] Hemoglobin, External 14.1 11.2 - 15.7 % [facility] HCT, External 41.7 36 - 46 [facility] MCV, External 85 80 - 95 [facility] MCH, External 28.8 27 - 33 g/dL [facility] MCHC, External 33.8 32 - 36 g/dL [facility] PLT, External 316 130 - 400 [facility] RDW-CV, External 13.8 11.7 - 14.6 [facility] Neutrophils, External 50.5% [facility] Lymphocytes, External 32.6% [facility] Monocytes, External 13% [facility] Eosinophils, External 3.2% [facility] Basophils, External 0.5% [facility] ABS Neutrophils, External 2.87 1.2 - 6.7 [facility] ABS Lymphs, External 1.85 1.2 - 3.4 [facility] ABS Monocytes, External 0.74 0.1 - 0.8 [facility] ABS Eosinophils, External 0.18 0 - 0.7 [facility] ABS Basophils, External 0.03 0 - 0.2 [facility] Blood VENOUS BLOOD / Unknown 09/02/2023 Rosina Manuel MD PACKAGES & DNA P STEFFEN ORDERABLES [facility] documented in this encounter Visit Diagnoses Not on filedocumented in this encounter Care Teams Director Of Purchasing Relationship Specialty Start Date End Date Susana Mesa APRN [address] [place] [address] PCP - General 08/21/19 documented as of this encounter
--- OUTSIDE RECORDS SUMMARY | 2024-04-25 16:10 | XMS_ITS | Encounter Summary ---
Author Organization [facility] Address [address] [place] [address] Care Team Providers Care Process Supervisor Name Role Phone Susana Mesa KAMRYN Primary Care Provider +1 [phone] Reason for Visit * Reason Comments Medications Refill Encounter Details Date Type Department Care Team (Late st Contact Info) Description 02/14/2024 Refill [facility] Rheumatology [address] [place] [address] Rosina Manuel MD 130 [facility] [address] [place] [address] Medications Refill Social History Tobacco [...] End Da te methotrexate 25 mg/mL (MDV) injectionIndications:Seropo sitive rheumatoid arthritis of multiple sites (HCC-CMS),Rheumatoid arthritis involving multiple sites with positive rheumatoid factor (HCC-CMS) INJECT 0.8ML UNDER THE SKIN ONCE A WEEK 12 mL 02/14/2024 documented in this encounter Plan of Treatment Upcoming Encounters Date Type Department Care Team (Late st Contact Info) Description 05/25/2024 10:15 EST Telemedicine [facility] Rheumatology [address] [place] [address] Rosina Manuel MD 130 [facility] [address] [place] [phone] documented as of this encounter Visit Diagnoses Diagnosis Seropositive rheumatoid arthritis of multiple sites (HCC-CMS) Rheumatoid arthritis involving multiple sites with positive rheumatoid factor (HCC-CMS) documented in this encounter Discontinued Medications Medication Sig Discontinue Reason Start Date End Da te methotrexate 25 mg/mL (MDV) injectionIndications:Ser opositive rheumatoid arthritis of multiple sites (HCC-CMS),Rheumatoid arthritis involving multiple sites with positive rheumatoid factor (HCC-CMS) INJECT 0.8ML UNDER THE SKIN ONCE A WEEK 01/26/2024 02/14/2024 documented as of this encounter Care Teams Process Supervisor Relationship Specialty Start Date End Date Susana Mesa APRN [address] [place] [address] PCP - General 08/21/19 documented as of this encounter
--- OUTSIDE RECORDS SUMMARY | 2024-04-25 16:11 | XMS_ITS | Encounter Summary ---
Author Organization [facility] Address [address] [place] [address] Care Team Providers Care Water Service Dispatcher Name Role Phone Susana Mesa APRN Primary Care Provider +1 -[phone] Reason for Visit * Reason Comments Other Encounter Details Date Type Department Care Team (Late st Contact Info) Description 11/09/2020 Refill [facility] Rheumatology [address] [place] [address] Rosina Manuel MD [address] [place] [address] [address] Other Social History Tobacco Use [...] Contact Info) Description 05/25/2024 10:15 EST Telemedicine [facility] Rheumatology [address] [place] [address] Rosina Manuel MD [address] [place] [address] [address] [place] [address] documented as of this encounter Visit Diagnoses Not on filedocumented in this encounter Care Teams Water Service Dispatcher Relationship Specialty Start Date End Date Susana Mesa APRN [address] [place] [address] PCP - General 08/21/19 documented as of this encounter
--- OUTSIDE RECORDS SUMMARY | 2024-04-25 16:11 | XMS_ITS | Encounter Summary ---
Author Organization [facility] Address [address] [place] [address] Care Team Providers Care Powerhouse Helper Name Role Phone Susana Mesa KAMRYN Primary Care Provider +1 -[phone] Reason for Visit * Reason Comments Rheumatoid Arthritis No side effects fro m medications. She has been feeling well. Getting vaccinated this fall vs influenza/covid. Had shingrix series. Foot Pain both feet hurt. Rest of RA is doing well Encounter Details Date Type Department Care Team (Late st Contact Info) Description 03/18/2022 9:45 EDT Telemedicine [facility] Rheumatology [address] [place], [place] [id number] Rosina Manuel MD 130 [facility] [address] [place] [address] Rheumatoid arthritis involving multiple sites with positive rheumatoid factor ([facility]) (HCC) (Primary Dx); High risk medication use; Bilateral [...] call you I am referring you to [facility] for a podiatry consultation, you may need [...] Notes * Rosina Manuel MD - 03/18/2022 0960 EDT [facility] Telephone Visit Today's visit was provided via [...] of labs because she had COVID Had Qomuty series 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 Cleans. Feels doing all she can to stay safe RA at goal Foot pain not at goal but seems to be chronic, would see a clinical trial leader, Alejandra is probably best and easiest to [...] has ongoing foot pain. Will refer to [facility] podiatry. Can order xray feet if practice [...] Contact Info) Description 05/25/2024 10:15 EST Telemedicine [facility] - [facility] Rheumatology [address] [place] [address] Rosina Manuel MD [address] [facility] [place] [phone] documented as of this encounter Visit Diagnoses Diagnosis Rheumatoid arthritis involving multiple sites with positive rheumatoid factor ([facility])- Primary High risk medication use Encounter for long-term (current) use of other medications Bilateral foot pain Pain in limb documented in this encounter Discontinued Medications Medication Sig Discontinue Reason Start Date End Da te hydrOXYchloroQUINE (PLAQUENIL) 200 mg tabletIndications:Rheuma toid arthritis involving multiple sites with positive rheumatoid factor ([facility]) TAKE ONE TABLET BY MOUTH EVERY DAY Reorder 08/28/2021 03/18/2022 documented as of this encounter Care Teams Powerhouse Helper Relationship Specialty Start Date End Date Susana Mesa APRN [address] [place] [address] PCP - General 08/21/19 documented as of this encounter
--- OUTSIDE RECORDS SUMMARY | 2024-04-25 16:11 | XMS_ITS | Encounter Summary ---
Author Organization [facility] Address [address] [place] [address] Care Team Providers Care Psychiatric Technician Name Role Phone Susana Mesa KAMRYN Primary Care Provider +1 -[phone] Reason for Visit * Reason Onset Date Comments Medication Questions 04/24/2022 Encounter Details Date Type Department Care Team (Late st Contact Info) Description 04/24/2022 Telephone [facility] Rhe[place]ology [address] [place] [address] Rosina Manuel MD [address] [place] [address] [address] [place] [address] Medication Questions Social History Tobacco [...] Kei Bailey PharmD (he/him) Ambulatory Pharmacist Clinician [facility] Rhe[facility]ology 04/28/2022 * Kei Bailey RPH - 04/27/2022 1120 EDT Attempted to contact patient but unable to LM since mailbox not set up. Kei Bailey PharmD (he/him) Ambulatory Pharmacist Clinician [facility] Rheumatology 04/27/2022 * Kei Bailey RPH - 04/24/2022 1322 EDT Unable to LM - patient should hold methotrexate for 2 weeks after influenza/covid vaccine. She can continue hydroxychloroquine and humira as directed through all three vaccines. Kei Bailey PharmD (he/him) Ambulatory Pharmacist Clinician [facility] Rheumatology 04/24/2022 documented in this encounter Miscellaneous [...] Contact Info) Description 05/25/2024 10:15 EST Telemedicine [facility] Rheumatology [address] [place], [place] [address] Rosina Manuel MD [address] [facility] [address] [place] [address] documented as of this encounter Visit Diagnoses Not on filedocumented in this encounter Care Teams Psychiatric Technician Relationship Specialty Start Date End Date Susana Mesa APRN [address] [place] [address] PCP - General 08/21/19 documented as of this encounter
--- OUTSIDE RECORDS SUMMARY | 2024-04-25 16:11 | XMS_ITS | Encounter Summary ---
Author Organization [facility] Address [address] [place] [address] Care Team Providers Care Tank Charger Name Role Phone Susana Mesa KAMRYN Primary Care Provider +1 -[phone] Reason for Visit * Reason Onset Date Comments Medication Management 08/21/2020 Encounter Details Date Type Department Care Team (Late st Contact Info) Description 08/21/2020 Telephone [facility] [place] [address] [place] [address] Rosina Manuel MD 130 [facility] [address] [place] [address] Medication Management Social History Tobacco [...] Contact Info) Description 05/25/2024 10:15 EST Telemedicine [facility] Rheumatology [address] [place], [place] [phone] Rosina Manuel MD 130 [facility] [address] [place] [phone] documented as of this encounter Visit Diagnoses Not on filedocumented in this encounter Care Teams Tank Charger Relationship Specialty Start Date End Date Susana Mesa APRN [address] [place] [address] PCP - General 08/21/19 documented as of this encounter
--- OUTSIDE RECORDS SUMMARY | 2024-04-25 16:11 | XMS_ITS | Encounter Summary ---
Author Organization [facility] Address [address] [place] [address] Care Team Providers Care Sheetmetal Trades Worker Name Role Phone Susana Mesa KAMRYN Primary Care Provider +1 -[phone] Reason for Visit * Reason Comments Follow-up RA. Feeling good, no new concerns-feeling the same. Encounter Details Date Type Department Care Team (Late st Contact Info) Description 01/26/2023 9:45 EDT Office Visit [facility] Rheumatology [address] [place] [address] Rosina Manuel MD [address] [place] [address] [address] [place] [phone] Rheumatoid arthritis involving multiple joints (HCC-CMS) (Primary [...] Rosina Manuel MD - 01/26/2023 0945 EDT [facility] Rheumatology Clinic Follow-up Visit Date of Service: 01/22/2023 Patient ID Charline Dunham Chief Compliant: Chief [...] and hydroxychloroquine and Humira are working Uses Graine de Cadeaux and Assignment Editor. - Reports arthralgia involving feet. On them [...] Contact Info) Description 05/25/2024 10:15 EST Telemedicine [facility] Rheumatology [address] [place], [place] [address] Rosina Manuel MD 130 [facility] [address] [place] [phone] documented as of this encounter Visit Diagnoses Diagnosis Rheumatoid arthritis involving multiple joints ([facility])- Primary Encounter for long-term (current) use of medications Encounter for long-term (current) use of other medications documented in this encounter Care Teams Sheetmetal Trades Worker Relationship Specialty Start Date End Date Susana Mesa APRN [address] [place] [address] PCP - General 08/21/19 documented as of this encounter
--- OUTSIDE RECORDS SUMMARY | 2024-04-25 16:11 | XMS_ITS | Encounter Summary ---
Author Organization [facility] Address [address] [place] [address] Care Team Providers Care Groover And Turner Name Role Phone Susana Mesa KAMRYN Primary Care Provider [phone] -[phone] Reason for Visit * Reason Comments Other Encounter Details Date Type Department Care Team (Late st Contact Info) Description 07/23/2021 Refill [facility] Rheumatology [address] [place] [address] Rosina Manuel MD 130 [facility] [address] [place] [address] Other Social History Tobacco Use [...] Contact Info) Description 05/25/2024 10:15 EST Telemedicine [facility] Rheumatology [address] [place], [place] [address] Rosina Manuel MD 130 [facility] [address] [place] [address] documented as of this encounter Visit Diagnoses Not on filedocumented in this encounter Discontinued Medications Medication Sig Discontinue Reason Start Date End Da te adalimumab (HUMIRA,CF, PEN) 40 mg/0.4 mL pen Inject 0.4 mL into the skin every 14 days. 02/03/2021 07/23/2021 documented as of this encounter Care Teams Groover And Turner Relationship Specialty Start Date End Date Susana Mesa APRN 26 [facility] [address] [place] [address] PCP - General 08/21/19 documented as of this encounter
--- OUTSIDE RECORDS SUMMARY | 2024-04-25 16:11 | XMS_ITS | Encounter Summary ---
Author Organization [facility] Address [address] [place] [address] Care Team Providers Care Theatre Professor Name Role Phone Susana Mesa KAMRYN Primary Care Provider +1 -[phone] Encounter Details Date Type Department Care Team (Late st Contact Info) Description 09/04/2021 Orders Only [facility] Rheumatology [address] [place] [address] Claire Brown RN Rheumatoid arthritis involving [...] Contact Info) Description 05/25/2024 10:15 EST Telemedicine [facility] Rheumatology [address] [place] [address] Rosina Manuel MD [address] [place] [address] [place] [address] documented as of this encounter Visit Diagnoses Diagnosis Rheumatoid arthritis involving multiple sites with positive rheumatoid factor ([facility])- Primary Seropositive rheumatoid arthritis ([facility]) Rheumatoid arthritis High risk medication use Encounter for long-term (current) use of other medications documented in this encounter Care Teams Theatre Professor Relationship Specialty Start Date End Date Susana Mesa APRN [address] [place] [address] PCP - General 08/21/19 documented as of this encounter
--- OUTSIDE RECORDS SUMMARY | 2024-04-25 16:11 | XMS_ITS | Encounter Summary ---
Author Organization [facility] Address [address] [place] [address] Care Team Providers Care Superior Court Justice Name Role Phone Susana Mesa KAMRYN Primary Care Provider +1 -[phone] Reason for Visit * Reason Onset Date Comments Prior Auth, Medication 07/24/2021 Humira (r eauth) Encounter Details Date Type Department Care Team (Late st Contact Info) Description 07/24/2021 Telephone [facility] [place] [address] [place] [phone] Rosina Manuel MD [address] [place] [address] [address] [place] [address] Prior Auth, Medication (Humira (reauth) [...] Approval Dates: 07-24-2021 through 07-24-2022 Authorization Number: [id number] [facility] able to fill? : No Required Pharmacy: [facility] Prior Authorization Submission Process - Routine Medication: Humira 40mg/0.4ml pen 1q14d Insurance: [facility] Insurance Type: Commercial Date PA Request Received: 07-24-2021 [place] Submission Date: 07-24-2021 [facility] Esquivel: [id number] Submitted by: Marisa Rodriguez Phone: [phone] documented in this encounter Plan of Treatment Upcoming Encounters Date Type Department Care Team (Late st Contact Info) Description 05/25/2024 10:15 EST Telemedicine [facility] Rheumatology [address] [place], [place] [phone] Rosina Manuel MD 130 [facility] [address] [place] [address] documented as of this encounter Visit Diagnoses Diagnosis Seropositive rheumatoid arthritis ([facility])- Primary Rheumatoid arthritis documented in this encounter Care Teams Superior Court Justice Relationship Specialty Start Date End Date Susana Mesa APRN [address] [place] [address] PCP - General 08/21/19 documented as of this encounter
--- OUTSIDE RECORDS SUMMARY | 2024-04-25 16:11 | XMS_ITS | Encounter Summary ---
Author Organization [facility] Address [address] [place] [address] Care Team Providers Care Advertiser Name Role Phone Susana Mesa APRN Primary Care Provider +1 [phone] Encounter Details Date Type Department Care Team (Late st Contact Info) Description 09/12/2021 Orders Only [facility] Rheumatology [address] [place] [phone] Tammy Zepeda RN Social History Tobacco Use [...] Contact Info) Description 05/25/2024 10:15 EST Telemedicine [facility] Rheumatology [address] [place] [address] Rosina Manuel MD 130 [facility] [address] [place] [phone] documented as of this encounter Visit Diagnoses Not on filedocumented in this encounter Care Teams Advertiser Relationship Specialty Start Date End Date Susana Mesa APRN [address] [place] [address] PCP - General 08/21/19 documented as of this encounter
--- OUTSIDE RECORDS SUMMARY | 2024-04-25 16:11 | XMS_ITS | Encounter Summary ---
Author Organization [facility] Address [address] [place] [address] Care Team Providers Care Equalizer Operator Name Role Phone Susana Mesa KAMRYN Primary Care Provider +1 -[phone] Reason for Visit * Reason Comments Rheumatoid Arthritis Humira helps. Doing well uses Hemp cream for foot pain with good results Encounter Details Date Type Department Care Team (Late st Contact Info) Description 04/25/2021 11:15 EDT Telemedicine [facility] Rheumatology [address] [place] [address] Rosina Manuel MD 130 [facility] [address] [place] [phone] Rheumatoid arthritis involving multiple sites with positive rheumatoid factor (HCC-CMS) ([facility]) Social History Tobacco Use Types Packs/Day Years [...] involving multiple sites with positive rheumatoid factor ([facility]) USE 0.8ML ONCE WEEKLY 12 mL 3 04/25/2021 05/26/2021 documented in this encounter Progress Notes * Rosina Manuel MD - 04/25/2021 1113 EDT [facility] Telephone Visit Verbal consent: The concept of [...] left ankle: -trauma to vein, surgical repair [facility] 2019 ?Obesity ?Hyperlipidemia. 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 Using Hemp rub on her feet [...] and plaquenil 200 mg/day -Humira 40 mg [id number] High risk medication -;labs reviewed no concerns, [...] Contact Info) Description 05/25/2024 10:15 EST Telemedicine [facility] Rheumatology [address] [place], [place] [address] Rosina Manuel MD [address] [place] [address] [address] [place] [address] documented as of this encounter Visit Diagnoses [...] positive rheumatoid factor ([facility]) USE 0.8ML ONCE WEEKLY Reorder 08/19/2020 04/25/2021 folic acid (FOLVITE) 1 mg tabletIndications:Rheuma toid arthritis involving multiple sites with positive rheumatoid factor ([facility]) Take 1 Tab by mouth daily. Reorder 08/19/2020 04/25/2021 documented as of this encounter Care Teams Equalizer Operator Relationship Specialty Start Date End Date Susana Mesa APRN [address] [place] [address] PCP - General 08/21/19 documented as of this encounter
--- OUTSIDE RECORDS SUMMARY | 2024-04-25 16:11 | XMS_ITS | Encounter Summary ---
Author Organization [facility] Address [address] [place] [address] Care Team Providers Care Dedicated Owner Operator Name Role Phone Susana Mesa KAMRYN Primary Care Provider +1 -[phone] Reason for Visit * Reason Comments Other Encounter Details Date Type Department Care Team (Late st Contact Info) Description 05/24/2021 Refill [facility] Rheumatology [address] [place] [address] Rosina Manuel MD 130 [facility] [address] [place] [address] Other Social History Tobacco Use [...] involving multiple sites with positive rheumatoid factor ([facility]) USE 0.8ML ONCE WEEKLY 12 mL 1 [...] Contact Info) Description 05/25/2024 10:15 EST Telemedicine [facility] Rheumatology [address] [place] [address] Rosina Manuel MD [address] [facility] [address] [place] [address] documented as of this encounter Visit Diagnoses Diagnosis Rheumatoid arthritis involving multiple sites with positive rheumatoid factor ([facility])- Primary documented in this encounter Discontinued Medications Medication Sig Discontinue Reason Start Date End Da te methotrexate 25 mg/mL injectionIndications:Rhe umatoid arthritis involving multiple sites with positive rheumatoid factor ([facility]) USE 0.8ML ONCE WEEKLY 04/25/2021 05/26/2021 documented as of this encounter Care Teams Dedicated Owner Operator Relationship Specialty Start Date End Date Susana Mesa APRN [address] [place] [address] PCP - General 08/21/19 documented as of this encounter
--- OUTSIDE RECORDS SUMMARY | 2024-04-25 16:11 | XMS_ITS | Encounter Summary ---
Author Organization [facility] Address [address] [place] [address] Care Team Providers Care Checkroom Attendant Name Role Phone Susana Mesa KAMRYN Primary Care Provider +1 -[phone] Reason for Referral * Consult (Routine/Next Available) - Authorized Specialty Diagnoses / Procedures Referred By Starr garcia Referred To Contact Pharmacy Diagnoses Rheumatoid arthritis involving multiple sites with positive rheumatoid factor ([facility]) Rosina Manuel MD [address] [facility] [address] [place] [address] [facility] [address] [place] [address] Referral ID Status Reason Start Date Expiration Date Visits Requested Visits Authorized [id number] Authorized Specialty Services Required 07/10/2022 1 1 [...] (Late st Contact Info) Description 07/10/2022 Telephone [facility] Rheumatology [address] [place] [address] Rosina Manuel MD 130 [facility] [address] [place] [address] Prior Auth, Medication (Re-auth Humira [...] Approval Dates: 07/10/22 - 07/10/23 Authorization Number: [id number] Benefits Information: on file [facility] able to fill? : Yes Required Pharmacy: [facility] Additional Info/Other Notes: re-auth Prior Authorization Submission Process - Routine Medication:Humira 40mg/0.4ml q14d Insurance: [employer] Insurance Type: Commercial Date PA Request Received: 07/10/22 [place] Submission Date: 07/10/22 [facility] Esquivel: [id number] Notes: re-auth Submitted by: seamus Phone: [phone] documented in this encounter Plan of Treatment Upcoming Encounters Date Type Department Care Team (Late st Contact Info) Description 05/25/2024 10:15 EST Telemedicine [facility] Rheumatology [address] [place], [place] [address] Rosina Manuel MD 130 [facility] [address] [place] [address] Scheduled Referrals Name Type Priority Associated Diagnoses Order Schedule AMB CONS/FOLLOW UP SPECIALTY PHARMACY MEDICATION PRIOR AUTHORIZATION REQUEST Outpatient Referral Routine/Next Available Rheumatoid arthritis involving multiple sites with positive rheumatoid factor ([facility] ([facility]) Expected: 07/17/2022 (Approximate), Expires: 07/10/2023 documented as of this encounter Visit Diagnoses Diagnosis Rheumatoid arthritis involving multiple sites with positive rheumatoid factor ([facility])- Primary documented in this encounter Care Teams Checkroom Attendant Relationship Specialty Start Date End Date Susana Mesa APRN [address] [place] [address] PCP - General 08/21/19 documented as of this encounter
--- OUTSIDE RECORDS SUMMARY | 2024-04-25 16:11 | XMS_ITS | Encounter Summary ---
Author Organization [facility] Address [address] [place] [address] Care Team Providers Care Rn Security Name Role Phone Susana Mesa KAMRYN Primary Care Provider [phone] [phone] Encounter Details Date Type Department Care Team (Late st Contact Info) Description 09/15/2022 Abstract [facility] Rheumatology [address] [place] [address] Tammy Zepeda RN Social History Tobacco [...] Description 05/25/2024 10:15 EST Telemedicine [facility] Rheumatology [address] [place] [address] Rosina Manuel MD [address] [place] [address]-[address] [place] [address] documented as of this encounter Procedures Procedure Name Priority Date/Time Associated Diagnosis Comments COMPLETE BLOOD COUNT AND DIFFERENTIAL Routine 02/17/2022 C REACTIVE PROTEIN Routine 02/17/2022 LIPID PROFILE (INCLUDES CHOLESTEROL, TRIGLYCERIDES, HDL, LDL) Routine 02/17/2022 COMPREHENSIVE METABOLIC PANEL (CMP) Routine 02/17/2022 documented in this encounter Results * (ABNORMAL) C REACTIVE PROTEIN (02/17/2022) Pathologist [facility] C-Reactive Protein, External 0.71(A) 0 - 0.3 mg/dL EXTERNAL LAB Blood VENOUS BLOOD / Unknown 02/17/2022 Rosina Manuel MD CHEMISTRY & BLOO D GAS ORDERABLES Performing Organization Address City/[facility]/ZIP Co de Phone Number EXTERNAL LAB * [...] Unknown 02/17/2022 Rosina Manuel MD CHEMISTRY & [employer] GAS ORDERABLES EXTERNAL LAB * COMPLETE [...] on filedocumented in this encounter Care Teams Rn Security Relationship Specialty Start Date End Date Susana Mesa APRN [address] [facility] [address] [place] [address] PCP - General 08/21/19 documented as of this encounter
--- OUTSIDE RECORDS SUMMARY | 2024-04-25 16:11 | XMS_ITS | Encounter Summary ---
Author Organization [facility] Address [address] [place] [address] Care Team Providers Care Engineering Administrator Name Role Phone Susana Mesa KAMRYN Primary Care Provider +1 -[phone] Reason for Visit * Reason Comments Other Encounter Details Date Type Department Care Team (Late st Contact Info) Description 01/14/2022 Refill [facility] Rheumatology [address] [place] [address] Rosina Manuel MD [address] [facility] [address] [place] [address] Other Social History Tobacco Use [...] Info) Description 05/25/2024 10:15 EST Telemedicine [facility] Rheumatology [address] [place], [place] [address] Rosina Manuel MD [address] [facility] [address] [place] [address] documented as of this encounter Visit Diagnoses Not on filedocumented in this encounter Discontinued Medications Medication Sig Discontinue Reason Start Date End Da te adalimumab (HUMIRA,CF, PEN) 40 mg/0.4 mL pen Inject 0.4 mL into the skin every 14 days. 07/23/2021 01/14/2022 documented as of this encounter Care Teams Engineering Administrator Relationship Specialty Start Date End Date Susana Mesa APRN 26 [facility] [address] [place] [address] PCP - General 08/21/19 documented as of this encounter
--- OUTSIDE RECORDS SUMMARY | 2024-04-25 16:11 | XMS_ITS | Encounter Summary ---
Author Organization [facility] Address [address] [place] [address] Care Team Providers Care Hospital Liaison Name Role Phone Susana Mesa KAMRYN Primary Care Provider +1 [phone] Reason for Visit * Reason Comments Medications Refill Encounter Details Date Type Department Care Team ( Contact Info) Description 06/28/2022 Refill [facility] [place] [address] [place] [address] Rosina Manuel MD 130 [facility] [address] [place] [address] Medications Refill Social History Tobacco [...] Encounter - Claire Brown RN - 06/30/2022 0939 EST Last visit note reviewed and follow up scheduled for 09/16/22. Labs up to date. Refill sent as noted. documented in this encounter Plan of Treatment Upcoming Encounters Date Type Department Care Team (Paloma bentley Contact Info) Description 05/25/2024 10:15 EST Telemedicine [facility] Rheumatology [address] [place], [place] [address] Rosina Manuel MD 130 [facility] [address] [place] [address] documented as of this encounter Visit Diagnoses Not on filedocumented in this encounter Discontinued Medications Medication Sig Discontinue Reason Start Date End Da te JENNIFERCF, PEN 40 mg/0.4 mL pen INJECT 40MG SUBCUTANEOUSLY EVERY 2 WEEKS 01/14/2022 06/30/2022 documented as of this encounter Care Teams Hospital Liaison Relationship Specialty Start Date End Date Susana Mesa APRN 26 [facility] [address] [place] [address] PCP - General 08/21/19 documented as of this encounter
--- OUTSIDE RECORDS SUMMARY | 2024-04-25 16:11 | XMS_ITS | Encounter Summary ---
Author Organization [facility] Address [address] [place] [address] Care Team Providers Care Fiscal Analyst Name Role Phone Susana Mesa KAMRYN Primary Care Provider [phone] [phone] Reason for Visit * Reason Onset Date Comments Appointment Related 06/11/2022 Encounter Details Date Type Department Care Team (Late st Contact Info) Description 06/11/2022 Telephone [facility] Rheumatology [address] [place] [address] Claire Brown RN Appointment Related Social [...] Contact Info) Description 05/25/2024 10:15 EST Telemedicine [facility] Rheumatology [address] [place] [address] Rosina Manuel MD [address] [place] [address]-[address] [place] [address] documented as of this encounter Visit Diagnoses Not on filedocumented in this encounter Care Teams Fiscal Analyst Relationship Specialty Start Date End Date Susana Mesa APRN [address] [place] [address] PCP - General 08/21/19 documented as of this encounter
--- OUTSIDE RECORDS SUMMARY | 2024-04-25 16:11 | XMS_ITS | Encounter Summary ---
Author Organization [facility] Address [address] [place] [address] Care Team Providers Care Wrapping Checker Name Role Phone Susana Mesa KAMRYN Primary Care Provider +1 -[phone] Reason for Referral * Consult (Routine/Next Available) - Authorized Specialty Diagnoses / Procedures Referred By Starr garcia Referred To Contact Pharmacy Diagnoses Seropositive rheumatoid arthritis of multiple sites ([facility] Rosina Manuel MD [address] [place] [address] [address] [place] [address] [facility] [address] [place] [id number] Referral ID Status Reason Start Date Expiration Date Visits Requested Visits Authorized [id number] Authorized Specialty Services Required 07/26/2023 1 1 [...] Encounter Details Date Type Department Care Team ([facility] Contact Info) Description 07/26/2023 Telephone [facility] Rheumatology [address] [place] [address] Ny bAad RN Prior Auth, Medication Social History Tobacco [...] 07/26/2023 1103 EST Received a fax from [employer] for renewal of Zhao EATON. [phone]. documented in this encounter Plan of Treatment Upcoming Encounters Date Type Department Care Team (Late st Contact Info) Description 05/25/2024 10:15 EST Telemedicine [facility] Rheumatology [address] [place], [place] [address] Rosina Manuel MD 130 [facility] [address] [place] [address] Scheduled Referrals Name Type Priority Associated Diagnoses Order Schedule AMB CONS/FOLLOW UP SPECIALTY PHARMACY Outpatient Referral Routine/Next Available Seropositive rheumatoid arthritis of multiple sites ([facility]) Expected: 08/26/2023 (Approximate), Expires: 07/26/2024 documented as of this encounter Visit Diagnoses Diagnosis Seropositive rheumatoid arthritis of multiple sites ([facility])- Primary documented in this encounter Care Teams Wrapping Checker Relationship Specialty Start Date End Date Susana Mesa APRN [address] [place] [phone] PCP - General 08/21/19 documented as of this encounter
--- OUTSIDE RECORDS SUMMARY | 2024-04-25 16:11 | XMS_ITS | Encounter Summary ---
Author Organization [facility] Address [address] [place] [address] Care Team Providers Care Rotor Blade Installer Name Role Phone Susana Mesa KAMRYN Primary Care Provider +1 -[phone] Reason for Visit * Reason Onset Date Comments Prior Auth, Medication 08/11/2023 Encounter Details Date Type Department Care Team (Late st Contact Info) Description 08/11/2023 Telephone [facility] Rheumatology [address] [place] [address] Rosina Manuel MD [address] [place] [address] [address] [place] [address] Prior Auth, Medication Social History [...] te adalimumab (HUMIRA,CF, PEN) 40 mg/0.4 mL penIndications:Seropositiv e rheumatoid arthritis of multiple sites (HCC-CMS) Inject 0.4 mL into the skin every 14 days. 2 Each 5 08/11/2023 03/07/2024 documented in this encounter Progress Notes * Kei Bailey RPH - 08/11/2023 1213 EST Specialty Medication Refill Request Requested Medication: Humira 40 mg/0.4 ml pen into the skin every 14 days Indication: RA A chart review of last visit, labs, and medication list has been reviewed and it has been identified this therapy should be continued. New refills have been sent in to [facility] per protocol. Kei Bailey PharmD (he/him) Ambulatory Pharmacist Clinician Rheumatology 08/11/2023 documented in this encounter Miscellaneous Notes * Telephone Encounter - Casi Doe - 08/11/2023 1157 EST Prior Authorization Approval Medication: Humira Pen (CF) 40MG/0.4ML pen-injector kit Insurance Name:optum Insurance Type: Commercial Approval Dates: 08/11/23-08/11/24 Authorization Number: [id number] Required Pharmacy: No requirement [facility] able to fill?: YES Additional Info/Other Notes: Approval scanned in chart Prior Authorization Submission Process - Urgent Re-Auth Medication:Humira Pen (CF) 40MG/0.4ML pen-injector kit Insurance: optum Insurance Type: Commercial Date PA Request Received: 08/11/23 [place] Submission Date: 08/11/23 [facility]: [id number] Notes: Re auth Submitted by: Casi De Anda Phone: [phone] documented in this encounter Plan of Treatment Upcoming Encounters Date Type Department Care Team (Late st Contact Info) Description 05/25/2024 10:15 EST Telemedicine [facility] Rheumatology [address] [place] [address] Rosina Manuel MD 130 [facility] [address] [place] [address] documented as of this encounter Visit Diagnoses Diagnosis Seropositive rheumatoid arthritis of multiple sites ([facility])- Primary documented in this encounter Discontinued Medications Medication Sig Discontinue Reason Start Date End Da te EKATERINA RODRIGUEZ, PEN 40 mg/0.4 mL pen INJECT 40MG SUBCUTANEOUSLY EVERY 2 WEEKS Reorder 03/05/2023 08/11/2023 documented as of this encounter Care Teams Rotor Blade Installer Relationship Specialty Start Date End Date Susana Mesa, KAMRYN [address] [place] [address] PCP - General 08/21/19 documented as of this encounter
--- OUTSIDE RECORDS SUMMARY | 2024-04-25 16:11 | XMS_ITS | Encounter Summary ---
Author Organization [facility] Address [address] [place] [address] Care Team Providers Care Ict Support Engineer Name Role Phone Susana Mesa KAMRYN Primary Care Provider +1 -[phone] Reason for Visit * Reason Comments Other Encounter Details Date Type Department Care Team (Late st Contact Info) Description 08/27/2021 Refill [facility] Rheumatology [address] [place] [address] Rosina Manuel MD 130 [facility] [address] [place] [address] Other Social History Tobacco Use [...] with positive rheumatoid factor ([facility]) TAKE ONE TABLET BY MOUTH EVERY DAY [...] Contact Info) Description 05/25/2024 10:15 EST Telemedicine [facility] Rheumatology [address] [place], [place] [address] Rosina Manuel MD 130 [facility] [address] [place] [address] documented as of this encounter Visit Diagnoses Diagnosis Rheumatoid arthritis involving multiple sites with positive rheumatoid factor ([facility])- Primary documented in this encounter Discontinued Medications Medication Sig Discontinue Reason Start Date End Da te hydrOXYchloroQUINE (PLAQUENIL) 200 mg tabletIndications:Rheuma toid arthritis involving multiple sites with positive rheumatoid factor (HCC-CMS) Take 1 Tablet by mouth daily. 04/25/2021 08/28/2021 documented as of this encounter Care Teams Ict Support Engineer Relationship Specialty Start Date End Date Susana Mesa APRN [address] [place] [address] PCP - General 08/21/19 documented as of this encounter
--- OUTSIDE RECORDS SUMMARY | 2024-04-25 16:11 | XMS_ITS | Encounter Summary ---
Author Organization [facility] Address [address] [place] [address] Care Team Providers Care Fire Protection Engineer Name Role Phone Susana Mesa KAMRYN Primary Care Provider [phone] -[phone] Reason for Visit * Reason Comments Other Encounter Details Date Type Department Care Team (Late st Contact Info) Description 03/11/2022 Refill [facility] Rheumatology [address] [place] [address] Rosina Manuel MD [address] [facility] [address] [place] [address] Other Social History Tobacco Use [...] Contact Info) Description 05/25/2024 10:15 EST Telemedicine [facility] Rheumatology [address] [place] [address] Rosina Manuel MD [address] [facility] [address] [place] [address] documented as of this encounter Visit Diagnoses Not on filedocumented in this encounter Care Teams Fire Protection Engineer Relationship Specialty Start Date End Date Susana Mesa APRN [address] [place] [address] PCP - General 08/21/19 documented as of this encounter
--- OUTSIDE RECORDS SUMMARY | 2024-04-25 16:11 | XMS_ITS | Encounter Summary ---
Author Organization [facility] Address [address] [place] [address] Care Team Providers Care Bench Scientist Name Role Phone Susana Mesa KAMRYN Primary Care Provider [phone] -[phone] Reason for Visit * Reason Onset Date Comments Medications Refill 03/18/2022 Encounter Details Date Type Department Care Team (Late st Contact Info) Description 03/18/2022 Telephone [facility] Rheumatology [address] [place] [address] Claire Brown, RN Medications Refill [...] Encounter - Claire Brown RN - 03/18/2022 1400 EDT ----- Message from Rosina Manuel MD sent at 03/18/2022 10:33 EDT ----- Charline has been getting an oddly sized needle for methotrexate, can we please call her pharmacy and find out what is being dispensed . She is also running low ? If we can mail some to avoid interuption.Also let her know that I referred to podiatry in [place], I did place foot xray orders, she may want to wait until the appt is booked to get xray so she can make sure the clinic wants them before her visit.Thanks documented in this encounter Plan of Treatment Upcoming Encounters Date Type Department Care Team (Late st Contact Info) Description 05/25/2024 10:15 EST Telemedicine [facility] Rheumatology [address] [place] [address] Rosina Manuel MD 130 [facility] [address] [place] [phone] documented as of this encounter Visit Diagnoses Not on filedocumented in this encounter Care Teams Bench Scientist Relationship Specialty Start Date End Date Susana Mesa, TOMOGRAPHIC TECH [address] [place] [address] PCP - General 08/21/19 documented as of this encounter
--- OUTSIDE RECORDS SUMMARY | 2024-04-25 16:11 | XMS_ITS | Encounter Summary ---
Author Organization [facility] Address [address] [place] [address] Care Team Providers Care Otolaryngologist Name Role Phone Susana Mesa KAMRYN Primary Care Provider [phone] [phone] Reason for Visit * Reason Comments Medications Refill Encounter Details Date Type Department Care Team (Late st Contact Info) Description 02/23/2023 Refill [facility] Rheumatology [address] [place] [address] Rosina Manuel MD 130 [facility] [address] [place] [address] Medications Refill Social History Tobacco [...] methotrexate syringes phoned in to [facility] [place]. documented in this encounter Plan of Treatment Upcoming Encounters Date Type Department Care Team (Late st Contact Info) Description 05/25/2024 10:15 EST Telemedicine [facility] Rheumatology [address] [place] [address] Rosina Manuel MD 130 [facility] [address] [place] [address] documented as of this encounter Visit Diagnoses Not on filedocumented in this encounter Care Teams Otolaryngologist Relationship Specialty Start Date End Date Susana Mesa APRN [address] [place] [address] PCP - General 08/21/19 documented as of this encounter
--- OUTSIDE RECORDS SUMMARY | 2024-04-25 16:11 | XMS_ITS | Encounter Summary ---
Author Organization [facility] Address [address] [place] [address] Care Team Providers Care Distribution Collection Operator Name Role Phone Susana Mesa KAMRYN Primary Care Provider [phone] -[phone] Reason for Visit * Reason Onset Date Comments Medication Management 07/30/2021 Encounter Details Date Type Department Care Team (Late st Contact Info) Description 07/30/2021 Telephone [facility] Rhe[place] [address] [place] [address] Rosina Manuel MD 130 [facility] [address] [place] [address] Medication Management Social History Tobacco [...] Contact Info) Description 05/25/2024 10:15 EST Telemedicine [facility] Rheumatology [address] [place] [address] Rosina Manuel MD 130 [facility] [address] [place] [address] documented as of this encounter Visit Diagnoses Not on filedocumented in this encounter Care Teams Distribution Collection Operator Relationship Specialty Start Date End Date Susana Mesa APRN [address] [place] [address] PCP - General 08/21/19 documented as of this encounter
--- OUTSIDE RECORDS SUMMARY | 2024-04-25 16:11 | XMS_ITS | Encounter Summary ---
Author Organization [facility] Address [address] [place] [address] Care Team Providers Care Director Of Quantitative Research Name Role Phone Susana Mesa KAMRYN Primary Care Provider +1 -[phone] Encounter Details Date Type Department Care Team (Late st Contact Info) Description 08/22/2020 Orders Only [facility] Rheumatology [address] [place] [address] Tammy Zepeda RN Rheumatoid arthritis involving multiple sites with positive rheumatoid factor ([facility]) (Primary Dx) Social History Tobacco Use Types [...] Telemedicine [facility] Rheumatology [address] [place] [address] Rosina Manuel MD 130 [facility] [address] [place] [address] documented as of this encounter Visit Diagnoses Diagnosis Rheumatoid arthritis involving multiple sites with positive rheumatoid factor ([facility])- Primary documented in this encounter Care Teams Director Of Quantitative Research Relationship Specialty Start Date End Date Susana Mesa APRN [address] [place] [address] PCP - General 08/21/19 documented as of this encounter
--- OUTSIDE RECORDS SUMMARY | 2024-04-25 16:11 | XMS_ITS | Encounter Summary ---
Author Organization [facility] Address [address] [place] [address] Care Team Providers Care Security Software Engineer Name Role Phone Susana Mesa KAMRYN Primary Care Provider +1 -[phone] Reason for Visit * Reason Comments Follow-up RA. Pt states Encounter Details Date Type Department Care Team (Late st Contact Info) Description 09/16/2022 10:15 EDT Telemedicine [facility] Rheumatology [address] [place] [address] Rosina Manuel MD [address] [place] [address] [place] [address] Rheumatoid arthritis involving multiple joints [...] Rosina Manuel MD - 09/16/2022 1015 EDT [facility] [place] Visit Today's visit [...] Contact Info) Description 05/25/2024 10:15 EST Telemedicine [facility] Rheumatology [address] [place], [place] [address] Rosina Manuel MD 130 [facility] [address] [place] [address] documented as of this encounter Visit Diagnoses Diagnosis Rheumatoid arthritis involving multiple joints (HCC-CMS)- Primary Encounter for long-term (current) use of medications Encounter for long-term (current) use of other medications documented in this encounter Care Teams Security Software Engineer Relationship Specialty Start Date End Date Susana Mesa APRN [address] [place] [address] PCP - General 08/21/19 documented as of this encounter
--- OUTSIDE RECORDS SUMMARY | 2024-04-25 16:11 | XMS_ITS | Encounter Summary ---
Author Organization [facility] Address [address] [place] [address] Care Team Providers Care Livestock Producer Name Role Phone Susana Mesa SENIOR WATER/WASTEWATER ENGINEER Primary Care Provider +1 -[phone] Encounter Details Date Type Department Care Team (Latest Contact Info) Description 10/27/2022 Lab Requisition [facility] Pathology & Laboratory Medicine - [facility] [address] [place] [address] Susana Mesa, SENIOR WATER/WASTEWATER ENGINEER 26 [facility] [address] [place] [address] Encounter for general adult medical [...] Contact Info) Description 05/25/2024 10:15 EST Telemedicine [facility] [place] [address] [place] [address] Rosina Manuel MD 130 [facility] [address] [place] [phone] documented as of this encounter Procedures Procedure [...] types, PCR Negative Negative 11/05/2022 14:57 EDT [facility] Comment:No E6 or E7 mRNA is detected from HPV types 16,18,31,33,35,39,45,51,52,56,58,59,66, and 68 by embossing tool setter mediated amplification. Papanicolaou smear specimen (specimen) CERVIX UTERI STRUCTURE / Unknown 10/22/2022 15:15 EDT 11/03/2022 10:53 EDT Susana Mesa APRN MICROBIOLOGY - [facility] ORDERABLES [facility] [address] [place] [address] * PAP TEST (10/22/2022 15:15 EDT) Specimens A. Cervix and/or Endocervix , ThinPrep Imaging System with Manual Evaluation 11/05/2022 14:57 EDT [facility] Specimen Adequacy Satisfactory for Evaluation - transformation zone component present 11/05/2022 14:57 EDT [facility] General Categorization Negative for intraepithelial lesion or malignancy 11/05/2022 14:57 EDT [facility] Attestation . 11/05/2022 14:57 EDT [facility] at 1457 Clinical History See below 11/06/19 14:57 EDT [facility] HPV The result for the Human Papillomavirus (HPV) Detection-High Risk Types is Negative. No E6 or E7 mRNA is detected from HPV types 16,18,31,33,35,39 ,45,51,52,56,58,5 9,66, and 68 by embossing tool setter mediated amplification.Adrienne ting was performed on specimen [id number] and was resulted on 11/05/2022 1457 EDT by KAYLA, LAB INSTRUMENT RESULTS IN 11/05/2022 14:57 EDT [facility] Performing Lab [facility] 11/05/2022 14:57 EDT [facility] Scanned Images 11/05/2022 14:57 EDT [facility] Papanicolaou smear specimen (specimen) CERVIX UTERI STRUCTURE / Unknown 10/22/2022 15:15 EDT 10/27/2022 9:02 EDT Susana Mesa APRN PATHOLOGY ORDERAB LES Performing Organization Address City/State/[facility] Co de Phone Number [facility] [address] [place] [address] documented in this encounter Visit Diagnoses Diagnosis Encounter for general adult medical examination without abnormal findings Unspecified general medical examination Encounter for gynecological examination (general) (routine) without abnormal findings Encounter for screening for malignant neoplasm of cervix Screening for malignant neoplasm of the cervix documented in this encounter Care Teams Livestock Producer Relationship Specialty Start Date End Date Susana Mesa APRN [address] [place] [address] PCP - General 08/21/19 documented as of this encounter
--- OUTSIDE RECORDS SUMMARY | 2024-04-25 16:11 | XMS_ITS | Encounter Summary ---
Author Organization [facility] Address [address] [place] [address] Care Team Providers Care Pie Bottomer Name Role Phone Susana Mesa KAMRYN Primary Care Provider +1 -[phone] Reason for Visit * Reason Onset Date Comments Appointment Related 03/19/2022 Encounter Details Date Type Department Care Team (Late st Contact Info) Description 03/19/2022 Telephone [facility] [place] Rheumatology [address] [place], [place] [phone] Rosina Manuel MD 130 [facility] [address] [place] [address] Appointment Related Social History Tobacco [...] Contact Info) Description 05/25/2024 10:15 EST Telemedicine [facility] Rheumatology [address] [place] [address] Rosina Manuel MD 130 [facility] [address] [place] [address] documented as of this encounter Visit Diagnoses Not on filedocumented in this encounter Care Teams Pie Bottomer Relationship Specialty Start Date End Date Susana Mesa APRN 26 [facility] [address] [place] [address] PCP - General 08/21/19 documented as of this encounter
--- OUTSIDE RECORDS SUMMARY | 2024-04-25 16:11 | XMS_ITS | Encounter Summary ---
Author Organization [facility] Address [address] [place] [address] Care Team Providers Care It Network Engineer Name Role Phone Susana Mesa KAMRYN Primary Care Provider [phone] -[phone] Reason for Visit * Reason Onset Date Comments Referral Request 03/24/2022 Encounter Details Date Type Department Care Team (Late st Contact Info) Description 03/24/2022 Telephone [facility] [place] [address] [place] [address] Rosina Manuel MD 130 [facility] [address] [place] [address] Referral Request Social History Tobacco [...] - 03/24/2022 1634 EDT Referral faxed to [facility] in [place], [place] * Telephone Encounter - Claire Brown RN - 03/24/2022 1053 EDT Returned call to [facility]. They confirmed they do not have a track dresser and recommended [facility] who comes to [facility] as really the only option in patient's area. Unable to reach patient to update her. * Telephone Encounter - Kelly Quiles - 03/24/2022 1012 EDT [facility] calling and stating received a referral for this patient. They are advising best to be handled by a track dresser in regard to bilateral foot pain. documented in this encounter Plan of Treatment Upcoming Encounters Date Type Department Care Team (Late st Contact Info) Description 05/25/2024 10:15 EST Telemedicine [facility] [place] [address] [place], [place] [phone] Rosina Manuel MD 130 [facility] [address] [place] [phone] documented as of this encounter Visit Diagnoses Diagnosis Bilateral foot pain- Primary Pain in limb documented in this encounter Care Teams It Network Engineer Relationship Specialty Start Date End Date Susana Mesa APRN [address] [place] [address] PCP - General 08/21/19 documented as of this encounter
--- OUTSIDE RECORDS SUMMARY | 2024-04-25 16:11 | XMS_ITS | Encounter Summary ---
Author Organization [facility] Address [address] [place] [address] Care Team Providers Care Global Commodity Manager Name Role Phone Susana Mesa KAMRYN Primary Care Provider +1 -[phone] Reason for Visit * Reason Comments Medications Refill Encounter Details Date Type Department Care Team (Late st Contact Info) Description 03/05/2023 Refill [facility] Rheumatology [address] [place] [address] Rosina Manuel MD 130 [facility] [address] [place] [address] Medications Refill Social History Tobacco [...] Contact Info) Description 05/25/2024 10:15 EST Telemedicine [facility] Rheumatology [address] [place] [address] Rosina Manuel MD 130 [facility] [address] [place] [address] documented as of this encounter Visit Diagnoses Not on filedocumented in this encounter Discontinued Medications Medication Sig Discontinue Reason Start Date End Da te adalimumab (HUMIRA,CF, PEN) 40 mg/0.4 mL pen INJECT 40MG SUBCUTANEOUSLY EVERY 2 WEEKS 09/15/2022 03/05/2023 documented as of this encounter Care Teams Global Commodity Manager Relationship Specialty Start Date End Date Susana Mesa APRN [address] [place] [address] PCP - General 08/21/19 documented as of this encounter
--- OUTSIDE RECORDS SUMMARY | 2024-04-25 16:11 | XMS_ITS | Encounter Summary ---
Author Organization [facility] Address [address] [place] [address] Care Team Providers Care Hydraulic Lift Operator Name Role Phone Susana Mesa KAMRYN Primary Care Provider +1 -[phone] Encounter Details Date Type Department Care Team (Late st Contact Info) Description 10/23/2022 Lab Requisition [facility] Pathology & Laboratory Medicine - [facility] [address] [place], [place] [address] Outr Resulting Lab, Provider Social History Tobacco [...] Contact Info) Description 05/25/2024 10:15 EST Telemedicine [facility] [place] [address] [place], [place] [address] Rosina Manuel MD 130 [facility] [address] [place] [address] documented as of this encounter Procedures Procedure Name Priority Date/Time Associated Diagnosis Comments HIV 1/2 ANTIGEN AND ANTIBODY, 4TH GENERATION Routine 10/22/2022 15:25 EDT documented in this encounter Results * HIV 1/2 ANTIGEN AND ANTIBODY, 4TH GENERATION (10/22/2022 15:25 EDT) HIV 1 and 2 Antibody/p24 Antigen, 4th Generation Negative Negative 10/25/2022 10:10 EDT [facility] Comment:If acute HIV-1 infec tion is suspected in a high risk patient, submit plasma specimen for HIV-1 RNA quantitation test. Blood VENOUS BLOOD / Unknown 10/22/2022 15:25 EDT 10/23/2022 19:35 EDT Narrative [facility] - 10/25/2022 10:10 EDT Fourth Generation assay performed on the Siemens Centaur XPT. Provider Outr Resulting Lab IMMUNOLOGY A ND SEROLOGY ORDERABLES [facility] [address] [place] [address] documented in this encounter Visit Diagnoses Not on filedocumented in this encounter Care Teams Hydraulic Lift Operator Relationship Specialty Start Date End Date Susana Mesa APRN [address] [place] [address] PCP - General 08/21/19 documented as of this encounter
--- OUTSIDE RECORDS SUMMARY | 2024-04-25 16:11 | XMS_ITS | Encounter Summary ---
Author Organization [facility] Address [address] [place] [address] Care Team Providers Care Residential Recycle Driver Name Role Phone Susana Mesa KAMRYN Primary Care Provider +1 -[phone] Reason for Visit * Reason Comments Follow-up RA - pt states she h ad Covid end of Jul and was off her meds about one month. Her feet are feeling better, but not up to baseline yet. Encounter Details Date Type Department Care Team (Late st Contact Info) Description 09/12/2021 10:45 EST Telemedicine [facility] Rheumatology [address] [place] [address] Rosina Manuel MD 130 [facility] [address] [place] [address] Rheumatoid arthritis involving multiple sites with positive rheumatoid factor ([facility]) (HCC) (Primary Dx); On methotrexate therapy; High [...] Rosina Manuel MD - 09/12/2021 1045 EST [facility] Telephone Visit Today's visit was provided [...] multiple sites with positive rheumatoid factor (HCC-CMS) ([facility]) GENERIC DME ORDER stable continue current meds.methotrexate/humira Stayed on plaquenil Slighy flared due to holding meds. 2. On methotrexate therapy GENERIC DME ORDER labs due.sent methotrexate needle rx to [facility] for smaller gauge needles. 3. High [...] Description 05/25/2024 10:15 EST Telemedicine [facility] Rheumatology [address] [place], [place] [address] Rosina Manuel MD 130 [facility] [address] [place] [address] documented as of this encounter Visit Diagnoses Diagnosis Rheumatoid arthritis involving multiple sites with positive rheumatoid factor ([facility])- Primary On methotrexate therapy High risk medication use Encounter for long-term (current) use of other medications documented in this encounter Orders Equipment Count Last Ordered Date First Orde red Date GENERIC DME ORDER 1 09/12/2021 documented in this encounter Care Teams Residential Recycle Driver Relationship Specialty Start Date End Date Susana Mesa APRN [address] [place] [address] PCP - General 08/21/19 documented as of this encounter
--- OUTSIDE RECORDS SUMMARY | 2024-04-25 16:11 | XMS_ITS | Encounter Summary ---
Author Organization [facility] Address [address] [place] [address] Care Team Providers Care Livestock Trucker Name Role Phone Susana Mesa KAMRYN Primary Care Provider +1 -[phone] Reason for Visit * Reason Comments Medications Refill Encounter Details Date Type Department Care Team (Late st Contact Info) Description 03/20/[address] [facility] Rheumatology [address] [place] [address] Rosina Manuel MD 130 [facility]- [address] [place] [address] Medications Refill Social History Tobacco [...] Info) Description 05/25/2024 10:[address] [facility] Rheumatology [address] [place], [place] [address] Rosina Manuel MD [address] [facility]- [address] [place] [address] documented as of this encounter Visit Diagnoses Diagnosis Rheumatoid arthritis involving multiple sites with positive rheumatoid factor (HCC-CMS) documented in this encounter Discontinued Medications Medication Sig Discontinue Reason Start Date End Da te hydrOXYchloroQUINE (PLAQUENIL) 200 mg tabletIndications:Rheuma toid arthritis involving multiple sites with positive rheumatoid factor (HCC-CMS) Take 1 Tablet by mouth daily. 03/18/2022 03/22/2023 documented as of this encounter Care Teams Livestock Trucker Relationship Specialty Start Date End Date Susana Mesa APRN [address] [place] [address] PCP - General 08/21/19 documented as of this encounter
--- OUTSIDE RECORDS SUMMARY | 2024-04-25 16:11 | XMS_ITS | Encounter Summary ---
Author Organization [facility] Address [address] [place] [address] Care Team Providers Care Local Government Legislator Name Role Phone Susana Mesa KAMRYN Primary Care Provider +1 -[phone] Reason for Visit * Reason Onset Date Comments Medications Refill 02/03/2021 Encounter Details Date Type Department Care Team (Late st Contact Info) Description 02/03/2021 Refill [facility] Rheumatology [address] [place] [address] Claire Brown, SHABANA Medications Refill Social [...] EST Telemedicine [facility] Rheumatology [address] [place] [address] Rosina Manuel MD 130 [facility] [address] [place] [address] documented as of this encounter Visit Diagnoses Not on filedocumented in this encounter Discontinued Medications Medication Sig Discontinue Reason Start Date End Da te adalimumab (HUMIRA,CF, PEN) 40 mg/0.4 mL pen Inject 0.4 mL into the skin every 14 days. Reorder 08/19/2020 02/03/2021 documented as of this encounter Care Teams Local Government Legislator Relationship Specialty Start Date End Date Susana Mesa APRN [address] [place] [address] PCP - General 08/21/19 documented as of this encounter
--- OUTSIDE RECORDS SUMMARY | 2024-04-25 16:11 | XMS_ITS | Encounter Summary ---
Author Organization [facility] Address [address] [place] [address] Care Team Providers Care Bacteriologist Pharmaceutical Name Role Phone Susana Mesa KAMRYN Primary Care Provider +1 -[phone] Reason for Visit * Reason Comments Medications Refill Encounter Details Date Type Department Care Team (Late st Contact Info) Description 02/28/2023 Refill [facility] Rheumatology [address] [place] [address] Rosina Manuel MD 130 [facility] [address] [place] [address] Medications Refill Social History Tobacco [...] Contact Info) Description 05/25/2024 10:15 EST Telemedicine [facility] Rheumatology [address] [place], [place] [address] Rosina Manuel MD 130 [facility]- [address] [place] [phone] documented as of this encounter Visit Diagnoses Diagnosis Rheumatoid arthritis involving multiple sites with positive rheumatoid factor ([facility]) documented in this encounter Discontinued Medications Medication Sig Discontinue Reason Start Date End Da te methotrexate 25 mg/mL injectionIndications :Rheumatoid arthritis involving multiple sites with positive rheumatoid factor (HCC-CMS) Inject 0.8 ml subcutaneously once a week. 09/15/2022 03/01/2023 documented as of this encounter Care Teams Bacteriologist Pharmaceutical Relationship Specialty Start Date End Date Susana Mesa APRN [address] [place] [address] PCP - General 08/21/19 documented as of this encounter
--- OUTSIDE RECORDS SUMMARY | 2024-04-25 16:11 | XMS_ITS | Encounter Summary ---
Author Organization [facility] Address [address] [place] [address] Care Team Providers Care Water Safety Teacher Name Role Phone Susana Mesa KAMRYN Primary Care Provider +1 -[phone] Reason for Visit * Reason Comments Medications Refill Encounter Details Date Type Department Care Team (Late st Contact Info) Description 08/30/[address] [facility] Rheumatology [address] [place] [address] Rosina Manuel MD 130 [facility] [address] [place] [address] Medications Refill Social History Tobacco [...] that she has had labs done at [facility] more recently than 04/21/21 and asked us to fax new lab orders to [facility] as they charge her 20.00 to get labs done and [facility] charges [phone]. She has an appointment with her PCP there on 10/28 and will get labs done then. Labs printed from [facility] and were done 02/17/22. Lab orders faxed as requested. Refills ofMTX and Humira sent per protocol. * Telephone Encounter - Fifi Maloney - 08/31/2022 1540 EST Letter mailed. * Telephone Encounter - Tammy Zepeda RN - 08/31/2022 1500 EST Patient has not had [facility] labs done since 04/2021 so refused refill request for methotrexate. Standing orders due for renewal so faxed to [facility] lab. Follow up scheduled 09/16/22 via telephone [...] Info) Description 05/25/2024 10:[address] [facility] [place] [address] [place] [address] Rosina Manuel MD 130 [facility] [address] [place] [address] documented as of this encounter Visit Diagnoses Diagnosis Seropositive rheumatoid arthritis of multiple sites ([facility])- Primary High risk medication use Encounter for long-term (current) use of other medications Rheumatoid arthritis involving multiple sites with positive rheumatoid factor ([facility]) documented in this encounter Discontinued Medications Medication Sig Discontinue Reason Start Date End Da te methotrexate sodium/PF (METHOTREXATE, PF,) 25 mg/mL injection USE 0.8ML ONCE WEEKLY Duplicate order 03/12/2022 023 folic acid (FOLVITE) 1 mg tabletIndications:Rh eumatoid arthritis involving multiple sites with positive rheumatoid factor ([facility]) Take 1 Tablet by mouth daily. Reorder 04/25/2021 09/15/2022 methotrexate 25 mg/mL injectionIndications :Rheumatoid arthritis involving multiple sites with positive rheumatoid factor ([facility]) USE 0.8ML ONCE WEEKLY Reorder 05/26/2021 3 HUMIRA,CF, PEN 40 mg/0.4 mL pen INJECT 40MG SUBCUTANEOUSLY EVERY 2 WEEKS Reorder 06/30/2022 09/15/2022 documented as of this encounter Care Teams Water Safety Teacher Relationship Specialty Start Date End Date Susana Mesa APRN [address] [place] [address] PCP - General 08/21/19 documented as of this encounter
--- OUTSIDE RECORDS SUMMARY | 2024-04-25 16:11 | XMS_ITS | Encounter Summary ---
Author Organization [facility] Address [address] [place] [address] Care Team Providers Care Community Health Advocate Name Role Phone Susana Mesa KAMRYN Primary Care Provider +1 [phone] Encounter Details Date Type Department Care Team (Late st Contact Info) Description 04/22/[address] [facility] Rheumatology [address] [place] [address] Charline Roach RN Social History Tobacco [...] 10:[address] [facility] Rheumatology [address] [place] [address] Rosina Manuel MD [address] [place] [address] [address] [place] [address] documented as of this encounter Procedures Procedure Name Priority Date/Time Associated Diagnosis Comments COMPLETE BLOOD COUNT AND DIFFERENTIAL Routine 04/22/2023 C REACTIVE PROTEIN Routine 04/22/2023 COMPREHENSIVE METABOLIC PANEL (CMP) Routine 04/22/2023 documented in this encounter Results * (ABNORMAL) COMPREHENSIVE METABOLIC PANEL (CMP) (04/22/2023) Pathologist [facility] GFR, Calculated, External 84.82 [facility] Glucose, Serum, External 100 74 - 106 mg/dL [facility] Albumin, External 4.0 3.4 - 5.0 g/dL [facility] Total Alkaline Phosphatase, External 86 46 - 116 [facility] ALT, External 27 14 - 59 [facility] SECUR[facility] AST, External 19 15 - [...] * (ABNORMAL) C REACTIVE PROTEIN (04/22/2023) Pathologist [facility] C-Reactive Protein, External 1.10(A) 0.0 - 0.3 [...] FACILITY MCV, External 85 80 - 95 [facility] MCH, External 27.9 27.0 - 33.0 g/dL EXTERNAL FACILITY MCHC, External 32.9 32.0 - 36.0 g/dL EX[facility]ACILITY PLT, External 306 130 - 400 [facility] RDW-CV, External 13.7 11.7 - [...] on filedocumented in this encounter Care Teams Community Health Advocate Relationship Specialty Start Date End Date Susana Mesa APRN [address] [place] [phone] PCP - General 08/21/19 documented as of this encounter
--- OUTSIDE RECORDS SUMMARY | 2024-04-25 16:11 | XMS_ITS | Encounter Summary ---
Author Organization [facility] Address [address] [place] [address] Care Team Providers Care Shingle Catcher Name Role Phone Susana Mesa KAMRYN Primary Care Provider +1 -[phone] Reason for Visit * Reason Onset Date Comments Results 08/20/2020 Encounter Details Date Type Department Care Team (Late st Contact Info) Description 08/20/[address] [facility] Rheumatology [address] [place] [address] Rosina Manuel MD [address] [place] [address] [address] Results Social History Tobacco Use [...] Contact Info) Description 05/25/2024 10:[address] [facility] Rheumatology [address] [place] [address] Rosina Manuel MD [address] [place] [address] [address] [place] [address] documented as of this encounter Visit Diagnoses Not on filedocumented in this encounter Care Teams Shingle Catcher Relationship Specialty Start Date End Date Susana Mesa APRN [address] [place] [address] PCP - General 08/21/19 documented as of this encounter
--- OUTSIDE RECORDS SUMMARY | 2024-04-25 16:11 | XMS_ITS | Encounter Summary ---
Author Organization [facility] Address [address] [place] [address] Care Team Providers Care Artificial Snow Making Machine Operator Name Role Phone Susana Mesa KAMRYN Primary Care Provider +1 -[phone] Reason for Visit * Reason Onset Date Comments Coordination Of Care 10/16/2022 Encounter Details Date Type Department Care Team (Late st Contact Info) Description 10/16/2022 Telephone [facility] Rheumatology [address] [place] [address] Claire Brown, RN Coordination Of [...] Contact Info) Description 05/25/2024 10:15 EST Telemedicine [facility] Rheumatology [address] [place], [place] [address] Rosina Manuel MD [address] [facility] [address] [place] [address] documented as of this encounter Visit Diagnoses Not on filedocumented in this encounter Care Teams Artificial Snow Making Machine Operator Relationship Specialty Start Date End Date Susana Mesa APRN [address] [place] [address] PCP - General 08/21/19 documented as of this encounter
--- OUTSIDE RECORDS SUMMARY | 2024-04-25 16:11 | XMS_ITS | Encounter Summary ---
Author Organization [facility] Address [address] [place] [address] Care Team Providers Care Vehicle Fare Collector Name Role Phone Susana Mesa KAMRYN Primary Care Provider +1 -[phone] Encounter Details Date Type Department Care Team (Late st Contact Info) Description 11/04/2022 Abstract [facility] Rheumatology [address] [place] [address] Claire Brown RN Social History [...] Contact Info) Description 05/25/2024 10:15 EST Telemedicine [facility] Rheumatology [address] [place] [address] Rosina Manuel MD [address] [facility] [address] [place] [address] documented as of this encounter Procedures Procedure Name Priority Date/Time Associated Diagnosis Comments COMPLETE BLOOD COUNT AND DIFFERENTIAL Routine 10/23/2022 C REACTIVE PROTEIN Routine 10/23/2022 COMPREHENSIVE METABOLIC PANEL (CMP) Routine 10/23/2022 documented in this encounter Results * (ABNORMAL) C REACTIVE PROTEIN (10/23/2022) C-Reactive Protein, External 0.53(A) 0.0 - 0.3 mg/dL [facility] Blood VENOUS BLOOD / Unknown 10/23/2022 Rosina Manuel MD CHEMISTRY & BLOO D GAS ORDERABLES Performing Organization Address [facility] Co de Phone Number [facility] * (ABNORMAL) COMPREHENSIVE METABOLIC PANEL (CMP) (10/23/2022) Pathologist [facility] GFR, Calculated, External 73.64 [facility] Glucose, Serum, External 101 74 - 106 [facility] Albumin, External 4.1 3.4 - 5.0 [facility] Total Alkaline Phosphatase, External 95 46 - 116 [facility] ALT, External 20 14 - 59 [facility] AST, External 16 15 - 37 [facility] BUN, External 18 7 - 18 [facility] Calculated Calcium, External [facility] Calcium, External 9.4 8.5 - 10.1 [facility] Chloride, External 100 98 - 107 [facility] CO2, External 31.8 21.0 - 32.0 [facility] Creatinine, External 0.9 0.55 - 1.02 [facility] Fasting?, External [facility] Potassium, External 3.0(A) 3.5 - 5.1 [facility] Sodium, External 138 136 - 145 [facility] Total Protein, External 8.0 6.4 - 8.2 [facility] Bilirubin, Total, External 0.4 0.2 - 1.0 [facility] Blood VENOUS BLOOD / Unknown 10/23/2022 Rosina Manuel MD CHEMISTRY & BLOO D GAS ORDERABLES Performing Organization Address [facility]/ZIP Co de Phone Number [facility] * (ABNORMAL) COMPLETE BLOOD COUNT AND DIFFERENTIAL (10/23/2022) WBC, External 9.06 4.4 - 10.8 [facility] RBC, External 4.98 3.93 - 5.22 [facility] Hemoglobin, External 14.1 11.2 - 15.7 [facility] HCT, External 42.4 36.0 - 46.0 [facility] MCV, External 85 80 - 95 [facility] MCH, External 28.3 27.0 - 33.0 [facility] MCHC, External 33.3 32.0 - 36.0 [facility] PLT, External 305 130 - 400 [facility] RDW-CV, External 14.4 11.7 - 14.6 [facility] Neutrophils, External 62.3 [facility] Lymphocytes, External 25.7 [facility] Monocytes, External 9.6 [facility] Eosinophils, External 1.7 [facility] Basophils, External 0.4 [facility] ABS Neutrophils, External 5.66 1.2 - 6.7 [facility] ABS Lymphs, External 2.34 1.2 - 3.4 [facility] ABS Monocytes, External 0.87(A) 0.1 - 0.8 [facility] ABS Eosinophils, External 0.15 0.0 - 0.7 [facility] ABS Basophils, External 0.04 0.0 - 0.2 [facility] Blood VENOUS BLOOD / Unknown 10/23/2022 Rosina Manuel MD PACKAGES & DNA P STEFFEN ORDERABLES [facility] documented in this encounter Visit Diagnoses Not on filedocumented in this encounter Care Teams Vehicle Fare Collector Relationship Specialty Start Date End Date Susana Mesa APRN [address] [facility] [address] [place] [address] PCP - General 08/21/19 documented as of this encounter
--- OUTSIDE RECORDS SUMMARY | 2024-04-25 16:11 | XMS_ITS | Encounter Summary ---
Author Organization [facility] Address [address] [place] [address] Care Team Providers Care Wire Charger Name Role Phone Susana Mesa KAMRYN Primary Care Provider +1 -[phone] Reason for Visit * Reason Onset Date Comments Medication Management 07/22/2021 Encounter Details Date Type Department Care Team (Late st Contact Info) Description 07/22/2021 Telephone [facility] Rheumatology [address] [place] [address] Rosina Manuel MD [address] [facility] [address] [place] [address] Medication Management Social History Tobacco [...] Contact Info) Description 05/25/2024 10:15 EST Telemedicine [facility] Rheumatology [address] [place] [address] Rosina Manuel MD [address] [facility] [address] [place] [phone] documented as of this encounter Visit Diagnoses Not on filedocumented in this encounter Care Teams Wire Charger Relationship Specialty Start Date End Date Susana Mesa APRN [address] [place] [phone] PCP - General 08/21/19 documented as of this encounter
--- OUTSIDE RECORDS SUMMARY | 2024-04-25 16:11 | XMS_ITS | Encounter Summary ---
Author Organization [facility] Address [address] [place] [address] Care Team Providers Care Runner On Name Role Phone Susana Mesa SUPERVISOR ABATTOIR Primary Care Provider +1 -[phone] Reason for Visit * Reason Onset Date Comments Medication Management 08/22/2020 Encounter Details Date Type Department Care Team (Late st Contact Info) Description 08/22/2020 Telephone [facility] [place] [address] [place] [address] Rosina Manuel MD [address] [facility] [address] [place] [address] Medication Management Social History Tobacco [...] - 08/22/2020 1527 EST Pharmacist from [facility] [employer] called wanting some clarification on dosage since the patient is goingto be taking Humira and MTX. Would like to give the pt some guidance on how to dose both medications please. documented in this encounter Plan of Treatment Upcoming Encounters Date Type Department Care Team (Late st Contact Info) Description 05/25/2024 10:15 EST Telemedicine [facility] Rheumatology [address] [place], [place] [address] Rosina Manuel MD [address] [facility] [address] [place] [address] documented as of this encounter Visit Diagnoses Not on filedocumented in this encounter Care Teams Runner On Relationship Specialty Start Date End Date Susana Mesa APRN [address] [place] [address] PCP - General 08/21/19 documented as of this encounter
--- OUTSIDE RECORDS SUMMARY | 2024-04-25 16:11 | XMS_ITS | Encounter Summary ---
Author Organization [facility] Address [address] [place] [address] Care Team Providers Care Solar Electric/Photovoltaic Installer Name Role Phone Susana Mesa KAMRYN Primary Care Provider +1 -[phone] Encounter Details Date Type Department Care Team (Late st Contact Info) Description 04/21/2021 Abstract [facility] Rheumatology [address] [place] [address] Tammy Zepeda RN Social History Tobacco [...] Contact Info) Description 05/25/2024 10:15 EST Telemedicine [facility] Rheumatology [address] [place] [address] Rosina Manuel MD [address] [place] [address] [address] [place] [address] documented as of this encounter Procedures Procedure Name Priority Date/Time Associated Diagnosis Comments COMPLETE BLOOD COUNT AND DIFFERENTIAL Routine 04/16/2021 C REACTIVE PROTEIN Routine 04/16/2021 COMPREHENSIVE METABOLIC PANEL (CMP) Routine 04/16/2021 documented in this encounter Results * COMPLETE BLOOD COUNT AND DIFFERENTIAL (04/16/2021) WBC, External 6.92 4.4 - 10.8 [facility] RBC, External 4.79 3.93 - 5.22 [facility] Hemoglobin, External 13.6 11.2 - 15.7 [facility] HCT, External 41.6 36.0 - 46.0 [facility] MCV, External 86.8 80 - 95 [facility] MCH, External 28.4 27.0 - 33.0 [facility] MCHC, External 32.7 32.0 - 36.0 [facility] PLT, External 299 130 - 400 [facility] RDW-CV, External 13.5 11.7 - 14.6 [facility] Neutrophils, External 55.9% [facility] Lymphocytes, External 32.1% [facility] Monocytes, External 9.0% [facility] Eosinophils, External 2.3% [facility] Basophils, External 0.4% [facility] ABS Neutrophils, External 3.87 1.2 - 6.7 [facility] ABS Lymphs, External 2.22 1.2 - 3.4 [facility] ABS Monocytes, External 0.62 0.1 - 0.8 [facility] ABS Eosinophils, External 0.16 0.0 - 0.7 [facility] ABS Basophils, External 0.03 0.0 - 0.2 [facility] Blood VENOUS BLOOD / Unknown 04/16/2021 Rosina Manuel MD PACKAGES & DNA Michael BOURNE ORDERABLES [facility] * COMPREHENSIVE METABOLIC PANEL (CMP) (04/16/2021) GFR, Calculated, External >=60 60 [facility] Glucose, Serum, External 87 74 - 106 [facility] Albumin, External 4.0 3.4 - 5.0 [facility] Total Alkaline Phosphatase, External 89 46 - 116 [facility] ALT, External 28 14 - 59 [facility] AST, External 20 15 - 37 [facility] BUN, External 18 7 - 18 [facility] Calculated Calcium, External [facility] Calcium, External 8.9 8.5 - 10.1 [facility] Chloride, External 102 98 - 107 [facility] CO2, External 29.2 21.0 - 32.0 [facility] Creatinine, External 0.9 0.55 - 1.02 [facility] Fasting?, External [facility] Potassium, External 3.9 3.5 - 5.1 [facility] Sodium, External 141 136 - 145 [facility] Total Protein, External 7.4 6.4 - 8.2 [facility] Bilirubin, Total, External 0.5 0.2 - 1.0 [facility] Blood VENOUS BLOOD / Unknown 04/16/2021 Rosina Manuel MD CHEMISTRY & BLOO D GAS ORDERABLES [facility] * (ABNORMAL) C REACTIVE PROTEIN (04/16/2021) C-Reactive Protein, External 0.50(A) 0.0 - 0.30 mg/dL [facility] Blood VENOUS BLOOD / Unknown 04/16/2021 Rosina Manuel MD CHEMISTRY & BLOO D GAS ORDERABLES [facility] documented in this encounter Visit Diagnoses Not on filedocumented in this encounter Care Teams Solar Electric/Photovoltaic Installer Relationship Specialty Start Date End Date Susana Mesa APRN [address] [facility] [address] [place] [address] PCP - General 08/21/19 documented as of this encounter
--- OUTSIDE RECORDS SUMMARY | 2024-04-25 16:11 | XMS_ITS | Encounter Summary ---
Author Organization [facility] Address [address] [place] [address] Care Team Providers Care Upholstery Restorer Name Role Phone Susana Mesa KAMRYN Primary Care Provider +1 -[phone] Reason for Visit * Reason Comments Follow-up SPRA - Pt states the meds are helping her feet (jenny) such that her balance is better. Encounter Details Date Type Department Care Team (Late st Contact Info) Description 10/25/2020 11:45 EDT Office Visit [facility] Rheumatology [address] [place], [place] [phone] Rosina Manuel MD [address] [facility] [address] [place] [phone] Rheumatoid arthritis involving multiple sites with positive rheumatoid factor ([facility]) (Primary Dx); Encounter for long-term (current) [...] ??? Essential hypertension 08/21/2019 ??? Rheumatoid arthritis ([facility]) ??? Rheumatoid arthritis involving multiple sites with positive rheumatoid factor ([facility]) 08/21/2019 ??? Ulcerated leg varices, left [...] if any addition concerns or questions arise. Rosian Manuel MD 10/25/2020 12:05 documented in this encounter Plan of Treatment Upcoming Encounters Date Type Department Care Team (Late st Contact Info) Description 05/25/2024 10:15 EST Telemedicine [facility] Rheumatology [address] [place], [place] [address] Rosina Manuel MD 130 [facility] [address] [place] [phone] documented as of this encounter Visit Diagnoses Diagnosis Rheumatoid arthritis involving multiple sites with positive rheumatoid factor ([facility])- Primary Encounter for long-term (current) use of medications Encounter for long-term (current) use of other medications documented in this encounter Care Teams Upholstery Restorer Relationship Specialty Start Date End Date Susana Mesa APRN [address] [facility] [address] [place] [address] PCP - General 08/21/19 documented as of this encounter
--- OUTSIDE RECORDS SUMMARY | 2024-04-25 16:11 | XMS_ITS | Encounter Summary ---
Author Organization [facility] Address [address] [place] [address] Care Team Providers Care Security Flex Utility Officer Name Role Phone Susana Mesa KAMRYN Primary Care Provider +1 -[phone] Reason for Visit * Reason Onset Date Comments Medication Management 08/22/2020 Encounter Details Date Type Department Care Team (Late st Contact Info) Description 08/22/2020 Telephone [facility] Rheumatology [address] [place] [address] Rosina Manuel MD [address] [place] [address] [address] [place] [address] Medication Management Social History Tobacco [...] - 08/22/2020 1208 EST Alina from [facility] in [place] called to get some information regarding dosing for the patients Humira and Methorexate and looking for call back at [phone]. Please advise . Thanks. documented in this encounter Plan of Treatment Upcoming Encounters Date Type Department Care Team (Late st Contact Info) Description 05/25/2024 10:15 EST Telemedicine [facility] Rheumatology [address] [place] [address] Rosina Manuel MD 130 [facility] [address] [place] [address] documented as of this encounter Visit Diagnoses Not on filedocumented in this encounter Care Teams Security Flex Utility Officer Relationship Specialty Start Date End Date Susana Mesa APRN [address] [place] [address] PCP - General 08/21/19 documented as of this encounter
--- OUTSIDE RECORDS SUMMARY | 2024-04-25 16:11 | XMS_ITS | Encounter Summary ---
Author Organization [facility] Address [address] [place] [address] Care Team Providers Care Hogshead Salvage Name Role Phone Susana Mesa KAMRYN Primary Care Provider +1 -[phone] Reason for Visit * Reason Onset Date Comments Medications Refill 06/25/2021 Faxed refill request from [facility] in [place] for syringes for use with MTX. Encounter Details Date Type Department Care Team (Late st Contact Info) Description 06/25/2021 Refill [facility] Rheumatology [address] [place] [address] Tammy Zepeda, SHABANA Medications Refill (Faxed refill request from [facility] in [place] for syringes for use with MTX.) Social [...] 06/25/2021 1306 EST Syringe Rx called to [facility] as it can't be sent electronically in [facility]. documented in this encounter Plan of Treatment Upcoming Encounters Date Type Department Care Team (Late st Contact Info) Description 05/25/2024 10:15 EST Telemedicine [facility] Rheumatology [address] [place] [address] Rosina Manuel MD 130 [facility] [address] [place] [address] documented as of this encounter Visit Diagnoses Not on filedocumented in this encounter Care Teams Hogshead Salvage Relationship Specialty Start Date End Date Susana Mesa APRN [address] [place] [address] PCP - General 08/21/19 documented as of this encounter
--- OUTSIDE RECORDS SUMMARY | 2024-04-25 16:11 | XMS_ITS | Encounter Summary ---
Author Organization [facility] Address [address] [place] [address] Care Team Providers Care Guinea Pig Breeder Name Role Phone Susana Mesa KAMRYN Primary Care Provider +1 -[phone] Encounter Details Date Type Department Care Team (Late st Contact Info) Description 01/22/2021 Abstract [facility] Rheumatology [address] [place] [address] Claire Brown RN Social History [...] EST Telemedicine [facility] Rheumatology [address] [place] [address] Rosina Manuel MD [address] [facility] [address] [place] [address] documented as of this encounter [...] FACILITY MCV, External 84.3 80 - 95 [facility] MCH, External 28.1 27.0 - 33.0 EXTERNAL FACILITY MCHC, External 33.3 32.0 - 36.0 EXTERNAL FACILITY PLT, External 298 130 - 400 [facility] RDW-CV, External 13.6 11.7 - [...] (ABNORMAL) COMPREHENSIVE METABOLIC PANEL (CMP) (01/16/2021) Pathologist [facility] GFR, Calculated, External >60 60 EXTERNAL FACILITY Glucose, Serum, External 85 74 - 106 [facility] Albumin, External 4.1 3.4 - 5.0 [facility] Total Alkaline Phosphatase, External 87 46 - 116 [facility] ALT, External 20 14 - 59 [facility] AST, External 17 15 - 37 [facility] BUN, External 12 7 - 18 [facility] Calculated Calcium, External EX[facility] FACILITY [...] BLOO D GAS ORDERABLES Performing Organization Address City/[facility]/ZIP Co de Phone Number EXTERNAL FACILITY documented in this encounter Visit Diagnoses Not on filedocumented in this encounter Care Teams Guinea Pig Breeder Relationship Specialty Start Date End Date Susana Mesa APRN [address] [place] [phone] PCP - General 08/21/19 documented as of this encounter
--- OUTSIDE RECORDS SUMMARY | 2024-04-25 16:12 | XMS_ITS | Encounter Summary ---
Author Organization [facility] Address [address] [place] [address] Care Team Providers Care Adult Neuropsychologist Name Role Phone Susana Mesa KAMRYN Primary Care Provider +1 -[phone] Reason for Visit * Reason Onset Date Comments Medications Refill 08/19/2020 Encounter Details Date Type Department Care Team (Late st Contact Info) Description 08/19/2020 Refill [facility] Rheumatology [address] [place] [address] Jennifer Joyce RN Medications Refill Social [...] multiple sites with positive rheumatoid factor ([facility]) Take 1 Tab by mouth daily. 90 Tab 3 08/19/2020 04/25/2021 documented in this encounter Miscellaneous Notes * Telephone Encounter - Jennifer Joyce RN - 08/19/2020 1513 EST Refill Folic Acid sent to [facility] per faxed request. documented in this encounter Plan of Treatment Upcoming Encounters Date Type Department Care Team (Late st Contact Info) Description 05/25/2024 10:15 EST Telemedicine [facility] Rheumatology [address] [place] [address] Rosina Manuel MD 130 [facility] [address] [place] [address] documented as of this encounter Visit Diagnoses Diagnosis Rheumatoid arthritis involving multiple sites with positive rheumatoid factor ([facility])- Primary documented in this encounter Discontinued Medications Medication Sig Discontinue Reason Start Date End Da te folic acid (FOLVITE) 1 mg tabletIndications:Rheumat oid arthritis involving multiple sites with positive rheumatoid factor ([facility]) Take 1 Tab by mouth daily. Reorder 08/19/2020 08/19/2020 documented as of this encounter Care Teams Adult Neuropsychologist Relationship Specialty Start Date End Date Susana Mesa APRN [address] [place] [address] PCP - General 08/21/19 documented as of this encounter
--- OUTSIDE RECORDS SUMMARY | 2024-04-25 16:12 | XMS_ITS | Encounter Summary ---
Author Organization [facility] Address [address] [place] [address] Care Team Providers Care Mailing Jogger Name Role Phone Susana Mesa KAMRYN Primary Care Provider +1 -[phone] Encounter Details Date Type Department Care Team (Late st Contact Info) Description 08/09/2020 Lab Requisition [facility] Pathology & Laboratory Medicine - [facility] [address] [place], [place] [phone] Outr Resulting Lab, Provider Social History Tobacco [...] Contact Info) Description 05/25/2024 10:15 EST Telemedicine [facility] Rheumatology [address] [place] [phone] Rosina Manuel MD [address] [place] [address] [address] [place] [phone] documented as of this encounter Procedures Procedure [...] 373.4 See Note mIU/mL 08/12/2020 10:[address] [facility] Comment: Reference Range for Hep B Surface Ab, Quant: Positive: >= 10.0 mIU/mL Negative: ??< 10.0 mIU/mL Patient is presumed to be immune to infection with Hepatitis B Virus. Hep B Surface Ab, Qualitative Positive See Note 08/12/2020 10:[address] [facility] Comment: Reference Range for Hep B Surface Ab, Qual: Unvaccinated: ??Negative Vaccinated: ??Positive Blood VENOUS BLOOD / Unknown 08/09/2020 9:40 EST 08/09/2020 16:23 EST Provider Outr Resulting Lab CHEMISTRY & BLOOD GAS ORDERABLES Performing Organization Address City/[facility] Co de Phone Number [facility] [address] [place] [address] * HEPATITIS B CORE ANTIBODY (TOTAL) (08/09/2020 9:40 EST) Hepatitis B Core Ab, Total Negative Negative 08/12/2020 11:[address] [facility] Blood VENOUS BLOOD / Unknown 08/09/2020 9:40 EST 08/09/2020 16:23 EST Provider Outr Resulting Lab CHEMISTRY & BLOOD GAS ORDERABLES Performing Organization Address [facility] Co de Phone Number [facility] [address] [place] [address] * HEPATITIS C AB W REFLEX TO HCV RNA BY PCR (08/09/2020 9:40 EST) Hep C Antibody Negative Negative 08/12/2020 10:[address] [facility] Blood VENOUS BLOOD / Unknown 08/09/2020 9:40 EST 08/09/2020 16:23 EST Provider Outr Resulting Lab CHEMISTRY & BLOOD GAS ORDERABLES [facility] [address] [place] [address] documented in this encounter Visit Diagnoses Not on filedocumented in this encounter Care Teams Mailing Jogger Relationship Specialty Start Date End Date Susana Mesa APRN [address] [place] [phone] PCP - General 08/21/19 documented as of this encounter
--- OUTSIDE RECORDS SUMMARY | 2024-04-25 16:12 | XMS_ITS | Encounter Summary ---
Author Organization [facility] Address [address] [place] [address] Care Team Providers Care Supervisor Fruit Grading Name Role Phone Susana Mesa KAMRYN Primary Care Provider +1 [phone] Encounter Details Date Type Department Care Team (Late st Contact Info) Description 12/08/2019 Orders Only [facility] Rheumatology [address] [place] [address] Jennifer Joyce RN Seropositive rheumatoid arthritis of multiple sites ([facility]) (Primary Dx) Social History Tobacco Use Types [...] Contact Info) Description 05/25/2024 10:15 EST Telemedicine [facility] Rheumatology [address] [place] [address] Rosina Manuel MD 130 [facility] [address] [place] [address] documented as of this encounter Visit Diagnoses Diagnosis Seropositive rheumatoid arthritis of multiple sites ([facility])- Primary documented in this encounter Orders Equipment Count Last Ordered Date First Orde red Date GENERIC DME ORDER 1 12/08/2019 documented in this encounter Care Teams Supervisor Fruit Grading Relationship Specialty Start Date End Date Susana Mesa APRN [address] [place] [address] PCP - General 08/21/19 documented as of this encounter
--- OUTSIDE RECORDS SUMMARY | 2024-04-25 16:12 | XMS_ITS | Encounter Summary ---
Author Organization [facility] Address [address] [place] [address] Care Team Providers Care Rotary Cutter Name Role Phone Susana Mesa KAMRYN Primary Care Provider +1 -[phone] Encounter Details Date Type Department Care Team (Late st Contact Info) Description 08/05/2020 Abstract [facility] Rheumatology [address] [place] [address] Rosina Manuel MD [address] [place] [address] [address] Social History Tobacco Use Types [...] [facility] Rheumatology [address] [place] [address] Rosina Manuel MD [address] [place] [address] [address] [place] [address] documented as of this encounter Procedures Procedure Name Priority Date/Time Associated Diagnosis Comments COMPLETE BLOOD COUNT AND DIFFERENTIAL Routine 08/01/2020 C REACTIVE PROTEIN Routine 08/01/2020 COMPREHENSIVE METABOLIC PANEL (CMP) Routine 08/01/2020 documented in this encounter Results * (ABNORMAL) C REACTIVE PROTEIN (08/01/2020) Pathologist [facility] C-Reactive Protein, External 0.64(A) 0.0 - 0.3 Blood VENOUS BLOOD / Unknown 08/01/2020 Historical Provider CHEMISTRY & BLOOD GAS ORDERABLES * (ABNORMAL) COMPREHENSIVE METABOLIC PANEL (CMP) (08/01/2020) Pathologist [facility] GFR, Calculated, External >60 Glucose, Serum, External [...] COMPLETE BLOOD COUNT AND DIFFERENTIAL (08/01/2020) Pathologist [facility] WBC, External 7.77 4.4 - 10.8 RBC, [...] 08/01/2020 Historical Provider MD PACKAGES & DNA NE OBE ORDERABLES documented in this encounter Visit Diagnoses Not on filedocumented in this encounter Care Teams Rotary Cutter Relationship Specialty Start Date End Date Susana Mesa APRN 26 [facility] [address] [place] [address] PCP - General 08/21/19 documented as of this encounter
--- OUTSIDE RECORDS SUMMARY | 2024-04-25 16:12 | XMS_ITS | Encounter Summary ---
Author Organization [facility] Address [address] [place] [address] Care Team Providers Care Service Writer Advisor Name Role Phone Susana Mesa KAMRYN Primary Care Provider +1 -[phone] Reason for Visit * Reason Comments Follow-up Patient c/o mild joaquina n in her ankles and feet today. Medication Management Patient states she needs refill for Folic acid 1 mg Encounter Details Date Type Department Care Team (Late st Contact Info) Description 08/21/2019 13:45 EST Office Visit [facility] Rheumatology [address] [place], [place] [phone] Rosina Manuel MD 130 [facility] [address] [place] [address] Rheumatoid arthritis involving multiple sites with positive rheumatoid factor ([facility]) (Primary Dx); Encounter for long-term [...] Medical History: Diagnosis Date ??? Rheumatoid arthritis ([facility]) ??? Rheumatoid arthritis involving multiple sites with positive rheumatoid factor ([facility]) 08/21/2019 ??? Ulcerated leg varices, left [...] multiple sites with positive rheumatoid factor ([facility]) - hydroxychloroquine (PLAQUENIL) 200 mg tablet; [...] Contact Info) Description 05/25/2024 10:15 EST Telemedicine [facility] Rheumatology [address] [place] [address] Rosina Manuel MD 130 [facility] [address] [place] [address] documented as of this encounter Visit Diagnoses Diagnosis Rheumatoid arthritis involving multiple sites with positive rheumatoid factor ([facility])- Primary Encounter for long-term (current) use [...] 01/26/2024 added in this encounter Care Teams Service Writer Advisor Relationship Specialty Start Date End Date Susana Mesa APRN 26 [facility] [address] [place] [address] PCP - General 08/21/19 documented as of this encounter
--- OUTSIDE RECORDS SUMMARY | 2024-04-25 16:12 | XMS_ITS | Encounter Summary ---
Author Organization [facility] Address [address] [place] [address] Care Team Providers Care Ticket Collector Or Usher Name Role Phone Unavailable Primary Care Provider Unavailabl e Encounter Details Date Type Department Care Team (Latest Contact Info) Description 01/22/2014 13:38 EDT - 01/22/2014 23:59 EDT Hospital Encounter [address] [address] Unknown, ProviderMD Discharge Disposition: Home or Self Care Social History Tobacco Use Types Packs/Day Years Used Date Smoking Tobacco: Never Assessed Sex and Gender Information Value Date Recorded Sex Assigned at Not on file Gender Identity Female 08/17/2019 11:24 EST Sexual Orientation Not on file documented as of this encounter Discharge Disposition Disposition Code Departure Means Destination Home or Self Long Term documented in this encounter Plan of Treatment Upcoming Encounters Date Type Department Care Team (Late st Contact Info) Description 05/25/2024 10:15 EST Telemedicine [facility] Rheumatology [address] [place], [place] [address] Rosina Manuel MD 130 [facility] [address] [place] [address] documented as of this encounter Visit Diagnoses Not on filedocumented in this encounter
--- OUTSIDE RECORDS SUMMARY | 2024-04-25 16:12 | XMS_ITS | Encounter Summary ---
Author Organization [facility] Address [address] [place] [address] Care Team Providers Care Economic Consultant Name Role Phone Susana Mesa APRN Primary Care Provider +1 -[phone] Reason for Visit * Reason Onset Date Comments Results 08/05/2020 incidental low K on [facility] labs Encounter Details Date Type Department Care Team (Late st Contact Info) Description 08/05/2020 Telephone [facility] [address] [place], [place] [phone] Rosina Manuel MD 130 [facility] [address] [place] [address] Results (incidental low K on [facility] labs) [...] Joyce RN - 08/05/2020 0934 EST Called [facility] lab and spoke with Brianna.She will [...] Contact Info) Description 05/25/2024 10:15 EST Telemedicine [facility] Rheumatology [address] [place], [place] [address] Rosina Manuel MD 130 [facility] [address] [place] [address] documented as of this encounter Visit Diagnoses Not on filedocumented in this encounter Care Teams Economic Consultant Relationship Specialty Start Date End Date Susana Mesa APRN [address] [place] [address] PCP - General 08/21/19 documented as of this encounter
--- OUTSIDE RECORDS SUMMARY | 2024-04-25 16:12 | XMS_ITS | Encounter Summary ---
Author Organization [facility] Address [address] [place] [address] Care Team Providers Care Conference Specialist Name Role Phone Susana Mesa KAMRYN Primary Care Provider +1 -[phone] Reason for Visit * Reason Onset Date Comments Advice Only 04/12/2020 Encounter Details Date Type Department Care Team (Late st Contact Info) Description 04/12/2020 Telephone [facility] Rheumatology [address] [place] [address] Rosina Manuel MD 130 [facility] [address] [place] [address] Advice Only Social History Tobacco [...] and taking the methotrexate. Please advise. Thanks. [phone]. documented in this encounter Plan of Treatment Upcoming Encounters Date Type Department Care Team (Late st Contact Info) Description 05/25/2024 10:15 EST Telemedicine [facility] Rheumatology [address] [place] [address] Rosina Manuel MD 130 [facility] [address] [place] [address] documented as of this encounter Visit Diagnoses Not on filedocumented in this encounter Care Teams Conference Specialist Relationship Specialty Start Date End Date Susana Mesa APRN [address] [place] [address] PCP - General 08/21/19 documented as of this encounter
--- OUTSIDE RECORDS SUMMARY | 2024-04-25 16:12 | XMS_ITS | Encounter Summary ---
Author Organization [facility] Address [address] [place] [address] Care Team Providers Care Manager Emergency Name Role Phone Susana Mesa KAMRYN Primary Care Provider +1 -[phone] Encounter Details Date Type Department Care Team (Late st Contact Info) Description 08/10/[address] [facility] Pathology & Laboratory Medicine - [facility] [address] [place], [place] [phone] Outr Resulting Lab, Provider Social History Tobacco [...] Contact Info) Description 05/25/2024 10:15 EST Telemedicine [facility] Rheumatology [address] [place] [address] Rosina Manuel MD 130 [facility] [address] [place] [phone] documented as of this encounter Procedures Procedure Name Priority Date/Time Associated Diagnosis Comments HEPATITIS B SURFACE ANTIGEN Routine 08/09/2020 9:40 EST documented in this encounter Results * HEPATITIS B SURFACE ANTIGEN (08/09/2020 9:40 EST) Hep B Surface Ag Negative Negative 08/12/2020 10:50 EST [facility] Blood VENOUS BLOOD / Unknown 08/09/2020 9:40 EST 08/10/2020 21:59 EST Provider Outr Resulting Lab CHEMISTRY & BLOOD GAS ORDERABLES [facility] [address] [place] [address] documented in this encounter Visit Diagnoses Not on filedocumented in this encounter Care Teams Manager Emergency Relationship Specialty Start Date End Date Susana Mesa APRN [address] [place] [address] PCP - General 08/21/19 documented as of this encounter
--- OUTSIDE RECORDS SUMMARY | 2024-04-25 16:12 | XMS_ITS | Encounter Summary ---
Author Organization [facility] Address [address] [place] [address] Care Team Providers Care Assistant Unit Forester Name Role Phone Susana Mesa KAMRYN Primary Care Provider +1 -[phone] Reason for Visit * Reason Comments Medication Management Encounter Details Date Type Department Care Team (Late st Contact Info) Description 11/30/2019 8:45 EDT Telemedicine [facility] Rheumatology [address] [place] [address] Rosina Manuel MD 130 [facility] [address] [place] [address] Encounter for long-term (current) use [...] Notes * Rosina Manuel MD - 11/30/2019 9807 EDT [facility] Telephone Visit Verbal consent: The concept of [...] Tolerating hydroxychloroquine and methotrexate. Recent labs from [facility] reported as normal but not available for my review. Continue current cares and medications. 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 Assessment & Plan: 1. Encounter for long-term (current) use of medications Continue the methotrexate and plaquenil Need labs from [facility]. 2. Rheumatoid arthritis involving multiple sites with [...] encounter. * Jennifer Joyce RN - 11/30/2019 0800 EDT Called [facility] and they are faxing labs. Please give them to Dr Manuel when they come in. Thank you documented in this encounter Plan of Treatment Upcoming Encounters Date Type Department Care Team (Late st Contact Info) Description 05/25/2024 10:15 EST Telemedicine [facility] Rheumatology [address] [place] [address] Rosina Manuel MD 130 [facility] [address] [place] [address] documented as of this encounter Visit Diagnoses Diagnosis Encounter for long-term (current) use of medications- Primary Encounter for long-term (current) use of other medications Rheumatoid arthritis involving multiple sites with positive rheumatoid factor ([facility]) Ulcerated varicose veins of leg, left ([facility]) documented in this encounter Care Teams Assistant Unit Forester Relationship Specialty Start Date End Date Susana Mesa APRN [address] [place] [address] PCP - General 08/21/19 documented as of this encounter
--- OUTSIDE RECORDS SUMMARY | 2024-04-25 16:12 | XMS_ITS | Encounter Summary ---
Author Organization [facility] Address [address] [place] [address] Care Team Providers Care Procedures Nurse Name Role Phone Susana Mesa KAMRYN Primary Care Provider +1 -[phone] Reason for Visit * Reason Comments Other Encounter Details Date Type Department Care Team (Late st Contact Info) Description 12/08/2019 Refill [facility] Rheumatology [address] [place] [address] Rosina Manuel MD [address] [place], [place] [address] [address] [place] [address] Other Social History Tobacco Use [...] called in as a DME order to [facility] in [place]. documented in this encounter Plan of Treatment Upcoming Encounters Date Type Department Care Team (Late st Contact Info) Description 05/25/2024 10:15 EST Telemedicine [facility] Rheumatology [address] [place] [address] Rosina Manuel MD [address] [place], [place] [address] [address] [place] [address] documented as of this encounter Visit Diagnoses Not on filedocumented in this encounter Care Teams Procedures Nurse Relationship Specialty Start Date End Date Susana Mesa APRN [address] [place] [address] PCP - General 08/21/19 documented as of this encounter
--- OUTSIDE RECORDS SUMMARY | 2024-04-25 16:12 | XMS_ITS | Encounter Summary ---
Author Organization [facility] Address [address] [place] [address] Care Team Providers Care Vice President Marketing & Development Name Role Phone Unavailable Primary Care Provider Unavailabl e Encounter Details Date Type Department Care Team (Late st Contact Info) Description 06/23/2004 Results Only [facility] [address] [place] [address] Chris Siegel, SU[employer] [address] [place], [place] [phone] Social History Tobacco Use Types Packs/Day Years Used Date Smoking Tobacco: Never Assessed Sex and Gender Information Value Date Recorded Sex Assigned at Not on file Gender Identity Female 08/17/2019 11:24 EST Sexual Orientation Not on file documented as of this encounter Plan of Treatment Upcoming Encounters Date Type Department Care Team (Late st Contact Info) Description 05/25/2024 10:15 EST Telemedicine [facility] Rheumatology [address] [place], [place] [address] Rosina Manuel MD 130 [facility] [address] [place] [address] documented as of this encounter Procedures Procedure [...] ? CHARLINE RALPH ? Accession #: ? [id number] : ? 1965 (Age: 39) ??F ?Collect [...] Siegel NP PATHOLOGY ORDERABLES JOCELYN GOODWIN [address] [place] [address] documented in this encounter Visit Diagnoses Not on filedocumented in this encounter
--- OUTSIDE RECORDS SUMMARY | 2024-04-25 16:12 | XMS_ITS | Encounter Summary ---
Author Organization [facility] Address [address] [place] [address] Care Team Providers Care Heel Stiffener Name Role Phone Susana Mesa KAMRYN Primary Care Provider +1 -[phone] Reason for Visit * Reason Onset Date Comments Medications Refill 08/19/2020 Encounter Details Date Type Department Care Team (Late st Contact Info) Description 08/19/2020 Refill [facility] Rheumatology [address] [place], [place] [address] Jennifer Joyce RN Medications Refill Social History [...] MTX,Folic Acid and HCQ to [facility] in [place]. documented in this encounter Plan of Treatment Upcoming Encounters Date Type Department Care Team (Late st Contact Info) Description 05/25/2024 10:[address] [facility] Rheumatology [address] [place], [place] [address] Rosina Manuel MD 130 [facility] [address] [place] [address] documented as of this encounter [...] documented as of this encounter Care Teams Heel Stiffener Relationship Specialty Start Date End Date Susana Mesa APRN [address] [address] [place] [address] PCP - General 08/21/19 documented as of this encounter
--- OUTSIDE RECORDS SUMMARY | 2024-04-25 16:12 | XMS_ITS | Encounter Summary ---
Author Organization [facility] Address [address] [place] [address] Care Team Providers Care Manager Reliability Name Role Phone Susana Mesa KAMRYN Primary Care Provider +1 -[phone] Encounter Details Date Type Department Care Team (Late st Contact Info) Description 08/20/2020 Abstract [facility] Rheumatology [address] [place] [address] Rosina Manuel MD [address] [place] [address] [address] Social History Tobacco Use Types [...] Contact Info) Description 05/25/2024 10:15 EST Telemedicine [facility] Rheumatology [address] [place] [address] Rosina Manuel MD [address] [place], [place] [address] [address] [place] [address] documented as of this encounter [...] Unknown 08/09/2020 Historical Provider PACKAGES & DNA WI OBE ORDERABLES * (ABNORMAL) C REACTIVE PROTEIN (08/09/2020) Pathologist [facility] C-Reactive Protein, External 0.76(A) 0.0 - 0.3 Blood VENOUS BLOOD / Unknown 08/09/2020 Historical Provider CHEMISTRY & BLOOD GAS ORDERABLES * (ABNORMAL) COMPREHENSIVE METABOLIC PANEL (CMP) (08/09/2020) [facility] GFR, Calculated, External >60 Glucose, Serum, External [...] filedocumented in this encounter Care Teams Manager Reliability Relationship Specialty Start Date End Date Susana Mesa APRN [address] [place] [address] PCP - General 08/21/19 documented as of this encounter
--- OUTSIDE RECORDS SUMMARY | 2024-04-25 16:12 | XMS_ITS | Encounter Summary ---
Author Organization [facility] Address [address] [place] [address] Care Team Providers Care Raw Stock Machine Feeder Name Role Phone Unknown, Provider Primary Care Provider [phone] Susana Mesa APRN Primary Care Provider [phone] Encounter Details Date Type Department Care Team (Late st Contact Info) Description 08/07/2019 Lab Requisition [facility] Pathology & Laboratory Medicine - [address] [address] Annette Morris MD [address] [place] [address] [place] [address] Other hemorrhoids; Diverticulosis of large intestine without [...] Telemedicine [facility] Rheumatology [address] [place] [address] Rosina Manuel MD 130 [facility] [address] [place] [phone] documented as of this encounter Procedures Procedure Name Priority Date/Time Associated Diagnosis Comments SURGICAL PATHOLOGY Today 08/07/2019 7: 50 EST Other hemorrhoids documented in this encounter Results * SURGICAL PATHOLOGY (08/07/2019 7:50 EST) Final Diagnosis A. COLON, TRANSVERSE, BIOPSIES: -No significant pathologic abnormality 08/15/2019 16:37 [facility] at 1637 Diagnosis Comment Deeper levels were examined 08/15/2019 16:37 [facility] Clinical History Colon CA screening History polyps 08/15/2019 16:37 [facility] Attestation By the signature below, the attending physician certifies that they have personally conducted a gross and/or microscopic examination of the described specimens and rendered or confirmed the above diagnosis. 08/15/2019 16:37 [facility] at 1637 Gross Description A. Received in formalin labelled with proper patient identification (initials C, M) and transverse colon polyp are 2 fragments of begum tissue; each measuring 0.2 x 0.2 x 0.2 cm. The specimens are submitted entirely in A1. 08/07/2019 15:44 08/15/2019 16:37 [facility] Scanned Images 08/15/2019 16:37 [facility] Tissue ENTIRE TRANSVERSE COLON / Unknown 08/07/2019 7:50 EST 08/07/2019 15:37 EST Annette Morris MD PATHOLOGY ORDERA [facility] [address] [place] [address] documented in this encounter Visit Diagnoses Diagnosis Other hemorrhoids Diverticulosis of large intestine without perforation or abscess without bleeding Diverticulosis of colon (without mention of hemorrhage) documented in this encounter Care Teams Raw Stock Machine Feeder Relationship Specialty Start Date End Date Unknown, Provider, PCP - General 01/25/14 08/20/19 Susana Mesa APRN [address] [phone] PCP - General 08/21/19 documented as of this encounter
--- OUTSIDE RECORDS SUMMARY | 2024-04-25 16:12 | XMS_ITS | Encounter Summary ---
Author Organization [facility] Address [address] [place] [address] Care Team Providers Care Senior Sql Developer Name Role Phone Susana Mesa KAMRYN Primary Care Provider [phone] Reason for Visit * Reason Onset Date Comments Prior Auth, Medication 08/12/2020 Humira Encounter Details Date Type Department Care Team (Late st Contact Info) Description 08/12/2020 Telephone [facility] Rheumatology [address] [place], [place] [address] Rosina Manuel MD 130 [facility] [address] [address] [place] [phone] Prior Auth, Medication (Humira) Social History Tobacco [...] Encounter - Jennifer Joyce RN - 08/19/2020 0925 EST Humira Rx sent to [facility] in [place]. Called pt and notified her.She declines teaching [...] pen Approved: 08/15/20 - 08/15/21 Authorization Number: [id number] Benefits Information or Other Notes: Required Pharmacy: [facility] Preferred Pharmacy: n/a Prior Authorization Submission Process Medication: Humira 40mg/0.4mL pen Insurance: [employer] (commercial) Date [place] Request Received: 08/02/20 [place] Submission Date: 08/15/20 REPLACED BY [facility] Esquivel: [id number] Submitted by: Raiza Phone: [phone] documented in this encounter Plan of Treatment Upcoming Encounters Date Type Department Care Team (Late st Contact Info) Description 05/25/2024 10:15 EST Telemedicine [facility] Rheumatology [address] [place], [place] [address] Rosina Manuel MD 130 [facility] [address] [place] [phone] documented as of this encounter Visit Diagnoses Not on filedocumented in this encounter Care Teams Senior Sql Developer Relationship Specialty Start Date End Date Susana Mesa APRN [address] [place] [address] PCP - General 08/21/19 documented as of this encounter
--- OUTSIDE RECORDS SUMMARY | 2024-04-25 16:12 | XMS_ITS | Encounter Summary ---
Author Organization [facility] Address [address] [place] [address] Care Team Providers Care Communications Strategist Name Role Phone Unavailable Primary Care Provider Unavailabl e Encounter Details Date Type Department Care Team (Late st Contact Info) Description 01/19/2014 Results Only [facility] Laboratory Services - [facility] ([facility]) [address] [place] [id number] Jordan Simeon MD [address] [place] [address] Social History Tobacco Use Types Packs/Day Years Used Date Smoking Tobacco: Never Assessed Sex and Gender Information Value Date Recorded Sex Assigned at Not on file Gender Identity Female 08/17/2019 11:24 EST Sexual Orientation Not on file documented as of this encounter Plan of Treatment Upcoming Encounters Date Type Department Care Team (Late st Contact Info) Description 05/25/2024 10:15 EST Telemedicine [facility] Rheumatology [address] [place], [place] [address] Rosina Manuel MD 130 [facility] [address] [place] [phone] documented as of this encounter Procedures Procedure [...] ? CHARLINE RALPH ? Accession #: ? [id number] : ? 1965 (Age: 48) ??F ?Collect [...] types 16,18,31,33,35, 39,45,51,52,56,58, 59,66, and 68 by digital imaging technician mediated amplification. Comments Document reviewed and electronically signed by: ? System Interface ? Report date: 01/30/2014 By the signature above, the attending physician certifies that he/she has personally conducted a gross and/or microscopic examination of the described specimens and rendered or confirmed the above diagnosis. End of Report JOCELYN GOODWIN 01/19/2014 01/23/2014 Celina Jolly MD PATHOLOGY ORDERABLES Performing Organization Address City/State/[facility] Co de Phone Number JOCELYN GOODWIN [address] [place] [address] documented in this encounter Visit Diagnoses Not on filedocumented in this encounter
--- OUTSIDE RECORDS SUMMARY | 2024-04-25 16:12 | XMS_ITS | Encounter Summary ---
Author Organization [facility] Address [address] [place] [address] Care Team Providers Care Plant Attendant Name Role Phone Susana Mesa KAMRYN Primary Care Provider [phone] Reason for Visit * Reason Comments Other Encounter Details Date Type Department Care Team (Late st Contact Info) Description 06/06/2020 Refill [facility] Rheumatology [address] [place] [address] Rosina Manuel MD [address] [place] [address] [phone] Other Social History Tobacco Use [...] involving multiple sites with positive rheumatoid factor ([facility]) USE 0.8ML ONCE WEEKLY 12 mL 1 06/07/2020 08/19/2020 documented in this encounter Plan of Treatment Upcoming Encounters Date Type Department Care Team (Late st Contact Info) Description 05/25/2024 10:15 EST Telemedicine [facility] Rheumatology [address] [place] [address] Rosina Manuel MD [address] [place] [address] [address] [place] [address] documented as of this encounter Visit Diagnoses Diagnosis Rheumatoid arthritis involving multiple sites with positive rheumatoid factor ([facility]) documented in this encounter Discontinued Medications Medication Sig Discontinue Reason Start Date End Da te methotrexate 25 mg/mL injectionIndications:Rhe umatoid arthritis involving multiple sites with positive rheumatoid factor ([facility]) USE 0.8ML ONCE WEEKLY 12/15/2019 06/07/2020 documented as of this encounter Care Teams Plant Attendant Relationship Specialty Start Date End Date Susana Mesa, KAMRYN [address] [place] [phone] PCP - General 08/21/19 documented as of this encounter
--- OUTSIDE RECORDS SUMMARY | 2024-04-25 16:12 | XMS_ITS | Encounter Summary ---
Author Organization [facility] Address [address] [place] [address] Care Team Providers Care Blood Bank Custodian Name Role Phone Susana Mesa KAMRYN Primary Care Provider [phone] Encounter Details Date Type Department Care Team (Late st Contact Info) Description 08/01/2020 Orders Only [facility] Rheumatology [address] [place] [address] Tammy Zepeda RN Seropositive rheumatoid arthritis of multiple sites ([facility]) (Primary Dx); High risk medication use Social [...] Contact Info) Description 05/25/2024 10:15 EST Telemedicine [facility] Rheumatology [address] [place] [address] Rosina Manuel MD 130 [facility] [address] [place] [address] documented as of this encounter Visit Diagnoses Diagnosis Seropositive rheumatoid arthritis of multiple sites ([facility])- Primary High risk medication use Encounter for long-term (current) use of other medications documented in this encounter Care Teams Blood Bank Custodian Relationship Specialty Start Date End Date Susana Mesa APRN [address] [place] [phone] PCP - General 08/21/19 documented as of this encounter
--- OUTSIDE RECORDS SUMMARY | 2024-04-25 16:12 | XMS_ITS | Encounter Summary ---
Author Organization [facility] Address [address] [place] [address] Care Team Providers Care Guard Driver Name Role Phone Susana Mesa KAMRYN Primary Care Provider [phone] Reason for Visit * Reason Comments Other Encounter Details Date Type Department Care Team (Late st Contact Info) Description 12/15/2019 Refill [facility] Rhe[facility] [address] [place] [address] Rosina Manuel MD 130 [facility] [address] [place] [address] Other Social History Tobacco Use [...] involving multiple sites with positive rheumatoid factor ([facility]) USE 0.8ML ONCE WEEKLY 12 mL [...] Contact Info) Description 05/25/2024 10:15 EST Telemedicine [facility] Rheumatology [address] [place], [place] [address] Rosina Manuel MD 130 [facility] [address] [place] [phone] documented as of this encounter Visit Diagnoses Diagnosis Rheumatoid arthritis involving multiple sites with positive rheumatoid factor ([facility])- Primary documented in this encounter Discontinued Medications Medication Sig Discontinue Reason Start Date End Da te methotrexate 25 mg/mL injectionIndications:rhe umatoid arthritis Inject 0.8 mL into the skin once a week. 08/21/2019 12/15/2019 documented as of this encounter Care Teams Guard Driver Relationship Specialty Start Date End Date Susana Meas APRN [address] [place] [address] PCP - General 08/21/19 documented as of this encounter
--- OUTSIDE RECORDS SUMMARY | 2024-04-25 16:12 | XMS_ITS | Encounter Summary ---
Author Organization [facility] Address [address] [place] [address] Care Team Providers Care Sole Leveling Machine Operator Name Role Phone Unknown, Provider Primary Care Provider Encounter Details Date Type Department Care Team (Late st Contact Info) Description 03/01/2018 Results Only [facility] [phone] Jeremiah López, DIGITAL RETOUCHER 26 [facility] [address] [place] [address] Social History Tobacco Use Types Packs/Day Years Used Date Smoking Tobacco: Never Assessed Sex and Gender Information Value Date Recorded Sex Assigned at Not on file Gender Identity Female 08/17/2019 11:24 EST Sexual Orientation Not on file documented as of this encounter Plan of Treatment Upcoming Encounters Date Type Department Care Team (Late st Contact Info) Description 05/25/2024 10:15 EST Telemedicine [facility] Rheumatology [address] [place], [place] [address] Rosina Manuel MD 130 [facility] [address] [place] [address] documented as of this encounter Procedures Procedure [...] RAMO CHARLINE Garland ? Accession #: ? [id number] ? : ? 1965 (Age: 52) ??F ?Collect Date: ? 03/01/2018 ? Location: ? [facility] ? Receive Date: ? 03/03/2018 ? Provider: JEREMIAH LÓPEZ DIGITAL RETOUCHER Copy to: ? Final Report SPECIMEN ADEQUACY [...] types 16,18,31,33,35, 39,45,51,52,56,58, 59,66, and 68 by slip cover cutter mediated amplification. Comments Document reviewed and electronically signed by: ? System Interface ? Report date: 03/15/2018 By the signature above, the attending physician certifies that he/she has personally conducted a gross and/or microscopic examination of the described specimens and rendered or confirmed the above diagnosis. End of Report [facility] 03/01/2018 03/03/2018 Jeremiah López APRN PATHOLOGY ORDERAB LES [facility] [address] [place] [address] documented in this encounter Visit Diagnoses Not on filedocumented in this encounter Care Teams Sole Leveling Machine Operator Relationship Specialty Start Date End Date Unknown, Provider, PCP - General 01/25/14 08/20/19 documented as of this encounter
--- OUTSIDE RECORDS SUMMARY | 2024-04-25 16:12 | XMS_ITS | Encounter Summary ---
Author Organization [facility] Address [address] [place] [address] Care Team Providers Care Child Support Specialist Name Role Phone Unavailable Primary Care Provider Unavailabl e Encounter Details Date Type Department Care Team (Late st Contact Info) Description 12/28/[address] [facility] conversion [address] [place] [address] Yessenia Vásquez FNP [address] [place] [address] Social History Tobacco Use Types [...] 05/25/2024 10:15 EST Telemedicine [facility] Rheumatology [address] [place], [place] [address] Rosina Manuel MD 130 [facility] [address] [place] [phone] documented as of this encounter Procedures Procedure [...] ? CHARLINE RALPH ? Accession #: ? [id number] : ? 1965 (Age: 40) ??F ?Collect Date: ? 12/28/2005 Location: ? [facility] ? Receive Date: ? 12/31/2005 Provider: ?YESSENIA JOHNSTON Copy to: ? Specimen/Source: ?ThinPrep Pap Test, Cervix/Endocervix, processed on [employer] ThinPrep Imaging System, with manual evaluation Last [...] and electronically signed by: ? WALE MCGRAW [facility] ? Report Date: ??01/11/2006 17:05 End of Report JOCELYN GOODWIN 12/28/2005 12/31/2005 Yessenia JOHNSTON PATHOLOGY ORDERABLES JOCELYN GOODWIN [address] [place] [address] documented in this encounter Visit Diagnoses Not on filedocumented in this encounter
--- OUTSIDE RECORDS SUMMARY | 2024-04-25 16:12 | XMS_ITS | Encounter Summary ---
Author Organization [facility] Address [address] [place] [address] Care Team Providers Care Spinner Hand Name Role Phone Susana Mesa APRN Primary Care Provider [phone] Encounter Details Date Type Department Care Team (Late st Contact Info) Description 08/10/2020 Lab Requisition [facility] Pathology & Laboratory Medicine - [facility] [address] [place], [place] [address] Outr Resulting Lab, Provider Social History Tobacco [...] 05/25/2024 10:15 EST Telemedicine [facility] [place] [address] [place], [place] [address] Rosina Manuel MD 130 [facility] [address] [place] [phone] documented as of this encounter Procedures Procedure Name Priority Date/Time Associated Diagnosis Comments QUANTIFERON TB GOLD PLUS Routine 08/09/2020 9:40 EST documented in this encounter Results * QUANTIFERON TB GOLD PLUS (08/09/2020 9:40 EST) Quantiferon Interpretation Negative Negative 08/12/2020 14:26 [facility] Comment: No interferon-gamma response to [...] minus Nil 0.00 IU/ml 08/12/19 14:26 EST [facility] TB2 Ag minus Nil 0.00 IU/mL 08/12/19 21 14:26 [facility] Blood VENOUS BLOOD / Unknown 08/09/2020 9:40 EST 08/10/2020 21:59 EST Narrative [facility] - 08/12/2020 14:26 EST Results were obtained with the [employer] QuantiFERON-TB Gold Plus DOUG. Provider Outr Resulting Lab CHEMISTRY & BLOOD GAS ORDERABLES Performing Organization Address City/State/[facility] Co de Phone Number [facility] [address] [place] [address] documented in this encounter Visit Diagnoses Not on filedocumented in this encounter Care Teams Spinner Hand Relationship Specialty Start Date End Date Susana Mesa APRN [address] [place] [phone] PCP - General 08/21/19 documented as of this encounter
--- OUTSIDE RECORDS SUMMARY | 2024-04-25 16:12 | XMS_ITS | Encounter Summary ---
Author Organization [facility] Address [address] [place] [address] Care Team Providers Care Industrial Fabric Cutter Name Role Phone Unavailable Primary Care Provider Unavailabl e Encounter Details Date Type Department Care Team (Late st Contact Info) Description 10/29/2000 Results Only [facility] [address] [place] [address] Samra Colunga, [facility] [address] [place] [address] Social History Tobacco Use Types Packs/Day Years Used Date Smoking Tobacco: Never Assessed Sex and Gender Information Value Date Recorded Sex Assigned at Not on file Gender Identity Female 08/17/2019 11:24 EST Sexual Orientation Not on file documented as of this encounter Plan of Treatment Upcoming Encounters Date Type Department Care Team (Late st Contact Info) Description 05/25/2024 10:15 EST Telemedicine [facility] Rheumatology [address] [place] [address] Rosina Manuel MD 130 [facility] [address] [place] [phone] documented as of this encounter Procedures Procedure [...] ? CHARLINE RALPH ? Accession #: ? [id number] : ? 1965 (Age: 35) ??F ?Collect Date: ? 10/29/2000 Location: ? [facility] ? Receive Date: ? 11/01/2000 Provider: ?SAMRA COLUNGA JUNIOR ACCOUNT MANAGER Copy to: ? Specimen/Source: ?ThinPrep Pap Test, Cervix/Endocervix Last Menstrual Period: ? 10/16/00 ? SPECIMEN ADEQUACY ? Satisfactory for evaluation. GENERAL CATEGORIZATION ? Within Normal Limits ? Document reviewed and electronically signed by: ? Delmis Worrell, ??SCT(ASCP) ? Report Date: ??11/02/2000 13:50 End of Report JOCELYN GOODWIN 10/29/2000 11/01/2000 Samra Colunga JUNIOR ACCOUNT MANAGER PATHOLOGY ORDERABLES [facility] [address] [place] [address] documented in this encounter Visit Diagnoses Not on filedocumented in this encounter
--- OUTSIDE RECORDS SUMMARY | 2024-04-25 16:12 | XMS_ITS | Encounter Summary ---
Author Organization [facility] Address [address] [place] [address] Care Team Providers Care Signal Worker Name Role Phone Unavailable Primary Care Provider Unavailabl e Encounter Details Date Type Department Care Team (Late st Contact Info) Description 06/14/2007 Results Only [facility] conversion [address] [place] [address] Yessenia Vásquez FNP [address] [place] [address] Social History Tobacco Use Types Packs/Day Years Used Date Smoking Tobacco: Never Assessed Sex and Gender Information Value Date Recorded Sex Assigned at Not on file Gender Identity Female 08/17/2019 11:24 EST Sexual Orientation Not on file documented as of this encounter Plan of Treatment Upcoming Encounters Date Type Department Care Team (Late st Contact Info) Description 05/25/2024 10:15 EST Telemedicine [facility] Rheumatology [address] [place], [place] [address] Rosina Manuel MD 130 [facility] [address] [place] [phone] documented as of this encounter Procedures Procedure [...] ? CHARLINE RALPH ? Accession #: ? [id number] : ? 1965 (Age: 42) ??F ?Collect Date: ? 06/14/2007 Location: ? [facility] ? Receive Date: ? 06/16/2007 Provider: ?YESSENIA COFFEYP Copy to: ? Specimen/Source: ?ThinPrep Pap Test, Cervix/Endocervix, processed on [employer] ThinPrep Imaging System, with manual evaluation Last [...] electronically signed by: ? WALE MCGRAW MD [facility] ? Report Date: ??06/20/2007 11:55 End of Report JOCELYN GOODWIN 06/14/2007 06/16/2007 Yessenia Vásquez MEDICAL WRITER PATHOLOGY ORDERABLES JOCELYN GOODWIN [address] [place] [address] documented in this encounter Visit Diagnoses Not on filedocumented in this encounter
--- OUTSIDE RECORDS SUMMARY | 2024-04-25 16:12 | XMS_ITS | Encounter Summary ---
Author Organization [facility] Address [address] [place] [address] Care Team Providers Care Travelift Operator Name Role Phone Susana Mesa KAMRYN Primary Care Provider [phone] Reason for Visit * Reason Comments Rheumatoid Arthritis Encounter Details Date Type Department Care Team (Late st Contact Info) Description 08/02/2020 15:15 EST Telemedicine [facility] Rheumatology [address] [place] [address] Rosina Manuel MD 130 [facility] [address] [place] [address] Seropositive rheumatoid arthritis of multiple sites ([facility]) (Primary Dx); Encounter for long-term (current) [...] q tb We will fax labs to [facility] Read about Humira documented in this encounter Progress Notes * Rosina Manuel MD - 08/02/2020 1515 EST [facility] Telephone Visit Verbal consent: The concept of [...] High risk medication -will get labs at [facility] -prior auth for Humira -discussed risk and [...] 08/02/2020 1515 EST Lab orders faxed to [facility] on 08/08/2020 documented in this encounter Plan of Treatment Upcoming Encounters Date Type Department Care Team (Late st Contact Info) Description 05/25/2024 10:15 EST Telemedicine [facility] Rheumatology [address] [place], [place] [address] Rosina Manuel MD 130 [facility] [address] [place] [address] documented as of this encounter Visit Diagnoses Diagnosis Seropositive rheumatoid arthritis of multiple sites ([facility])- Primary Encounter for long-term (current) use of medications Encounter for long-term (current) use of other medications Need for hepatitis B screening test Need for hepatitis C screening test Special screening examination for other specified viral diseases documented in this encounter Care Teams Travelift Operator Relationship Specialty Start Date End Date Susana Mesa, KAMRYN [address] [place] [address] PCP - General 08/21/19 documented as of this encounter
--- OUTSIDE RECORDS SUMMARY | 2024-04-25 16:12 | XMS_ITS | Encounter Summary ---
Author Organization [facility] Address [address] [place] [address] Care Team Providers Care Computer Forwarding System Markup Clerk Name Role Phone Susana Mesa ANIMAL SERVICES OFFICER Primary Care Provider [phone] [phone] Encounter Details Date Type Department Care Team (Late st Contact Info) Description 08/19/2020 Orders Only [facility] Rheumatology [address] [place] [address] Jennifer Joyce, RN Social History Tobacco Use [...] 40 mg /0.4 ml Rx sent to [facility] per PA team request. documented in this encounter Plan of Treatment Upcoming Encounters Date Type Department Care Team (Late st Contact Info) Description 05/25/2024 10:15 EST Telemedicine [facility] Rheumatology [address] [place] [address] Rosina Manuel MD [address] [facility] [address] [place] [address] documented as of this encounter Visit Diagnoses Not on filedocumented in this encounter Care Teams Computer Forwarding System Markup Clerk Relationship Specialty Start Date End Date Susana Mesa APRN [address] [facility] [address] [place] [address] PCP - General 08/21/19 documented as of this encounter
--- OUTSIDE RECORDS SUMMARY | 2024-04-25 16:12 | XMS_ITS | Encounter Summary ---
Author Organization [facility] Address [address] [place] [address] Care Team Providers Care Pattern Developer Name Role Phone Unavailable Primary Care Provider Unavailabl e Encounter Details Date Type Department Care Team (Late st Contact Info) Description 01/22/2014 Results Only [facility] ([facility]) [address] [place] [address] [id number] Jordan Fabian MD [address] [place] [phone] Social History Tobacco Use Types Packs/Day [...] 10:15 EST Telemedicine [facility] Rheumatology [address] [place], [place] [address] Rosina Manuel MD [address] [facility] [address] [place] [phone] documented as of this encounter Procedures Procedure [...] ? CHARLINE RALPH ? Accession #: ? [id number] ? : ? 1965 (Age: 48) ??F [...] MD PATHOLOGY ORDERABLE S JOCELYN GOODWIN [address] [place] [address] documented in this encounter Visit Diagnoses Not on filedocumented in this encounter
--- OUTSIDE RECORDS SUMMARY | 2024-04-25 16:12 | XMS_ITS | Encounter Summary ---
Author Organization [facility] Address [address] [place] [address] Care Team Providers Care Grocery Department Manager Name Role Phone Susana Mesa KAMRYN Primary Care Provider [phone] [phone] Reason for Visit * Reason Comments Follow-up RA; has some pain of a level 3 in her feet. Higher a the end of the day. Encounter Details Date Type Department Care Team (Late st Contact Info) Description 04/26/2020 15:15 EDT Office Visit [facility] Rheumatology [address] [place] [address] Rosina Manuel MD [address] [facility] [address] [place] [phone] Rheumatoid arthritis involving multiple sites with positive rheumatoid factor ([facility]) (Primary Dx); Encounter for long-term (current) use [...] 3 months Call if problems Labs today [facility] Patient Instructions etanercept Pronunciation: ee BATISTA er [...] may report side effects to FDA at 0-372-MMA-4550. What other drugs will affect etanercept? Tell your doctor about all your other medicines, especially: ?? abatacept (Orencia); ?? anakinra (Kineret); ?? cyclophosphamide (Cytoxan); or ?? insulin or oral diabetes medicine. This list is not complete. Other drugs may affect etanercept, including prescription and [id number] medicines, vitamins, and herbal products. Not all [...] to ensure that the information provided by [employer] ('[employer]') is accurate, up-to-date, and complete, but no guarantee is made to that effect. Drug information contained herein may be time sensitive. [employer] information has been compiled for use by healthcare practitioners and consumers in the [place] and therefore [employer] does not warrant that uses outside of the [place] are appropriate, unless specifically indicated otherwise. [employer] drug information does not endorse drugs, diagnose patients or recommend therapy. [employer] drug information isan informational resource designed to [...] effective or appropriate for any given patient. [employer] does not assume any responsibility for any aspect of healthcare administered with the aid of information [employer] provides. The information contained herein is not intended to cover all possible uses, directions, precautions, warnings, drug interactions, allergic reactions, or adverse effects. If you have questions about the drugs you are taking, check with your doctor, nurse or pharmacist. Copyright 3402-5614 [employer]. Version: 17.01. Revision date: 07/28/2019. Care instructions adapted under license by [facility]. If you have questions about a medical condition or this instruction, always ask your healthcare professional. [employer] disclaims any warranty or liability for your use of this information. documented in this encounter Progress Notes * Rosina Manuel MD - 04/26/2020 8785 EDT Division of Rheumatology and Clinical Immunology [...] 08/21/2019 ??? Rheumatoid arthritis ([facility]) ??? Rheumatoid arthritis involving multiple sites with positive rheumatoid factor ([facility]) 08/21/2019 ??? Ulcerated leg varices, left (HCC-CMS) [...] Telemedicine [facility] Rheumatology [address] [place] [address] Rosina Manuel MD 130 [facility] [address] [place] [address] documented as of this encounter Procedures Procedure Name Priority Date/Time Associated Diagnosis Comments COMPLETE BLOOD COUNT WITH DIFFERENTIAL (AUTO) Routine 04/26/2020 16:15 EDT Rheumatoid arthritis involving multiple sites with positive rheumatoid factor ([facility]) C REACTIVE PROTEIN Routine 04/26/2020 16 :15 EDT Rheumatoid arthritis involving multiple sites with positive rheumatoid factor ([facility]) COMPREHENSIVE METABOLIC PANEL (CMP) Routine 04/26/2020 16:15 EDT Rheumatoid arthritis involving multiple sites with positive rheumatoid factor ([facility]) documented in this encounter Results * C REACTIVE PROTEIN (04/26/2020 16:15 EDT) C-Reactive Protein 8.9 <10.0 mg/L 04/26/2020 17:50 EDT [facility] 04/26/2020 16:1 5 EDT 04/26/2020 16:15 EDT Rosina Manuel MD CHEMISTRY & BLOO D GAS ORDERABLES [facility] [address] [place] [address] * (ABNORMAL) COMPREHENSIVE METABOLIC PANEL (CMP) (04/26/2020 16:15 EDT) Albumin % 4.2 3.4 - 4.9 g/dL 04/26/2020 17:50 [facility] ALKALINE PHOSPHATASE - [facility] 78 38 - 126 U/L 04/26/2020 17:50 [facility] BILIRUBIN TOTAL 0.6 0.2 - 1.3 mg/dL 04/26/2020 17:50 [facility] BUN - [facility] 18 10 - 26 mg/dL 04/26/2020 17:50 [facility] CALCIUM - [facility] 9.2 8.5 - 10.5 mg/dL 04/26/2020 17:50 [facility] Chloride 99 96 - 110 mmol/L 04/26/2020 17:50 [facility] CO2 Total 35(H) 22 - 32 mEq/L 04/26/2020 17:50 [facility] CREATININE 0.70 0.52 - 1.04 mg/dL 04/26/2020 17:50 [facility] eGFR >60 04/26/2020 17:50 [facility] Comment: Chronic renal impairment is defined as GFR <60 Multiply result by 1.210 for patients. eGFR calculated using the IDMS-traceable MDRD Study Equation. ??(effective 05/07/2014) Anion Gap 7 0 - 18 04/26/2020 17:50 [facility] GLUCOSE - [facility] 102(H) 70 - 100 mg/dL 04/26/2020 17:50 [facility] Potassium 3.6 3.5 - 5.0 mEq/L 04/26/2020 17:50 [facility] Sodium 141 136 - 145 mEq/L 04/26/2020 17:50 [facility] TOTAL PROTEIN - [facility] 7.1 6.2 - 8.2 gm/dL 04/26/2020 17:50 [facility] SGOT/AST - [facility] 23 14 - 36 U/L 04/26/2020 17:50 [facility] SGPT/ALT - [facility] 16 0 - 35 U/L 0 17:50 [facility] 04/26/2020 16:1 5 EDT 04/26/2020 16:15 EDT Rosina Manuel MD CHEMISTRY & BLOO D GAS ORDERABLES [facility] [address] [place] [address] * COMPLETE BLOOD COUNT WITH DIFFERENTIAL (AUTO) (04/26/2020 16:15 EDT) Gran # 3.7 2.2 - 8.85 10e3/uL 04/26/2020 16:44 EDT [facility] BASO # - [facility] 0.04 0.01 - 0.11 10e/uL 04/26/2020 16:44 EDT [facility] BASO % - [facility] 1 0 - 2 % 04/26/2020 16:44 EDT [facility] EOS # - [facility] 0.14 0.03 - 0.61 10e3/ul 04/26/2020 16:44 EDT [facility] EOS % - [facility] 2 0 - 5 % 04/26/2020 16:44 EDT [facility] GRAN % - [facility] 56.0 40 - 80 % 04/26/2020 16:44 EDT [facility] HEMATOCRIT - [facility] 39.4 34.9 - 44.4 % 04/26/2020 16:44 T [facility] HEMOGLOBIN - [facility] 12.9 11.6 - 15.2 g/dl 04/26/2020 16:44 EDT [facility] IG# - [facility] 0.03 0 - 0.7 10e3/uL 04/26/2020 16:44 EDT [facility] IG% - [facility] 0.5 0 - 0.9 % 04/26/2020 16:44 EDT [facility] LYMPH # - [facility] 1.9 1.09 - 3.3 10e3/ul 04/26/2020 16:44 EDT [facility] LYMPH% - [facility] 28.8 20 - 40 % 04/26/2020 16:44 EDT [facility] MEAN CORPUSCULAR HGB - [facility] 27.8 26.7 - 33.3 pg 04/26/2020 16:44 [facility] MEAN CORPUSCULAR HGB CONC - [facility] 32.7 32.1 - 35.9 g/dL 04/26/2020 16:44 [facility] MEAN CELL VOLUME - [facility] 84.9 81 - 98 fl 04/26/2020 16:44 [facility] MONO # - [facility] 0.8 0.1 - 0.8 10e3/uL 04/26/2020 16:44 [facility] MONO% - [facility] 12.0 0 - 12 % 04/26/2020 16:44 [facility] PLATELET COUNT 280 141 - 377 10e3/ul 04/26/2020 16:44 [facility] RED BLOOD COUNT - [facility] 4.64 3.86 - 5.04 10e3/ul 04/26/2020 16:44 [facility] RED CELL DISTRI WIDTH - [facility] 13.2 <14.7 % 04/26/2020 16:44 [facility] WHITE BLOOD COUNT - [facility] 6.6 4.0 - 12.4 10e3/ul 04/26/2020 16:44 [facility] 04/26/2020 16:1 5 EDT 04/26/2020 16:15 EDT Rosina Manuel MD HEMATOLOGY & PF4 ORDERABLES Performing Organization Address City/State/[facility] Co de Phone Number [facility] [address] [place] [address] documented in this encounter Visit Diagnoses Diagnosis Rheumatoid arthritis involving multiple sites with positive rheumatoid factor ([facility])- Primary Encounter for long-term (current) use of medications Encounter for long-term (current) use of other medications documented in this encounter Care Teams Grocery Department Manager Relationship Specialty Start Date End Date Susana Mesa APRN [facility] [address] [place] [address] PCP - General 08/21/19 documented as of this encounter
--- OUTSIDE RECORDS SUMMARY | 2024-04-25 16:12 | XMS_ITS | Encounter Summary ---
Author Organization [facility] Address [address] [place] [address] Care Team Providers Care Equity Research Associate Name Role Phone Susana Mesa APRN Primary Care Provider [phone] Reason for Visit * Reason Comments Other Encounter Details Date Type Department Care Team (Late st Contact Info) Description 12/09/[address] [facility] Rheumatology [address] [place] [address] Rosina Manuel MD [address] [place] [address] [address] [place] [address] Other Social History Tobacco Use [...] Telemedicine [facility] Rheumatology [address] [place] [address] Rosina Manuel MD [address] [place], [place] [address]B [facility] [address] [place] [address] documented as of this encounter Visit Diagnoses Not on filedocumented in this encounter Care Teams Equity Research Associate Relationship Specialty Start Date End Date Susana Mesa APRN [address],B [address] [place] [phone] PCP - General 08/21/19 documented as of this encounter
--- OUTSIDE RECORDS SUMMARY | 2024-04-25 16:12 | XMS_ITS | Encounter Summary ---
Author Organization [facility] Address [address] [place] [address] Care Team Providers Care Devulcanizer Loader Name Role Phone Unavailable Primary Care Provider Unavailabl e Encounter Details Date Type Department Care Team (Late st Contact Info) Description 09/22/2010 Results Only [facility] Laboratory Services - [facility] ([facility]) [address] [place] [phone] Yessenia Vásquez FNP [address] [place] [address] Social History Tobacco Use Types [...] 10:15 EST Telemedicine [facility] Rhe[facility]ology [address] [place], [place] [address] Rosina Manuel MD 130 [facility] [address] [place] [phone] documented as of this encounter Procedures Procedure [...] ? CHARLINE RALPH ? Accession #: ? [id number] ? : ? 1965 (Age: 45) ??F ?Collect Date: ? 09/22/2010 ? Location: ? [facility] ? Receive Date: ? 09/26/2010 ? Provider: ?YESSENIA VÁSQUEZ BOARDER STEAM ? Copy to: ? Specimen/Source: ?Pap Test, [...] Yessenia JOHNSTON PATHOLOGY ORDERABLES JOCELYN GOODWIN [address] [place] [address] documented in this encounter Visit Diagnoses Not on filedocumented in this encounter
== END 2024-04-25 16:07 | disposition home or self-care (01) ==
LOC: NCHCN 16:06
PROVIDERS: PCP Nurse Practitioner Family; Visit Provider Nurse Practitioner Family
DX: M05.9 Rheumatoid arthritis with rheumatoid factor, unspecified (principal)
CPT/HCPCS: 80053; 85652; 86140

== ENCOUNTER 2024-10-27 09:54 | Outpatient (REF) | payer BC, SELFPAY ==
[2024-10-27 14:26] LABS: ESR 5 mm/hr (0-30)
[2024-10-27 14:27] LABS: Abs Immature Grans 0.01 10^3/uL (0.0-0.06); Absolute Basophil Count 0.05 10^3/uL (0.0-0.2); Absolute Eosinophil Count 0.17 10^3/uL (0.0-0.7); Absolute Lymphocyte Count 1.63 10^3/uL (1.2-3.4); Absolute Monocyte Count 0.68 10^3/uL (0.1-0.8); Absolute Neutrophil Count 3.15 10^3/uL (1.2-6.7); Basophils % 0.9 %; HCT 41.9 % (36.0-46.0); Immature Grans % 0.2 %; Lymphocytes % 28.6 %; MCH 29.4 pg (27.0-33.0); MCHC 33.4 % (32.0-36.0); MCV 88 fL (80-95); MPV 9.9 fL (8.0-11.0); Neutrophils % 55.3 %; Platelet Count 274 10^3/uL (130-400); RBC 4.77 10^6/uL (3.93-5.22); RDW 14.1 % (11.7-14.6); RDW-SD 44.1 fL; WBC 5.69 10^3/uL (4.4-10.8)
[2024-10-27 14:31] LABS: Bilirubin Negative (Negative); Blood Negative (Negative); Clarity Sl Cloudy (Clear); Glucose Negative (Negative); Ketones Negative (Negative); Leukocyte Esterase Moderate (Negative); Nitrite Negative (Negative); Urobilinogen 0.2 mg/dL (Up to 0.2); pH 7.5 (5-8)
[2024-10-27 14:37] LABS: ALT 24 U/L (14-59); AST 17 U/L (15-37); Albumin 3.8 g/dL (3.4-5.0); Alkaline Phosphatase 88 U/L (46-116); Anion Gap 7.3 mmol/L (3-11); BUN 19 mg/dL (7-18); Bilirubin, Total 0.4 mg/dL (0.2-1.0); C-Reactive Protein < 0.50 mg/dL (<or=0.5); CO2 30.7 mmol/L (21.0-32.0); CREATININE 0.8 mg/dL (0.55-1.02); Calcium 9.3 mg/dL (8.5-10.1); Chloride 105 mmol/L (98-107); Estimated GFR 83.78 (mL/min/1.73m2); Glucose 92 mg/dL (74-106); Potassium 3.9 mmol/L (3.5-5.1); Sodium 143 mmol/L (136-145)
[2024-10-27 14:43] LABS: Bacteria Few HPF (Negative); Epithelial Cells Few HPF (Negative); Other Cells Rare Transitional (Negative); RBC 0-2 HPF (0-2); WBC 0-2 HPF (0-5)
[2024-10-27 14:44] LABS: C & S Indicated? No; Casts Negative LPF (Negative); Crystals Negative HPF (Negative); Mucus Negative (Negative)
[2024-10-27 15:09] LABS: COMMENT (LAB VIEW ONLY) 89.33 mg/dL; Microalb ug/mg Crea 10.2 ug/mg Cr
== END 2024-10-27 09:55 | disposition home or self-care (01) ==
LOC: NCHCN 09:54
PROVIDERS: PCP Nurse Practitioner Family; Visit Provider Nurse Practitioner Family
DX: R31.21 Asymptomatic microscopic hematuria (principal); I10 Essential (primary) hypertension; M05.9 Rheumatoid arthritis with rheumatoid factor, unspecified
CPT/HCPCS: 80053; 85652; 81003; 81015; 82043; 82570; 85025; 86140

== ENCOUNTER 2024-12-12 01:06 | Outpatient (CLI) | payer BC, SELFPAY ==
--- NOTE | 2024-12-12 | DI.DEXA_ITS ---
Exam(s) XR DEXA BONE DENSITY W/WO VU EXAM: XR DEXA BONE DENSITY W/WO VU CLINICAL HISTORY: Z78.0 Postmenopausal TECHNIQUE: COMPARISON: No exams were available for comparison FINDINGS: Lateral Spine Image: Unremarkable. No compression deformities identified. Left hip: Total T-Score: 0.1 Total Z-Score: 1.2 T- and Z-scores: There is no evidence of osteoporosis. Lumbar Spine: Total T-Score: 0.1 Total Z-Score: 1.6 T- and Z-scores: Within normal limits. IMPRESSION: No evidence of osteoporosis.
== END 2024-12-12 01:26 ==
PROVIDERS: PCP Nurse Practitioner Family; Visit Provider Internal Medicine Rheumatology
DX: Z78.0 Asymptomatic menopausal state (principal); Z13.820 Encounter for screening for osteoporosis
CPT/HCPCS: 77080

== ENCOUNTER 2025-04-23 10:17 | Outpatient (REF) | payer BC, SELFPAY ==
[2025-04-23 15:02] LABS: Abs Immature Grans 0.02 10^3/uL (0.0-0.06); ESR 7 mm/hr (0-30); HCT 43.0 % (36.0-46.0); HGB 14.4 g/dL (11.2-15.7); Immature Grans % 0.3 %; MCH 29.3 pg (27.0-33.0); MCHC 33.5 % (32.0-36.0); MCV 87 fL (80-95); MPV 9.6 fL (8.0-11.0); Platelet Count 305 10^3/uL (130-400); RBC 4.92 10^6/uL (3.93-5.22); RDW 14.0 % (11.7-14.6); RDW-SD 43.9 fL; WBC 5.84 10^3/uL (4.4-10.8)
[2025-04-23 15:13] LABS: ALT 24 U/L (14-59); AST 21 U/L (15-37); Albumin 3.8 g/dL (3.4-5.0); Alkaline Phosphatase 89 U/L (46-116); Anion Gap 6.2 mmol/L (3-11); BUN 13 mg/dL (7-18); Bilirubin, Total 0.4 mg/dL (0.2-1.0); CO2 31.8 mmol/L (21.0-32.0); Calcium 8.9 mg/dL (8.5-10.1); Chloride 102 mmol/L (98-107); Estimated GFR 97.72 (mL/min/1.73m2); Glucose 110 mg/dL (74-106); Potassium 4.1 mmol/L (3.5-5.1); Sodium 140 mmol/L (136-145); Total Protein 7.3 g/dL (6.4-8.2)
[2025-04-23 15:14] LABS: C-Reactive Protein < 0.50 mg/dL (<or=0.5)
== END 2025-04-23 10:18 | disposition home or self-care (01) ==
LOC: NCHCN 10:17
PROVIDERS: PCP Nurse Practitioner Family; Visit Provider Nurse Practitioner Family
DX: M05.9 Rheumatoid arthritis with rheumatoid factor, unspecified (principal)
CPT/HCPCS: 80053; 85652; 85025; 86140

== ENCOUNTER → 2025-06-25 00:56 | Outpatient (CLI) | payer BC, SELFPAY ==
--- NOTE | 2025-06-25 | DI.MAMMO_ITS ---
Exam(s) MAMMO SCREENING EXAM: MAMMO SCREENING CLINICAL HISTORY: SCREENING, FAMILY H/O BREAST CA,Z80.3 TECHNIQUE: Bilateral full field digital CC and MLO mammographic images were obtained with 3D tomosynthesis and utilizing computer aided detection (CAD). COMPARISON: Comparison is made with prior examinations. FINDINGS: Masses/Architectural Distortion: No suspicious masses or areas of architectural distortion are present. There has been interval development of an ovoid density in the upper-outer left breast. A spot compression views requested. Ultrasound may be indicated at that time. Microcalcifications: No suspicious pleomorphic-type are seen. Skin Thickening/Nipple Retraction: None. IMPRESSION: 1. Ovoid density in the upper outer quadrant of the left breast. 2. Spot compression views requested. Ultrasound may be can't it at that time. BI-RADS Category 0 - Incomplete: Need additional imaging evaluation Breast Density - Category B - There are scattered areas of fibroglandular density. Breast density Category C or D implies that the patient has dense breast tissue. Dense breast tissue can make it harder to find cancer on a mammogram. Dense breast tissue is also associated with an increased risk of breast cancer. This information about the result of the mammogram report was provided to the patient to raise their awareness. Use this report when you speak with the patient about their risks for breast cancer, which includes their family history. At that time, you may recommend additional screening tests (Ultrasound or MRI) as these tests may add significant information. A negative radiographic report should not delay biopsy if a dominant or clinically suspicious mass is present. Up to ten percent of cancers are not identified on mammography. A negative report may reinforce clinical impression. Adenosis and dense breasts may obscure an underlying neoplasm. False positive reports average 6 to 10%. Patient will receive a letter notifying them of these results.
== END ==
PROVIDERS: PCP Nurse Practitioner Family; Visit Provider Nurse Practitioner Family
DX: Z12.31 Encounter for screening mammogram for malignant neoplasm of breast (principal); Z80.3 Family history of malignant neoplasm of breast
CPT/HCPCS: 77063; 77067

== ENCOUNTER → 2025-06-29 00:03 | Outpatient (CLI) | payer BC, SELFPAY ==
--- NOTE | 2025-06-29 | DI.US_ITS ---
Exam(s) MG MAMMO SCREEN CALL BACK UNI US BREAST LT COMPLETE EXAM: MG MAMMO SCREEN CALL BACK UNI LEFT AND COMPLETE LEFT BREAST ULTRASOUND CLINICAL HISTORY: R92.8 Abn mammo, ovoid density upper-outer left breast. TECHNIQUE: Unilateral spot mammographic images obtained with 3D tomosynthesisand utilizing computer aided detection (CAD). . Complete left breast Ultrasound was also performed, including all 4 quadrants, the retroareolar region, and the ipsilateral axilla. COMPARISON: Prior mammograms were reviewed. This additional imaging was performed due to findings described on the recent screening mammogram of 06/25/2025. FINDINGS: DIAGNOSTIC MAMMOGRAM: Additional mammographic views performed todayrender this area less concerning. COMPLETE LEFT BREAST ULTRASOUND: Ultrasound performed today reveals 2 adjacent benign-appearing lymph nodes in left axillary tail which most probably corresponds to the finding on the mammogram. There are no solid or significant cystic lesions in all 4 quadrants. No findings in the retroareolar region.. Scanning of the ipsilateral axilla reveals no significant adenopathy. IMPRESSION: 1. Benign appearing left upper quadrant findings in the left breast as described above. 2. Appropriate follow-up as discussed by myself with the patient today is repeat left breast mammogram and ultrasound in 6 months, with earlier imaging if a self detected breast change is noted. The patient was informed of these findings and recommendations by myself prior to leaving the department today. BI-RADS Category 3 - 6 month - Probably Benign Finding: Recommend follow-up mammography in 6 months Breast Density - Category B - There are scattered areas of fibroglandular density. Breast density Category C or D implies that the patient has dense breast tissue. Dense breast tissue can make it harder to find cancer on a mammogram. Dense breast tissue is also associated with an increased risk of breast cancer. This information about the result of the mammogram report was provided to the patient to raise their awareness. Use this report when you speak with the patient about their risks for breast cancer, which includes their family history. At that time, you may recommend additional screening tests (Ultrasound or MRI) as these tests may add significant information. A negative radiographic report should not delay biopsy if a dominant or clinically suspicious mass is present. Up to ten percent of cancers are not identified on mammography. A negative report may reinforce clinical impression. Adenosis and dense breasts may obscure an underlying neoplasm. False positive reports average 6 to 10%. Patient will receive a letter notifying them of these results.
== END ==
LOC: DI 00:03
PROVIDERS: PCP Nurse Practitioner Family; Visit Provider Nurse Practitioner Family
DX: Z12.31 Encounter for screening mammogram for malignant neoplasm of breast (principal); R92.8 Other abnormal and inconclusive findings on diagnostic imaging of breast
CPT/HCPCS: 76642; 77063; 77067